=== PATIENT | male | born 1950 | race Caucasian/White ===

== ENCOUNTER → 2018-01-29 14:30 | Outpatient (CLI) | payer MEDICARE, BC, SELFPAY | PROVIDERS: PCP Nurse Practitioner Family; Visit Provider Internal Medicine Interventional Cardiology | DX: I48.91 Unspecified atrial fibrillation (principal); Z86.73 Personal history of transient ischemic attack (TIA), and cerebral infarction without residual deficits; R00.1 Bradycardia, unspecified; Z79.01 Long term (current) use of anticoagulants; I47.2 Ventricular tachycardia; R55 Syncope and collapse; I10 Essential (primary) hypertension; G47.30 Sleep apnea, unspecified; R07.9 Chest pain, unspecified | CPT/HCPCS: 99213 ==

== ENCOUNTER → 2018-02-07 14:00 | Outpatient (CLI) | payer MEDICARE, BC, SELFPAY | PROVIDERS: PCP Nurse Practitioner Family; Visit Provider Psychiatry & Neurology Neurology | DX: I69.398 Other sequelae of cerebral infarction (principal); R53.83 Other fatigue; I69.311 Memory deficit following cerebral infarction; I48.0 Paroxysmal atrial fibrillation | CPT/HCPCS: 99214 ==

== ENCOUNTER → 2018-03-19 12:17 | Outpatient (BNVA) | payer MEDICARE, BC, SELFPAY | PROVIDERS: Visit Provider Internal Medicine Interventional Cardiology | DX: I48.91 Unspecified atrial fibrillation (principal); R00.1 Bradycardia, unspecified; R55 Syncope and collapse; I63.9 Cerebral infarction, unspecified; I47.2 Ventricular tachycardia; R07.89 Other chest pain; R53.83 Other fatigue; Z79.01 Long term (current) use of anticoagulants; I10 Essential (primary) hypertension | CPT/HCPCS: 99213 ==

== ENCOUNTER → 2018-03-19 14:28 | Outpatient (BNVA) | payer MEDICARE, BC, SELFPAY | PROVIDERS: Visit Provider Surgery | DX: Z12.11 Encounter for screening for malignant neoplasm of colon (principal); I10 Essential (primary) hypertension ==

== ENCOUNTER 2018-04-17 08:00 | Day surgery (SDC) | payer MEDICARE, BC, SELFPAY ==
[2018-04-17 08:10] VITALS: BP 121/70; PULSE 63; RESP 16; TEMP 35.5; O2SAT 97
[2018-04-17] MEDS: Lactated Ringers 1,000 ML 30 ML IV (08:51)
[2018-04-17 12:00] VITALS: BP 116/70; PULSE 63; RESP 18; TEMP 35.9; O2SAT 98
--- NOTE | 2018-04-17 14:38 | W.COLOREPORT ---
Date of service: 04/17/18 Time of Service: 11:00 Colonoscopy Report Date of procedure: 04/17/18 Pre-op diagnosis general: Colorectal cancer risk Post-op diagnosis procedure note: other (Mild sigmoid diverticulosis) Procedure: Colonoscopy to the cecum Anesthesia proc note operative: MAC (Trey Greer CRNA; ASA 2, Mallampati class II) Estimated blood loss (mL): 0 Pathology: none sent Complications: None Disposition: same day Indications: 67-year-old gentleman presenting for colorectal cancer screening by colonoscopy. His last colonoscopy was over 10 years ago, but was unremarkable at that time. He has been asymptomatic since his last colonoscopy. He has no known family history of colorectal cancer. The colonoscopy procedure was reviewed with him and the risks of the procedure were discussed with Mr. Ye. All his questions were answered to his satisfaction. Prep: Miralax/Dulcolax Procedure Start Time: 11:04 Procedure End Time: 11:20 Retraction Time: 9 minutes Findings: In examining the colon from cecum to anus, the patient was noted to have some mild sigmoid diverticulosis but no other abnormalities of the colon, rectum, and anorectal junction, were noted. Procedure Description: The patient was seen in the day surgery waiting area. His identification was confirmed, and procedure check. He was then brought to the procedure room. Monitoring for telemetry, blood pressure, oxygen saturation, and end tidal CO2 monitoring were applied. An appropriate time out was performed to confirm, identification, allergies, medication, procedure, was performed. Sedation was titrated for affect by the ADMISSIONS ASSISTANT; Once adequate sedation was achieved, I performed a inspection of the external perineum, and a digitial rectal examination. No significant external abnormalities were noted. On digital rectal examination, there was no blood, no masses, good rectal tone, and a normal prostate. I advanced the colonoscope from the anus to the cecum under direct visualization. The cecum was identified by the ileal-cecal valve, and the appendiceal orifice. The scope was then withdrawn in circumferential manner from the cecum to the rectum. The patient was noted to have some mild sigmoid diverticulosis but no other abnormalities were noted of the colon. The scope was then withdrawn into the rectum, and retroflexed. No abnormalities were noted of the rectum or anorectal junction. The scope was then withdrawn, terminating the procedure. There were no complications during the procedure, and the patient tolerated the procedure well. He was returned to the day surgery recovery area in good condition. Plan: Will continue with routine screening for colorectal cancer according to current consensus guidelines, which is currently 10 years.
--- NOTE | 2018-04-17 14:47 | COLE_ITS ---
Date of service: 04/17/18 Time of Service: 11:00 Colonoscopy Report Date of procedure: 04/17/18 Pre-op diagnosis general: Colorectal cancer risk Post-op diagnosis procedure note: other (Mild sigmoid diverticulosis) Procedure: Colonoscopy to the cecum Anesthesia proc note operative: MAC (Trey Greer CRNA; ASA 2, Mallampati class II) Estimated blood loss (mL): 0 Pathology: none sent Complications: None Disposition: same day Indications: 67-year-old gentleman presenting for colorectal cancer screening by colonoscopy. His last colonoscopy was over 10 years ago, but was unremarkable at that time. He has been asymptomatic since his last colonoscopy. He has no known family history of colorectal cancer. The colonoscopy procedure was reviewed with him and the risks of the procedure were discussed with Mr. Ye. All his questions were answered to his satisfaction. Prep: Miralax/Dulcolax Procedure Start Time: 11:04 Procedure End Time: 11:20 Retraction Time: 9 minutes Findings: In examining the colon from cecum to anus, the patient was noted to have some mild sigmoid diverticulosis but no other abnormalities of the colon, rectum, and anorectal junction, were noted. Procedure Description: The patient was seen in the day surgery waiting area. His identification was confirmed, and procedure check. He was then brought to the procedure room. Monitoring for telemetry, blood pressure, oxygen saturation , and end tidal CO2 monitoring were applied. An appropriate time out was performed to confirm, identification, allergies, medication, procedure, was performed. Sedation was titrated for affect by the AUTO CUSTOMIZE PAINTER; Once adequate sedation was achieved, I performed a inspection of the external perineum, and a digitial rectal examination. No significant external abnormalities were noted. On digital rectal examination, there was no blood, no masses, good rectal tone, and a normal prostate. I advanced the colonoscope from the anus to the cecum under direct visualization. The cecum was identified by the ileal-cecal valve, and the appendiceal orifice. The scope was then withdrawn in circumferential manner from the cecum to the rectum. The patient was noted to have some mild sigmoid diverticulosis but no other abnormalities were noted of the colon. The scope was then withdrawn into the rectum, and retroflexed. No abnormalities were noted of the rectum or anorectal junction. The scope was then withdrawn, terminating the procedure. There were no complications during the procedure, and the patient tolerated the procedure well. He was returned to the day surgery recovery area in good condition. Plan: Will continue with routine screening for colorectal cancer according to current consensus guidelines, which is currently 10 years.
--- NOTE | 2018-04-17 14:51 | PDOC.DSDIS_ITS ---
Discharge Plan Disposition Patient Disposition: HOME Condition: Good Discharge Details Reason For Visit: colorectal cancer screen Attending Provider: Nico Montiel Primary Care Provider: Elisa Garner Home Meds and New Rx's Prescriptions: Continue aspirin 81 MG tablet,chewable 81 mg PO DAILY RF: 0 lisinopril 30 MG tablet 30 mg PO DAILY Qty: 90 RF: 4 atorvastatin 40 MG tablet 40 mg PO DAILY RF: 0 apixaban [Eliquis] 5 MG tablet 5 mg PO BID 90 Days Qty: 90 RF: 3 carvedilol 6.25 mg tablet 12.5 mg PO BID Qty: 120 RF: 11 Discharge Instructions Instructions: Colonoscopy (DC) Stand Alone Forms: Colonoscopy Post Instructions, Valeriano Rosenthal (DSU) Activity:: Activity as Tolerated Diet:: As Tolerated Discharge Orders Discharge Orders: Discharge Order (Routine); Ordered 04/17/18 Ordered By: Nico Montiel Discharge Data Discharge Date/Time-TO BE ENTERED AT DEPARTURE: 04/17/18 12:15 Discharge Comment: Start Luna gurrola DS: Diagnosis Discharge Diagnosis (1) Encounter for colorectal cancer screening: Start date: 04/17/18 Start time: 11:00 Status: Acute Asessment and Plan: Colonoscopy performed: Colonoscopy Report Date of procedure: 04/17/18 Pre-op diagnosis general: Colorectal cancer risk Post-op diagnosis procedure note: other (Mild sigmoid diverticulosis) Procedure: Colonoscopy to the cecum Anesthesia proc note operative: MAC (Trey Greer CRNA; ASA 2, Mallampati class II) Estimated blood loss (mL): 0 Pathology: none sent Complications: None Disposition: same day Indications: 67-year-old gentleman presenting for colorectal cancer screening by colonoscopy. His last colonoscopy was over 10 years ago, but was unremarkable at that time. He has been asymptomatic since his last colonoscopy. He has no known family history of colorectal cancer. The colonoscopy procedure was reviewed with him and the risks of the procedure were discussed with Mr. Ye. All his questions were answered to his satisfaction. Prep: Miralax/Dulcolax Procedure Start Time: 11:04 Procedure End Time: 11:20 Retraction Time: 9 minutes Findings: In examining the colon from cecum to anus, the patient was noted to have some mild sigmoid diverticulosis but no other abnormalities of the colon, rectum, and anorectal junction, were noted. Procedure Description: The patient was seen in the day surgery waiting area. His identification was confirmed, and procedure check. He was then brought to the procedure room. Monitoring for telemetry, blood pressure, oxygen saturation , and end tidal CO2 monitoring were applied. An appropriate time out was performed to confirm, identification, allergies, medication, procedure, was performed. Sedation was titrated for affect by the COSMETOLOGY PROFESSOR; Once adequate sedation was achieved, I performed a inspection of the external perineum, and a digitial rectal examination. No significant external abnormalities were noted. On digital rectal examination, there was no blood, no masses, good rectal tone, and a normal prostate. I advanced the colonoscope from the anus to the cecum under direct visualization. The cecum was identified by the ileal-cecal valve, and the appendiceal orifice. The scope was then withdrawn in circumferential manner from the cecum to the rectum. The patient was noted to have some mild sigmoid diverticulosis but no other abnormalities were noted of the colon. The scope was then withdrawn into the rectum, and retroflexed. No abnormalities were noted of the rectum or anorectal junction. The scope was then withdrawn, terminating the procedure. There were no complications during the procedure, and the patient tolerated the procedure well. He was returned to the day surgery recovery area in good condition. Plan: Will continue with routine screening for colorectal cancer according to current consensus guidelines, which is currently 10 years.
== END 2018-04-17 12:15 | disposition home or self-care (01) ==
PROVIDERS: PCP Nurse Practitioner Family; Visit Provider Surgery
PROC: 0DJD8ZZ Inspection of Lower Intestinal Tract, Via Natural or Artificial Opening Endoscopic (ICD-10-PCS; CPT 45378; principal; 2018-04-17 10:30)
DX: Z12.11 Encounter for screening for malignant neoplasm of colon (principal); K57.30 Diverticulosis of large intestine without perforation or abscess without bleeding; G47.33 Obstructive sleep apnea (adult) (pediatric); I10 Essential (primary) hypertension; F17.210 Nicotine dependence, cigarettes, uncomplicated
CPT/HCPCS: G0121

== ENCOUNTER 2018-04-19 07:55 | Emergency (ER) | payer MEDICARE, BC, SELFPAY ==
[2018-04-19 08:35] VITALS: BP 134/62; PULSE 58; RESP 12; TEMP 36.4; O2SAT 98
--- NOTE | 2018-04-19 09:24 | ED.GENADUL_ITS ---
Discharge Plan Disposition Patient Disposition: HOME Discharge Details Chief Complaint: Laceration Clinical Impression: Facial laceration Primary Care Provider: Elisa Garner ED Provider: Kelvin Bowman Home Meds and New Rx's Prescriptions: Continue aspirin 81 MG tablet,chewable 81 mg PO DAILY RF: 0 lisinopril 30 MG tablet 30 mg PO DAILY Qty: 90 RF: 4 atorvastatin 40 MG tablet 40 mg PO DAILY RF: 0 apixaban [Eliquis] 5 MG tablet 5 mg PO BID 90 Days Qty: 90 RF: 3 carvedilol 6.25 mg tablet 12.5 mg PO BID Qty: 120 RF: 11 Discharge Instructions Instructions: Skin Adhesive Care (ED), Facial Laceration (ED) Referrals: Elisa Garner [Primary Care Provider] - Discharge Data Discharge Date/Time-TO BE ENTERED AT DEPARTURE: 04/19/18 09:44 Medical Decision Making 67-year-old male on Eliquis for A. fib here with laceration to his left face while shaving, persistent bleeding for the past few hours despite intermittent pressure. Bleeding is now stopped here in the emergency department. Skin adhesive applied to maintain hemostasis. Patient advised to keep area protected. Follow-up with PCP. Return for any worsening or new concerning symptom. HPI General Mode of arrival: ambulatory . Date/Time Provider Initiated Documentation: 04/19/18 09:22 . Limitations to Documentation: no limitations . Information obtained by: patient . HPI Narrative: 67-year-old male on Eliquis for A. fib here with laceration to his left face while shaving, persistent bleeding for the past few hours despite intermittent pressure. Bleeding was light but persistent over the past few hours. Bleeding is now stopped here in the emergency department. Related Data Home Medications Medication Instructions Recorded Confirmed aspirin 81 mg PO DAILY tab-cap 09/11/17 04/19/18 lisinopril 30 mg PO DAILY #90 tab-cap 01/16/18 04/19/18 atorvastatin 40 mg PO DAILY tab-cap 01/29/18 04/19/18 apixaban [Eliquis] 5 mg PO BID 90 Days #90 tab 02/09/18 04/19/18 carvedilol 6.25 mg tablet 12.5 mg PO BID #120 tab-cap 04/13/18 04/19/18 Previous Rx's Medication Instructions Recorded lisinopril 30 mg PO DAILY #90 tab-cap 01/16/18 apixaban [Eliquis] 5 mg PO BID 90 Days #90 tab 02/09/18 carvedilol 6.25 mg tablet 12.5 mg PO BID #120 tab-cap 04/13/18 Allergies Allergy/AdvReac Type Severity Reaction Status Date / Time chlorthalidone Allergy Intermediate HOT SKIN Verified 04/19/18 08:54 RASH,ITCHY General Stated Complaint: Laceration CLAU: 3 Review of Systems Constitutional Denies fatigue Integumentary/Breasts Reports as per HPI Endocrine Denies fatigue Exam Const General: cooperative and no acute distress Skin Trauma: laceration (small left lower face, 1mm with no active bleeding) Neuro General: alert and awake Course Vital Signs Temperature 36.4 C L 04/19/18 08:35 Pulse 58 L 04/19/18 08:35 Respiratory Rate 12 04/19/18 08:35 Blood Pressure 134/62 04/19/18 08:35 Pulse Oximetry 98 04/19/18 08:35 Temperature 36.4 C L 04/19/18 08:35 Temperature Source Temporal Artery Scan 04/19/18 08:35 Pulse 58 L 04/19/18 08:35 Respiratory Rate 12 04/19/18 08:35 Respiratory Effort Non-Labored 04/19/18 08:51 Blood Pressure 134/62 04/19/18 08:35 Blood Pressure Position Supine 04/19/18 08:35 Pulse Oximetry 98 04/19/18 08:35 Pain Level 0 04/19/18 08:35
== END 2018-04-19 09:44 | disposition home or self-care (01) ==
LOC: ER 09:56
PROVIDERS: Emergency Provider Student in an Organized Health Care Education/Training Program; PCP Nurse Practitioner Family
DX: S01.81XA Laceration without foreign body of other part of head, initial encounter (principal); W26.8XXA Contact with other sharp object(s), not elsewhere classified, initial encounter; I48.91 Unspecified atrial fibrillation; Z79.01 Long term (current) use of anticoagulants
CPT/HCPCS: 12011; 90471

== ENCOUNTER → 2018-05-21 10:45 | Outpatient (BNVA) | payer MEDICARE, BC, SELFPAY | PROVIDERS: PCP Nurse Practitioner Family; Referring Provider Nurse Practitioner Family; Visit Provider Surgery | DX: R69 Illness, unspecified (principal) ==

== ENCOUNTER 2018-06-13 06:06 | Day surgery (SDC) | payer OTHER, MEDICARE, BC, SELFPAY ==
[2018-06-13 06:15] VITALS: BP 115/70; PULSE 65; RESP 17; TEMP 36.5; O2SAT 97
[2018-06-13] MEDS: Lactated Ringers 1,000 ML 30 ML IV ×2 (07:14→09:33)
[2018-06-13] MEDS: Bupivacaine 0.5% Pres-Free 30 ML VIAL ×2 (07:25→08:50)
[2018-06-13 09:09] VITALS: BP 133/67; PULSE 61; RESP 16; TEMP 36.4; O2SAT 98
[2018-06-13 09:14] VITALS: BP 148/63; PULSE 61; RESP 17; TEMP 36.4; O2SAT 97
[2018-06-13 09:19] VITALS: BP 137/71; PULSE 59; RESP 15; TEMP 36.4; O2SAT 97
[2018-06-13 09:34] VITALS: BP 157/67; PULSE 60; RESP 16; TEMP 36.5; O2SAT 97
[2018-06-13 10:16] VITALS: BP 134/65; PULSE 60; RESP 16; TEMP 35.9; O2SAT 98
--- NOTE | 2018-06-13 15:43 | W.PM.OP ---
Date of service: 06/13/18 Time of Service: 08:00 Operative Note DATE OF PROCEDURE: 06/13/18 PRE-OP DIAGNOSIS: Umbilical Hernia POST-OP DIAGNOSIS: same PROCEDURE: Open umbilical Herniorhaphy with mesh SURGEON: Nico Montiel SPINNING AND WINDING SUPERVISOR: Elvira Rothman ANESTHESIA: GETA (General Anesthesia via LMA, by Rowan Mauro CRNA, ASA 3, Mallampati class II), regional (Bilateral TAP via u/s with 1.3% exparel, and 0.5% marcaine) and local (0.5% marciane plain) ESTIMATED BLOOD LOSS: 1 PATHOLOGY: none sent COMPLICATIONS: None Patient was transported to: PACU Patient's condition: stable Implants: Ventralex ST Hernia patch 6 cm round Lot #: [id number] Indications: 67-year-old male referred for umbilical hernia that occurred while at work. He reports noticing a sharp pain after lifting several heavy objects at work. He also noticed a bulge of the umbilicus that started after having this pain. He continues to have discomfort with lifting heavy objects, pulling, or pushing heavy objects. Discomfort does improve if he lies flat, and the lump disappears also. It was recommended that he undergo open repair of the umbilical hernia. The procedure was reviewed with him, and the risks of the procedure discussed. All his questions were answered to his satisfaction. He gave consent for open umbilical hernia. Findings: In exploring the abdominal wall around the umbilicus, a small umbilical hernia was identified from the umbilicus and excised at the level of the abdominal wall. It was subsequently repaired with mesh. Procedure Description: The patient was brought to the operating room, and positioned supine. The patient's identification, allergies, medications, procedure, and site were confirmed. An LMA was placed and sedation was titrated for effect by the SOCK MENDER. Once at adequate sedation was obtained, the SOCK MENDER placed bilateral tap blocks under ultrasound guidance (please see separate procedure note for full details). Once the tap block placed, the abdomen was prepped with ChloraPrep block draped in standard sterile fashion. A semi-curvilinear incision was made on the inferior edge of the umbilicus, after local been infiltrated to create a field block. The incision was carried down to the umbilicus using cautery to divide the tissues and obtain hemostasis. Once linea alba was identified at the base of the umbilicus. The abdominal wall was cleaned off for approximately centimeter bilaterally to linea alba. A Metzenbaum scissors was then used to the bluntly dissected circumferentially around the umbilicus, until the tips could be seen on the opposite side. A Christine clamp was then passed posterior to the umbilicus which exposed the posterior surface of the umbilicus and its attachment to the hernia sac. Cautery was then used to separate the posterior umbilicus from the hernia sac. Once the hernia sac was from the overlying umbilicus, the hernia sac contents were reduced into the abdomen the sac was excised at the level of the abdominal wall. A small defect was left in the abdominal wall after removing the hernia sac. This measured about 2 cm in greatest diameter. I selected a ventralex ST hernia patch 6 cm in greatest diameter. Using blunt dissection with my finger, posterior abdominal wall was cleaned cleaned off to allow apposition of the mesh against the abdominal wall. The hernia patch was then passed into the abdomen and pulled up against the posterior abdominal wall using the attached straps. The mesh was adjusted so that circumferentially it was flat against the posterior abdominal wall. The mesh was then sewn in place using 0 Vicryl suture to close the fascial defect and anchored the mesh in place in the midline. The posterior umbilicus was then tacked down to the abdominal wall using 3-0 Vicryl suture. The skin was then closed in layers. The subcutaneous was approximated using 3-0 Vicryl sutures of inverted interrupted stitches. The skin was closed using 4-0 Vicryl suture in a running subcuticular fashion. Benzoin, Steri-Strips, and a dry sterile dressing were then applied. The patient was awakened in the operating room, and brought to postanesthesia care unit in good condition. All counts were reported as correct x2
--- NOTE | 2018-06-13 15:48 | ROE_ITS ---
Date of service: 06/13/18 Time of Service: 08:00 Operative Note DATE OF PROCEDURE: 06/13/18 PRE-OP DIAGNOSIS: Umbilical Hernia POST-OP DIAGNOSIS: same PROCEDURE: Open umbilical Herniorhaphy with mesh SURGEON: Nico Montiel ANCHORER: Elvira Rothman ANESTHESIA: GETA (General Anesthesia via LMA, by Rowan Mauro, DELFINO, ASA 3, Mallam elena class II), regional (Bilateral TAP via u/s with 1.3% exparel, and 0.5% marcaine) and local (0.5% marciane plain) ESTIMATED BLOOD LOSS: 1 PATHOLOGY: none sent COMPLICATIONS: None Patient was transported to: PACU Patient's condition: stable Implants: Ventralex ST Hernia patch 6 cm round Lot #: [id number] Indications: 67-year-old male referred for umbilical hernia that occurred while at work. He reports noticing a sharp pain after lifting several heavy objects at work. He also noticed a bulge of the umbilicus that started after having this pain. He continues to have discomfort with lifting heavy objects, pulling, or pushing heavy objects. Discomfort does improve if he lies flat, and the lump disappears also. It was recommended that he undergo open repair of the umbilical hernia. The procedure was reviewed with him, and the risks of the procedure discussed. All his questions were answered to his satisfaction. He gave consent for open umbilical hernia. Findings: In exploring the abdominal wall around the umbilicus, a small umbilical hernia was identified from the umbilicus and excised at the level of the abdo junior wall. It was subsequently repaired with mesh. Procedure Description: The patient was brought to the operating room, and positioned supine. The patient's identification, allergies, medications, procedure, and site were confirmed. An LMA was placed and sedation was titrated for effect by the CREDIT ADMINISTRATOR. Once at adequate sedation was obtained, the CREDIT ADMINISTRATOR placed bilateral tap blocks under ultrasound guidance (please see separate procedure note for full details). Once the tap block placed, the abdomen was prepped with ChloraPrep block draped in standard sterile fashion. A semi-curvilinear incision was made on the inferior edge of the umbilicus, after local been infiltrated to create a field block. The incision was carried down to the umbilicus using cautery to divide the tissues and obtain hemostasis. Once linea alba was identified at the base of the umbilicus. The abdominal wall was cleaned off for approximately centimeter bilaterally to linea alba. A Metzenbaum scissors was then used to the bluntly dissected circumferentially around the umbilicus, until the tips could be seen on the opposite side. A Christine clamp was then passed posterior to the umbilicus which exposed the posterior surface of the umbilicus and its attachment to the hernia sac. Cautery was then used to separate the posterior umbilicus from the hernia sac. Once the hernia sac was from the overlying umbilicus, the hernia sac contents were reduced into the abdomen the sac was excised at the level of the abdominal wall. A small defect was left in the abdominal wall after removing the hernia sac. This measured about 2 cm in greatest diameter. I selected a ventralex ST hernia patch 6 cm in greatest diameter. Using blunt dissection with my finger, posterior abdominal wall was cleaned cleaned off to allow apposition of the mesh against the abdominal wall. The hernia patch was then passed into the abdomen and pulled up against the posterio r abdominal wall using the attached straps. The mesh was adjusted so that circumferentially it was flat against the posterior abdominal wall. The mesh was then sewn in place using 0 Vicryl suture to close the fascial defect and anchored the mesh in place in the midline. The posterior umbilicus was then tacked down to the abdominal wall using 3-0 Vicryl suture. The skin was then closed in layers. The subcutaneous was approximated using 3-0 Vicryl sutures of inverted interrupted stitches. The skin was closed using 4-0 Vicryl suture in a running subcuticular fashion. Benzoin, Steri-Strips, and a dry sterile dressing were then applied. The patient was awakened in the operating room, and brought to postanesthesia care unit in good condition. All counts were reported as correct x2
--- NOTE | 2018-06-13 16:21 | PDOC.DSDIS_ITS ---
Discharge Plan Disposition Patient Disposition: HOME Condition: Good Discharge Details Reason For Visit: Umbilical Hernia Attending Provider: Nico Montiel Primary Care Provider: Elisa Garner Home Meds and New Rx's Prescriptions: New acetaminophen [Tylenol] 325 mg Tablet 650 mg PO Q4H PRN PRNQty: 30 RF: 0 tramadol 50 mg Tablet 50 mg PO Q6H PRN PRNQty: 7 RF: 0 Continued aspirin 81 MG tablet,chewable 81 mg PO DAILY RF: 0 lisinopril 30 MG tablet 30 mg PO DAILY Qty: 90 RF: 4 atorvastatin 40 MG tablet 40 mg PO DAILY RF: 0 Eliquis 5 MG tablet 5 mg PO BID 90 Days Qty: 90 RF: 3 carvedilol 6.25 mg tablet 12.5 mg PO BID Qty: 120 RF: 11 Discharge Instructions Instructions: Ventral Hernia Repair (DC) Additional Instructions: Dr. Nico Montiel Post-Operative Discharge Instructions 1. Because there will be medication in your system for the next 24 hours, you may feel a little sleepy. Your coordination will be affected. Therefore: * Do not drive or operate dangerous equipment for 24 hours. * Do not drink alcohol beverages for 24 hours (not even beer). * Plan to go home and rest for the day. Restrictions: * Do not lifting, pulling, or pushing over 20lbs for 6 weeks. * No strenuous bending or twisting for 6weeks, if it hurts stop. * No baths, you can shower. Let warm soapy water run over wound, then pat wound dry. Activity: * The day of surgery spend most of the day resting in a comfortable bed or recliner. 2-3 times during the day get up and walk around the house. * The day after surgery, or after your discharge, walk at least 3 times a day and spend increasing amounts of time walking and sitting up. If you are tired rest, but keep moving as able. * Continue Incentive Spirometry at home if you were performing this therapy in the hospital. Diet: * Resume home diet as tolerated. * Start with a light diet, your appetite will improve with time. * Drink at least 4-6 glasses of water per day to keep hydrated. Wound Care: * Removed dressing in 48 hrs, leave steri-strips to fall off. * You may cover the wound with a dry sterile dressing to keep clothing from rubbing against the wound. Continue all your regular medications unless directed otherwise. Call the office or the Hospital Sleep Technician , If you have: * Pain not controlled with pain medication. * Nausea and vomiting. * Temperature greater than 101 degrees Fahrenheit. * Drainage from your wound that soaks through your dressing. *No more than 4000 milligrams of Tylenol in 24 hours. Narcotic pain medication can be constipating, if you have not had a bowel movement within 3 days use a laxative, I recommend Milk of Magnesia (MOM) 1oz. every 6 hrs until you have a bowel movement. I understand the above instructions and have no questions. Signature of Patient or Responsible Adult Escort Date/Time Name of Responsible Adult Escort Signature of Nurse Date/Time Revised 10/11/10 Stand Alone Forms: Anes.Nerve Block Instructions, DSU Post op Instructions, Valeriano Rosenthal (DSU) Referrals: Nico Montiel DO [ [facility] STAFF PHYSICIAN] - 06/27/18 9:30 am (Follow up after open umbilical hernia repair) Activity:: see instruction Remove Dressings/Wound Care:: 48 hours Shower/Bathe:: 48 hours Diet:: As Tolerated Discharge Orders Discharge Orders: Discharge Order (Routine); Ordered 06/13/18 Ordered By: Nico Montiel Discharge Data Discharge Date/Time-TO BE ENTERED AT DEPARTURE: 06/13/18 10:41 DS: Diagnosis Discharge Diagnosis (1) Umbilical hernia: Status: Acute Asessment and Plan: Open umbilical hernia repair with mesh
== END 2018-06-13 10:41 | disposition home or self-care (01) ==
PROVIDERS: PCP Nurse Practitioner Family; Visit Provider Surgery
PROC: (CPT 49585; principal; 2018-06-13 07:30)
DX: K42.9 Umbilical hernia without obstruction or gangrene (principal); I10 Essential (primary) hypertension; G47.33 Obstructive sleep apnea (adult) (pediatric); F17.210 Nicotine dependence, cigarettes, uncomplicated
CPT/HCPCS: 49585; C1781; J0131; J0690; J1100; J2405; J3010

== ENCOUNTER → 2018-06-27 09:31 | Outpatient (BNVA) | payer MEDICARE, BC, SELFPAY | PROVIDERS: PCP Nurse Practitioner Family; Referring Provider Nurse Practitioner Family; Visit Provider Surgery | DX: Z48.89 Encounter for other specified surgical aftercare (principal); K42.9 Umbilical hernia without obstruction or gangrene; I10 Essential (primary) hypertension ==

== ENCOUNTER → 2018-08-27 13:55 | Outpatient (BNVA) | payer MEDICARE, BC, SELFPAY | PROVIDERS: PCP Nurse Practitioner Family; Referring Provider Nurse Practitioner Family; Visit Provider Surgery | DX: R69 Illness, unspecified (principal) ==

== ENCOUNTER → 2018-09-24 10:40 | Outpatient (BNVA) | payer MEDICARE, BC, SELFPAY | PROVIDERS: PCP Nurse Practitioner Family; Visit Provider Internal Medicine Interventional Cardiology | DX: R69 Illness, unspecified (principal) ==

== ENCOUNTER 2018-09-24 10:53 | Outpatient (CLI) | payer MEDICARE, BC, SELFPAY | END 2018-09-24 11:13 | PROVIDERS: PCP Nurse Practitioner Family; Visit Provider Internal Medicine Interventional Cardiology | DX: I48.91 Unspecified atrial fibrillation (principal); Z86.73 Personal history of transient ischemic attack (TIA), and cerebral infarction without residual deficits; R00.1 Bradycardia, unspecified; Z79.01 Long term (current) use of anticoagulants; I47.2 Ventricular tachycardia; I10 Essential (primary) hypertension | CPT/HCPCS: 99214; 93005; 93010 ==

== ENCOUNTER 2018-12-03 15:12 | Outpatient (REF) | payer MEDICARE, BC, SELFPAY ==
[2018-12-03 21:43] LABS: ALT 48 U/L (12-78); AST 28 U/L (15-37); Alkaline Phosphatase 74 U/L (46-116); Anion Gap 13.3 mmol/L (3-11); BUN 28 mg/dL (7-18); Bilirubin, Total 0.6 mg/dL (0.2-1.0); CO2 22.7 mmol/L (21.0-32.0); CREATININE 0.99 mg/dL (0.70-1.30); Calcium 9.6 mg/dL (8.5-10.1); Chloride 104 mmol/L (98-107); Glucose 96 mg/dL (70-100); Potassium 4.6 mmol/L (3.5-5.1); Sodium 140 mmol/L (136-145); Total Protein 7.1 g/dL (6.4-8.2)
[2018-12-05 10:21] LABS: Hepatitis C Ab w Rflx HCV PCR Negative (NEGAT)
== END 2018-12-03 15:32 ==
LOC: NCHCN 15:12
PROVIDERS: PCP Nurse Practitioner Family; Visit Provider Nurse Practitioner Family
DX: I10 Essential (primary) hypertension (principal); E78.5 Hyperlipidemia, unspecified; I48.91 Unspecified atrial fibrillation; L80 Vitiligo; Z11.59 Encounter for screening for other viral diseases
CPT/HCPCS: 80053; 86803

== ENCOUNTER 2018-12-06 00:24 | Outpatient (CLI) | payer MEDICARE, BC, SELFPAY ==
--- NOTE | 2018-12-06 12:59 | DI.CTLCSR_ITS ---
SYMPTOM/DIAGNOSIS: FORMER SMOKER, Z87.891, CARDIOVASCULAR SCREENING, Z13.6 LOW DOSE LUNG SCREENING CHEST CT: The study was carried according to the usual protocol. No pulmonary nodules are identified. Small regions of dependent atelectasis are evident. There is no pleural effusion. The heart is not enlarged. There is no pericardial effusion. Coronary artery calcification is demonstrated. There is no evidence of an aortic aneurysm. SUMMARY: No lung nodules are demonstrated. Category 1. Follow up surveillance with a repeat study in 12 months is recommended. Lung-RAD Category: Lung RADS Category 1- Negative
== END 2018-12-06 00:44 ==
PROVIDERS: PCP Nurse Practitioner Family; Visit Provider Nurse Practitioner Family
DX: Z12.2 Encounter for screening for malignant neoplasm of respiratory organs (principal); Z87.891 Personal history of nicotine dependence; J98.11 Atelectasis; Z13.6 Encounter for screening for cardiovascular disorders
CPT/HCPCS: G0297

== ENCOUNTER 2018-12-13 01:05 | Outpatient (CLI) | payer MEDICARE, BC, SELFPAY ==
--- NOTE | 2018-12-13 07:08 | DI.US_ITS ---
SYMPTOM/DIAGNOSIS; CARDIOVASCULAR SCREENING Z13.6 ABDOMINAL ULTRASOUND, LIMITED: 12/13/18 Ultrasound was performed to evaluate the possibility of abdominal aortic aneurysm. Abdominal aorta is of normal diameter throughout. Common iliac arteries are of normal diameter. CONCLUSION: No abdominal aortic aneurysm.
== END 2018-12-13 01:25 ==
PROVIDERS: PCP Nurse Practitioner Family; Visit Provider Nurse Practitioner Family
DX: Z13.6 Encounter for screening for cardiovascular disorders (principal); I10 Essential (primary) hypertension
CPT/HCPCS: 76706

== ENCOUNTER 2018-12-24 09:17 | Outpatient (CLI) | payer MEDICARE, BC, SELFPAY | END 2018-12-24 09:37 | PROVIDERS: PCP Nurse Practitioner Family; Visit Provider Internal Medicine Interventional Cardiology | DX: Z79.01 Long term (current) use of anticoagulants (principal); I48.91 Unspecified atrial fibrillation; I10 Essential (primary) hypertension; Z86.73 Personal history of transient ischemic attack (TIA), and cerebral infarction without residual deficits; I47.2 Ventricular tachycardia; G47.30 Sleep apnea, unspecified; R00.1 Bradycardia, unspecified | CPT/HCPCS: 99214; 93005; 93010 ==

== ENCOUNTER 2019-04-01 16:20 | Emergency (ER) | payer MEDICARE, BC, SELFPAY ==
[2019-04-01 16:30] VITALS: BP 153/76; PULSE 70; RESP 16; TEMP 36.8; O2SAT 97
--- NOTE | 2019-04-01 17:13 | ED.GENADUL_ITS ---
Discharge Plan Disposition Patient Disposition: HOME Condition: Stable Discharge Details Chief Complaint: EyeProblem Clinical Impression: Subconjunctival hemorrhage Primary Care Provider: Elisa Garner ED Provider: Char Toro Home Meds and New Rx's Prescriptions: Continued lisinopril 30 mg tablet 20 mg PO BID RF: 0 aspirin 81 MG tablet,chewable 81 mg PO DAILY RF: 0 atorvastatin 40 MG tablet 40 mg PO DAILY RF: 0 Eliquis 5 MG tablet 5 mg PO BID 90 Days Qty: 90 RF: 3 carvedilol 6.25 mg tablet 12.5 mg PO BID Qty: 120 RF: 11 acetaminophen [Tylenol] 325 mg Tablet 650 mg PO Q4H PRN PRNQty: 30 RF: 0 Discharge Instructions Instructions: Subconjunctival Hemorrhage (ED) Additional Instructions: Hold your Eliquis dose tonight and tomorrow morning and then resume your regular dosing tomorrow evening. Follow-up with your primary care doctor this week for reevaluation. You could also follow-up with [facility] in [place] for reevaluation. Return to the emergency department if you develop any worsening or new concerning symptoms such as headaches, blurry vision, dizziness or worsening bleeding. Discharge Data Discharge Physician: Char Toro Medical Decision Making 68-year-old male with a history of atrial fibrillation and CVA on Eliquis who presents with blood in left eye since yesterday after a sneezing spell. Denies fever, headache, neck pain, blurry vision, vomiting, chest pain or shortness of breath. Left eye exam reveals a left lateral subconjunctival hemorrhage. PERRLA, EOMI, no obvious focal deficits. Patient stated that his cardiology office Dr. Blanco recommended he stop his Eliquis. Case discussed with Dr. Reid who discussed further with Dr. Blanco who recommended that he hold the Eliquis for 1 day. Patient Vlad took his dose this morning, he is advised to hold tonight and tomorrow morning's dose and resume regular dosing tomorrow night. He is advised to follow-up with his primary care doctor and to return here if worse. Medical Records Medical records reviewed: Yes I reviewed the patient's medical records. HPI General Mode of arrival: ambulatory . Date/Time Provider Initiated Documentation: 04/01/19 16:34 . Limitations to Documentation: no limitations . Information obtained by: patient . HPI Narrative: Patient is a 68-year-old male with a history of atrial fibrillation and CVA with thrombosis on Eliquis who presents with blood in left eye since yesterday morning. Patient states he had a sneezing spell yesterday multiple times. He called his inner tube cutter office today and they advised that he stop his Eliquis. He states he is here for further evaluation. He denies any blurry vision, dizziness or neck pain. He denies any significant headache. Related Data Home Medications Medication Instructions Recorded Confirmed aspirin 81 mg PO DAILY tab-cap 09/11/17 04/01/19 atorvastatin 40 mg PO DAILY tab-cap 01/29/18 04/01/19 Eliquis 5 mg PO BID 90 Days #90 tab 02/09/18 04/01/19 carvedilol 6.25 mg tablet 12.5 mg PO BID #120 tab-cap 04/13/18 04/01/19 acetaminophen [Tylenol] 650 mg PO Q4H PRN PRN #30 tab 06/13/18 04/01/19 lisinopril 30 mg tablet 20 mg PO BID tab-cap 09/25/18 04/01/19 Previous Rx's Medication Instructions Recorded Eliquis 5 mg PO BID 90 Days #90 tab 02/09/18 carvedilol 6.25 mg tablet 12.5 mg PO BID #120 tab-cap 04/13/18 acetaminophen [Tylenol] 650 mg PO Q4H PRN PRN #30 tab 06/13/18 Allergies Allergy/AdvReac Type Severity Reaction Status Date / Time chlorthalidone Allergy Intermediate HOT SKIN Verified 04/01/19 16:33 RASH,ITCHY General Stated Complaint: EyeProblem CLAU: 3 Review of Systems Review of Systems ROS Unobtainable: All systems reviewed & are unremarkable except as noted in HPI and below Constitutional Constitutional: Reports as per HPI, Denies chills and Denies fever(s) Eyes Eyes: Denies blurry vision and Reports other (L eye subconjunctival hemorrhage) ENT Ears, Nose, Mouth, and Throat: Denies dizziness, Denies sore throat and Denies throat swelling Cardiovascular Cardiovascular: Denies chest pain and Denies dyspnea Respiratory Respiratory: Denies cough and Denies dyspnea Gastrointestinal Gastrointestinal: Denies abdominal pain, Denies diarrhea and Denies vomiting Genitourinary Genitourinary: Denies hematuria and Denies dysuria Musculoskeletal Musculoskeletal: Denies back pain and Denies numbness Integumentary/Breasts Skin/Breast: Denies lesions and Denies rash Neurologic Neurologic: Denies dizziness, Denies focal weakness and Denies numbness Allergic/Immunologic Allergic/Immunologic: Denies throat swelling [facility] Medical History Aphasia Arthritis Fatigue Hyperlipidemia Hypertension Ileus Intermittent chest pain Osteoarthritis Paresthesia Stroke 09/14/17 Tobacco abuse Vitiligo Weakness Surgical History H/O bilateral inguinal hernia repair (Resolved) H/O colonoscopy (Resolved 04/17/18) Dr Montiel, negative, repeat in 10 years H/O umbilical hernia repair (Acute 06/13/18) Dr Montiel History of total bilateral knee replacement (Resolved) Social History Smoking/Tobacco Use Status: Current-Occasional Alcohol Intake: current Alcohol Intake frequency: a few times a month Alcohol type: beer Drug use: Never Substance use type: does not use Do you feel safe in your relationship?: Yes Exam Const General: cooperative, healthy appearing and no acute distress [facility] Head: normal to inspection Mouth: oral mucosae normal Eyes General: appearance normal, both eyes and all related structures Periorbital: periorbital findings normal Eyelids: eyelids normal Conjunctivae: conjunctival abnormality left subconjunctival hemorrhage (L lateral eye) Pupils: PERRL EOM: EOM intact bilaterally Neck Neck: normal visual inspection Resp Effort & Inspection: normal respiratory effort and able to speak in complete sentences Cardio Rate: regular rate Skin General skin exam: no rashes or lesions noted Neuro General: alert, awake and oriented x3 Motor: muscle tone normal throughout Extrem General: normal to inspection and full ROM Psych Appearance: grossly normal Affect: normal affect Course Vital Signs Vital signs: Vital Signs Temperature 98.2 F 04/01/19 16:30 Pulse 70 04/01/19 16:30 Respiratory Rate 16 04/01/19 16:30 Blood Pressure 153/76 H 04/01/19 16:30 Pulse Oximetry 97 04/01/19 16:30 Temperature 98.2 F 04/01/19 16:30 Temperature Source Skin 04/01/19 16:30 Pulse 70 04/01/19 16:30 Respiratory Rate 16 04/01/19 16:30 Respiratory Effort Non-Labored 04/01/19 16:30 Blood Pressure 153/76 H 04/01/19 16:30 Blood Pressure Position Sitting 04/01/19 16:30 Pulse Oximetry 97 04/01/19 16:30 Oxygen Delivery Method Room Air 04/01/19 16:30 Oxygen Flow Rate 0 04/01/19 16:30 Pain Level 1 04/01/19 16:30
== END 2019-04-01 17:40 | disposition home or self-care (01) ==
PROVIDERS: Emergency Provider Physician Assistant; PCP Nurse Practitioner Family
DX: H11.32 Conjunctival hemorrhage, left eye (principal); I48.91 Unspecified atrial fibrillation; I10 Essential (primary) hypertension; Z79.01 Long term (current) use of anticoagulants
CPT/HCPCS: 99282

== ENCOUNTER 2019-07-05 10:07 | Outpatient (CLI) | payer BC, MEDICARE, SELFPAY ==
--- NOTE | 2019-07-25 09:00 | W.ZIOMONITOR ---
Date of service: 07/25/19 Time of Service: 09:00 ZIO Patch Chest Pain Coordinator Note: This is a 2-week ZIO patch ordered for indication of paroxysmal atrial fibrillation. ?The patient was in normal sinus rhythm for the majority of the recording. ?There was one episode of ventricular tachycardia which lasted 6 beats. There were rare (less than 1%) isolated ventricular ectopic beats. ?There were 13 episodes of supraventricular tachycardia with the longest lasting 16 seconds. ?There was a 2% burden of atrial fibrillation with heart rates ranging from 80 to 171 bpm. The longest episode lasted 4 hours. ?There were no pauses greater than 3 seconds and no evidence of high degree heart block. ?There were no patient triggered events.
== END 2019-07-05 10:27 ==
PROVIDERS: PCP Nurse Practitioner Family; Visit Provider Internal Medicine Cardiovascular Disease
DX: I48.0 Paroxysmal atrial fibrillation (principal); I47.2 Ventricular tachycardia; I47.1 Supraventricular tachycardia; I49.3 Ventricular premature depolarization
CPT/HCPCS: 0296T

== ENCOUNTER 2019-07-11 22:04 | Outpatient (REF) | payer BC, MEDICARE, SELFPAY ==
[2019-07-11 21:10] LABS: Abs Immature Grans 0.01 k/cumm (0.0-0.09); Absolute Basophil Count 0.03 k/cumm (0.0-0.2); Absolute Eosinophil Count 0.16 k/cumm (0.0-0.7); Absolute Monocyte Count 0.37 k/cumm (0.11-0.7); Absolute Neutrophil Count 3.14 k/cumm (1.2-6.7); Basophils % 0.7; Eosinophils % 3.5; HCT 36.1 % (40.0-50.0); HGB 12.6 g/dL (13.5-17.5); Immature Grans % 0.2 %; Lymphocytes % 17.7; Mean Corp. HGB Concentration 34.9 g/dL (32.0-36.0); Mean Corpuscular Hemoglobin 33.2 pg (27.0-33.0); Mean Platelet Volume 10.8 fL (8.0-11.0); Monocytes % 8.2; Neutrophils % 69.7; Platelet Count 232 x1000/uL (130-400); RBC Distribution Width 12.4 % (11.8-14.1); White Blood Cell Count 4.51 k/cumm (4.4-10.8)
[2019-07-11 21:31] LABS: ALT 24 U/L (16-63); AST 21 U/L (15-37); Albumin 3.8 g/dL (3.4-5.0); Alkaline Phosphatase 60 U/L (46-116); BUN 35 mg/dL (7-18); Bilirubin, Total 0.6 mg/dL (0.2-1.0); CREATININE 1.23 mg/dL (0.70-1.30); Chloride 105 mmol/L (98-107); Estimated GFR 58.87 (mL/min/1.73m2); Glucose 116 mg/dL (74-106); Potassium 4.5 mmol/L (3.5-5.1); Sodium 138 mmol/L (136-145)
== END 2019-07-11 22:24 ==
LOC: NCHCN 22:04
PROVIDERS: PCP Nurse Practitioner Family; Visit Provider Nurse Practitioner Family
DX: L29.9 Pruritus, unspecified (principal)
CPT/HCPCS: 80053; 85025

== ENCOUNTER 2019-07-16 11:45 | Outpatient (REF) | payer BC, MEDICARE, SELFPAY ==
[2019-07-16 16:14] LABS: Iron 62 ug/dL (65-175); Total Iron Binding Capacity 335 ug/dL (250-450); Transferrin Sat 19 % (20-55)
== END 2019-07-16 12:05 ==
LOC: NCHCN 11:45
PROVIDERS: PCP Nurse Practitioner Family; Visit Provider Nurse Practitioner Family
DX: D64.9 Anemia, unspecified (principal); R53.83 Other fatigue
CPT/HCPCS: 82728; 83540; 83550

== ENCOUNTER 2019-07-25 09:00 | Outpatient (CLI) | payer BC, MEDICARE, SELFPAY | END 2019-07-25 09:20 | PROVIDERS: PCP Nurse Practitioner Family; Referring Provider Nurse Practitioner Family; Visit Provider Internal Medicine Cardiovascular Disease | DX: I48.0 Paroxysmal atrial fibrillation (principal); I47.2 Ventricular tachycardia; I49.3 Ventricular premature depolarization; I47.1 Supraventricular tachycardia | CPT/HCPCS: 0298T ==

== ENCOUNTER 2019-08-06 08:27 | Outpatient (CLI) | payer BC, MEDICARE, SELFPAY | END 2019-08-06 08:47 | PROVIDERS: PCP Nurse Practitioner Family; Visit Provider Internal Medicine Cardiovascular Disease | DX: I48.0 Paroxysmal atrial fibrillation (principal); I10 Essential (primary) hypertension | CPT/HCPCS: 93005; 93010 ==

== ENCOUNTER 2019-10-07 08:53 | Outpatient (REF) | payer BC, MEDICARE, SELFPAY ==
[2019-10-07 20:35] LABS: Abs Immature Grans 0.02 k/cumm (0.0-0.09); Absolute Basophil Count 0.02 k/cumm (0.0-0.2); Absolute Monocyte Count 0.44 k/cumm (0.11-0.7); Absolute Neutrophil Count 3.93 k/cumm (1.2-6.7); Basophils % 0.4; Eosinophils % 3.6; HCT 37.6 % (40.0-50.0); HGB 13.3 g/dL (13.5-17.5); Immature Grans % 0.4 %; Lymphocytes % 17.8; Mean Corp. HGB Concentration 35.4 g/dL (32.0-36.0); Mean Corpuscular Hemoglobin 33.3 pg (27.0-33.0); Mean Corpuscular Volume 94.2 fL (80-95); Mean Platelet Volume 10.8 fL (8.0-11.0); Monocytes % 7.8; Platelet Count 219 x1000/uL (130-400); RBC 3.99 m/cumm (4.50-6.00); White Blood Cell Count 5.61 k/cumm (4.4-10.8)
[2019-10-07 20:53] LABS: Iron 106 ug/dL (65-175); Total Iron Binding Capacity 348 ug/dL (250-450); Transferrin Sat 30 % (20-55)
== END 2019-10-07 09:13 ==
LOC: NCHCN 08:53
PROVIDERS: PCP Nurse Practitioner Family; Visit Provider Nurse Practitioner Family
DX: D64.9 Anemia, unspecified (principal); R53.83 Other fatigue; R53.1 Weakness
CPT/HCPCS: 83540; 83550; 85025

== ENCOUNTER 2019-12-17 13:17 | Outpatient (CLI) | payer BC, MEDICARE, SELFPAY ==
[2019-12-20 17:46] LABS: SARS-CoV-2 RNA Undetected (Undetected); SARS-CoV-2 Specimen Source Nasopharynx
== END 2019-12-17 13:37 ==
PROVIDERS: PCP Nurse Practitioner Family; Visit Provider Nurse Practitioner Family
DX: Z11.59 Encounter for screening for other viral diseases (principal)
CPT/HCPCS: U0003

== ENCOUNTER 2020-01-06 09:23 | Outpatient (REF) | payer BC, MEDICARE, SELFPAY ==
[2020-01-06 20:46] LABS: Abs Immature Grans 0.01 k/cumm (0.0-0.09); Absolute Basophil Count 0.02 k/cumm (0.0-0.2); Absolute Eosinophil Count 0.14 k/cumm (0.0-0.7); Absolute Lymphocyte Count 0.85 k/cumm (1.2-3.4); Absolute Monocyte Count 0.47 k/cumm (0.11-0.7); Absolute Neutrophil Count 3.64 k/cumm (1.2-6.7); Basophils % 0.4; Eosinophils % 2.7; HCT 35.4 % (40.0-50.0); HGB 12.1 g/dL (13.5-17.5); Immature Grans % 0.2 %; Lymphocytes % 16.6; Mean Corp. HGB Concentration 34.2 g/dL (32.0-36.0); Mean Corpuscular Hemoglobin 32.9 pg (27.0-33.0); Mean Corpuscular Volume 96.2 fL (80-95); Monocytes % 9.2; Neutrophils % 70.9; Platelet Count 217 x1000/uL (130-400); RBC 3.68 m/cumm (4.50-6.00); RBC Distribution Width 12.7 % (11.8-14.1); White Blood Cell Count 5.13 k/cumm (4.4-10.8)
[2020-01-06 20:58] LABS: Iron 84 ug/dL (65-175)
== END 2020-01-06 09:43 ==
LOC: NCHCN 09:23
PROVIDERS: PCP Nurse Practitioner Family; Visit Provider Nurse Practitioner Family
DX: Z00.00 Encounter for general adult medical examination without abnormal findings (principal); D64.9 Anemia, unspecified; R53.83 Other fatigue
CPT/HCPCS: 83540; 85025

== ENCOUNTER 2020-03-19 18:35 | Emergency (ER) | payer OTHER, SELFPAY ==
[2020-03-19 18:41] VITALS: BP 162/86; PULSE 67; RESP 20; TEMP 36.4; O2SAT 98
--- NOTE | 2020-03-19 18:45 | DI.RAD_ITS ---
EXAM: XR FOOT LT COMPLETE CLINICAL HISTORY: crush injury. TECHNIQUE: 2D digital imaging was performed. COMPARISON: No exams were available for comparison FINDINGS: BONES: No acute fracture is present. No bony destructive lesion is seen. There is an old 5th metatars al fracture. A tiny heel spur is seen. JOINTS: No dislocation present. SOFT TISSUE: Normal. IMPRESSION: No acute abnormality. DATA REPOSITORY: RADIATION DOSE DELIVERED:
--- NOTE | 2020-03-19 19:11 | ED.GENADUL_ITS ---
Discharge Plan Disposition Patient Disposition: HOME Condition: Stable Discharge Details Clinical Impression: Contusion of foot Primary Care Provider: Elisa Garner ED Provider: Jacob Salgado Home Meds and New Rx's Prescriptions: Continued lisinopril 20 mg tablet 20 mg PO BID RF: 0 BiPAP miscellaneous RF: 0 carvedilol 6.25 mg tablet 12.5 mg PO BID Qty: 120 RF: 11 atorvastatin 40 mg tablet 40 mg PO DAILY RF: 0 Xarelto 20 mg tablet 20 mg PO DAILY RF: 0 acetaminophen [Tylenol] 325 mg Tablet 650 mg PO Q4H PRN PRNQty: 30 RF: 0 Discharge Instructions Instructions: Foot Contusion (ED) Additional Instructions: X-ray does not reveal any obvious fracture. You have declined splinting or crutches. Rest, elevate, cool compresses every 2 hours for 20 minutes. Advance activity as tolerated. [id number] Tylenol as directed for discomfort. Please watch for new or worsening symptoms and return to the ER for any concerns Medical Decision Making 69-year-old gentleman presents after dropping a bucket on his left foot. Neuro, vascular, tendon intact. Will obtain x-ray and reassess. X-ray read by radiology as no acute bony pathology. Discussed x-ray findings with patient. Patient is relieved and has no additional questions or concerns. He does not want a splint or crutches. Medical Records Medical records reviewed: Yes I reviewed the patient's medical records. HPI General Mode of arrival: ambulatory . Date/Time Provider Initiated Documentation: 03/19/20 18:53 . Limitations to Documentation: no limitations . Information obtained by: patient . HPI Narrative: This is a 69-year-old male with history of hyperlipidemia, hypertension, proximal A. fib, CVA, on Xarelto, presenting for a left great toe injury that occurred today around noon time. He reports that while at work he dropped a bucket that was full of debris on his left foot. He was wearing shoes. Reports that the pain got worse throughout the day. Denies any other injury. Denies numbness, tingling, weakness. His primary concern is that of a broken bone. Pain is mild at rest, worse with movement or weightbearing Related Data Home Medications Medication Instructions Recorded Confirmed carvedilol 6.25 mg tablet 12.5 mg PO BID #120 tab-cap 04/13/18 03/19/20 acetaminophen [Tylenol] 650 mg PO Q4H PRN PRN #30 tab 06/13/18 03/19/20 BiPAP MISCELLANEOUS 08/06/19 02/03/20 atorvastatin 40 mg tablet 40 mg PO DAILY tab-cap 08/06/19 03/19/20 lisinopril 20 mg tablet 20 mg PO BID 08/06/19 03/19/20 rivaroxaban 20 mg tablet 20 mg PO DAILY 10/29/19 03/19/20 Previous Rx's Medication Instructions Recorded carvedilol 6.25 mg tablet 12.5 mg PO BID #120 tab-cap 04/13/18 acetaminophen [Tylenol] 650 mg PO Q4H PRN PRN #30 tab 06/13/18 Allergies Allergy/AdvReac Type Severity Reaction Status Date / Time chlorthalidone Allergy Intermediate HOT SKIN Verified 03/19/20 18:46 RASH,ITCHY General Stated Complaint: Orthopedic CLAU: 4 Review of Systems Constitutional Constitutional: Denies weakness Musculoskeletal Musculoskeletal: Reports arthralgias, Denies numbness and Denies tingling Integumentary/Breasts Skin/Breast: Denies rash Neurologic Neurologic: Denies numbness, Denies tingling and Denies weakness [facility] Medical History (Updated 03/19/20 @ 19:56 by PETEY Graves) Aphasia Arthritis Fatigue Hyperlipidemia Hypertension Ileus Intermittent chest pain Osteoarthritis Paresthesia Stroke 09/14/17 Tobacco abuse Vitiligo Weakness Surgical History H/O bilateral inguinal hernia repair H/O colonoscopy (04/17/18) Dr Montiel, negative, repeat in 10 years H/O umbilical hernia repair (06/13/18) Dr Montiel History of total bilateral knee replacement Social History Smoking/Tobacco Use Status: Current-Occasional Tobacco: How many years used: 30 Alcohol Intake: current Alcohol Intake frequency: a few times a week Alcohol type: beer Drug use: Never Substance use type: does not use What type of physical activity do you participate in: none Do you feel safe at home: Yes Do you feel safe in your relationship?: Yes Exam Const General: cooperative, healthy appearing, comfortable and no acute distress Orientation: alert and awake [facility] Head: normal to inspection, normocephalic and atraumatic Mouth: moist mucous membranes Eyes Conjunctivae: conjunctivae normal Neck Neck: normal visual inspection, trachea midline and supple Resp Effort & Inspection: normal respiratory effort and able to speak in complete sentences Cardio Rate: regular rate Rhythm: regular rhythm Skin General skin exam: no rashes or lesions noted Neuro General: patient alert, patient awake, moves all extremities and no focal motor deficits Sensory Exam: no sensory deficits noted Extrem Ankle/foot/toe images: 1. Ecchymosis over the first metatarsal phalangeal joint. Skin is intact. There is diffuse mild tenderness without swelling. Full range of motion. Neuro, vascular, tendon intact. Psych Appearance: grossly normal Mental Status: mental status grossly normal Course Vital Signs Vital signs: Vital Signs Temperature 36.4 C L 03/19/20 18:41 Pulse 67 03/19/20 18:41 Respiratory Rate 20 03/19/20 18:41 Blood Pressure 162/86 H 03/19/20 18:41 Pulse Oximetry 98 03/19/20 18:41 Temperature 36.4 C L 03/19/20 18:41 Temperature Source Skin 03/19/20 18:41 Pulse 67 03/19/20 18:41 Respiratory Rate 20 03/19/20 18:41 Respiratory Effort Non-Labored 03/19/20 18:45 Blood Pressure 162/86 H 03/19/20 18:41 Blood Pressure Position Sitting 03/19/20 18:41 Pulse Oximetry 98 03/19/20 18:41 Oxygen Delivery Method Room Air 03/19/20 18:41 Oxygen Flow Rate 0 03/19/20 18:41 Pain Level 8 03/19/20 18:41
--- NOTE | 2020-03-19 19:39 | DI.VRAD_ITS ---
PROCEDURE INFORMATION: Exam: XR Left Foot Complete Exam date and time: 03/19/2020 18:54 Age: 69 years old Clinical indication: Injury or trauma; Other: Blunt force; Blunt trauma; Left; Injury date: 03/19/20; Injury details: Bucket of food fell onto top of foot TECHNIQUE: Imaging protocol: XR Left foot. Views: 3 or more views. COMPARISON: No relevant prior studies available. FINDINGS: Bones/joints: Healed fracture of the 5th metatarsal neck in anatomic alignment. Plantar calcaneal spur. Mild hallux valgus. No acute fracture or subluxation. Soft tissues: Normal. IMPRESSION: 1. No acute bony pathology. 2. Healed fracture of the 5th metatarsal neck in anatomic alignment. 3. Mild hallux valgus. Dictated and Authenticated by: Melvi Hooper MD. Ordering:BETSY James MD
== END 2020-03-19 20:02 | disposition home or self-care (01) ==
PROVIDERS: Emergency Provider Physician Assistant; PCP Nurse Practitioner Family
DX: S90.32XA Contusion of left foot, initial encounter (principal); W20.8XXA Other cause of strike by thrown, projected or falling object, initial encounter
CPT/HCPCS: 99283; 73630

== ENCOUNTER 2020-07-09 14:10 | Outpatient (REF) | payer BC, MEDICARE, SELFPAY ==
[2020-07-09 14:01] LABS: Abs Immature Grans 0.01 10^3/uL (0.0-0.06); Absolute Basophil Count 0.04 10^3/uL (0.0-0.2); Absolute Eosinophil Count 0.12 10^3/uL (0.0-0.7); Absolute Lymphocyte Count 0.94 10^3/uL (1.2-3.4); Absolute Monocyte Count 0.37 10^3/uL (0.1-0.8); Absolute Neutrophil Count 3.49 10^3/uL (1.2-6.7); Basophils % 0.8; Eosinophils % 2.4; HCT 37.9 % (40.0-50.0); HGB 13.4 g/dL (13.5-17.5); Immature Grans % 0.2; Lymphocytes % 18.9; MCH 33.2 pg (27.0-33.0); MCHC 35.4 % (32.0-36.0); MCV 93.8 fL (80-95); MPV 10.5 fL (8.0-11.0); Monocytes % 7.4; Neutrophils % 70.3; Nucleated RBC 0 %; Platelet Count 217 10^3/uL (130-400); RBC 4.04 10^6/uL (4.36-5.78); RDW 12.2 % (11.8-14.1); RDW-SD 42.3 fL; WBC 4.97 10^3/uL (4.4-10.8)
--- OUTSIDE RECORDS SUMMARY | 2020-07-09 14:21 | XMS_ITS ---
:1950 Author Care Team Providers Name Role Phone ERIC LULY Primary Care Provider [phone] ERIC MAURICIO Referring Provider [phone] [facility] MEDICAL RECORDS OTHER [phone] ABBY LASSITER MD Television Receiver Analyzer [phone] [facility] OTHER [phone] Allergies Code Code System Name Reaction Severity Status Onset NKDA ? Medications Name Status Start Date Stop Date ? ? aspirin Active ? Not available 81mg daily carvedilol Active ? Not available 2 tabs BID doxepin 10 mg capsule Completed ? 12/31/2018 Take 1 capsule every day by oral route at bedtime for 30 days. Eliquis Active ? Not available BID lisinopril Active ? Not available 40mg daily metoprolol succinate Completed ? 07/24/2018 30mg daily metoprolol tartrate Completed ? 07/24/2018 25mg BID ropinirole 0.25 mg tablet Completed ? 2018 Take PO 2-3 hours before bed for one w [place] then increase to 2 tablets for one week ropinirole 1 mg tablet Completed ? 9 Take 1 PO 2-3 hours before bed Silenor 6 mg tablet Completed ? 11/14/2018 Take 1 tablet every day by oral route at bedtime for 30 days. simvastatin Active ? Not available at bedtime zolpidem 5 mg tablet Completed ? 07/24/2018 take 1-2 PO Problems Name Status Onset Date Source ? Hyperlipidemia Active 02/14/2018 ? Hypertensive Disorder Active 02/14/2018 ? Heart Block Active 02/14/2018 ? Paroxysmal Atrial Fibrillation Active 02/14/2018 ? Ischemic Stroke Active 02/14/2018 ? Osteoarthritis Active 02/14/2018 ? Arthritis Active 02/14/2018 ? Fatigue Active 02/14/2018 ? Aphasia Active 02/14/2018 ? History of Alcoholism Active 02/14/2018 ? Ex-smoker Active 02/14/2018 ? Family History of Parkinson's Disease Active 02/14/2018 ? Insomnia Active 02/15/2018 ? Snoring Active 02/15/2018 ? 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 Obstructive Sleep Apnea Syndrome Active ? ? Procedures Date Name Performed by ? 02/15/2018 Polysomnogram Information not avai lable Results Lab Results None recorded. Past Encounters None recorded. Social History Tobacco Smoking Status Former Smoker Notes: quit 20 + years ago Vaccine List None recorded. Plan of Care Reminders Provider Appointments None ? ? recorded. Lab None ? ? recorded. Referral None ? ? recorded. Procedures None ? ? recorded. Surgeries None ? ? recorded. Imaging None ? ? recorded. Vitals 12/31/2018 09:30AM Office 30 Height Weight BMI Blood Pressure 165.1 cm 78.02 kg 28.6 kg/m2 118/68 mm[Hg] 11/06/2018 08:30AM Office 30 Height Weight BMI Blood Pressure 165.1 cm 80.1 kg 29.4 kg/m2 140/78 mm[Hg] 09/06/2018 11:15AM Procedure 60 Height Weight BMI Blood Pressure 165.1 cm 80.69 kg 29.6 kg/m2 110/68 mm[Hg] 07/24/2018 01:45PM Office 30 Height Weight BMI Blood Pressure 165.1 cm 81.37 kg 29.9 kg/m2 130/78 mm[Hg] 07/09/2018 01:15PM Office 30 Height Weight BMI Blood Pressure 165.1 cm 82.24 kg 30.2 kg/m2 148/90 mm[Hg] 04/10/2018 10:30AM Office 30 Height Blood Pressure 165.1 cm 132/82 mm[Hg] 02/15/2018 02:45PM New Patient 45 Height Weight BMI Blood Pressure 165.1 cm 79.42 kg 29.1 kg/m2 130/68 mm[Hg]
[2020-07-09 14:27] LABS: Iron 60 ug/dL (65-175); Total Iron Binding Capacity 293 ug/dL (250-450); Transferrin Sat 20 % (20-55)
[2020-07-09 14:36] LABS: ALT 46 U/L (16-63); AST 32 U/L (15-37); Albumin 3.8 g/dL (3.4-5.0); Alkaline Phosphatase 81 U/L (46-116); Anion Gap 10.8 mmol/L (3-11); BUN 24 mg/dL (7-18); Bilirubin, Total 0.7 mg/dL (0.2-1.0); CO2 22.2 mmol/L (21.0-32.0); Calcium 9.1 mg/dL (8.5-10.1); Chloride 102 mmol/L (98-107); Ferritin 154 ng/mL (26-388); Glucose 123 mg/dL (74-106); Potassium 4.9 mmol/L (3.5-5.1); Sodium 135 mmol/L (136-145); Total Protein 7.2 g/dL (6.4-8.2)
== END 2020-07-09 14:30 ==
LOC: NCHCN 14:10
PROVIDERS: PCP Nurse Practitioner Family; Visit Provider Nurse Practitioner Family
DX: R29.898 Other symptoms and signs involving the musculoskeletal system (principal); L29.9 Pruritus, unspecified; G47.33 Obstructive sleep apnea (adult) (pediatric); I44.2 Atrioventricular block, complete; I63.9 Cerebral infarction, unspecified; I65.23 Occlusion and stenosis of bilateral carotid arteries; R53.83 Other fatigue; Z87.891 Personal history of nicotine dependence
CPT/HCPCS: 80053; 82728; 83540; 83550; 85025

== ENCOUNTER 2020-07-16 01:47 | Outpatient (CLI) | payer BC, MEDICARE, SELFPAY ==
--- NOTE | 2020-07-16 | DI.CTLCSR_ITS ---
EXAM: CT CHEST LUNG CANCER SCREEN CLINICAL HISTORY: SCREENING FOR LUNG CA, FORMER SMOKER, Z87.891. TECHNIQUE: Imaging Protocol: Low Dose Technique CONTRAST MATERIAL: None COMPARISON: CT CT CHEST LUNG CANCER SCREEN from 12/06/2018 FINDINGS: CHEST: LUNGS: There are no new ominous pulmonary nodules. No pleural effusions. MEDIASTINUM: There is no obvious hilar nor mediastinal adenopathy. Visualized thyroid unremarkable. CARDIAC: Heart size is normal. There is no pericardial effusion.Caliber of the thoracic aorta is wit hin normal limits. 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 This finding is unchanged from 2019 study. IMPRESSION: 1. No new significant pulmonary findings. No new nodules, infiltrates, or pleural effusions. 2. No new intrathoracic adenopathy. 3. Lung RADS Cat 1 - Negative: No nodules and definitely benign nodules RADIATION DOSE DELIVERED: 75.5mGy.cm Total DLP DATA REPOSITORY: All CT scans at this facility are submitted to the National Radiology Data Registry (NRDR) Dose Index Registry (DIR) with the [employer] (ACR). RADIATION OPTIMIZATION: All CT scans at this facility use at least one of these dose optimization te chniques: automated exposure control; mA and/or kV adjustment per patient size (includes targeted exa ms where dose is matched to clinical indication); or iterative reconstruction.
--- NOTE | 2020-07-16 | DI.US_ITS ---
EXAM: US CAROTID CLINICAL HISTORY: CAROTID ARTERY STENOSIS, I65.23. TECHNIQUE: Ultrasound carotids performed using grayscale, color-flow, and spectral Doppler imaging. COMPARISON: US US AAA screening from 12/13/2018 FINDINGS: RIGHT CAROTID ARTERY: There is mild-moderate plaque in the right common carotid artery. Distally in this vessel there is c alcified plaque but not associated with elevated velocities. There is also some heavily calcified mu ral plaque in the bulb and at the origin of the right internal carotid artery. This makes Doppler ev aluation somewhat difficult. Maximum systolic velocity in the proximal right ICA is recorded at 106 cm/sec. Therefore less than 50 percent stenosis. LEFT CAROTID ARTERY: There is multilevel mild plaque in the left common carotid artery, not associated with elevated veloc ities. At the level of the left carotid bulb there is calcified plaque maximum systolic velocity 127 cm/sec. Both noncalcified and calcified plaque is seen extending into the proximal left ICA velocit ies 132/43 cm/sec. Consistent with 50-69 percent stenosis. VERTEBRAL ARTERIES: Antegrade flow bilaterally.. Measurements: R Bulb: 70cm/s PS / 9.3cm/s ED R CCA: 58.4cm/s PS / 17.4cm/s ED R ECA: 90cm/s PS / 28.3cm/s ED R ICA Prox: 103.05cm/s PS /27.85cm/s ED R ICA Mid: 82.4cm/s PS / 26.8cm/s ED R ICA Distal: 80.2cm/s PS /31.4cm/s ED R Vert: 39.8cm/s PS / 12.9cm/s ED R SVR: 1.82 R DVR: 1.63 extending into the bulb L Bulb: 127.3cm/s PS /43.7cm/s ED L CCA: 95.3cm/s PS / 24.1cm/s ED L ECA: 167.1cm/s PS /24.4cm/s ED L ICA Prox:122.28cm/s PS / 38.6cm/s ED L ICA Mid: 86.8cm/sPS / 30.4cm/s ED L ICA Distal: 60.4cm/s PS / 29.6cm/s ED L Vert: 70.1cm/s PS / 21.9cm/s ED L SVR: 1.39 L DVR: 1.71 IMPRESSION: Both noncalcified and calcified plaque are seen in the carotid bulbs and proximal internal carotid ar teries bilaterally. Velocities on the left side indicate moderate stenosis 50-69 percent in the prox imal left ICA. Velocities on the right side indicate stenosis less than 50 percent at the same level . Flow is demonstrated to be antegrade both vertebral arteries. Criteria for Carotid Stenosis: Normal: ICA PSV <125 cm/s no plaque or intimal thickening is visible. <50% stenosis: ICA PSV <125 cm/s and plaque or intimal thickening is visible. 50-69% stenosis: ICA PSV is 125-250 cm/s and plaque is visible. >70% stenosis to near occlusion: ICA PSV >250 cm/s with visible plaque and luminal narrowing.
== END 2020-07-16 02:07 ==
PROVIDERS: PCP Nurse Practitioner Family; Visit Provider Nurse Practitioner Family
DX: Z87.891 Personal history of nicotine dependence (principal); I65.23 Occlusion and stenosis of bilateral carotid arteries
CPT/HCPCS: 71271; 93880

== ENCOUNTER 2020-08-18 17:45 | Outpatient (REF) | payer BC, MEDICARE, SELFPAY ==
[2020-08-18 14:05] LABS: Hemoglobin A1C 5.3 % (<5.7)
[2020-08-18 14:27] LABS: Calculated LDL 101 mg/dL (<100); Cholesterol 189 mg/dL (<200); HDL Cholesterol 55 mg/dL (40-60); Triglyceride 166 mg/dL (<150)
== END 2020-08-18 17:46 | disposition home or self-care (01) ==
LOC: NCHCN 17:45
PROVIDERS: PCP Nurse Practitioner Family; Visit Provider Nurse Practitioner Family
DX: E78.5 Hyperlipidemia, unspecified (principal); R73.9 Hyperglycemia, unspecified
CPT/HCPCS: 80061; 83036

== ENCOUNTER 2020-09-24 08:50 | Outpatient (REF) | payer BC, MEDICARE, SELFPAY ==
[2020-09-24 15:06] LABS: ALT 43 U/L (16-63); AST 32 U/L (15-37); Albumin 3.7 g/dL (3.4-5.0); Alkaline Phosphatase 89 U/L (46-116); Anion Gap 11.6 mmol/L (3-11); BUN 23 mg/dL (7-18); Bilirubin, Total 0.4 mg/dL (0.2-1.0); CO2 22.4 mmol/L (21.0-32.0); Calcium 8.6 mg/dL (8.5-10.1); Chloride 104 mmol/L (98-107); Cholesterol 162 mg/dL (<200); Glucose 118 mg/dL (74-106); HDL Cholesterol 34 mg/dL (40-60); Potassium 4.5 mmol/L (3.5-5.1); Sodium 138 mmol/L (136-145); Total Protein 6.8 g/dL (6.4-8.2); Triglyceride 651 mg/dL (<150)
[2020-09-24 15:25] LABS: LDL CHOLESTEROL 59 mg/dL (<100)
== END 2020-09-24 08:51 | disposition home or self-care (01) ==
LOC: NCHCN 08:50
PROVIDERS: PCP Nurse Practitioner Family; Visit Provider Nurse Practitioner Family
DX: R73.9 Hyperglycemia, unspecified (principal); E78.5 Hyperlipidemia, unspecified; I10 Essential (primary) hypertension
CPT/HCPCS: 80053; 80061; 83721

== ENCOUNTER 2020-10-19 08:43 | Outpatient (REF) | payer BC, MEDICARE, SELFPAY ==
[2020-10-19 14:25] LABS: Calculated LDL 55 mg/dL (<100); Cholesterol 154 mg/dL (<200); HDL Cholesterol 37 mg/dL (40-60); Triglyceride 313 mg/dL (<150)
== END 2020-10-19 08:44 | disposition home or self-care (01) ==
LOC: NCHCN 08:43
PROVIDERS: PCP Nurse Practitioner Family; Visit Provider Nurse Practitioner Family
DX: E78.5 Hyperlipidemia, unspecified (principal)
CPT/HCPCS: 80061

== ENCOUNTER 2021-03-03 12:12 | Outpatient (REF) | payer BC, MEDICARE, SELFPAY ==
[2021-03-03 13:38] LABS: Abs Immature Grans 0.01 10^3/uL (0.0-0.06); Absolute Basophil Count 0.05 10^3/uL (0.0-0.2); Absolute Eosinophil Count 0.25 10^3/uL (0.0-0.7); Absolute Lymphocyte Count 0.67 10^3/uL (1.2-3.4); Absolute Monocyte Count 0.31 10^3/uL (0.1-0.8); Absolute Neutrophil Count 3.21 10^3/uL (1.2-6.7); Basophils % 1.1; Eosinophils % 5.6; HCT 26.2 % (40.0-50.0); Immature Grans % 0.2; Lymphocytes % 14.9; MCH 34.2 pg (27.0-33.0); MCHC 34.4 % (32.0-36.0); MCV 99.6 fL (80-95); MPV 11.5 fL (8.0-11.0); Monocytes % 6.9; Neutrophils % 71.3; Nucleated RBC 0 %; Platelet Count 213 10^3/uL (130-400); RBC 2.63 10^6/uL (4.36-5.78); RDW 13.2 % (11.8-14.1); RDW-SD 47.3 fL
[2021-03-03 14:01] LABS: Hemoglobin A1C 5.1 % (<5.7)
[2021-03-03 14:08] LABS: Iron 46 ug/dL (65-175); Total Iron Binding Capacity 352 ug/dL (250-450); Transferrin Sat 13 % (20-55)
[2021-03-03 14:20] LABS: Calculated LDL 62 mg/dL (<100); Cholesterol 129 mg/dL (<200); Ferritin 40 ng/mL (26-388); HDL Cholesterol 46 mg/dL (40-60); Triglyceride 106 mg/dL (<150)
== END 2021-03-03 12:13 | disposition home or self-care (01) ==
LOC: NCHCN 12:12
PROVIDERS: PCP Nurse Practitioner Family; Visit Provider Nurse Practitioner Family
DX: E78.5 Hyperlipidemia, unspecified (principal); I10 Essential (primary) hypertension; R73.9 Hyperglycemia, unspecified; D64.9 Anemia, unspecified; R53.83 Other fatigue
CPT/HCPCS: 80061; 82728; 83036; 83540; 83550; 85025

== ENCOUNTER 2021-04-01 15:43 | Emergency (ER) | payer BC, MEDICARE, SELFPAY ==
[2021-04-01] VITALS (66 sets, daily range): BP systolic 119–155; BP diastolic 33–76; PULSE 63–84; RESP 11–30; TEMP 36.7–37.1; O2SAT 93–100
[2021-04-01] MEDS: Normal Saline 1,000 ML 1000 ML IV (16:11)
[2021-04-01] MEDS: Normal Saline Flush 10 ML SYR IVP (16:11)
--- NOTE | 2021-04-01 16:12 | ED.GENADUL_ITS ---
Discharge Plan Disposition Patient Disposition: HOME Condition: Stable Discharge Details Clinical Impression: Anemia, GI (gastrointestinal bleed) Primary Care Provider: Elisa Garner ED Provider: Clara Joseph Home Meds and New Rx's Prescriptions: New pantoprazole [Protonix] 40 mg tablet,delayed release (DR/EC) 40 mg PO DAILY 30 Days Qty: 30 RF: 0 No Action lisinopril 20 mg tablet 20 mg PO BID RF: 0 BiPAP miscellaneous RF: 0 carvedilol 6.25 mg tablet 12.5 mg PO BID Qty: 120 RF: 11 atorvastatin 40 mg tablet 40 mg PO DAILY RF: 0 Xarelto 20 mg tablet 20 mg PO DAILY RF: 0 acetaminophen [Tylenol] 325 mg Tablet 650 mg PO Q4H PRN PRNQty: 30 RF: 0 Discharge Instructions Instructions: Rectal Bleeding (ED), Anemia (ED) Additional Instructions: PRESENT TO SAME DAY SURGERY TOMORROW MORNING AT 0800 AM. DO NOT Take Xeralto or any medications (NO ASPIRIN, IBUPROFEN, TYLENOL) until cleared by Dr. Horne. DO NOT EAT OR DRINK ANYTHING AFTER MIDNIGHT. You were given 2 units of packed red blood cells while in the ER tonight. Please return in the morning with a ride as instructed. Follow up with primary care provider in 3-5 days. Return to ED sooner if any worsening BRIGHT RED RECTAL BLEEDING,DIZZINESS, ANDOMINAL PAIN, VOMITING BLOOD or concerns. YOU HAVE AN APPOINTMENT WITH HEMATOLOGY AT [facility] [place] ON 04-21-21 PLEASE KEEP THIS appt. Referrals: Elisa Garner [Primary Care Provider] - Jessica Horne DO [OSTEOPATHIC DOCTOR] - 1 day (0800 am Here tomorrow) Medical Decision Making 70-year-old male presents to the ER chief complaint of dark stools, dizziness near syncope and fatigue. Patient reports he is been taking iron for the last 1 to 2 weeks. Noticed a dark stools over the last few days and increase dizziness lightheadedness. He reports today he thought that he was in a pass out while at work. He was seen at [facility] today by his PCP was found to have guaiac positive stools and was referred here to the ER for further evaluation. He denies any abdominal pain, cramping, vomiting. He denies any pain with bowel movement. He is status post percutaneous iliac artery with stent placement on the right vascular surgery at [facility]. He does appear pale and anemic on initial exam, he is alert and oriented x4 vital signs are stable. He is taking Xarelto 20 mg daily. Has a history of hypertension hyperlipidemia, atrial fibrillation, CVA. He has seen hematology at [facility] in the past and was referred again today by PCP. Denies any chest pain shortness of breath or any other associated symptoms. 1619: Critical value received from laboratory of hemoglobin 6.0 hematocrit 18.3 platelets are 206, PRBCs 2 units ordered at this time. Discussed plan for blood transfusion with patient who verbalizes understanding and is in agreement with plan. I also discussed my recommendation for admission he is in agreement. Rectal exam performed positive guaiac stool. Stool is black. 165: Spoke with Dr. Jessica Horne who is on for general surgery call regarding patient case and details, she recommends consultation with hospitalist. CXR and CT Abd pelvis ordered. 174: Spoke with Dr. Carter who is on for hospitalist regarding patient case and details, he agrees to accept patient for admission. 175: Spoke with Dr. Horne with Surgery who recommends the 2 units of PRBCs, Protonix IV now, Stop Xeralto, NPO after Midnight, she will schedule him for day surgery at 0800am tomorrow. 1815: Spoke with patient regarding plan of care, he verbalizes understanding and is in agreement with plan. Blood is infusing without difficulty. 2052: Patient discharged in hemodynamically stable condition. Alert and oriented ambulatory from department. Given written instructions on plan of care. Protonix p.o. 40 mg daily sent to the pharmacy on file. I did reiterate n.p.o. after midnight and to present to day surgery tomorrow at 8 AM patient verbalized understanding. HPI General Mode of arrival: ambulatory . Date/Time Provider Initiated Documentation: 04/01/21 15:45 . Limitations to Documentation: no limitations . Information obtained by: patient, RN notes reviewed and old records reviewed . HPI Narrative: 70-year-old male presents to the ER chief complaint of dark stools, dizziness near syncope and fatigue. Patient reports he is been taking iron for the last 1 to 2 weeks. Noticed a dark stools over the last few days and increase dizziness lightheadedness. He reports today he thought that he was in a pass out while at work. He was seen at [facility] today by his PCP was found to have guaiac positive stools and was referred here to the ER for further evaluation. He denies any abdominal pain, cramping, vomiting. He denies any pain with bowel movement. He is status post percutaneous iliac artery with stent placement on the right vascular surgery at [facility]. He does appear pale and anemic on initial exam, he is alert and oriented x4 vital signs are stable. He is taking Xarelto 20 mg daily. Has a history of hypertension hyperlipidemia, atrial fibrillation, CVA. He has seen hematology at [facility] in the past and was referred again today by PCP. Denies any chest pain shortness of breath or any other associated symptoms. Related Data Home Medications Medication Instructions Recorded Confirmed carvedilol 6.25 mg tablet 12.5 mg PO BID #120 tab-cap 04/13/18 04/01/21 acetaminophen [Tylenol] 650 mg PO Q4H PRN PRN #30 tab 06/13/18 04/01/21 BiPAP MISCELLANEOUS 08/06/19 01/25/21 atorvastatin 40 mg tablet 40 mg PO DAILY tab-cap 08/06/19 04/01/21 lisinopril 20 mg tablet 20 mg PO BID 08/06/19 04/01/21 rivaroxaban 20 mg tablet 20 mg PO DAILY 10/29/19 04/01/21 pantoprazole [Protonix] 40 mg PO DAILY 30 Days #30 tab 04/01/21 Previous Rx's Medication Instructions Recorded carvedilol 6.25 mg tablet 12.5 mg PO BID #120 tab-cap 04/13/18 acetaminophen [Tylenol] 650 mg PO Q4H PRN PRN #30 tab 06/13/18 pantoprazole [Protonix] 40 mg PO DAILY 30 Days #30 tab 04/01/21 Allergies Allergy/AdvReac Type Severity Reaction Status Date / Time chlorthalidone Allergy Intermediate HOT SKIN Verified 04/01/21 15:54 RASH,ITCHY General Stated Complaint: Abd Prob CLAU: 3 Review of Systems All systems reviewed & are unremarkable except as noted in HPI and below Constitutional Constitutional: Reports fatigue and Reports lethargy Cardiovascular Cardiovascular: Reports system reviewed and no additional complaints, except as documented Gastrointestinal Gastrointestinal: Denies abdominal pain, Reports melena, Denies cramping, Denies vomiting and Denies hematemesis Endocrine Endocrine: Reports fatigue [facility] Medical History (Updated 04/01/21 @ 18:35 by Clara Joseph) Aphasia Arthritis Fatigue Hyperlipidemia Hypertension Ileus Intermittent chest pain Osteoarthritis Paresthesia Stroke 09/14/17 Tobacco abuse Vitiligo Weakness Surgical History H/O bilateral inguinal hernia repair H/O colonoscopy (04/17/18) Dr Montiel, negative, repeat in 10 years H/O umbilical hernia repair (06/13/18) Dr Montiel History of total bilateral knee replacement Social History Smoking/Tobacco Use Status: Former Tobacco Use Quit Date: 09/17/18 Tobacco: How many years used: 30 Smoking risk assessment performed?: Yes Alcohol Intake: current Alcohol Intake frequency: a few times a week Alcohol type: beer Drug use: Never Substance use type: does not use What type of physical activity do you participate in: none Do you feel safe at home: Yes Do you feel safe in your relationship?: Yes Exam Narrative Exam Narrative: Constitutional: Alert and oriented x3. Appears stated age. Normal body habitus. Head: Normocephalic, no trauma. Eyes: Pupils PERRLA, Red reflex noted, EOM's intact. Eyelids symmetrical without lesions, discharge, or swelling. ENT: Bilateral TM's WNL, External ear normal to inspection, no mastoid TTP, swelling, or erythema, Nasal turbinates WNL, no nasal discharge. Normal dentition, Posterior pharynx WNL, no exudate. Chest: RRR, Normal S1, S2, distal pulses intact. Resp: Lungs clear to auscultation bilaterally, no wheezes, rales, or rhonchi. Abdomen: Soft, nondistended nontender to palpation all 4 quadrants. Rectal: Small internal hemorrhoid palpated mildly tender with palpation, dark/black stools noted. Guaiac positive. Musculoskeletal: Normal gait, 5/5 strength to all four extremities. Skin: Pale. capillary refill less than 2 sec. Neurologic: Cranial nerves II-XII intact. Alert and oriented x 3. Hematologic/Lymphatic: No ecchymosis, no lymphadenopathy. Course Vital Signs Vital signs: Vital Signs Temperature 36.8 C 04/01/21 15:49 Pulse 84 04/01/21 15:49 Respiratory Rate 14 04/01/21 15:49 Blood Pressure 137/33 L 04/01/21 15:49 Pulse Oximetry 99 04/01/21 15:49 Temperature 36.8 C 04/01/21 15:49 Temperature Source Skin 04/01/21 15:49 Pulse 84 04/01/21 15:49 Respiratory Rate 14 04/01/21 15:49 Respiratory Effort Non-Labored 04/01/21 15:56 Blood Pressure 137/33 L 04/01/21 15:49 Blood Pressure Position Supine 04/01/21 15:49 Pulse Oximetry 99 04/01/21 15:49 Oxygen Delivery Method Room Air 04/01/21 15:49 Oxygen Flow Rate 0 04/01/21 15:49 Pain Level 0 04/01/21 15:49 Procedures Stool Hemoccult Procedural Steps Taken: stool placed in appropriate test area, developer placed on stool and control areas and controls appropriately positive and negative Hemoccult result: positive
[2021-04-01 16:15] LABS: Abs Immature Grans 0.02 10^3/uL (0.0-0.06); Absolute Basophil Count 0.03 10^3/uL (0.0-0.2); Absolute Eosinophil Count 0.31 10^3/uL (0.0-0.7); Absolute Lymphocyte Count 1.21 10^3/uL (1.2-3.4); Absolute Monocyte Count 0.43 10^3/uL (0.1-0.8); Basophils % 0.5; Eosinophils % 4.8; Immature Grans % 0.3; Lymphocytes % 18.9; MCH 32.6 pg (27.0-33.0); MCHC 32.8 % (32.0-36.0); MCV 99.5 fL (80-95); Monocytes % 6.7; Neutrophils % 68.8; Nucleated RBC 0 %; Platelet Count 206 10^3/uL (130-400); RBC 1.84 10^6/uL (4.36-5.78); RDW 13.3 % (11.8-14.1); RDW-SD 46.6 fL
[2021-04-01 16:19] LABS: HCT 18.3 % (40.0-50.0)
[2021-04-01 16:32] LABS: ALT 22 U/L (16-63); AST 14 U/L (15-37); Albumin 3.2 g/dL (3.4-5.0); Alkaline Phosphatase 67 U/L (46-116); Anion Gap 8.3 mmol/L (3-11); BUN 40 mg/dL (7-18); Bilirubin, Total 0.2 mg/dL (0.2-1.0); CO2 22.7 mmol/L (21.0-32.0); CREATININE 1.1 mg/dL (0.70-1.30); Calcium 8.4 mg/dL (8.5-10.1); Chloride 108 mmol/L (98-107); Glucose 109 mg/dL (74-106); Potassium 4.3 mmol/L (3.5-5.1); Sodium 139 mmol/L (136-145); Total Protein 6.1 g/dL (6.4-8.2)
[2021-04-01 16:47] LABS: INR 1.2 (0.9-1.1); PTT Activated 25.2 sec (21.0-27.5); Prothrombin Time 11.8 sec (9.3-11.0)
[2021-04-01] MEDS: Pantoprazole 40 MG VIAL IVP (19:17)
== END 2021-04-01 20:48 | disposition home or self-care (01) ==
PROVIDERS: Nurse Practitioner Acute Care; Emergency Provider Registered Nurse Emergency; PCP Nurse Practitioner Family
DX: K92.2 Gastrointestinal hemorrhage, unspecified (principal); D62 Acute posthemorrhagic anemia
CPT/HCPCS: 36415; 36430; 80053; 86850; 86900; 86901; 86920; 96361; 96374; 99285; 83735; 85025; 85610; 85730; P9016

== ENCOUNTER 2021-04-02 08:01 | Day surgery (SDC) | payer BC, MEDICARE, SELFPAY ==
[2021-04-02] MEDS: Lactated Ringers 1,000 ML 100 ML IV (08:00)
[2021-04-02 08:14] LABS: Source Nasal/Nares
[2021-04-02 08:18] VITALS: BP 143/80; PULSE 69; RESP 16; TEMP 36; O2SAT 98
[2021-04-02] MEDS: IRON SUCROSE COMPLEX 200 MG in Normal Saline 100 ML 400 MG IVPB (08:22)
[2021-04-02 08:33] LABS: Abs Immature Grans 0.03 10^3/uL (0.0-0.06); Absolute Basophil Count 0.03 10^3/uL (0.0-0.2); Absolute Eosinophil Count 0.24 10^3/uL (0.0-0.7); Absolute Lymphocyte Count 0.72 10^3/uL (1.2-3.4); Absolute Monocyte Count 0.43 10^3/uL (0.1-0.8); Absolute Neutrophil Count 4.55 10^3/uL (1.2-6.7); Basophils % 0.5; HCT 23.7 % (40.0-50.0); HGB 7.6 g/dL (13.5-17.5); Immature Grans % 0.5; MCH 31.4 pg (27.0-33.0); MCHC 32.1 % (32.0-36.0); MCV 97.9 fL (80-95); MPV 11.1 fL (8.0-11.0); Monocytes % 7.2; Neutrophils % 75.8; Nucleated RBC 0 %; Platelet Count 175 10^3/uL (130-400); RBC 2.42 10^6/uL (4.36-5.78); RDW 14.4 % (11.8-14.1); Reticulocyte 5.1 % (0.5-2.4)
[2021-04-02] MEDS: Normal Saline Flush 10 ML SYR IV (08:49)
[2021-04-02] MEDS: Pantoprazole 40 MG VIAL IVP (08:49)
[2021-04-02 08:55] LABS: Iron 49 ug/dL (65-175); Total Iron Binding Capacity 294 ug/dL (250-450); Transferrin Sat 17 % (20-55)
[2021-04-02 09:08] LABS: Ferritin 23 ng/mL (26-388)
[2021-04-02 09:09] LABS: COVID-19 PCR Negative (Negative)
--- NOTE | 2021-04-02 09:29 | W.ANESPRE ---
General Info Date of Service Date Performed: 04/02/21 Height: 5 ft 6 in Weight: 75 kg Body Mass Index (BMI): 26.6 Surgical Procedure: Operation Date: 04/02/21 09:05 Proposed Procedures Side Surgeon p Gastroscopy Jessica Horne, Meds Allergies and Home Medications Allergies Allergy/AdvReac Type Severity Reaction Status Date / Time chlorthalidone Allergy Intermediate HOT SKIN Verified 04/02/21 08:03 RASH,ITCHY Home Medication Medication Instructions Recorded carvedilol 6.25 mg tablet 12.5 mg PO BID #120 tab-cap 04/13/18 acetaminophen [Tylenol] 650 mg PO Q4H PRN PRN #30 tab 06/13/18 BiPAP MISCELLANEOUS 08/06/19 atorvastatin 40 mg tablet 80 mg PO DAILY tab-cap 08/06/19 lisinopril 20 mg tablet 20 mg PO BID 08/06/19 rivaroxaban 20 mg tablet 20 mg PO DAILY 10/29/19 pantoprazole [Protonix] 40 mg PO DAILY 30 Days #30 tab 04/01/21 ferrous sulfate 325 mg PO Q OTHER DAY 04/02/21 fexofenadine [Yazmin] 180 mg PO BID 04/02/21 Current Visit Medications: Current Medications Generic Name Dose Route Start Last Admin Trade Name Freq PRN Reason Stop Dose Admin Ringer's Solution 1,000 mls @ 100 mls/hr 04/02/21 08:00 04/02/21 08:00 IV 100 mls/hr INFUSION JUVE Administration Ringer's Solution 1,000 mls @ 80 mls/hr 04/02/21 06:00 IV 05/02/21 23:59 INFUSION JUVE IV Miscellaneous Supplies 1 each 04/02/21 06:00 Iv Access IV 05/02/21 23:59 DIRECTED JUVE Sodium Chloride 0 ml 04/02/21 06:00 04/02/21 08:49 Normal Saline Flush 10 Ml Syr IV 05/02/21 23:59 30 ml PRN PRN Administration Sodium Chloride 0 ml 04/02/21 06:00 Normal Saline 10 Ml Vial IJ 05/02/21 23:59 DIRECTED PRN Sterile Water 0 ml 04/02/21 06:00 Water,Injection,Sterile 10 Ml Vial IJ 05/02/21 23:59 DIRECTED PRN PFSH Active Problems Active Problems: Problem Status Onset Code Encounter for colorectal cancer screening Z12.11, Z12.12 Cerebrovascular accident (CVA) due to thrombosis of right middle cerebral artery 10/11/17 I63.311 Paroxysmal atrial fibrillation 01/02/18 I48.0 Umbilical hernia K42.9 Anemia D64.9 GI (gastrointestinal bleed) K92.2 Medical History Medical History Aphasia Arthritis Fatigue Hyperlipidemia Hypertension Ileus Intermittent chest pain Osteoarthritis Paresthesia Stroke 09/14/17 Tobacco abuse Vitiligo Weakness Surgical History Surgical History (Updated 04/02/21 @ 08:17 by Rosalia Franks RN) H/O bilateral inguinal hernia repair H/O colonoscopy (04/17/18) Dr Montiel, negative, repeat in 10 years H/O umbilical hernia repair (06/13/18) Dr Montiel History of total bilateral knee replacement S/P arterial stent Tobacco Smoking/Tobacco Use Status: Former Tobacco Use Tobacco: How many years used: 30 Alcohol Alcohol Intake: former Substance Use Substance use: Never Substance use type: does not use Vital Signs and Lab Results Vital Signs Most Recent Vital Signs in EMR: Most Recent Vital Signs Temp Pulse Resp BP Pulse Ox 36.0 C L 69 16 143/80 H 98 04/02/21 08:18 04/02/21 08:18 04/02/21 08:18 04/02/21 08:18 04/02/21 08:18 Lab Results Result Diagrams: 04/02/21 08:17 Blood Type / Crossmatch: Patient ABO/Rh B Negative 04/01/21 16:02 04/01/21 Antibody Screen NEGATIVE 04/01/21 16:02 04/01/21 Crossmatch See Detail 04/01/21 16:02 04/01/21 Complete Blood Count: White Blood Count 6.00 10^3/uL (4.4-10.8) 04/02/21 08:17 04/02/21 Red Blood Count 2.42 10^6/uL (4.36-5.78) L 04/02/21 08:17 04/02/21 Hemoglobin 7.6 g/dL (13.5-17.5) L 04/02/21 08:17 04/02/21 Hematocrit 23.7 % (40.0-50.0) L 04/02/21 08:17 04/02/21 Platelet Count 175 10^3/uL (130-400) 04/02/21 08:17 04/02/21 Complete Metabolic Panel: Sodium Level 139 mmol/L (136-145) 04/01/21 16:02 04/01/21 Potassium Level 4.3 mmol/L (3.5-5.1) 04/01/21 16:02 04/01/21 Chloride Level 108 mmol/L (98-107) H 04/01/21 16:02 04/01/21 Carbon Dioxide Level 22.7 mmol/L (21.0-32.0) 04/01/21 16:02 04/01/21 Blood Urea Nitrogen 40 mg/dL (7-18) H 04/01/21 16:02 04/01/21 Creatinine 1.1 mg/dL (0.70-1.30) 04/01/21 16:02 04/01/21 Estimated GFR/1.73 m2 >= 60.00 (mL/min/1.73m2) 04/01/21 16:02 04/01/21 Magnesium Level 2.0 mg/dL (1.8-2.4) 04/01/21 16:02 04/01/21 Calcium Level 8.4 mg/dL (8.5-10.1) L 04/01/21 16:02 04/01/21 Albumin 3.2 g/dL (3.4-5.0) L 04/01/21 16:02 04/01/21 Glucose Level 109 mg/dL (74-106) H 04/01/21 16:02 04/01/21 Liver Function Panel: Alanine Aminotransferase (ALT/SGPT) 22 U/L (16-63) 04/01/21 16:02 04/01/21 Aspartate Amino Transf (AST/SGOT) 14 U/L (15-37) L 04/01/21 16:02 04/01/21 Coagulation Panel: INR International Normalized Ratio 1.2 (0.9-1.1) H 04/01/21 16:02 04/01/21 Prothrombin Time 11.8 sec (9.3-11.0) H 04/01/21 16:02 04/01/21 Activated Partial Thromboplast Time 25.2 sec (21.0-27.5) 04/01/21 16:02 04/01/21 Cardiac Panel: No Data to Display Arterial Blood Gas: No Data to Display Venous Blood Gas: No Data to Display Pancreas Panel: No Data to Display Thyroid Panel: No Data to Display Infectious Disease: Coronavirus (COVID-19)(PCR) Negative (Negative) 04/02/21 08:10 04/02/21 Coronavirus 2019 Source Nasal/Nares 04/02/21 08:10 04/02/21 Blood Cultures: No Data to Display Toxicology Panel: No Data to Display Imaging and Studies Imaging and Studies Stress Test Summary: Impressions: Normal study after pharmacologic stress. Summary: 1. Myocardial perfusion imaging: No myocardial perfusion defects noted. 2. The calculated left ventricular ejection fraction after stress: 50%. LV global systolic function is normal. No left ventricular regional motion abnormality. 10/20/17 Echocardiogram Summary: 01/27/21 EF 59% No hemodynamically significant valve disease Mild dilation of aortic root 4.0cm Ascending aorta normal in size Carotid Artery Summary:: FINDINGS: RIGHT CAROTID ARTERY: There is mild-moderate plaque in the right common carotid artery. Distally in this vessel there is calcified plaque but not associated with elevated velocities. There is also some heavily calcified mural plaque in the bulb and at the origin of the right internal carotid artery. This makes Doppler evaluation somewhat difficult. Maximum systolic velocity in the proximal right ICA is recorded at 106 cm/sec. Therefore less than 50 percent stenosis. LEFT CAROTID ARTERY: There is multilevel mild plaque in the left common carotid artery, not associated with elevated velocities. At the level of the left carotid bulb there is calcified plaque maximum systolic velocity 127 cm/sec. Both noncalcified and calcified plaque is seen extending into the proximal left ICA velocities 132/43 cm/sec. Consistent with 50-69 percent stenosis. 07/16/20 Anesthesia Assessment and Plan Anesthesia History Personal History: No History of Anesthesia Complications Family History: No Family History of Anesthesia Complications Exercise Tolerance Exercise Tolerance: Metabolic Equivalents>4 (Walks 5-6 miles per day. ) Pertinent Negatives Pertinent Negatives: No Symptoms of GERD, No Major Cardiovascular Symptoms or Complaints, No Major Pulmonary Symptoms or Complaints and Other (CVA diagnosed in [address], never had symptoms. ) Cardiac & Pulmonary Exam Cardiac Exam: Normal S1/S2 Heart Sounds Pulmonary Exam: Clear Bilateral Breath Sounds and No cough or Cold Airway Exam Known Difficult Airway: No Mallampati Class: 2 Mouth Opening: Normal (> 3cm) Thyromental Distance: Greater than 3 cm Neck Range of Motion: Full ROM Neck Circumference: Normal Teeth Condition: Normal Dentition ASA Classification ASA Score: ASA 3 Emergency Case?: No NPO Status NPO Status: NPO Clears >2 hours, Solids >8 hours Anesthesia Plan Resuscitation Status: Full Code Anesthesia Technique: General Anesthesia Airway Planned: Natural Airway Monitors Used: Standard Monitors
--- NOTE | 2021-04-02 10:07 | HPE_ITS ---
Date of service: 04/02/21 Time of Service: 10:07 Assessment and Plan Assessment and plan (1) Encounter for colorectal cancer screening: Status: Acute (2) Cerebrovascular accident (CVA) due to thrombosis of right middle cerebral artery: Status: Acute (3) Paroxysmal atrial fibrillation: Status: Acute (4) Anemia: Status: Chronic Assessment and plan: Informed consent is obtained for the procedural (explained in simple layman's terms that the pt and/or family could understand) explaining risks vs benefits and alternatives to the procedure and consequences if we do not do the procedure and need/rational for the procedure. Risks include but are not limited to: bleeding, infection, perforation of esophagus, stomach, colon, small intestines, bronchus or trachea, or PTX. This would necessitate emergency surgery to repair the damage w/ possible ostomy; and other associated complications w/ the required surgery. Also complications of anesthesia including aspiration, NM/CVA/. Patient is still fully anticoagulated on Xarelto -His anemia is multifactorial and not new. He had vascular surgery and [facility] January 29. His hemoglobin at that time was 9.4. He is seeing hematology and being worked up for a production problem. He has never had ulcer disease or problems with the stomach in the past. He is currently on p.o. iron, aspirin and Xarelto. He received proton her today. He is going to having a today. We will transfuse another 1 units of blood. Further recommendations to follow pending results of EGD. (5) GI (gastrointestinal bleed): Status: Chronic (6) Hyperlipidemia: Status: None (7) Hypertension: Status: None History of Present Illness Narrative: from ed: ear-old male presents to the ER chief complaint of dark stools, dizziness near syncope and fatigue. Patient reports he is been taking iron for the last 1 to 2 weeks. Noticed a dark stools over the last few days and increase dizziness lightheadedness. He reports today he thought that he was in a pass out while at work. He was seen at [facility] today by his PCP was found to have guaiac positive stools and was referred here to the ER for further evaluation. He denies any abdominal pain, cramping, vomiting. He denies any pain with bowel movement. He i s status post percutaneous iliac artery with stent placement on the right vascular surgery at [facility]. He does appear pale and anemic on initial exam, he is alert and oriented x4 vital signs are stable. He is taking Xarelto 20 mg daily. Has a history of hypertension hyperlipidemia, atrial fibrillation, CVA. He has seen hematology at [facility] in the past and was referred again today by PCP. Denies any chest pain shortness of breath or any other associated symptoms. Patient does have a longstanding history of chronic anemia. He is seen by [facility] hematology. At this point they think he might have a production problem. The he has had multiple tests done on his bone marrow, and he is waiting for these results to be returned. He is on iron. He notes his stools have been dark and tarry. But he is on iron therapy. He has not noticed any bright red blood. Is not had any abdominal or epigastric pain. He has not had any heartburn or indigestion. He is also a vasculopath. He had a extensive surgery in March 01 with iliac artery stents and bilateral femoral artery endarterectomies. He no longer smokes. He does not take NSAIDs. He is on aspirin daily. He does not drink alcohol. He is not on any stomach medication. He walks 6 miles a day without chest pain or shortness of breath. He was having a lot of pain in his legs prior to the surgery but the surgery has remedied the claudication and he no longer has the pain. He can walk extensively without any pain. His extremities are both warm and pink. He is on a beta-honey. He has a good dorsalis pedis and posterior tibial pulses on the right. I do not feel any dorsalis pedis pulse on the left. There is no signs of ischemia in the extremity however. He does not have any open sores. He had a colonoscopy in 2018 that was significant for mild diverticula. He has not had a recent EGD. He is here today for EGD. He was on Xarelto for A. fib. He has had a stroke in the past. He did have a Zio patch in January 2021 which only showed 2% PAF. He is in sinus rhythm today. He is only stopping Xarelto for 12 hours. He received 2 units of blood yesterday and his hemoglobin is 7.8 today. He has not had a bowel movement yet today. He did receive Protonix yesterday and Protonix today. He was sent home from the ED last night because he had no beds. Today he is not having any chest pain or shortness of breath. He did not notice significant improvement in his weakness and dizziness. He is having no leg pain. He has no abdominal pain/heartburn or indigestion. He does not have palpable left sided dorsalis pedis or posterior pulses. They are present by Doppler. They are staccato. Review of Systems All systems reviewed & are unremarkable except as noted in HPI and below PFSH Medical History Aphasia Arthritis Fatigue Hyperlipidemia Hypertension Ileus Intermittent chest pain Osteoarthritis Paresthesia Stroke 09/14/17 Tobacco abuse Vitiligo Weakness Surgical History H/O bilateral inguinal hernia repair H/O colonoscopy (04/17/18) Dr Montiel, negative, repeat in 10 years H/O umbilical hernia repair (06/13/18) Dr Montiel History of total bilateral knee replacement S/P arterial stent Social History Smoking/Tobacco Use Status: Former Tobacco Use Quit Date: 09/17/18 Tobacco: How many years used: 30 Smoking risk assessment performed?: Yes Alcohol Intake: former Drug use: Never Substance use type: does not use What type of physical activity do you participate in: none Do you feel safe at home: Yes Do you feel safe in your relationship?: Yes Meds Allergies and Home Medications Allergies Allergy/AdvReac Type Severity Reaction Status Date / Time chlorthalidone Allergy Intermediate HOT SKIN Verified 04/02/21 08:03 RASH,ITCHY Home Medications Medication Instructions Recorded Confirmed Type carvedilol 6.25 mg tablet 12.5 mg PO BID #120 tab-cap 04/13/18 04/02/21 Rx acetaminophen [Tylenol] 650 mg PO Q4H PRN PRN #30 tab 06/13/18 04/02/21 Rx BiPAP MISCELLANEOUS 08/06/19 01/25/21 History atorvastatin 40 mg tablet 80 mg PO DAILY tab-cap 08/06/19 04/02/21 History lisinopril 20 mg tablet 20 mg PO BID 08/06/19 04/02/21 History pantoprazole [Protonix] 40 mg PO DAILY 30 Days #30 tab 04/01/21 Rx ferrous sulfate 325 mg PO Q OTHER DAY 04/02/21 04/02/21 History fexofenadine [Yazmin] 180 mg PO BID 04/02/21 04/02/21 History Exam Const General: cooperative, healthy appearing, comfortable, no acute distress, well developed and well groomed Nutritional Appearance: average body habitus and well nourished Orientation: alert, awake and oriented x3 [facility] Head: normal to inspection, normocephalic and atraumatic Ears: hearing grossly normal bilaterally and external ears normal General nose exam: external nose normal Face and sinus: normal facial exam and sinuses nontender Mouth: oral mucosae normal, lip normal, tongue normal and moist mucous membranes Teeth and gingiva: dentition normal Eyes General: appearance normal, both eyes and all related structures Conjunctivae: conjunctivae normal Sclera: sclerae normal Pupils: PERRL Neck Neck: normal visual inspection and full ROM Chest Chest: normal inspection of the chest Resp Effort & Inspection: normal respiratory effort, able to speak in complete sentences, no cough, no nasal flaring, not tachypneic and no use of accessory muscles Auscultation: clear to auscultation bilaterally, no rales, no rhonchi and no wheezes Cardio Jugular venous pressure: no JVD Rate: regular rate Rhythm: regular rhythm GI Inspection: normal to inspection, no edema and non-distended Palpation: soft, no masses, nontender and No ascites Auscultation: normal bowel sounds Skin General skin exam: no rashes or lesions noted Trauma: no lacerations or abrasions Neuro General: patient alert, patient oriented x3, oriented, gait normal, moves all extremities, no focal motor deficits and CN's II-XI intact bilaterally Cognition: normal cognition Speech: speech normal Gait: normal gait Motor: muscle tone normal throughout Extrem General: normal to inspection, full ROM, no clubbing, cyanosis or edema, no pedal edema and no calf tenderness bilaterally Psych Appearance: grossly normal and well kempt Mental Status: mental status grossly normal Speech and Movement: speech and movement normal Affect: normal affect Results Labs Result diagrams: 04/02/21 08:17 Labs: Laboratory Results - last 24 hr 04/02/21 04/02/21 04/02/21 08:10 08:17 08:17 WBC 6.00 RBC 2.42 L Hgb 7.6 L Hct 23.7 L D MCV 97.9 H MCH 31.4 MCHC 32.1 RDW 14.4 H Plt Count 175 MPV 11.1 H Reticulocyte % (Auto) 5.1 H Immature Gran % 0.5 Neutrophils % 75.8 Lymphocytes % 12.0 Monocytes % 7.2 Eosinophils % 4.0 Basophils % 0.5 Nucleated RBC % 0 Absolute Neutrophils 4.55 Absolute Lymphocytes 0.72 L Absolute Monocytes 0.43 Absolute Eosinophils 0.24 Absolute Basophils 0.03 Iron TIBC Transferrin % Sat Ferritin 23 L COVID-19 Source Nasal/Nares SARS-CoV-2 (PCR) Negative 04/02/21 04/02/21 08:17 08:17 WBC RBC Hgb Hct MCV MCH MCHC RDW Plt Count MPV Reticulocyte % (Auto) Cancelled Immature Gran % Neutrophils % Lymphocytes % Monocytes % Eosinophils % Basophils % Nucleated RBC % Absolute Neutrophils Absolute Lymphocytes Absolute Monocytes Absolute Eosinophils Absolute Basophils Iron 49 L TIBC 294 Transferrin % Sat 17 L Ferritin COVID-19 Source SARS-CoV-2 (PCR) Last Vital Signs Temp 36.0 C L 04/02/21 08:18 Pulse 69 04/02/21 08:18 Resp 16 04/02/21 08:18 BP 143/80 H 04/02/21 08:18 Pulse Ox 98 04/02/21 08:18
[2021-04-02 10:09] VITALS: BMI 26.6
--- NOTE | 2021-04-02 10:27 | W.PM.ENDDOP ---
Date of service: 04/02/21 Time of Service: : Endoscopy Report DATE OF PROCEDURE: 04/02/21 PRE-OP DIAGNOSIS: anemia POST-OP DIAGNOSIS: other SURGEON: Jessica Horne ANESTHESIA TYPE: General LMA/ETT ESTIMATED BLOOD LOSS: 0 PATHOLOGY: none sent COMPLICATIONS: None DISPOSITION: same day PROCEDURE DESCRIPTION: After informed consent was obtained the patient was take to the procedure room and placed in a supine position. Monitors were applied and a time out was done. The patients name, date of , procedure type, allergies to medications and metal in their body was reviewed. A bite block was placed and the patient was sedated. Once sedated and comfortable the gastroscope was advanced through the oropharynx which was grossly normal into the esophagus. The proximal and mid-esophagus were normal. In the distal esophagus there was no esophageal erosions, varices, diverticula, or restriction apparent today. The scope was advanced into the stomach and through the pylorus into the 3rd portion of the duodenum. The duodenum was noted to be normal. biopsies were not done because he is still fully anticoagulated.. The scope was retracted back into the stomach. Pylorus extremely patent. There is no gastritis or duodenitis apparent. There are no ulcers.. The scope was retroflexed. The cardia and fundus were noted to be normal. There is no hiatal hernia noted. Biopsies were not taken because he is still fully anticoagulated. The Z line was regular. The scope was removed and the patient was woken up and taken back to [facility] in stable condition. Follow up: clinic on monday Hold anticoagulation at this time Baby aspirin daily He does not need to be on a PPI.
--- NOTE | 2021-04-02 10:29 | W.PM.DSUDISC ---
Discharge Plan Disposition Patient Disposition: HOME Condition: Stable Discharge Details Reason For Visit: stomach scope Attending Provider: Jessica oHrne Primary Care Provider: Elisa Garner Home Meds and New Rx's Prescriptions: Discontinued Xarelto 20 mg tablet 20 mg PO DAILY RF: 0 No Action lisinopril 20 mg tablet 20 mg PO BID RF: 0 BiPAP miscellaneous RF: 0 carvedilol 6.25 mg tablet 12.5 mg PO BID Qty: 120 RF: 11 atorvastatin 40 mg tablet 80 mg PO DAILY RF: 0 acetaminophen [Tylenol] 325 mg Tablet 650 mg PO Q4H PRN PRNQty: 30 RF: 0 pantoprazole [Protonix] 40 mg tablet,delayed release (DR/EC) 40 mg PO DAILY 30 Days Qty: 30 RF: 0 fexofenadine [Yazmin] 180 mg Tablet 180 mg PO BID RF: 0 ferrous sulfate 325 mg (65 mg iron) Tablet 325 mg PO Q OTHER DAY RF: 0 Discharge Instructions Additional Instructions: DSU Colonoscopy Post-Op Instructions Instructions for Everyone who is given Anesthesia: For your safety, please do the following for the next twenty-four (24) hours: *Do Not operate a motor vehicle (car, truck, motorcycle, etc.) *Do Not drink alcoholic beverages or use any recreational drugs for the first 24 hours or while taking pain medications. The medications in your body may have a reaction that can be dangerous. *Do Not make any important decisions or sign any important papers. Findings: normal stomach Follow up: 04/05 @ 10:30am w/ Dr. Horne continue taking ASA 81mg po daily stop Xaralto continue talking iron will schedule colonoscopy for 04/09 at this time continue walking f/u w/ [facility] as scheduled 1. No lifting over 20 pounds or strenuous activity for the first 24 hours after your procedure. After 24 hours there are no restrictions on your activity but you may feel fatigued for a few days. 2. After you arrive home you may have a light meal and return to your normal diet as you can tolerate it without feeling sick to your stomach. 3. You may have a bloated, gaseous feeling in your belly (abdomen) after a colonoscopy. Passing gas and belching will help. Walking or lying down on your left side with your knees flexed may relieve the discomfort. Call the office at [phone] (Office) or [phone] (Hospital) right away if you notice any of the following: a.Vomiting of blood or ?coffee ground stools?. b.Rectal bleeding 1Tbsp, blood clots or continuous bleeding. c.Severe belly (abdominal) pain. d.A hard distended belly (abdomen) and an inability to pass gas. 4. Please don?t expect to have a normal BM (bowel movement) for 2-3 days after your procedure. 5. If there are questions regarding the findings of your procedure, please contact your doctor 6. If you are unable to contact your doctor with a problem, contact the hospital at [phone]. 7. Continue all your regular medications unless directed otherwise. I understand the above instructions and have no questions. Signature of Patient or Adult Escort Name of Responsible Adult Escort Signature of Nurse Date/Time Activity:: see above Diet:: see above DS: Diagnosis Discharge Diagnosis (1) Encounter for colorectal cancer screening: Status: Acute (2) Cerebrovascular accident (CVA) due to thrombosis of right middle cerebral artery: Status: Acute (3) Paroxysmal atrial fibrillation: Status: Acute (4) Anemia: Status: Chronic (5) GI (gastrointestinal bleed): Status: Chronic (6) Hyperlipidemia: Status: None (7) Hypertension: Status: None
[2021-04-02 10:31] VITALS: BP 103/71; PULSE 66; RESP 24; TEMP 36.5; O2SAT 99
--- NOTE | 2021-04-02 10:32 | W.ANESPOSTOP ---
Postoperative Evaluation Date, Time and Location Date Performed: 04/02/21 Time Performed: 10:33 Patient Location: Day Surgery Unit Vital Signs Most Recent Imported Vital Signs: Most Recent Vital Signs Temp Pulse Resp BP Pulse Ox 36.5 C 66 24 103/71 99 04/02/21 10:31 04/02/21 10:31 04/02/21 10:31 04/02/21 10:31 04/02/21 10:31 Pain Score Most Recent Pain Score: Most Recent Pain Score Pain Level 0 04/02/21 10:31 Assessment Mental Status: Awake (Alert & Oriented to Patient Baseline) Airway and Respiratory Function: Patent airway with normal (patient baseline) respiratory exam Cardiovascular Function: Hemodynamically Stable Hydration Status: Adequately Hydrated Nausea & Vomiting: No Nausea or Vomiting Pain: Pt. Denies Any Pain Peripheral Nerve Block: Patient did not receive a nerve block
[2021-04-02 11:00] VITALS: BP 131/99; PULSE 61; RESP 20; TEMP 36.5; O2SAT 98
== END 2021-04-02 14:33 | disposition home or self-care (01) ==
PROVIDERS: PCP Nurse Practitioner Family; Visit Provider Surgery
PROC: 0DJ68ZZ Inspection of Stomach, Via Natural or Artificial Opening Endoscopic (ICD-10-PCS; CPT 43235; principal; 2021-04-02 09:00)
DX: I48.0 Paroxysmal atrial fibrillation; Z86.73 Personal history of transient ischemic attack (TIA), and cerebral infarction without residual deficits; D64.9 Anemia, unspecified; Z79.01 Long term (current) use of anticoagulants
CPT/HCPCS: 43235; 86850; 86900; 86901; 86920; 87635; 96365; 96366; 82728; 83540; 83550; 85025; 85045; J1756; P9016

== ENCOUNTER 2021-04-05 02:59 | Outpatient (CLI) | payer BC, MEDICARE, SELFPAY ==
[2021-04-05 10:44] LABS: Abs Immature Grans 0.02 10^3/uL (0.0-0.06); Absolute Basophil Count 0.03 10^3/uL (0.0-0.2); Absolute Eosinophil Count 0.23 10^3/uL (0.0-0.7); Absolute Lymphocyte Count 0.66 10^3/uL (1.2-3.4); Absolute Monocyte Count 0.28 10^3/uL (0.1-0.8); Absolute Neutrophil Count 3.22 10^3/uL (1.2-6.7); Basophils % 0.7; Eosinophils % 5.2; HCT 28.8 % (40.0-50.0); HGB 9.2 g/dL (13.5-17.5); Immature Grans % 0.5; Lymphocytes % 14.9; MCH 31.1 pg (27.0-33.0); MCHC 31.9 % (32.0-36.0); MCV 97.3 fL (80-95); Monocytes % 6.3; Neutrophils % 72.4; Nucleated RBC 0 %; Platelet Count 190 10^3/uL (130-400); RBC 2.96 10^6/uL (4.36-5.78); RDW 14.7 % (11.8-14.1); WBC 4.44 10^3/uL (4.4-10.8)
[2021-04-05 11:23] LABS: Vitamin B12 523 pg/mL (193-986)
== END 2021-04-05 03:00 | disposition home or self-care (01) ==
LOC: LBO 02:59
PROVIDERS: PCP Nurse Practitioner Family; Visit Provider Surgery
DX: D50.8 Other iron deficiency anemias (principal); K92.2 Gastrointestinal hemorrhage, unspecified; I48.0 Paroxysmal atrial fibrillation
CPT/HCPCS: 36415; 82607; 85025

== ENCOUNTER 2021-04-07 02:10 | Outpatient (CLI) | payer BC, MEDICARE, SELFPAY ==
[2021-04-07 10:12] LABS: Source Nasal/Nares
[2021-04-07 13:54] LABS: COVID-19 PCR Negative (Negative)
== END 2021-04-07 02:11 | disposition home or self-care (01) ==
LOC: LBO 02:10
PROVIDERS: PCP Nurse Practitioner Family; Visit Provider Surgery
DX: Z20.822 Contact with and (suspected) exposure to COVID-19 (principal); Z01.818 Encounter for other preprocedural examination
CPT/HCPCS: 87635

== ENCOUNTER 2021-04-09 06:52 | Day surgery (SDC) | payer BC, MEDICARE, SELFPAY ==
--- NOTE | 2021-04-08 12:48 | W.COLOREPORT ---
Colonoscopy Report Date of procedure: 04/09/21 Pre-op diagnosis general: rectal bleeding/anemia Post-op diagnosis procedure note: other (ssevere gale diverticula ) Surgeon: Jessica Horne Anesthesia Type: General:No Airway Estimated blood loss (mL): 0 Pathology: none sent Complications: None Disposition: same day Prep: Miralax/Dulcolax Retraction Time: 8mins Procedure Description: After informed consent was obtained the patient was taken to the procedure room and placed in a left decubitous position. Monitors were applied and a time out was done. The patients name, date of , procedure, allergies to medications and metal in their body was reviewed. The patient was then sedated. Once sedated and comfortable a rectal exam was done. External exam was normal. Internal exam revealed a normal sphincter tone and no palpable masses. The prostate mildly enlarged but homogeneous in texture The scope was then introduced and retrofelexed. Grade 1 internal hemorrhoids were identified. The scope was then advanced to the cecum without difficulty. The TI and appendiceal orifice were identified. The prep was patient had a liquid stool that coated the vila of the colon. This was lavaged. He also had inspissated stool in the diverticula. He does have severe diverticula in the sigmoid colon. The diverticula do carry all the way over to the cecum. There is no signs of bleeding or infection. However lesions less than 5 mm may have been missed.. The scope was then slowly retracted over 8 minutes back into the rectum. There are no polyps or AVMs noted today. There is no signs of active or old bleeding. The scope was removed and the patient was woken up and taken back to Same day surgery in stable condition. The patient tolerated the procedure well and there were no immediate complications. Follow up: The patient should follow up in 10 years unless they develop changes in bowel habits or other new gastrointestinal complaints.
--- NOTE | 2021-04-08 12:59 | PDOC.DSDIS_ITS ---
Discharge Plan Disposition Patient Disposition: HOME Condition: Good Discharge Details Reason For Visit: scope of colon Attending Provider: Jessica Horne Primary Care Provider: Elisa Garner Home Meds and New Rx's Prescriptions: Continued lisinopril 20 mg tablet 20 mg PO BID RF: 0 BiPAP miscellaneous RF: 0 aspirin 81 mg tablet,delayed release (DR/EC) 81 mg PO DAILY RF: 0 Xarelto 20 mg tablet 20 mg PO DAILY RF: 0 carvedilol 6.25 mg tablet 12.5 mg PO BID Qty: 120 RF: 11 atorvastatin 40 mg tablet 80 mg PO DAILY RF: 0 acetaminophen [Tylenol] 325 mg Tablet 650 mg PO Q4H PRN PRNQty: 30 RF: 0 ferrous sulfate 325 mg (65 mg iron) Tablet 325 mg PO Q OTHER DAY RF: 0 Discontinued bisacodyl [Dulcolax (bisacodyl)] 5 mg tablet,delayed release (DR/EC) 5 mg PO ONCE Qty: 4 RF: 0 polyethylene glycol 3350 17 gram/dose powder 238 g PO ONCE Qty: 238 RF: 0 Discharge Instructions Additional Instructions: DSU Colonoscopy Post- Op Instructions Instructions for Everyone who is given Anesthesia: For your safety, please do the following for the next twenty-four (24) hours: *Do Not operate a motor vehicle (car, truck, motorcycle, etc.) *Do Not drink alcoholic beverages or use any recreational drugs for the first 24 hours or while taking pain medications. The medications in your body may have a reaction that can be dangerous. *Do Not make any important decisions or sign any important papers. Findings: severe gale diverticula. no infections or polyps Follow up: resume xaralto on Monday lab work next f/u hematology. Pill camm appt continue oral iron 1. No lifting over 20 pounds or strenuous activity for the first 24 hours after your procedure. After 24 hours there are no restrictions on your activity but you may feel fatigued for a few days. 2. After you arrive home you may have a light meal and return to your normal diet as you can tolerate it without feeling sick to your stomach. 3. You may have a bloated, gaseous feeling in your belly (abdomen) after a colonoscopy. Passing gas and belching will help. Walking or lying down on your left side with your knees flexed may relieve the discomfort. Call the office at [phone] (Office) or [phone] (Hospital) right away if you notice any of the following: a.Vomiting of blood or ?coffee ground stools?. b.Rectal bleeding 1Tbsp, blood clots or continuous bleeding. c.Severe belly (abdominal) pain. d.A hard distended belly (abdomen) and an inability to pass gas. 4. Please don?t expect to have a normal BM (bowel movement) for 2-3 days after your procedure. 5. If there are questions regarding the findings of your procedure, please contact your doctor 6. If you are unable to contact your doctor with a problem, contact the hospital at [phone]. 7. Continue all your regular medications unless directed otherwise. I understand the above instructions and have no questions. Signature of Patient or Adult Escort Name of Responsible Adult Escort Signature of Nurse Date/Time Activity:: see above Diet:: see above Discharge Orders Discharge Orders: Discharge Order (Routine); Ordered 04/08/21 Ordered By: Jessica Horne DS: Diagnosis Discharge Diagnosis (1) Cerebrovascular accident (CVA) due to thrombosis of right middle cerebral artery: Status: Acute (2) Paroxysmal atrial fibrillation: Status: Acute (3) Iron refractory iron deficiency anemia: Status: Acute (4) Diverticula of colon: Status: Acute
[2021-04-09 07:21] VITALS: BP 106/65; PULSE 67; RESP 16; TEMP 36.6; O2SAT 98
[2021-04-09] MEDS: Lactated Ringers 1,000 ML 80 ML IV (07:50)
--- NOTE | 2021-04-09 07:59 | W.ANESPRE ---
General Info Date of Service Date Performed: 04/09/21 Height: 5 ft 6 in Weight: 74.1 kg Body Mass Index (BMI): 26.4 Surgical Procedure: Operation Date: 04/09/21 08:35 Proposed Procedures Side Surgeon ginger Horne, DO Meds Allergies and Home Medications Home Medication Medication Instructions Recorded carvedilol 6.25 mg tablet 12.5 mg PO BID #120 tab-cap 04/13/18 acetaminophen [Tylenol] 650 mg PO Q4H PRN PRN #30 tab 06/13/18 BiPAP MISCELLANEOUS 08/06/19 atorvastatin 40 mg tablet 80 mg PO DAILY tab-cap 08/06/19 lisinopril 20 mg tablet 20 mg PO BID 08/06/19 ferrous sulfate 325 mg PO Q OTHER DAY 04/02/21 aspirin 81 mg tablet,delayed 81 mg PO DAILY 04/05/21 release bisacodyl 5 mg tablet,delayed 5 mg PO ONCE #4 tab 04/05/21 release polyethylene glycol 3350 17 238 g PO ONCE #238 g 04/05/21 gram/dose oral powder rivaroxaban 20 mg tablet 20 mg PO DAILY 04/05/21 Current Visit Medications: Current Medications Generic Name Dose Route Start Last Admin Trade Name Freq PRN Reason Stop Dose Admin Hyoscyamine Sulfate 0.125 mg 04/08/21 12:48 Hyoscyamine 0.125 Mg Sl/Oral/Chew SL DIRECTED PRN Iron Sucrose 200 mg/ Sodium 110 mls @ 400 mls/hr 04/09/21 08:30 Chloride IVPB 04/09/21 16:00 TODAY@0830 JUVE Ringer's Solution 1,000 mls @ 80 mls/hr 04/09/21 06:00 04/09/21 07:50 IV 05/08/21 23:59 80 mls/hr INFUSION JUVE Administration IV Miscellaneous Supplies 1 each 04/09/21 06:00 Iv Access IV 05/08/21 23:59 DIRECTED JUVE Ondansetron HCl 4 mg 04/08/21 12:48 Ondansetron 4 Mg/2 Ml Vial IVP Q4H PRN PRN Nausea / Vomiting Sodium Chloride 0 ml 04/09/21 06:00 Normal Saline Flush 10 Ml Syr IV 05/08/21 23:59 PRN PRN Sodium Chloride 0 ml 04/09/21 06:00 Normal Saline 10 Ml Vial IJ 05/08/21 23:59 DIRECTED PRN Sterile Water 0 ml 04/09/21 06:00 Water,Injection,Sterile 10 Ml Vial IJ 05/08/21 23:59 DIRECTED PRN PFSH Active Problems Active Problems: Problem Status Onset Code Encounter for colorectal cancer screening Z12.11, Z12.12 Cerebrovascular accident (CVA) due to thrombosis of right middle cerebral artery 10/11/17 I63.311 Paroxysmal atrial fibrillation 01/02/18 I48.0 Umbilical hernia K42.9 Anemia D64.9 GI (gastrointestinal bleed) K92.2 Iron refractory iron deficiency anemia D50.8 Medical History Medical History (Updated 04/09/21 @ 07:55 by Kayleigh Coronel) Aphasia Arthritis Fatigue History of ileus Hyperlipidemia Hypertension Intermittent chest pain Osteoarthritis Paresthesia Sleep apnea Stroke 09/14/17 Tobacco abuse Vitiligo Weakness Surgical History Surgical History H/O bilateral inguinal hernia repair H/O colonoscopy (04/17/18) Dr Montiel, negative, repeat in 10 years H/O umbilical hernia repair (06/13/18) Dr Montiel History of total bilateral knee replacement S/P arterial stent Tobacco Smoking/Tobacco Use Status: Former Tobacco Use Tobacco: How many years used: 30 Alcohol Alcohol Intake: former Substance Use Substance use: Never Substance use type: does not use Vital Signs and Lab Results Vital Signs Most Recent Vital Signs in EMR: Most Recent Vital Signs Temp Pulse Resp BP Pulse Ox 36.6 C 67 16 106/65 98 04/09/21 07:21 04/09/21 07:21 04/09/21 07:21 04/09/21 07:21 04/09/21 07:21 Lab Results Blood Type / Crossmatch: Patient ABO/Rh B Negative 04/02/21 08:17 04/02/21 Antibody Screen NEGATIVE 04/02/21 08:17 04/02/21 Crossmatch See Detail 04/02/21 08:17 04/02/21 Complete Blood Count: White Blood Count 4.44 10^3/uL (4.4-10.8) 04/05/21 10:30 04/05/21 Red Blood Count 2.96 10^6/uL (4.36-5.78) L 04/05/21 10:30 04/05/21 Hemoglobin 9.2 g/dL (13.5-17.5) L 04/05/21 10:30 04/05/21 Hematocrit 28.8 % (40.0-50.0) L 04/05/21 10:30 04/05/21 Platelet Count 190 10^3/uL (130-400) 04/05/21 10:30 04/05/21 Complete Metabolic Panel: Sodium Level 139 mmol/L (136-145) 04/01/21 16:02 04/01/21 Potassium Level 4.3 mmol/L (3.5-5.1) 04/01/21 16:02 04/01/21 Chloride Level 108 mmol/L (98-107) H 04/01/21 16:02 04/01/21 Carbon Dioxide Level 22.7 mmol/L (21.0-32.0) 04/01/21 16:02 04/01/21 Blood Urea Nitrogen 40 mg/dL (7-18) H 04/01/21 16:02 04/01/21 Creatinine 1.1 mg/dL (0.70-1.30) 04/01/21 16:02 04/01/21 Estimated GFR/1.73 m2 >= 60.00 (mL/min/1.73m2) 04/01/21 16:02 04/01/21 Magnesium Level 2.0 mg/dL (1.8-2.4) 04/01/21 16:02 04/01/21 Calcium Level 8.4 mg/dL (8.5-10.1) L 04/01/21 16:02 04/01/21 Albumin 3.2 g/dL (3.4-5.0) L 04/01/21 16:02 04/01/21 Glucose Level 109 mg/dL (74-106) H 04/01/21 16:02 04/01/21 Liver Function Panel: Alanine Aminotransferase (ALT/SGPT) 22 U/L (16-63) 04/01/21 16:02 04/01/21 Aspartate Amino Transf (AST/SGOT) 14 U/L (15-37) L 04/01/21 16:02 04/01/21 Coagulation Panel: INR International Normalized Ratio 1.2 (0.9-1.1) H 04/01/21 16:02 04/01/21 Prothrombin Time 11.8 sec (9.3-11.0) H 04/01/21 16:02 04/01/21 Activated Partial Thromboplast Time 25.2 sec (21.0-27.5) 04/01/21 16:02 04/01/21 Cardiac Panel: No Data to Display Arterial Blood Gas: No Data to Display Venous Blood Gas: No Data to Display Pancreas Panel: No Data to Display Thyroid Panel: No Data to Display Infectious Disease: Coronavirus (COVID-19)(PCR) Negative (Negative) 04/07/21 09:49 04/07/21 Coronavirus 2019 Source Nasal/Nares 04/07/21 09:49 04/07/21 Blood Cultures: No Data to Display Toxicology Panel: No Data to Display Imaging and Studies Imaging and Studies Stress Test Summary: Impressions: Normal study after pharmacologic stress. Summary: 1. Myocardial perfusion imaging: No myocardial perfusion defects noted. 2. The calculated left ventricular ejection fraction after stress: 50%. LV global systolic function is normal. No left ventricular regional motion abnormality. 10/20/17 Echocardiogram Summary: 01/27/21 EF 59% No hemodynamically significant valve disease Mild dilation of aortic root 4.0cm Ascending aorta normal in size Carotid Artery Summary:: FINDINGS: RIGHT CAROTID ARTERY: There is mild-moderate plaque in the right common carotid artery. Distally in this vessel there is calcified plaque but not associated with elevated velocities. There is also some heavily calcified mural plaque in the bulb and at the origin of the right internal carotid artery. This makes Doppler evaluation somewhat difficult. Maximum systolic velocity in the proximal right ICA is recorded at 106 cm/sec. Therefore less than 50 percent stenosis. LEFT CAROTID ARTERY: There is multilevel mild plaque in the left common carotid artery, not associated with elevated velocities. At the level of the left carotid bulb there is calcified plaque maximum systolic velocity 127 cm/sec. Both noncalcified and calcified plaque is seen extending into the proximal left ICA velocities 132/43 cm/sec. Consistent with 50-69 percent stenosis. 07/16/20 Anesthesia Assessment and Plan Anesthesia History Personal History: No History of Anesthesia Complications Family History: No Family History of Anesthesia Complications Exercise Tolerance Exercise Tolerance: Metabolic Equivalents>4 (Walks 5-6 miles per day. ) Pertinent Negatives Pertinent Negatives: No Symptoms of GERD, No Major Cardiovascular Symptoms or Complaints and No Major Pulmonary Symptoms or Complaints Cardiac & Pulmonary Exam Cardiac Exam: Normal S1/S2 Heart Sounds Pulmonary Exam: Clear Bilateral Breath Sounds Airway Exam Known Difficult Airway: No Mallampati Class: 2 Mouth Opening: Normal (> 3cm) Thyromental Distance: Greater than 3 cm Neck Range of Motion: Full ROM Neck Circumference: Normal Teeth Condition: Normal Dentition ASA Classification ASA Score: ASA 3 Emergency Case?: No NPO Status NPO Status: NPO Clears >2 hours, Solids >8 hours Anesthesia Plan Resuscitation Status: Full Code Anesthesia Technique: General Anesthesia Airway Planned: Natural Airway Monitors Used: Standard Monitors
[2021-04-09 08:17] VITALS: BMI 26.4
[2021-04-09 08:48] VITALS: BP 97/61; PULSE 61; RESP 18; TEMP 36.4; O2SAT 96
--- NOTE | 2021-04-09 09:15 | W.ANESPOSTOP ---
Postoperative Evaluation Date, Time and Location Date Performed: 04/09/21 Time Performed: 08:49 Patient Location: Day Surgery Unit Vital Signs Most Recent Imported Vital Signs: Most Recent Vital Signs Temp Pulse Resp BP Pulse Ox 36.4 C L 61 18 97/61 L 96 04/09/21 08:48 04/09/21 08:48 04/09/21 08:48 04/09/21 08:48 04/09/21 08:48 Pain Score Most Recent Pain Score: Most Recent Pain Score Pain Level 0 04/09/21 08:48 Assessment Mental Status: Awake (Alert & Oriented to Patient Baseline) Airway and Respiratory Function: Patent airway with normal (patient baseline) respiratory exam Cardiovascular Function: Hemodynamically Stable Hydration Status: Adequately Hydrated Nausea & Vomiting: No Nausea or Vomiting Pain: Pt. Denies Any Pain Peripheral Nerve Block: Patient did not receive a nerve block
[2021-04-09 09:20] VITALS: PULSE 55; RESP 16; TEMP 36.3; O2SAT 98
[2021-04-09] MEDS: IRON SUCROSE COMPLEX 200 MG in Normal Saline 100 ML 400 MG IVPB (09:24)
== END 2021-04-09 10:12 | disposition home or self-care (01) ==
PROVIDERS: PCP Nurse Practitioner Family; Visit Provider Surgery
PROC: 0DJD8ZZ Inspection of Lower Intestinal Tract, Via Natural or Artificial Opening Endoscopic (ICD-10-PCS; CPT 45378; principal; 2021-04-09 08:30)
DX: K62.5 Hemorrhage of anus and rectum (principal); D64.9 Anemia, unspecified; K57.30 Diverticulosis of large intestine without perforation or abscess without bleeding; K64.0 First degree hemorrhoids
CPT/HCPCS: 45378; J1756; J2001

== ENCOUNTER 2021-04-15 02:02 | Outpatient (CLI) | payer BC, MEDICARE, SELFPAY ==
[2021-04-15 09:38] LABS: Abs Immature Grans 0.01 10^3/uL (0.0-0.06); Absolute Basophil Count 0.06 10^3/uL (0.0-0.2); Absolute Eosinophil Count 0.31 10^3/uL (0.0-0.7); Absolute Lymphocyte Count 0.83 10^3/uL (1.2-3.4); Absolute Monocyte Count 0.46 10^3/uL (0.1-0.8); Absolute Neutrophil Count 4.25 10^3/uL (1.2-6.7); Eosinophils % 5.2; HCT 31.2 % (40.0-50.0); HGB 9.9 g/dL (13.5-17.5); Immature Grans % 0.2; MCH 31.1 pg (27.0-33.0); MCHC 31.7 % (32.0-36.0); MCV 98.1 fL (80-95); MPV 10.6 fL (8.0-11.0); Monocytes % 7.8; Neutrophils % 71.8; Nucleated RBC 0 %; Platelet Count 240 10^3/uL (130-400); RBC 3.18 10^6/uL (4.36-5.78); RDW-SD 49.6 fL; WBC 5.92 10^3/uL (4.4-10.8)
[2021-04-15 10:52] LABS: Ferritin 96 ng/mL (26-388)
[2021-04-15 11:04] LABS: Iron 200 ug/dL (65-175); Total Iron Binding Capacity 338 ug/dL (250-450); Transferrin Sat 59 % (20-55)
== END 2021-04-15 02:03 | disposition home or self-care (01) ==
LOC: LBO 02:02
PROVIDERS: PCP Nurse Practitioner Family; Visit Provider Surgery
DX: D50.8 Other iron deficiency anemias (principal); D64.9 Anemia, unspecified; K92.2 Gastrointestinal hemorrhage, unspecified; K57.30 Diverticulosis of large intestine without perforation or abscess without bleeding
CPT/HCPCS: 36415; 82728; 83540; 83550; 85025

== ENCOUNTER 2021-04-26 09:57 | Outpatient (REF) | payer BC, MEDICARE, SELFPAY ==
[2021-04-26 16:08] LABS: HCT 30.7 % (40.0-50.0); HGB 9.7 g/dL (13.5-17.5)
== END 2021-04-26 09:58 | disposition home or self-care (01) ==
LOC: NCHCN 09:57
PROVIDERS: PCP Nurse Practitioner Family; Visit Provider Nurse Practitioner Family
DX: K92.2 Gastrointestinal hemorrhage, unspecified (principal)
CPT/HCPCS: 85014; 85018

== ENCOUNTER 2021-06-02 15:10 | Outpatient (REF) | payer BC, MEDICARE, SELFPAY ==
[2021-06-02 14:12] LABS: HCT 33.5 % (40.0-50.0); HGB 11.2 g/dL (13.5-17.5)
== END 2021-06-02 15:11 | disposition home or self-care (01) ==
LOC: NCHCN 15:10
PROVIDERS: PCP Nurse Practitioner Family; Visit Provider Nurse Practitioner Family
DX: K92.2 Gastrointestinal hemorrhage, unspecified (principal)
CPT/HCPCS: 85014; 85018

== ENCOUNTER 2021-06-10 09:09 | Outpatient (REF) | payer BC, MEDICARE, SELFPAY ==
[2021-06-10 14:41] LABS: HCT 33.8 % (40.0-50.0); HGB 11.2 g/dL (13.5-17.5)
== END 2021-06-10 09:10 | disposition home or self-care (01) ==
LOC: NCHCN 09:09
PROVIDERS: PCP Nurse Practitioner Family; Visit Provider Nurse Practitioner Family
DX: K92.2 Gastrointestinal hemorrhage, unspecified (principal)
CPT/HCPCS: 85014; 85018

== ENCOUNTER 2021-11-26 19:24 | Outpatient (REF) | payer MEDICARE, SELFPAY ==
[2021-11-26 14:26] LABS: Abs Immature Grans 0.01 10^3/uL (0.0-0.06); Absolute Basophil Count 0.04 10^3/uL (0.0-0.2); Absolute Eosinophil Count 0.13 10^3/uL (0.0-0.7); Absolute Lymphocyte Count 0.77 10^3/uL (1.2-3.4); Absolute Monocyte Count 0.45 10^3/uL (0.1-0.8); Absolute Neutrophil Count 3.79 10^3/uL (1.2-6.7); Basophils % 0.8; Eosinophils % 2.5; HCT 35.8 % (40.0-50.0); HGB 12.4 g/dL (13.5-17.5); Immature Grans % 0.2; Lymphocytes % 14.8; MCH 33.1 pg (27.0-33.0); MCHC 34.6 % (32.0-36.0); MCV 96 fL (80-95); MPV 10.6 fL (8.0-11.0); Monocytes % 8.7; Platelet Count 230 10^3/uL (130-400); RBC 3.75 10^6/uL (4.36-5.78); RDW 12.5 % (11.8-14.1); RDW-SD 43.2 fL; WBC 5.19 10^3/uL (4.4-10.8)
[2021-11-26 15:07] LABS: Iron 105 ug/dL (65-175); Total Iron Binding Capacity 362 ug/dL (250-450); Transferrin Sat 29 % (20-55)
[2021-11-26 15:44] LABS: ALT 26 U/L (16-63); AST 9 U/L (15-37); Albumin 3.7 g/dL (3.4-5.0); Alkaline Phosphatase 65 U/L (46-116); Anion Gap 13.7 mmol/L (3-11); BUN 41 mg/dL (7-18); Bilirubin, Total 0.5 mg/dL (0.2-1.0); CO2 18.3 mmol/L (21.0-32.0); CREATININE 1.2 mg/dL (0.70-1.30); Calcium 8.9 mg/dL (8.5-10.1); Chloride 103 mmol/L (98-107); Ferritin 53 ng/mL (26-388); Glucose 115 mg/dL (74-106); Potassium 4.7 mmol/L (3.5-5.1); Sodium 135 mmol/L (136-145); TSH (W/Ref FT4) 1.64 uIU/mL (0.36-3.74); Total Protein 7.4 g/dL (6.4-8.2)
== END 2021-11-26 19:25 | disposition home or self-care (01) ==
LOC: NCHCN 19:24
PROVIDERS: PCP Nurse Practitioner Family; Visit Provider Nurse Practitioner Family
DX: D64.9 Anemia, unspecified (principal); I10 Essential (primary) hypertension; I48.91 Unspecified atrial fibrillation; I65.23 Occlusion and stenosis of bilateral carotid arteries
CPT/HCPCS: 80053; 82728; 83540; 83550; 84443; 85025

== ENCOUNTER → 2022-01-17 01:31 | Outpatient (CLI) | payer MEDICARE, OTHER, SELFPAY ==
--- NOTE | 2022-01-17 | DI.US_ITS ---
Exam(s) US CAROTID EXAM: US CAROTID CLINICAL HISTORY: CAROTID ARTERY STENOSIS, I65.23 TECHNIQUE: Ultrasound performed using standard protocol. COMPARISON: US US CAROTID from 07/16/2020 FINDINGS: Duplex evaluation of the carotid circulation was performed according to the usual protocol. 2D and D oppler evaluation was utilized. Flow velocities in the common, internal, and external carotid arteries are within normal limits bilat erally. There is bilateral antegrade vertebral flow. IMPRESSION: No evidence of a hemodynamically significant carotid stenosis. DATA REPOSITORY:
--- NOTE | 2022-01-17 08:14 | DI.CTLCSR_ITS ---
Exam(s) CT CHEST LUNG CANCER SCREEN EXAM: CT CHEST LUNG CANCER SCREEN CLINICAL HISTORY: FORMER SMOKER, Z87.891; CAROTID ARTERY STENOSIS, BILATERAL, I65.23 TECHNIQUE: CT examination of the chest was performed utilizing low-dose lung cancer screening protoc . COMPARISON: CT CT CHEST LUNG CANCER SCREEN from 07/16/2020 FINDINGS: Images obtained through the upper abdomen show unremarkable appearance of visualized portions of the liver and spleen. Visualized portions of the pancreas, adrenals, and kidneys appear intact as well. Note is made of coronary artery calcification. There is no mediastinal or hilar adenopathy. Mediastinal vascular structures appear intact by noncon trast criteria. Tracheobronchial tree appears intact. No pleural effusion or pleural-based mass. The lungs are clear with no significant intrapulmonary nodule identified. IMPRESSION: Lung RADS Cat 1 - Negative: No nodules and definitely benign nodules Continue annual screening with LDCT in 12 months. Lung-RADS 1.0 CATEGORIES: Category 0 - Prior chest CT exam(s) being located for comparison. Category 1 - Annual screening in 12 months. No nodules or definitely benign nodules. Category 2 - Annual screening in 12 months. Benign appearance. Nodules with low likelihood of becomin g active cancer. Category 3 - 6-month follow-up. Probably benign. Short-term follow-up suggested. Nodules with low lik elihood of becoming active cancer. Category 4A - 3-month follow-up and CT/PET if >8 mm in size. Suspicious finding. Findings which requi re additional testing. Category 4B - Findings which require additional testing and tissue sampling. Suspicious finding. Category 4X - Category 3 or 4 nodules with additional features or imaging findings that increases the suspicion of malignancy. Modifier S- Potentially clinically significant finding. (Non lung cancer) RADIATION DOSE DELIVERED: 76.16mGy.cm Total DLP 1.84mGy CTDIvol 76.16mGy.cm Total DLP !Error CTDIvol RADIATION OPTIMIZATION: All CT scans at this facility use at least one of these dose optimization te chniques: automated exposure control; mA and/or kV adjustment per patient size (includes targeted exa ms where dose is matched to clinical indication); or iterative reconstruction.
== END ==
PROVIDERS: PCP Nurse Practitioner Family; Visit Provider Nurse Practitioner Family
DX: Z87.891 Personal history of nicotine dependence (principal); I65.23 Occlusion and stenosis of bilateral carotid arteries; Z12.2 Encounter for screening for malignant neoplasm of respiratory organs
CPT/HCPCS: 71271; 93880

== ENCOUNTER → 2022-01-24 09:47 | Outpatient (BNVA) | payer MEDICARE, OTHER, SELFPAY | PROVIDERS: PCP Nurse Practitioner Family; Referring Provider Nurse Practitioner Family; Visit Provider Internal Medicine Cardiovascular Disease | DX: Z79.01 Long term (current) use of anticoagulants (principal); I48.0 Paroxysmal atrial fibrillation; I10 Essential (primary) hypertension; G47.30 Sleep apnea, unspecified | CPT/HCPCS: 93005; 99213 ==

== ENCOUNTER 2022-01-24 09:57 | Outpatient (CLI) | payer MEDICARE, OTHER, SELFPAY ==
--- NOTE | 2022-01-24 09:45 | RT.EKG_ITS ---
APPROVED REPORT Exam: Resting ECG Reason for Exam: PAF Patient Location: O HR:92 bpm ECG Measurements Heart Rate 92 AXIS ND 180 P 19 QRSd 107 QRS -13 QT 355 T 22 QTc 440 Conclusion Sinus rhythm...normal P axis, V-rate 50- 99 RSR' in V1 or V2, probably normal variant...small R' only
== END 2022-01-24 09:58 | disposition home or self-care (01) ==
LOC: DI.CARD 09:57
PROVIDERS: PCP Nurse Practitioner Family; Visit Provider Internal Medicine Cardiovascular Disease
DX: I48.0 Paroxysmal atrial fibrillation (principal)
CPT/HCPCS: 93010

== ENCOUNTER 2022-07-05 12:07 | Emergency (ER) | payer BC, MEDICARE, OTHER, SELFPAY ==
[2022-07-05] VITALS (54 sets, daily range): BP systolic 123–171; BP diastolic 60–115; PULSE 52–84; RESP 9–23; TEMP 36.6–37.1; O2SAT 92–100
--- NOTE | 2022-07-05 12:15 | RT.EKG_ITS ---
APPROVED REPORT Exam: Resting ECG Reason for Exam: shoulder pain Patient Location: E HR:59 bpm ECG Measurements Heart Rate 59 AXIS WY 174 P 6 QRSd 115 QRS 1 QT 431 T 20 QTc 426 Conclusion Sinus bradycardia...rate< 60 Incomplete right bundle branch block...QRSd >112, terminal axis(90,270) Physician: no stemi, inverted t wave in III, unchanged and stable
--- NOTE | 2022-07-05 13:16 | ED.GENADUL_ITS ---
Discharge Plan Discharge Details Chief Complaint: GenMedical Clinical Impression: GI (gastrointestinal bleed), Anemia, COVID Primary Care Provider: Elisa Garner ED Provider: Donaldo Garcia Home Meds and New Rx's Prescriptions: No Action lisinopril 20 mg tablet 20 mg PO BID BiPAP miscellaneous aspirin 81 mg tablet,delayed release (DR/EC) 81 mg PO DAILY Xarelto 20 mg tablet 20 mg PO DAILY Rx Instructions: must administer with evening meal chlorthalidone 25 mg tablet 25 mg PO DAILY carvedilol 6.25 mg tablet 12.5 mg PO BID Qty: 120 11RF atorvastatin 40 mg tablet 80 mg PO DAILY acetaminophen [Tylenol] 325 mg Tablet 650 mg PO Q4H PRN PRNQty: 30 0RF Medical Decision Making Patient presenting to the emergency department for chief complaint of syncope and lightheadedness. Patient states for approximately 1 week she has had cold- like symptoms and initially tested negative at urgent care a week ago. Since then he has been taking brbf-hot-poaxjfy medications. 2 days ago he had gotten up and gotten ready for the day but had not take his morning medicine and all of a sudden had a syncopal episode. He stated that he slowly fell to the ground and got himself back up then sitting on a chair he had another episode. He did take his blood pressure after these events and noticed a low blood pressure. Since then he has had intermittent episode lightheadedness but no more syncope, states some right shoulder joint pain but denies chest pain, denies cough but does state shortness of breath. Otherwise only other complaint is some significant nasal congestion fatigue and malaise. Physical exam shows normal cranial nerve exam, normal neuro exam, mild cerumen impaction on the right ear otherwise unremarkable HEENT cardiac and respiratory exam. Vital signs are all stable with no tachycardia or hypotension noted. Of notation no patient is on beta-honey which could blunt tachycardic response. Patient stated that just prior to arrival he did test positive for COVID. We will plan on checking labs, EKG, will include a D-dimer and given patient's history of CVA we will plan on doing CT head but patient is outside the window for any current treatment and shows no obvious physical exam findings. Will give small fluid bolus pending results. Please see physician interpretation for full interpretation of EKG but upon my review patient has a rate of 59, sinus rhythm, machine read of incomplete right bundle branch block otherwise no findings to suggest acute STEMI. Received lab results that show significant anemia with hemoglobin of 6.8 and hematocrit 21.8. Discussed these findings with patient given that he is on a blood thinner. He states normal bowel movement today but states history of intermittent dark bowel movements which he has had over the past week. Patient states today's bowel movement was completely normal and denies any abdominal pain or other bleeding. The significant anemia I do feel is more than likely the cause of patient's syncope. Discussed with patient risk versus benefit of blood transfusion which she has had before and he is agreeable to receiving this. Will order 2 units of blood. Given syncope will still continue with head CT imaging given potential fall and trauma and we will still continue with chest CTA if patient does have an elevated D-dimer. Reviewed additional labs and patient did have elevated D-dimer at 1134 so we will continue with CTA chest, CMP is overall unremarkable nondiagnostic, troponin was nondetectable, and COVID PCR was resulted confirming positive test. We will continue with head CT and chest CTA along with transfusion of blood products. Medical Records Medical records reviewed: Yes I reviewed the patient's medical records. Medical records narrative: Reviewed previous admission records for anemia and GI bleeding HPI General Mode of arrival: ambulatory . Date/Time Provider Initiated Documentation: 07/05/22 12:09 . Limitations to Documentation: no limitations . Information obtained by: patient and RN notes reviewed . History of Present Illness 71 year old M presents to the emergency department with the chief complaint of Syncope, COVID-positive, with intensity rated at 2. Quality is described as aching, and is localized to the head. Patient started experiencing this week(s) (1) and it has been constant. No relieving factors improve symptom(s), No exacerbating factors reported . Patient did receive the following treatments prior to arrival, other (Imkp-ouo-ohryylq cough and cold meds) Related Data Home Medications Medication Instructions Recorded Confirmed carvedilol 6.25 mg tablet 12.5 mg PO BID #120 tab-caps 04/13/18 07/05/22 acetaminophen 325 mg tablet 650 mg PO Q4H PRN PRN #30 tabs 06/13/18 07/05/22 (Tylenol) BiPAP miscellaneous 08/06/19 06/22/22 atorvastatin 40 mg tablet 80 mg PO DAILY 08/06/19 07/05/22 lisinopril 20 mg tablet 20 mg PO BID 08/06/19 07/05/22 aspirin 81 mg tablet,delayed 81 mg PO DAILY 04/05/21 07/05/22 release rivaroxaban 20 mg tablet (Xarelto) 20 mg PO DAILY 04/05/21 07/05/22 chlorthalidone 25 mg tablet 25 mg PO DAILY 01/24/22 07/05/22 Previous Rx's Medication Instructions Recorded carvedilol 6.25 mg tablet 12.5 mg PO BID #120 tab-caps 04/13/18 acetaminophen 325 mg tablet 650 mg PO Q4H PRN PRN #30 tabs 06/13/18 (Tylenol) Allergies Allergy/AdvReac Type Severity Reaction Status Date / Time No Known Allergies Allergy Verified 07/05/22 12:16 General Stated Complaint: GenMedical CLAU: 3 Review of Systems Constitutional Constitutional: Denies chills, Denies fever(s), Reports headache(s), Reports lethargy and Reports malaise Eyes Eyes: Denies change in vision and Denies loss of vision ENT Ears, Nose, Mouth, and Throat: Denies vertigo, Denies dizziness, Denies otalgia, Reports headache(s), Reports nasal congestion, Reports nasal discharge, Denies nasal trauma, Denies neck pain and Denies sore throat Cardiovascular Cardiovascular: Denies chest pain, Reports syncope, Reports lightheadedness and Reports dyspnea Respiratory Respiratory: Denies cough and Reports dyspnea Gastrointestinal Gastrointestinal: Denies abdominal pain, Denies diarrhea, Denies nausea and Denies vomiting Musculoskeletal Musculoskeletal: Denies abnormal gait, Denies back pain and Denies neck pain Integumentary/Breasts Skin/Breast: Denies wounds Neurologic Neurologic: Reports as per HPI, Denies abnormal movements, Denies abnormal gait, Denies confusion, Denies vertigo, Denies dizziness, Reports syncope, Reports headache(s), Denies lack of coordination, Denies localized weakness, Denies loss of vision, Denies memory loss and Denies paresthesias Psychiatric Psychiatric: Denies confusion and Denies memory loss PFSH All Active Problems (Updated 07/05/22 @ 15:40 by Donaldo Garcia NP) COVID (Acute) Diverticula of colon (Acute) pandivericulitis- severe Encounter for colorectal cancer screening (Acute) Cerebrovascular accident (CVA) due to thrombosis of right middle cerebral artery (Acute 10/11/17) Paroxysmal atrial fibrillation (Acute 01/02/18) Umbilical hernia (Acute) Anemia (Chronic) GI (gastrointestinal bleed) (Chronic) Iron refractory iron deficiency anemia (Acute) Medical History Aphasia Arthritis Fatigue History of ileus Intermittent chest pain Osteoarthritis Paresthesia Sleep apnea Stroke 09/14/17 Tobacco abuse Vitiligo Weakness Surgical History H/O bilateral inguinal hernia repair H/O colonoscopy (03/2021) 2020: Dr. Honre, diverticula, no polyps repeat 10 years 2018:Dr Montiel, negative, repeat in 10 years H/O umbilical hernia repair (06/13/18) Dr Montiel History of total bilateral knee replacement S/P arterial stent Social History Smoking/Tobacco Use Status: Former Tobacco Use Quit Date: 09/17/18 Tobacco: How many years used: 30 Smoking risk assessment performed?: Yes Alcohol Intake: former Drug use: Never Substance use type: does not use What type of physical activity do you participate in: none Do you feel safe at home: Yes Do you feel safe in your relationship?: Yes Exam Const General: cooperative, no acute distress and well groomed Orientation: alert, awake and oriented x3 HENMT Head: normal to inspection, normocephalic and atraumatic Ears: hearing grossly normal bilaterally, TM normal on the left and EAC abnormal cerumen impaction General nose exam: external nose normal Face and sinus: normal facial exam Mouth: oral mucosae normal, lip normal, tongue normal and moist mucous membranes Throat: posterior oropharynx normal Eyes Visual Faustin: normal visual faustin by confrontation Alignment and Position: alignment normal Periorbital: periorbital findings normal Eyelids: eyelids normal Sclera: sclerae normal Pupils: PERRL EOM: EOM intact bilaterally Neck Neck: normal visual inspection, full ROM and no meningeal signs Resp Effort & Inspection: normal respiratory effort and able to speak in complete sentences Auscultation: clear to auscultation bilaterally Cardio Rate: regular rate Rhythm: regular rhythm Heart Sounds: S1 normal and S2 normal Neuro General: patient alert, patient awake, patient oriented x3, gait normal, tone normal, moves all extremities, CN's II-XI intact bilaterally and not confused Cognition: normal cognition Speech: speech normal Motor: muscle tone normal throughout, strength 5/5 throughout, no pronator drift, no movement abnormalities noted and no fasciculations Sensory Exam: no sensory deficits noted Coordination: Does not sway with eyes open, rapid alternating movement UE normal and rapid alternating movement LE normal Course Vital Signs Vital signs: Vital Signs Temperature 36.6 C 07/05/22 12:11 Pulse 60 07/05/22 12:11 Respiratory Rate 20 07/05/22 12:11 Blood Pressure 124/67 07/05/22 12:11 Pulse Oximetry 100 07/05/22 12:11 Temperature 36.6 C 07/05/22 12:11 Temperature Source Skin 07/05/22 12:11 Pulse 60 07/05/22 12:11 Respiratory Rate 18 07/05/22 12:45 Respiratory Effort Non-Labored 07/05/22 12:45 Blood Pressure 124/67 07/05/22 12:11 Blood Pressure Position Supine 07/05/22 12:11 Pulse Oximetry 100 07/05/22 12:11 Oxygen Delivery Method Room Air 07/05/22 12:11 Oxygen Flow Rate 0 07/05/22 12:11 Pain Level 6 07/05/22 12:11
[2022-07-05] MEDS: Normal Saline 500 ML IV (13:18)
[2022-07-05 13:41] LABS: Abs Immature Grans 0.03 10^3/uL (0.0-0.06); Absolute Basophil Count 0.01 10^3/uL (0.0-0.2); Absolute Eosinophil Count 0.03 10^3/uL (0.0-0.7); Absolute Lymphocyte Count 0.55 10^3/uL (1.2-3.4); Absolute Monocyte Count 0.57 10^3/uL (0.1-0.8); Absolute Neutrophil Count 2.86 10^3/uL (1.2-6.7); Basophils % 0.2; Eosinophils % 0.7; HCT 21.8 % (40.0-50.0); Immature Grans % 0.7; Lymphocytes % 13.6; MCH 28.3 pg (27.0-33.0); MCHC 31.2 % (32.0-36.0); MCV 91 fL (80-95); MPV 10.4 fL (8.0-11.0); Monocytes % 14.1; Neutrophils % 70.7; Platelet Count 261 10^3/uL (130-400); RDW 13.2 % (11.8-14.1); RDW-SD 43.9 fL; WBC 4.04 10^3/uL (4.4-10.8)
[2022-07-05 13:45] LABS: INR 1.1 (0.9-1.1); PTT Activated 26.4 sec (21.0-27.5); Prothrombin Time 10.7 sec (9.3-11.0)
[2022-07-05 13:46] LABS: HGB 6.8 g/dL (13.5-17.5)
[2022-07-05 13:57] LABS: ALT 30 U/L (16-63); AST 35 U/L (15-37); Albumin 3.5 g/dL (3.4-5.0); Alkaline Phosphatase 85 U/L (46-116); Anion Gap 9.4 mmol/L (3-11); BUN 22 mg/dL (7-18); Bilirubin, Total 0.4 mg/dL (0.2-1.0); CO2 22.6 mmol/L (21.0-32.0); CREATININE 1.3 mg/dL (0.70-1.30); Calcium 9.1 mg/dL (8.5-10.1); Chloride 100 mmol/L (98-107); Estimated GFR 59.47 (mL/min/1.73m2); Glucose 98 mg/dL (74-106); Magnesium 1.8 mg/dL (1.8-2.4); Potassium 4.5 mmol/L (3.5-5.1); Sodium 132 mmol/L (136-145); Total Protein 7.5 g/dL (6.4-8.2); Troponin I < 50 ng/L (<or=60)
[2022-07-05 14:00] LABS: Source Nasal/Nares
[2022-07-05 14:07] LABS: D-Dimer 1134 ng/mlFEU (<500)
--- NOTE | 2022-07-05 14:15 | DI.CT_ITS ---
Exam(s) CT HEAD WO EXAM: CT HEAD WO CLINICAL HISTORY: Syncope. TECHNIQUE: Imaging Protocol: Axial computed tomography images with coronal and sagittal reformatted images were created and reviewed COMPARISON: CT CTA BRAIN AND NECK from 10/16/2017 FINDINGS: There are no skull fractures. There is fluid in both maxillary sinuses consistent with acute sinusiti s. Sphenoid sinuses and frontal sinuses are clear. Some fluid is seen in ethmoidal air cells bilate rally. There is a larger of abnormal hypodensity in the posterior aspect of the territory of the right middl e cerebral artery consistent with infarct, probably nonacute. This appears to have occurred in September 2017. No other areas of infarct evident. No hemorrhage, intra or extra-axial. Ventricle size is n ormal. No shift. 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 No evidence of intracranial hemorrhage. If clinically indicated follow-up MRI with diffusion imagi ng can be performed. Acute bilateral maxillary sinusitis. Called by myself to ER provider RADIATION DOSE DELIVERED: 763.99mGy.cm Total DLP DATA REPOSITORY: All CT scans at this facility are submitted to the National Radiology Data Registry (NRDR) Dose Index Registry (DIR) with the [employer] ([employer]). RADIATION OPTIMIZATION: All CT scans at this facility use at least one of these dose optimization te chniques: automated exposure control; mA and/or kV adjustment per patient size (includes targeted exa ms where dose is matched to clinical indication); or iterative reconstruction.
--- NOTE | 2022-07-05 14:15 | DI.CT_ITS ---
Exam(s) CT CHEST PE CTA EXAM: CT CHEST PE CTA CLINICAL HISTORY: Shortness of breath, syncope. TECHNIQUE: Imaging Protocol: CT angiography of the chest was performed using pulmonary embolus nicole col. Multi planar reconstructions were performed. CONTRAST MATERIAL: Intravenous: Omnipaque 350 Contrast volume: 100 cc COMPARISON: CT CT CHEST LUNG CANCER SCREEN from 01/17/2022 FINDINGS: CHEST: PULMONARY ARTERIES: There are no intraluminal filling defects to suggest acute pulmonary emboli. LUNGS: There are no infiltrates nor evidence of pulmonary infarction.. There are no pleural effusions . MEDIASTINUM: There is no hilar nor mediastinal adenopathy. CARDIAC: Heart size is upper normal. There is no pericardial effusion.Caliber of the thoracic aorta is within normal limits. No evidence of aortic dissection. There is no significant shift of the inte rventricular septum. PARTIALLY VISUALIZED UPPERMOST ABDOMEN: No obvious findings OSSEOUS: No significant osseous lesions.. IMPRESSION: 1. No evidence of acute pulmonary emboli. No evidence of pulmonary infarction.No pleural effusions. 2. No acute pulmonary findings. No intrathoracic adenopathy. 3. No evidence of aortic dissection. No pericardial effusion. Called by myself to ER provider. RADIATION DOSE DELIVERED: 398.09mGy.cm Total DLP DATA REPOSITORY: All CT scans at this facility are submitted to the National Radiology Data Registry (NRDR) Dose Index Registry (DIR) with the [employer] (ACR). RADIATION OPTIMIZATION: All CT scans at this facility use at least one of these dose optimization te chniques: automated exposure control; mA and/or kV adjustment per patient size (includes targeted exa ms where dose is matched to clinical indication); or iterative reconstruction.
[2022-07-05 14:40] LABS: COVID-19 PCR POSITIVE (Negative)
--- NOTE | 2022-07-05 16:32 | ED.PROG_ITS ---
Date of service: 07/05/22 Time of Service: 15:30 Medical Decision Making I assumed care of this 71-year-old gentleman from my colleague DOLLY Garcia. Please see his initial HPI and examination. At time of signout pending 2 unit packed red blood cell transfusion, CT imaging of brain, CTA of chest, delta troponin. Patient initially deferred rectal examination but denies any active black tarry stools or bright red blood in his stools. Does admit to intermittent dark stools but none recently. Also reports that he has stopped taking his iron supplementation. Clinically patient would appear to have had COVID for approximately 7 days, afebrile, O2 sat 100% on room air, acute treatment for COVID was not initiated. I personally evaluated the patient who reports overall feeling well. I obtained verbal consent for the blood products. Patient appears well, nontoxic, hemodynamically stable. Speaking in full sentences. CT imaging of brain reveals evidence of prior right middle artery territory infarct. No evidence of acute intracranial hemorrhage. If clinically indicated follow-up MRI with diffusion imaging can be performed. Patient is not here for any focal weakness, no strokelike symptoms, likely not clinically indicated. Incidentally acute bilateral maxillary sinusitis. Chest CT unremarkable. Delta troponin remains less than 50. Patient is receiving his 2 units of blood products. I was able to speak with the patient's daughter, Betsy, at 1734 to make her aware of the updated status. I then spoke with the patient regarding admission for the remainder of his transfusion, recheck of his H&H, and likely surgical consultation for potential endoscopy and/or colonoscopy for further evaluation of anemia. I discussed the situation with our nursing supervisor drawing who made me aware that we did not have capacity to admit to our hospital this evening although the situation may change tomorrow morning. I discussed this with the patient. He is not interested in boarding in the ER overnight or potential transfer. Patient is of sound mind, hemodynamically stable, and can make this decision. He is agreeable to awaiting his 2 units of blood products. At the end of his transfusion he would like to be discharged home. In the meantime patient was visualized ambulating steadily. He reports improvement of his symptoms with the blood products. I was able to speak with the physician on-call for his primary care office at 1850, Dr. Lyn. I made him aware of the patient's overall presentation, anemia, COVID-positive status, blood products, and his declining an admission with boarding in the ER overnight or transfer to another facility. He will relay the message to the PCP tomorrow and be sure the patient receives prompt outpatient follow-up. Patient reports that he is already scheduled to be seen this PCP on . Patient denies any obvious source of bleeding. He appears to be compensating very well as he is hemodynamically stable. Unclear how acute this H&H is as his most recent H&H is at least 6 months ago. I once again discussed the overall work-up and now disposition with his daughter Betsy at 1857. She understands that it was recommended that the patient be admitted but he declines requesting discharge home. She is comfortable bringing him home in his current condition. She also understands that I spoke with the physician on-call and they will be receiving prompt outpatient follow-up. Patient reports improvement in symptoms. He has continued a few generally weak but does remain hemodynamically stable. He reports that he does not have any additional iron supplementation at home. I will give a single dose of iron now and he can speak with his PCP or at his appointment on regarding prescription. Patient reports that when he was taking iron, he was only taking it once every other day. Strict discharge and return precautions were provided. Patient understands, is agreeable to this plan, and has no additional questions or concerns upon discharge. This documentation was generated using [employer] dictation system, please disregard any oddities of phrase or misspellings. Medical Records Medical records reviewed: Yes I reviewed the patient's medical records. Imaging Data Radiologic Study: Attestation: I personally reviewed and interpreted this imaging study as follows: Imaging: CT Scan Radiologist's impression: Exam(s) CT HEAD WO EXAM: CT HEAD WO CLINICAL HISTORY: Syncope. TECHNIQUE: Imaging Protocol: Axial computed tomography images with coronal and sagittal reformatted images were created and reviewed COMPARISON: CT CTA BRAIN AND NECK from 10/16/2017 FINDINGS: There are no skull fractures. There is fluid in both maxillary sinuses consistent with acute sinusitis. Sphenoid sinuses and frontal sinuses are clear. Some fluid is seen in ethmoidal air cells bilaterally. There is a larger of abnormal hypodensity in the posterior aspect of the territory of the right middle cerebral artery consistent with infarct, probably nonacute. This appears to have occurred in September 2017. No other areas of infarct evident. No hemorrhage, intra or extra-axial. Ventricle size is normal. No shift. 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 No evidence of intracranial hemorrhage. If clinically indicated follow-up MRI with diffusion imaging can be performed. Acute bilateral maxillary sinusitis. Radiologic Study #2: Attestation: I personally reviewed and interpreted this imaging study as follows: Imaging: CT Scan Radiologist's impression: Exam(s) CT CHEST PE CTA EXAM: CT CHEST PE CTA CLINICAL HISTORY: Shortness of breath, syncope. TECHNIQUE: Imaging Protocol: CT angiography of the chest was performed using pulmonary embolus protocol. Multi planar reconstructions were performed. CONTRAST MATERIAL: Intravenous: Omnipaque 350 Contrast volume: 100 cc COMPARISON: CT CT CHEST LUNG CANCER SCREEN from 01/17/2022 FINDINGS: CHEST: PULMONARY ARTERIES: There are no intraluminal filling defects to suggest acute pulmonary emboli. LUNGS: There are no infiltrates nor evidence of pulmonary infarction.. There are no pleural effusions. MEDIASTINUM: There is no hilar nor mediastinal adenopathy. CARDIAC: Heart size is upper normal. There is no pericardial effusion.Caliber of the thoracic aorta is within normal limits. No evidence of aortic dissection. There is no significant shift of the interventricular septum. PARTIALLY VISUALIZED UPPERMOST ABDOMEN: No obvious findings OSSEOUS: No significant osseous lesions.. IMPRESSION: 1. No evidence of acute pulmonary emboli. No evidence of pulmonary infarction.No pleural effusions. 2. No acute pulmonary findings. No intrathoracic adenopathy. 3. No evidence of aortic dissection. No pericardial effusion. Lab Data Lab results reviewed: Yes I reviewed the patient's lab results. Labs: Laboratory Tests Range/Units 07/05/22 07/05/22 07/05/22 13:20 13:20 13:20 WBC (4.4-10.8) 10^3/uL 4.04 L RBC (4.36-5.78) 10^6/uL 2.40 L Hgb (13.5-17.5) g/dL 6.8 L* Hct (40.0-50.0) % 21.8 L MCV (80-95) fL 91 MCH (27.0-33.0) pg 28.3 MCHC (32.0-36.0) % 31.2 L RDW (11.8-14.1) % 13.2 Plt Count (130-400) 10^3/uL 261 MPV (8.0-11.0) fL 10.4 Immature Gran % 0.7 Neutrophils % 70.7 Lymphocytes % 13.6 Monocytes % 14.1 Eosinophils % 0.7 Basophils % 0.2 Nucleated RBC % (0.0-0.3) % 0.0 Absolute Neutrophils (1.2-6.7) 10^3/uL 2.86 Absolute Lymphocytes (1.2-3.4) 10^3/uL 0.55 L Absolute Monocytes (0.1-0.8) 10^3/uL 0.57 Absolute Eosinophils (0.0-0.7) 10^3/uL 0.03 Absolute Basophils (0.0-0.2) 10^3/uL 0.01 PT (9.3-11.0) sec 10.7 INR (0.9-1.1) 1.1 APTT (21.0-27.5) sec 26.4 D-Dimer (<500) ng/mlFEU 1134 H Sodium (136-145) mmol/L 132 L Potassium (3.5-5.1) mmol/L 4.5 Chloride (98-107) mmol/L 100 Carbon Dioxide (21.0-32.0) mmol/L 22.6 Anion Gap (3-11) mmol/L 9.4 BUN (7-18) mg/dL 22 H Creatinine (0.70-1.30) mg/dL 1.3 Est GFR (CKD-EPI 2020) (mL/min/1.73m2) 59.47 Glucose (74-106) mg/dL 98 Calcium (8.5-10.1) mg/dL 9.1 Magnesium (1.8-2.4) mg/dL 1.8 Total Bilirubin (0.2-1.0) mg/dL 0.4 AST (15-37) U/L 35 ALT (16-63) U/L 30 Alkaline Phosphatase (46-116) U/L 85 Troponin I (<or=60) ng/L < 50 Total Protein (6.4-8.2) g/dL 7.5 Albumin (3.4-5.0) g/dL 3.5 COVID-19 Source SARS-CoV-2 (PCR) (Negative) Patient ABO/Rh Antibody Screen Crossmatch Range/Units 07/05/22 07/05/22 07/05/22 13:52 14:00 17:30 WBC (4.4-10.8) 10^3/uL RBC (4.36-5.78) 10^6/uL Hgb (13.5-17.5) g/dL Hct (40.0-50.0) % MCV (80-95) fL MCH (27.0-33.0) pg MCHC (32.0-36.0) % RDW (11.8-14.1) % Plt Count (130-400) 10^3/uL MPV (8.0-11.0) fL Immature Gran % Neutrophils % Lymphocytes % Monocytes % Eosinophils % Basophils % Nucleated RBC % (0.0-0.3) % Absolute Neutrophils (1.2-6.7) 10^3/uL Absolute Lymphocytes (1.2-3.4) 10^3/uL Absolute Monocytes (0.1-0.8) 10^3/uL Absolute Eosinophils (0.0-0.7) 10^3/uL Absolute Basophils (0.0-0.2) 10^3/uL PT (9.3-11.0) sec INR (0.9-1.1) APTT (21.0-27.5) sec D-Dimer (<500) ng/mlFEU Sodium (136-145) mmol/L Potassium (3.5-5.1) mmol/L Chloride (98-107) mmol/L Carbon Dioxide (21.0-32.0) mmol/L Anion Gap (3-11) mmol/L BUN (7-18) mg/dL Creatinine (0.70-1.30) mg/dL Est GFR (CKD-EPI 2020) (mL/min/1.73m2) Glucose (74-106) mg/dL Calcium (8.5-10.1) mg/dL Magnesium (1.8-2.4) mg/dL Total Bilirubin (0.2-1.0) mg/dL AST (15-37) U/L ALT (16-63) U/L Alkaline Phosphatase (46-116) U/L Troponin I (<or=60) ng/L < 50 Total Protein (6.4-8.2) g/dL Albumin (3.4-5.0) g/dL COVID-19 Source Nasal/Nares SARS-CoV-2 (PCR) (Negative) POSITIVE A* Patient ABO/Rh B Negative Antibody Screen NEGATIVE Crossmatch See Detail Exam Const General: cooperative, healthy appearing, comfortable and no acute distress Orientation: alert, awake and oriented x3 [facility] Head: normal to inspection, normocephalic and atraumatic Face and sinus: normal facial exam Mouth: moist mucous membranes Eyes General: appearance normal, both eyes and all related structures Conjunctivae: conjunctivae normal Neck Neck: normal visual inspection, full ROM, no meningeal signs, trachea midline and supple Resp Effort & Inspection: normal respiratory effort and able to speak in complete sentences Auscultation: clear to auscultation bilaterally Cardio Rate: regular rate (64) Rhythm: regular rhythm GI Palpation: soft and nontender Skin General skin exam: no rashes or lesions noted Neuro General: patient alert, patient awake, patient oriented x3, moves all extremities and no focal motor deficits Cognition: normal cognition Speech: speech normal Gait: normal gait Motor: muscle tone normal throughout Sensory Exam: no sensory deficits noted Extrem General: normal to inspection, full ROM, capillary refill normal, no pedal edema and no calf tenderness Psych Appearance: grossly normal Mental Status: mental status grossly normal Sign Out Sign Out Data: Sign Out Comment: Patient pending head CT for syncope on blood thinner, pending CTA for shortness of breath and syncope and elevated D-dimer, and transfusion of 2 units with consideration of surgery consultation for suspicion of GI bleed. Patient is also COVID-positive. Last updated by Donaldo Garcia NP at 07/05/22 15:41 Discharge Plan Disposition Patient Disposition: Home Condition: Improving Discharge Details Clinical Impression: Anemia, COVID, Generalized weakness Primary Care Provider: Elisa Garner ED Provider: Jacob Salgado Home Meds and New Rx's Prescriptions: Continued lisinopril 20 mg tablet 20 mg PO BID BiPAP miscellaneous aspirin 81 mg tablet,delayed release (DR/EC) 81 mg PO DAILY Xarelto 20 mg tablet 20 mg PO DAILY Rx Instructions: must administer with evening meal chlorthalidone 25 mg tablet 25 mg PO DAILY carvedilol 6.25 mg tablet 12.5 mg PO BID Qty: 120 11RF atorvastatin 40 mg tablet 80 mg PO DAILY acetaminophen [Tylenol] 325 mg Tablet 650 mg PO Q4H PRN PRNQty: 30 0RF Discharge Instructions Additional Instructions: At this time given your generalized weakness and anemia I have recommended admission; however, we do not have capacity to admit you to our facility and you have declined admission to our facility with boarding in the ER overnight or transfer to another facility. A single dose of iron has been provided now. I personally spoke with the on-call physician for your primary care office and they are aware of your ER visit and need for outpatient reevaluation. I understand that you are scheduled to see your primary care provider on but I would like you to contact their office tomorrow to discuss your ongoing symptoms and need for outpatient reevaluation. As we discussed further evaluation of your anemia is going to be required, potential surgical referral for endoscopy and/or colonoscopy, etc. Please watch for new or worsening symptoms and return to the ER immediately. A single dose of iron was given here in the ER, please discuss a prescription with your PCP.
[2022-07-05] MEDS: Omnipaque 350 MG/ML 100 ML BTL IV (16:51)
[2022-07-05] MEDS: Normal Saline Flush 10 ML SYR IVP (16:52)
[2022-07-05] MEDS: Normal Saline - Diluent 50 ML VIAL IV (16:52)
[2022-07-05 18:08] LABS: Troponin I < 50 ng/L (<or=60)
--- NOTE | 2022-07-05 21:03 | NUR.NOTE ---
Clarified with primary Per MD prior to pt discharge. Per MD pt should take his regular prescribed medications including his blood thinner at home tonight.
== END 2022-07-05 21:21 | disposition home or self-care (01) ==
PROVIDERS: Nurse Practitioner Family; Emergency Provider Physician Assistant; PCP Nurse Practitioner Family
DX: K92.2 Gastrointestinal hemorrhage, unspecified (principal); U07.1 COVID-19; D64.9 Anemia, unspecified; M25.511 Pain in right shoulder; H61.21 Impacted cerumen, right ear; I45.10 Unspecified right bundle-branch block; R79.1 Abnormal coagulation profile; Z79.82 Long term (current) use of aspirin; Z86.73 Personal history of transient ischemic attack (TIA), and cerebral infarction without residual deficits
CPT/HCPCS: 36415; 71275; 80053; 86850; 86900; 86901; 86920; 87635; 93005; 96360; 99285; 70450; 83735; 84484; 85025; 85379; 85610; 85730; 86644; 93010; J3490; P9016

== ENCOUNTER 2022-07-07 09:01 | Outpatient (REF) | payer BC, MEDICARE, OTHER, SELFPAY ==
[2022-07-07 14:52] LABS: Abs Immature Grans 0.02 10^3/uL (0.0-0.06); Absolute Basophil Count 0.01 10^3/uL (0.0-0.2); Absolute Eosinophil Count 0.09 10^3/uL (0.0-0.7); Absolute Lymphocyte Count 0.59 10^3/uL (1.2-3.4); Absolute Monocyte Count 0.31 10^3/uL (0.1-0.8); Absolute Neutrophil Count 2.38 10^3/uL (1.2-6.7); Basophils % 0.3; Eosinophils % 2.6; HCT 27.3 % (40.0-50.0); HGB 9.2 g/dL (13.5-17.5); Immature Grans % 0.6; Lymphocytes % 17.4; MCH 31.2 pg (27.0-33.0); MCHC 33.7 % (32.0-36.0); MCV 93 fL (80-95); MPV 10.7 fL (8.0-11.0); Monocytes % 9.1; Platelet Count 258 10^3/uL (130-400); RBC 2.95 10^6/uL (4.36-5.78); RDW 13.5 % (11.8-14.1); RDW-SD 44.5 fL
[2022-07-07 15:11] LABS: Ferritin 38 ng/mL (26-388)
[2022-07-07 15:25] LABS: Iron 30 ug/dL (65-175); Total Iron Binding Capacity 402 ug/dL (250-450); Transferrin Sat 7 % (20-55)
[2022-07-08 08:59] LABS: PSA, Diagnostic 2.5 ng/mL (<=4.5)
== END 2022-07-07 09:02 | disposition home or self-care (01) ==
LOC: NCHCN 09:01
PROVIDERS: PCP Nurse Practitioner Family; Visit Provider Nurse Practitioner Family
DX: I10 Essential (primary) hypertension (principal); R53.83 Other fatigue; I48.91 Unspecified atrial fibrillation; I73.9 Peripheral vascular disease, unspecified; K92.1 Melena; Z87.19 Personal history of other diseases of the digestive system; R39.89 Other symptoms and signs involving the genitourinary system; D50.8 Other iron deficiency anemias; N42.9 Disorder of prostate, unspecified
CPT/HCPCS: 82728; 83540; 83550; 84153; 85025

== ENCOUNTER 2022-07-14 09:43 | Outpatient (REF) | payer BC, MEDICARE, OTHER, SELFPAY ==
[2022-07-14 14:35] LABS: HCT 22.8 % (40.0-50.0); HGB 7.4 g/dL (13.5-17.5); MCH 28.7 pg (27.0-33.0); MCHC 32.5 % (32.0-36.0); MCV 88 fL (80-95); MPV 11.2 fL (8.0-11.0); Platelet Count 233 10^3/uL (130-400); RBC 2.58 10^6/uL (4.36-5.78); RDW 13.2 % (11.8-14.1); WBC 4.32 10^3/uL (4.4-10.8)
== END 2022-07-14 09:44 | disposition home or self-care (01) ==
LOC: NCHCN 09:43
PROVIDERS: PCP Nurse Practitioner Family; Visit Provider Nurse Practitioner Family
DX: D64.9 Anemia, unspecified (principal); Z87.19 Personal history of other diseases of the digestive system
CPT/HCPCS: 85027

== ENCOUNTER 2022-07-15 10:02 | Outpatient (CLI) | payer BC, MEDICARE, OTHER, SELFPAY | END 2022-07-15 10:03 | disposition home or self-care (01) | LOC: LBO 10:03 | PROVIDERS: PCP Nurse Practitioner Family; Visit Provider Surgery | DX: D50.8 Other iron deficiency anemias (principal); R76.8 Other specified abnormal immunological findings in serum; R63.4 Abnormal weight loss; K57.31 Diverticulosis of large intestine without perforation or abscess with bleeding; R19.7 Diarrhea, unspecified; R53.1 Weakness | CPT/HCPCS: 36415; 86850; 86900; 86901; 85025 ==

== ENCOUNTER 2022-07-15 11:01 | Inpatient (IN) | payer BC, MEDICARE, OTHER, SELFPAY ==
[2022-07-15] VITALS (21 sets, daily range): BP systolic 130–178; BP diastolic 59–89; PULSE 54–71; RESP 14–20; TEMP 36–37; O2SAT 97–100
--- NOTE | 2022-07-15 | DI.RAD_ITS ---
Exam(s) XR PORTABLE CHEST AP EXAM: XR PORTABLE CHEST AP CLINICAL HISTORY: cough, COVID-19 TECHNIQUE: 2D digital imaging was performed of the chest. One image was obtained. An AP view was ob tained. COMPARISON: CR CHEST 2 VIEWS PA,LAT from 09/26/2017 FINDINGS: MEDIASTINUM: Normal. HEART: Normal. PULMONARY VASCULATURE: Normal. LUNGS: Clear. PLEURAL SPACE: No pleural effusion or pneumothorax. BONE:Within normal limits for the patient's age. OTHER FINDINGS:Normal. IMPRESSION: No acute pulmonary findings. DATA REPOSITORY: RADIATION DOSE DELIVERED:
[2022-07-15 10:17] LABS: Abs Immature Grans 0.03 10^3/uL (0.0-0.06); Absolute Basophil Count 0.02 10^3/uL (0.0-0.2); Absolute Eosinophil Count 0.09 10^3/uL (0.0-0.7); Absolute Lymphocyte Count 0.65 10^3/uL (1.2-3.4); Absolute Monocyte Count 0.39 10^3/uL (0.1-0.8); Absolute Neutrophil Count 3.39 10^3/uL (1.2-6.7); Basophils % 0.4; HCT 22.5 % (40.0-50.0); HGB 7.1 g/dL (13.5-17.5); Immature Grans % 0.7; Lymphocytes % 14.2; MCH 27.8 pg (27.0-33.0); MCHC 31.6 % (32.0-36.0); MCV 88 fL (80-95); MPV 10.7 fL (8.0-11.0); Monocytes % 8.5; Neutrophils % 74.2; Platelet Count 234 10^3/uL (130-400); RBC 2.55 10^6/uL (4.36-5.78); RDW 13.2 % (11.8-14.1); RDW-SD 41.8 fL; WBC 4.57 10^3/uL (4.4-10.8)
--- NOTE | 2022-07-15 11:29 | ED.GENADUL_ITS ---
Discharge Plan Disposition Patient Disposition: Admit to [facility] Condition: Serious Discharge Details Clinical Impression: Acute GI bleeding, COVID Admit Date/Time: 07/15/22 11:45 Admit Provider: Virginie Yancey Attending Provider: Virginie Yancey Primary Care Provider: Elisa Garner ED Provider: Kelvin Bowman Discharge Data Discharge Date/Time-TO BE ENTERED AT DEPARTURE: 07/15/22 12:52 Medical Decision Making 1135 -- 71-year-old male with history of diverticulosis and diverticular bleeding, here with fatigue and generalized weakness over the past week and a half. Patient received transfusion of 2 units on 117 for GI bleed. He was seen by general surgery today with plan to hospitalize for blood transfusion. Patient sent to the emergency department as he is COVID-positive. Patient is saturating well and in no respiratory distress. COVID was positive about a week ago and symptoms have improved. I will send stat COVID test at this time. Regarding fatigue and generalized weakness over the past week and a half. I share Dr. Horne's concern for symptomatic anemia secondary to GI bleed. I will give 2 units. Patient was typed and screened earlier today. COVID illness certainly could be contributing to fatigue. Again from a respiratory standpoint he appears quite well and respiratory symptoms have dramatically improved over the past week. Plan to hospitalize for further monitoring. 1145 --I spoke with Dr. Yancey, on-call hospitalist, discussed ED presentation and course, she requests additional diagnostic labs including ferritin, procalcitonin and chemistry be sent for COVID illness. These orders have been added on and are currently pending. -- EKG was reviewed and interpreted by me: Please report, sinus bradycardia 59 bpm, normal axis, no arrhythmia. Lab Data Lab results reviewed: Yes I reviewed the patient's lab results. Lab results narrative: Outpatient labs from earlier today were reviewed HPI General Mode of arrival: ambulatory . Date/Time Provider Initiated Documentation: 07/15/22 11:17 . Limitations to Documentation: no limitations . Information obtained by: patient and RN/MD . HPI Narrative: 71-year-old male with history of diverticulosis, GI bleeding in the past, diagnosed with COVID 1 week ago, here with chief complaint of fatigue. Patient was seen by general surgery today in clinic and had CBC which demonstrates persistent anemia. There is concern for slow diverticular bleed. Patient is on Xarelto and last took a dose 36 hours ago. Related Data Home Medications Medication Instructions Recorded Confirmed carvedilol 6.25 mg tablet 12.5 mg PO BID #120 tab-caps 04/13/18 07/26/22 acetaminophen 325 mg tablet 650 mg PO Q4H PRN PRN #30 tabs 06/13/18 07/26/22 (Tylenol) atorvastatin 40 mg tablet 80 mg PO DAILY 08/06/19 07/26/22 ferrous sulfate 325 mg (65 mg 325 mg PO DAILY 07/12/22 07/26/22 iron) tablet,delayed release tamsulosin 0.4 mg capsule (Flomax) 0.4 mg PO DAILY 07/12/22 07/26/22 lisinopril 20 mg tablet 20 mg PO DAILY 07/15/22 07/26/22 omeprazole 20 mg capsule,delayed 20 mg PO BID #0 caps 07/16/22 07/26/22 release Previous Rx's Medication Instructions Recorded carvedilol 6.25 mg tablet 12.5 mg PO BID #120 tab-caps 04/13/18 acetaminophen 325 mg tablet 650 mg PO Q4H PRN PRN #30 tabs 06/13/18 (Tylenol) omeprazole 20 mg capsule,delayed 20 mg PO BID #0 caps 07/16/22 release Allergies Allergy/AdvReac Type Severity Reaction Status Date / Time No Known Allergies Allergy Verified 07/26/22 10:53 General Stated Complaint: GI Bleed CLAU: 3 Review of Systems All systems reviewed & are unremarkable except as noted in HPI and below Constitutional Constitutional: Denies fever(s) ENT Ears, Nose, Mouth, and Throat: Reports nasal congestion Gastrointestinal Gastrointestinal: Denies abdominal pain, Denies hematemesis and Reports other (dark stool) PFSH All Active Problems (Updated 08/06/22 @ 14:58 by Kelvin Bowman MD) Acute GI bleeding (Acute) Enlarged prostate (Acute) BPH (benign prostatic hyperplasia) (Chronic) Hypertension (Chronic) Hemorrhage of large intestine due to diverticular disease (Acute) COVID (Acute) Encounter for colorectal cancer screening (Acute) Paroxysmal atrial fibrillation (Acute 01/02/18) Umbilical hernia (Acute) Anemia (Chronic) Iron refractory iron deficiency anemia (Acute) Medical History (Updated 08/06/22 @ 14:58 by Kelvin Bowman MD) Adequate anticoagulation on anticoagulant therapy Aphasia Arthritis Carotid artery stenosis Cerebrovascular accident (CVA) due to thrombosis of right middle cerebral artery (10/11/17) Diverticula of colon pandivericulitis- severe Fatigue History of ileus Intermittent chest pain Mild atherosclerosis of both carotid arteries Osteoarthritis Paresthesia PVD (peripheral vascular disease) SARS-CoV-2 antibody positive Sleep apnea Stroke 09/14/17 SVT (supraventricular tachycardia) Symptomatic anemia Tobacco abuse Vitiligo Weakness Surgical History H/O bilateral inguinal hernia repair H/O colonoscopy (03/2021) 2020: Dr. Horne, diverticula, no polyps repeat 10 years 2018:Dr Montiel, negative, repeat in 10 years H/O umbilical hernia repair (06/13/18) Dr Montiel History of total bilateral knee replacement S/P arterial stent Family History (Updated 07/15/22 @ 20:02 by Spring Freeman) Father Alcohol use disorder Heart disease Mother Breast cancer Sister Breast cancer Social History Smoking/Tobacco Use Status: Former Tobacco Use Quit Date: 09/17/18 Tobacco: How many years used: 30 Smoking risk assessment performed?: Yes Alcohol Intake: former Drug use: Never Substance use type: does not use What type of physical activity do you participate in: none Do you feel safe at home: Yes Do you feel safe in your relationship?: Yes Exam Const General: cooperative and no acute distress HENMT Mouth: moist mucous membranes Eyes Conjunctivae: normal conjunctivae Sclera: normal sclerae Neck Neck: trachea midline Resp Auscultation: clear to auscultation bilaterally, no rales, no rhonchi and no wheezes Cardio Rate: regular rate and not tachycardic Rhythm: regular rhythm GI Palpation: soft, not firm, no guarding, no masses, not rigid and nontender Auscultation: normal bowel sounds Skin General skin exam: no rashes or lesions noted Neuro General: patient alert, patient awake, patient oriented x3 and tone normal Extrem General: no edema Psych Appearance: grossly normal Speech and Movement: speech and movement normal Course Vital Signs Vital signs: Vital Signs Temperature 36.7 C 07/15/22 11:05 Pulse 60 07/15/22 11:05 Respiratory Rate 20 07/15/22 11:05 Blood Pressure 162/69 H 07/15/22 11:05 Pulse Oximetry 100 07/15/22 11:05 Temperature 36.7 C 07/15/22 11:05 Temperature Source Tympanic 07/15/22 11:05 Pulse 60 07/15/22 11:05 Respiratory Rate 20 07/15/22 11:05 Respiratory Effort 07/15/22 11:14 Blood Pressure 162/69 H 07/15/22 11:05 Blood Pressure Position Sitting 07/15/22 11:05 Pulse Oximetry 100 07/15/22 11:05 Oxygen Delivery Method Room Air 07/15/22 11:05 Oxygen Flow Rate 0 07/15/22 11:05 Pain Level 0 07/15/22 11:05 Lab/Test Results Lab/Test Results: Laboratory Tests Range/Units 07/15/22 11:18 Crossmatch See Detail Critical Care Time Critical Care Time Critical Care Time: Yes Total Critical Care Time: 40 Attestation: I spent greater than 40 minutes addressing this patient's immediate life threats. Please see MDM section of note. This time was spent engaged in work directly related to the patient's care, exclusive of separate procedures, and failure to initiate these interventions would have likely resulted in clinically significant or life threatening deterioration in the patient's condition.
--- NOTE | 2022-07-15 11:30 | RT.EKG_ITS ---
APPROVED REPORT Exam: Resting ECG Reason for Exam: dizzy Patient Location: E HR:57 bpm ECG Measurements Heart Rate 57 AXIS MS 198 P 37 QRSd 110 QRS -4 QT 408 T 25 QTc 397 Conclusion Sinus bradycardia...rate< 60
--- NOTE | 2022-07-15 11:45 | RT.EKG_ITS ---
APPROVED REPORT Exam: Resting ECG Reason for Exam: EKG Patient Location: E HR:63 bpm ECG Measurements Heart Rate 63 AXIS VT 202 P 34 QRSd 109 QRS -4 QT 404 T 29 QTc 414 Conclusion Sinus rhythm...normal P axis, V-rate 60- 99
[2022-07-15 12:23] LABS: C-Reactive Protein < 0.05 mg/dL (0.0-0.3)
[2022-07-15 12:28] LABS: Source Nasal/Nares
[2022-07-15 12:31] LABS: ALT 20 U/L (16-63); AST 20 U/L (15-37); Albumin 3.3 g/dL (3.4-5.0); Alkaline Phosphatase 74 U/L (46-116); Anion Gap 7.1 mmol/L (3-11); BUN 35 mg/dL (7-18); Bilirubin, Total 0.4 mg/dL (0.2-1.0); CO2 23.9 mmol/L (21.0-32.0); CREATININE 1.2 mg/dL (0.70-1.30); Calcium 8.9 mg/dL (8.5-10.1); Chloride 104 mmol/L (98-107); Estimated GFR 65.46 (mL/min/1.73m2); Ferritin 37 ng/mL (26-388); Glucose 114 mg/dL (74-106); Potassium 4.5 mmol/L (3.5-5.1); Sodium 135 mmol/L (136-145); Total Protein 6.9 g/dL (6.4-8.2)
[2022-07-15 12:50] LABS: Procalcitonin < 0.1 ng/mL
[2022-07-15 13:04] LABS: COVID-19 PCR POSITIVE (Negative)
--- NOTE | 2022-07-15 13:09 | W.SURGCON ---
Date of service: 07/15/22 Time of Service: 13:09 Assessment and Plan Assessment and plan (1) Hemorrhage of large intestine due to diverticular disease: Status: Acute Assessment and plan: - He has had x2 episodes of severe anemia. He had a normal EGD in 04/08. He had a colonoscopy in 04/08 that shows severe diverticular disease throughout the entirety of the colon. But no signs of any active bleeding. He is on both a DOAC and any aspirin. He had paroxysmal A. fib and a stroke in the past. He does have carotid artery disease- mild/minimal on US. -If he continues to have anemia or signs for lower GI bleed consider tagged RBC scan. If he develops acute sign of bleeding then consideration for transfer to [facility] for embolization. -Because the diverticular disease not confined to the sigmoid colon, he would need to have a total colectomy. This would leave him with fecal urgency and frequency and around 8-12 bowel movements a day. -transfusion 2 units PRBC today - consideration to eval of small bowel w/ capsular endoscopy -consideration of stopping asa as a secondary adjuvant anti-coagulant. -He has no signs of an upper GI bleed no abdominal pain, no heartburn indigestion. He is eating well and the weight loss. He is on chronic PPI therapy so I would continue this. -After reviewing his chart he has never had a CT scan of the abdomen or pelvis. For completeness we should probably do this, however I would not do this at this time. It needs to be done with contrast. Oral contrast would only exacerbate the diarrhea and increased bleeding. This is something we can do as an outpatient and once this acute episode have stopped. -I did discuss today most likely this is a diverticular bleed due to his anticoagulation. He does have very significant diverticula throughout the entirety of the colon. I do not think colectomy is in his best interest. Generally the bleeding will stop on his own. However with his A. fib and history of stroke and need for anticoagulation this does make this a little more complicated. He has called the Xarelto for 36 hours and we will continue to hold this. We can do subcutaneous heparin. (2) SARS-CoV-2 antibody positive: Status: Acute Assessment and plan: -general causes hypercoag. -Hosp to manage (3) Symptomatic anemia: Status: Acute (4) Syncopal episodes: Status: Chronic (5) Adequate anticoagulation on anticoagulant therapy: Status: Acute (6) Diverticula of colon: Status: Acute (7) Cerebrovascular accident (CVA) due to thrombosis of right middle cerebral artery: Status: Acute (8) Paroxysmal atrial fibrillation: Status: Acute (9) Iron refractory iron deficiency anemia: Status: Acute (10) Hyperlipidemia: Status: None (11) Hypertension: Status: None (12) Vitiligo: (13) Tobacco abuse: (14) PVD (peripheral vascular disease): (15) Stroke: (16) Arthritis: (17) Mild atherosclerosis of both carotid arteries: Status: Acute Assessment and plan: US 02/07 Duplex evaluation of the carotid circulation was performed according to the usual protocol.? 2D and Doppler evaluation was utilized. Flow velocities in the common, internal, and external carotid arteries are within normal limits bilaterally.? There is bilateral antegrade vertebral flow. IMPRESSION: No evidence of a hemodynamically significant carotid stenosis History of Present Illness Narrative: Patient was seen by myself today in surgical clinic at the request of his PCP regarding symptomatic anemia. He is on chronic Xarelto and aspirin therapy. He has a history of paroxysmal A. fib (he had a Zio patch in 2020 which did show only 2% of the time he was in A. fib). He has a history of a stroke in 2018 as well. He did have a colonoscopy by myself in in 2020 which did show severe gale diverticulosis throughout the entirety of colon. It was also a poor prep. Patient was seen in the ER on 07/05 feeling poorly. He did pass out at home. He was having some shortness of breath. They did a CTA which was negative. They did a CT of the brain which showed no acute processes. His hemoglobin was 6.8. He received 2 units of blood. He did not want to stay in the hospital and was discharged home And he saw his [employer] on 07/14 and his repeat hemoglobin was 7.4. We did repeat his hemoglobin today and it was 7.1. Today he is feeling weak, dizzy, shaky. He denies any chest pain or shortness of breath. He has a cough (nonproductive) and nasal congestion. He is not coughing anything up. He did test positive for COVID 10 days ago. He still pretty much feels the same as when he was in the ER. his pulse is definitely fast today, but I cannot tell by palpation if this is A. fib or just tachycardia. He has no nausea or vomiting. He has had no heartburn or indigestion. He is having no abdominal pain whatsoever. He is started on iron therapy 2 days ago. I discussed with him about having black tarry stools. He states he has been having diarrhea that is foul-smelling. He cannot say if it is black or not. He has been having multiple bowel movements a day. But no abdominal pain. He has not noticed any BRBPR. -Patient was also hospitalized back on 04/08/2021 with significant symptomatic anemia and hemoglobin of 6. He was transfused at that time as well. He underwent EGD and colonoscopy. No other source could be found other than the diverticula. He has been anticoagulated since he had a stroke in 2018. Colonoscopy Report Date of procedure: 04/09/21 Pre-op diagnosis general: rectal bleeding/anemia Post-op diagnosis procedure note: other (ssevere gale diverticula ) Surgeon: Jessica Horne Anesthesia Type: General:No Airway Estimated blood loss (mL): 0 Pathology: none sent Complications: None Disposition: same day Prep: Miralax/Dulcolax Retraction Time: 8mins Procedure Description: After informed consent was obtained the patient was taken to the procedure room and placed in a left decubitous position.? Monitors were applied and a time out was done. The patients name, date of , procedure, allergies to medications and metal in their body was reviewed.? The patient was then sedated. Once sedated and comfortable a rectal exam was done. External exam was normal.? Internal exam revealed a normal sphincter tone and no palpable masses. The prostate mildly enlarged but homogeneous in texture The scope was then introduced and retrofelexed.? Grade 1 internal hemorrhoids were identified. The scope was then? advanced to the cecum without difficulty.? The TI and appendiceal orifice were identified.? The prep was patient had a liquid stool that coated the vila of the colon.? This was lavaged.? He also had inspissated stool in the diverticula.? He does have severe diverticula in the sigmoid colon.? The diverticula do carry all the way over to the cecum.? There is no signs of bleeding or infection.? However lesions less than 5 mm may have been missed..? The scope was then slowly retracted over 8 minutes back into the rectum.? There are no polyps or AVMs noted today.? There is no signs of active or old bleeding.? The scope was removed and the patient was woken up and taken back to Same day surgery in stable condition. Endoscopy Report DATE OF PROCEDURE: 04/02/21 PRE-OP DIAGNOSIS: anemia POST-OP DIAGNOSIS: other SURGEON: Jessica Horne ANESTHESIA TYPE: General LMA/ETT ESTIMATED BLOOD LOSS: 0 PATHOLOGY: none sent COMPLICATIONS: None DISPOSITION: same day PROCEDURE DESCRIPTION: After informed consent was obtained the patient was take to the procedure room and placed in a supine position. Monitors were applied and a time out was done.? The patients name, date of , procedure type, allergies to medications and metal in their body was reviewed.? A bite block was placed and the patient was sedated.? Once sedated and comfortable the gastroscope was advanced through the oropharynx which was grossly normal into the esophagus.? The proximal and mid-esophagus were normal.? In the distal esophagus there was no esophageal erosions, varices, diverticula, or restriction apparent today.? ? The scope was advanced into the stomach and through the pylorus into the 3rd portion of the duodenum.? The duodenum was noted to be normal. ? biopsies were not done because he is still fully anticoagulated..? The scope was retracted back into the stomach.? Pylorus extremely patent.? There is no gastritis or duodenitis apparent.? There are no ulcers..? The scope was retroflexed.? The cardia and fundus were noted to be normal.? There is no hiatal hernia noted.? Biopsies were not taken because he is still fully anticoagulated.? The Z line was regular.? ? The scope was removed and the patient was woken up and taken back to [facility] in stable condition.? Review of Systems All systems reviewed & are unremarkable except as noted in HPI and below PFSH All Active Problems (Updated 07/15/22 @ 15:38 by Jessica Horne, DO) SARS-CoV-2 antibody positive (Acute) Mild atherosclerosis of both carotid arteries (Acute) Adequate anticoagulation on anticoagulant therapy (Acute) Hemorrhage of large intestine due to diverticular disease (Acute) Symptomatic anemia (Acute) Syncopal episodes (Chronic) Heart block AV third degree (Acute) Carotid artery stenosis (Acute) COVID (Acute) Generalized weakness (Acute) Diverticula of colon (Acute) pandivericulitis- severe Encounter for colorectal cancer screening (Acute) Cerebrovascular accident (CVA) due to thrombosis of right middle cerebral artery (Acute 10/11/17) Paroxysmal atrial fibrillation (Acute 01/02/18) Umbilical hernia (Acute) Anemia (Chronic) GI (gastrointestinal bleed) (Chronic) Iron refractory iron deficiency anemia (Acute) Medical History Aphasia Arthritis Fatigue History of ileus Intermittent chest pain Osteoarthritis Paresthesia PVD (peripheral vascular disease) Sleep apnea Stroke 09/14/17 SVT (supraventricular tachycardia) Tobacco abuse Vitiligo Weakness Surgical History H/O bilateral inguinal hernia repair H/O colonoscopy (03/2021) 2020: Dr. Horne, diverticula, no polyps repeat 10 years 2018:Dr Montiel, negative, repeat in 10 years H/O umbilical hernia repair (06/13/18) Dr Montiel History of total bilateral knee replacement S/P arterial stent Social History Smoking/Tobacco Use Status: Former Tobacco Use Quit Date: 09/17/18 Tobacco: How many years used: 30 Smoking risk assessment performed?: Yes Alcohol Intake: former Drug use: Never Substance use type: does not use What type of physical activity do you participate in: none Do you feel safe at home: Yes Do you feel safe in your relationship?: Yes Results Last Vital Signs Temp 36.7 C 07/15/22 11:05 Pulse 66 07/15/22 12:15 Resp 20 07/15/22 11:05 BP 155/59 H 07/15/22 12:15 Pulse Ox 100 07/15/22 11:05 Labs Result diagrams: 07/15/22 09:54 07/15/22 11:30 Labs: Laboratory Results - last 24 hr 07/15/22 07/15/22 07/15/22 09:54 09:54 11:30 WBC 4.57 RBC 2.55 L Hgb 7.1 L Hct 22.5 L MCV 88 MCH 27.8 MCHC 31.6 L RDW 13.2 Plt Count 234 MPV 10.7 Immature Gran % 0.7 Neutrophils % 74.2 Lymphocytes % 14.2 Monocytes % 8.5 Eosinophils % 2.0 Basophils % 0.4 Nucleated RBC % 0.0 Absolute Neutrophils 3.39 Absolute Lymphocytes 0.65 L Absolute Monocytes 0.39 Absolute Eosinophils 0.09 Absolute Basophils 0.02 Sodium 135 L Potassium 4.5 Chloride 104 Carbon Dioxide 23.9 Anion Gap 7.1 BUN 35 H Creatinine 1.2 Est GFR (CKD-EPI 2020) 65.46 Glucose 114 H Calcium 8.9 Ferritin 37 Total Bilirubin 0.4 AST 20 ALT 20 Alkaline Phosphatase 74 C-Reactive Protein Total Protein 6.9 Albumin 3.3 L Procalcitonin COVID-19 Source SARS-CoV-2 (PCR) Patient ABO/Rh B Negative Antibody Screen NEGATIVE Crossmatch See Detail 07/15/22 07/15/22 07/15/22 11:30 11:30 11:42 WBC RBC Hgb Hct MCV MCH MCHC RDW Plt Count MPV Immature Gran % Neutrophils % Lymphocytes % Monocytes % Eosinophils % Basophils % Nucleated RBC % Absolute Neutrophils Absolute Lymphocytes Absolute Monocytes Absolute Eosinophils Absolute Basophils Sodium Potassium Chloride Carbon Dioxide Anion Gap BUN Creatinine Est GFR (CKD-EPI 2020) Glucose Calcium Ferritin Total Bilirubin AST ALT Alkaline Phosphatase C-Reactive Protein < 0.05 Total Protein Albumin Procalcitonin < 0.1 COVID-19 Source SARS-CoV-2 (PCR) Patient ABO/Rh Cancelled Antibody Screen Crossmatch See Detail 07/15/22 12:22 WBC RBC Hgb Hct MCV MCH MCHC RDW Plt Count MPV Immature Gran % Neutrophils % Lymphocytes % Monocytes % Eosinophils % Basophils % Nucleated RBC % Absolute Neutrophils Absolute Lymphocytes Absolute Monocytes Absolute Eosinophils Absolute Basophils Sodium Potassium Chloride Carbon Dioxide Anion Gap BUN Creatinine Est GFR (CKD-EPI 2020) Glucose Calcium Ferritin Total Bilirubin AST ALT Alkaline Phosphatase C-Reactive Protein Total Protein Albumin Procalcitonin COVID-19 Source Nasal/Nares SARS-CoV-2 (PCR) POSITIVE A* Patient ABO/Rh Antibody Screen Crossmatch
[2022-07-15] MEDS: Pantoprazole 40 MG VIAL IVP (17:00)
--- NOTE | 2022-07-15 17:03 | NUR.NOTE ---
end transfusion BP recheck manual by RN Nursing Note:
--- NOTE | 2022-07-15 18:04 | HPE_ITS ---
Date of service: 07/15/22 Time of Service: 18:04 Assessment and Plan Assessment and plan (1) GI (gastrointestinal bleed): Status: Deleted Assessment and plan: Patient has a history of a recent episode of GIB, he had black tarry stools and is symptomatic with fatigue SOB on exertion, lightheadedness. Moreover his H& H was 7.1 & 22.5. Most likely the patient is having another episode of lower GIB, such as diverticular, per general surgery. Surgery consult Clear liquids PRBC transfusion X2 Repeat H&H at 11:55 Hold xarelto and aspirin Continue home omeprazole CBC in AM BMP in AM monitor bleeding (2) Anemia: Status: Chronic Assessment and plan: Patient is on iron at home for refractory anemia As above Resume home dose of iron supplement (3) Paroxysmal atrial fibrillation: Status: Acute Assessment and plan: Patient is rate controlled with home regimen of beta honey Continue home Coreg Will start telemetry (4) Hypertension: Status: Chronic Assessment and plan: Hypertension has been controlled by home regimen As above Continue home Lisinopril, monitor renal function and potassium (5) Enlarged prostate: Status: Acute Assessment and plan: Patient stated that he had an enlarged prostate but was unable to relay other diagnostic test done, however he is on Flomax. We will continue his home dose of flomax (6) SARS-CoV-2 antibody positive: Assessment and plan: Patient has had this infection for over 2 weeks, he is asymptomatic. After 5 days we will not initiate Remdesevir Continue to monitor Oxygenation supplement as needed to maintain sat >92% (7) Discharge planning issues: Status: Deleted Assessment and plan: Patient does not foresee needing help at home Will be discharge home when back to baseline Care management to follow up on home needs Discussed with Dr. Yancey (8) On deep vein thrombosis (DVT) prophylaxis: Status: Deleted Assessment and plan: Patient was on xeralto and it is on hold due to GIB, therefore he is not a candidate for pharmacological DVT prophylaxis. We will order SCD's History of Present Illness History of Present Illness Chief Complaint: I was sent here from Dr. Horne because I am loosing blood Narrative: This 71 years old male with a history of diverticular disease, atrial fibrillat ion on Xarelto, ischemic stroke on aspirin, syncopal episode, anemia and previous GI bleed was? directed to the [facility] ED after seeing Dr. Horne today for symptomatic anemia. The patient?s H&H was 7.1 & 22.5 and he remained symptomatic and the ED provider, Dr. Bowman ordered 2 PRBCs to be transfused. The ED provider requested admission to the floor. Dr. Yancey accepted the patient. ?The patient denied nausea, hematemesis, hematochezia but reported melena. He denies chest pain, abdominal pain but report fatigue, dizziness, previous fainting episodes as well as shortness of breath on exertion. Review of Systems Narrative: Constitutional: Reports lightheadedness, dizziness, near fainting episodes, fatigue Denies , chills, fever, HEENT: Reports congestion, Denies blurred vision, sore throat Neuro: Denies: paresthesia, falls Cardiac: Reportshest pain, palpitation Resp: Reports shortness of breath on exertion Denies productive cough GI: Reports black tarry stool Denies abdominal pain, nausea, hematochezia Musk:? Reports steady gait Denies joint pain Skin: Denies skin lesion, bruising : ?Denies difficulty voiding Psych: Denies mood swings. PFSH All Active Problems (Updated 07/26/22 @ 11:28 by Jessica Horne DO) Enlarged prostate (Acute) BPH (benign prostatic hyperplasia) (Chronic) Hypertension (Chronic) Hemorrhage of large intestine due to diverticular disease (Acute) COVID (Acute) Generalized weakness (Acute) Encounter for colorectal cancer screening (Acute) Paroxysmal atrial fibrillation (Acute 01/02/18) Umbilical hernia (Acute) Anemia (Chronic) Iron refractory iron deficiency anemia (Acute) Medical History (Updated 07/26/22 @ 11:28 by Jessica Horne DO) Adequate anticoagulation on anticoagulant therapy Aphasia Arthritis Carotid artery stenosis Cerebrovascular accident (CVA) due to thrombosis of right middle cerebral artery (10/11/17) Diverticula of colon pandivericulitis- severe Fatigue History of ileus Intermittent chest pain Mild atherosclerosis of both carotid arteries Osteoarthritis Paresthesia PVD (peripheral vascular disease) SARS-CoV-2 antibody positive Sleep apnea Stroke 09/14/17 SVT (supraventricular tachycardia) Symptomatic anemia Tobacco abuse Vitiligo Weakness Surgical History H/O bilateral inguinal hernia repair H/O colonoscopy (03/2021) 2020: Dr. Horne, diverticula, no polyps repeat 10 years 2018:Dr Montiel, negative, repeat in 10 years H/O umbilical hernia repair (06/13/18) Dr Montiel History of total bilateral knee replacement S/P arterial stent Family History (Updated 07/15/22 @ 20:02 by Spring Freeman) Father Alcohol use disorder Heart disease Mother Breast cancer Sister Breast cancer Social History Smoking/Tobacco Use Status: Former Tobacco Use Quit Date: 09/17/18 Tobacco: How many years used: 30 Smoking risk assessment performed?: Yes Alcohol Intake: former Drug use: Never Substance use type: does not use What type of physical activity do you participate in: none Do you feel safe at home: Yes Do you feel safe in your relationship?: Yes Meds Allergies and Home Medications Allergies Allergy/AdvReac Type Severity Reaction Status Date / Time No Known Allergies Allergy Verified 07/26/22 10:53 Home Medications Medication Instructions Recorded Confirmed Type carvedilol 6.25 mg tablet 12.5 mg PO BID #120 tab-caps 04/13/18 07/26/22 Rx acetaminophen 325 mg tablet 650 mg PO Q4H PRN PRN #30 tabs 06/13/18 07/26/22 Rx (Tylenol) atorvastatin 40 mg tablet 80 mg PO DAILY 08/06/19 07/26/22 History ferrous sulfate 325 mg (65 mg 325 mg PO DAILY 07/12/22 07/26/22 History iron) tablet,delayed release tamsulosin 0.4 mg capsule (Flomax) 0.4 mg PO DAILY 07/12/22 07/26/22 History lisinopril 20 mg tablet 20 mg PO DAILY 07/15/22 07/26/22 History omeprazole 20 mg capsule,delayed 20 mg PO BID #0 caps 07/16/22 07/26/22 Rx release Exam Narrative Exam Narrative: Constitutional:Patient is in bed, supine during the interview, he speaks in full sentences, no obvious distress HEENT: Head is normacephalic, atraumatic, normal facial feature alignment Neuro: Alert and oriented X3, no focal deficit, but exhibit memory deficit Cardiac:S1, S2 distant, no murmur, pulse are present to extremities Resp: Clear upper lobes, ronchi bilat lower lobes GI: Soft, non-tender, nondistended, passing flatus :no CVA Musk:? push/ pull 5/5 to upper and lower extremities Skin: Warm, dry, intact Psych: anxiuos Results Labs Result diagrams: 07/16/22 13:50 07/16/22 06:05 Labs: Laboratory Results - last 24 hr 07/15/22 07/15/22 07/15/22 09:54 09:54 11:30 WBC 4.57 RBC 2.55 L Hgb 7.1 L Hct 22.5 L MCV 88 MCH 27.8 MCHC 31.6 L RDW 13.2 Plt Count 234 MPV 10.7 Immature Gran % 0.7 Neutrophils % 74.2 Lymphocytes % 14.2 Monocytes % 8.5 Eosinophils % 2.0 Basophils % 0.4 Nucleated RBC % 0.0 Absolute Neutrophils 3.39 Absolute Lymphocytes 0.65 L Absolute Monocytes 0.39 Absolute Eosinophils 0.09 Absolute Basophils 0.02 Sodium 135 L Potassium 4.5 Chloride 104 Carbon Dioxide 23.9 Anion Gap 7.1 BUN 35 H Creatinine 1.2 Est GFR (CKD-EPI 2020) 65.46 Glucose 114 H Calcium 8.9 Ferritin 37 Total Bilirubin 0.4 AST 20 ALT 20 Alkaline Phosphatase 74 C-Reactive Protein Total Protein 6.9 Albumin 3.3 L Procalcitonin COVID-19 Source SARS-CoV-2 (PCR) Patient ABO/Rh B Negative Antibody Screen NEGATIVE Crossmatch See Detail 07/15/22 07/15/22 07/15/22 11:30 11:30 11:42 WBC RBC Hgb Hct MCV MCH MCHC RDW Plt Count MPV Immature Gran % Neutrophils % Lymphocytes % Monocytes % Eosinophils % Basophils % Nucleated RBC % Absolute Neutrophils Absolute Lymphocytes Absolute Monocytes Absolute Eosinophils Absolute Basophils Sodium Potassium Chloride Carbon Dioxide Anion Gap BUN Creatinine Est GFR (CKD-EPI 2020) Glucose Calcium Ferritin Total Bilirubin AST ALT Alkaline Phosphatase C-Reactive Protein < 0.05 Total Protein Albumin Procalcitonin < 0.1 COVID-19 Source SARS-CoV-2 (PCR) Patient ABO/Rh Cancelled Antibody Screen Crossmatch See Detail 07/15/22 12:22 WBC RBC Hgb Hct MCV MCH MCHC RDW Plt Count MPV Immature Gran % Neutrophils % Lymphocytes % Monocytes % Eosinophils % Basophils % Nucleated RBC % Absolute Neutrophils Absolute Lymphocytes Absolute Monocytes Absolute Eosinophils Absolute Basophils Sodium Potassium Chloride Carbon Dioxide Anion Gap BUN Creatinine Est GFR (CKD-EPI 2020) Glucose Calcium Ferritin Total Bilirubin AST ALT Alkaline Phosphatase C-Reactive Protein Total Protein Albumin Procalcitonin COVID-19 Source Nasal/Nares SARS-CoV-2 (PCR) POSITIVE A* Patient ABO/Rh Antibody Screen Crossmatch Last Vital Signs Temp 97.3 F L 07/15/22 17:50 Pulse 60 07/15/22 17:50 Resp 15 07/15/22 17:50 BP 158/78 H 07/15/22 17:50 Pulse Ox 100 07/15/22 17:50 Time Spent Time spent with Patient: 55-74 minutes Time was spent: preparing to see the patient(eg.review tests) and obtaining and/or reviewing separately otained hiistory
[2022-07-15] MEDS: Lisinopril 20 MG TAB PO (19:48)
[2022-07-15] MEDS: Normal Saline Flush 10 ML SYR IVP (19:48)
[2022-07-15] MEDS: Carvedilol 12.5 MG TAB PO (19:48)
[2022-07-15] MEDS: Acetaminophen 325 MG TAB 650 MG PO (20:45)
[2022-07-16] VITALS: PULSE 51
[2022-07-16 00:29] VITALS: BP 140/70; PULSE 63; RESP 15; TEMP 36; O2SAT 97
[2022-07-16 00:45] LABS: Abs Immature Grans 0.01 10^3/uL (0.0-0.06); Absolute Basophil Count 0.03 10^3/uL (0.0-0.2); Absolute Eosinophil Count 0.18 10^3/uL (0.0-0.7); Absolute Lymphocyte Count 0.97 10^3/uL (1.2-3.4); Absolute Monocyte Count 0.56 10^3/uL (0.1-0.8); Absolute Neutrophil Count 3.92 10^3/uL (1.2-6.7); Basophils % 0.5; Eosinophils % 3.2; HCT 26.6 % (40.0-50.0); HGB 8.8 g/dL (13.5-17.5); Immature Grans % 0.2; Lymphocytes % 17.1; MCH 28.3 pg (27.0-33.0); MCHC 33.1 % (32.0-36.0); MCV 86 fL (80-95); MPV 10.3 fL (8.0-11.0); Monocytes % 9.9; Neutrophils % 69.1; Platelet Count 197 10^3/uL (130-400); RBC 3.11 10^6/uL (4.36-5.78); RDW-SD 43.8 fL; WBC 5.67 10^3/uL (4.4-10.8)
[2022-07-16 04:15] VITALS: BP 120/80; PULSE 65; RESP 16; TEMP 36.4; O2SAT 97
[2022-07-16 06:15] LABS: Abs Immature Grans 0.02 10^3/uL (0.0-0.06); Absolute Basophil Count 0.03 10^3/uL (0.0-0.2); Absolute Eosinophil Count 0.13 10^3/uL (0.0-0.7); Absolute Lymphocyte Count 0.65 10^3/uL (1.2-3.4); Absolute Monocyte Count 0.45 10^3/uL (0.1-0.8); Absolute Neutrophil Count 3.01 10^3/uL (1.2-6.7); Basophils % 0.7; HCT 26.9 % (40.0-50.0); HGB 8.7 g/dL (13.5-17.5); Immature Grans % 0.5; Lymphocytes % 15.2; MCH 27.6 pg (27.0-33.0); MCHC 32.3 % (32.0-36.0); MCV 85 fL (80-95); MPV 10.5 fL (8.0-11.0); Monocytes % 10.5; Neutrophils % 70.1; Platelet Count 184 10^3/uL (130-400); RBC 3.15 10^6/uL (4.36-5.78); RDW 14.3 % (11.8-14.1); RDW-SD 44.6 fL; WBC 4.29 10^3/uL (4.4-10.8)
[2022-07-16 06:25] LABS: INR 1.1 (0.9-1.1); Prothrombin Time 11.2 sec (9.3-11.0)
[2022-07-16 06:31] LABS: Anion Gap 10.7 mmol/L (3-11); BUN 19 mg/dL (7-18); CO2 21.3 mmol/L (21.0-32.0); CREATININE 1.1 mg/dL (0.70-1.30); Calcium 8.8 mg/dL (8.5-10.1); Chloride 106 mmol/L (98-107); Estimated GFR 72.67 (mL/min/1.73m2); Glucose 147 mg/dL (74-106); Magnesium 1.9 mg/dL (1.8-2.4); Sodium 138 mmol/L (136-145)
[2022-07-16 06:39] LABS: C-Reactive Protein < 0.05 mg/dL (0.0-0.3)
[2022-07-16 07:22] LABS: Vitamin D 25 Total 11.2 ng/mL (30-100)
[2022-07-16 07:39] VITALS: BP 150/72; PULSE 64; RESP 18; TEMP 36.9; O2SAT 99
[2022-07-16] MEDS: Atorvastatin 40 MG TAB 80 MG PO (07:41)
[2022-07-16] MEDS: Pantoprazole 40 MG TABCR PO (07:41)
[2022-07-16] MEDS: Tamsulosin 0.4 MG CAPCR PO (07:41)
[2022-07-16] MEDS: Carvedilol 12.5 MG TAB PO (07:41)
[2022-07-16] MEDS: Normal Saline Flush 10 ML SYR IVP (07:41)
[2022-07-16] MEDS: Ferrous Sulfate 325 MG TAB PO (07:41)
[2022-07-16 08:00] VITALS: PULSE 46
--- NOTE | 2022-07-16 09:06 | PDOC.CMIN ---
- If Service Date Differs Date of service: 07/16/22 Time of Service: 09:06 Care Management Initial Assess REASON FOR HOSPITALIZATION:: GI bleed, Anemia, covid PAST MEDICAL HISTORY/PAST SURGICAL HISTORY:: All Active Problems (Updated 07/15/22 @ 19:13 by Spring Freeman). Enlarged prostate (Acute). BPH (benign prostatic hyperplasia) (Chronic). Hypertension (Chronic). On deep vein thrombosis (DVT) prophylaxis (Acute). Discharge planning issues (Acute). SARS-CoV-2 antibody positive (Acute). Mild atherosclerosis of both carotid arteries (Acute). Adequate anticoagulation on anticoagulant therapy (Acute). Hemorrhage of large intestine due to diverticular disease (Acute). Symptomatic anemia (Acute). Syncopal episodes (Chronic). Heart block AV third degree (Acute). Carotid artery stenosis (Acute). COVID (Acute). Generalized weakness (Acute). Diverticula of colon (Acute). pandivericulitis- severe. Encounter for colorectal cancer screening (Acute). Cerebrovascular accident (CVA) due to thrombosis of right middle cerebral artery (Acute 10/11/17). Paroxysmal atrial fibrillation (Acute 01/02/18). Umbilical hernia (Acute). Anemia (Chronic). GI (gastrointestinal bleed) (Chronic). Iron refractory iron deficiency anemia (Acute). Medical History . Aphasia. Arthritis. Fatigue. History of ileus. Intermittent chest pain. Osteoarthritis. Paresthesia. PVD (peripheral vascular disease). Sleep apnea. Stroke. 09/14/17. SVT (supraventricular tachycardia). Tobacco abuse. Vitiligo. Weakness. Surgical History . H/O bilateral inguinal hernia repair. H/O colonoscopy (03/2021). 2020: Dr. Horne, diverticula, no polyps repeat 10 years. 2018:Dr Montiel, negative, repeat in 10 years. H/O umbilical hernia repair (06/13/18). Dr Montiel. History of total bilateral knee replacement. S/P arterial stent PREVIOUS FUNCTIONAL STATUS/SOCIAL/FAMILY SUPPORTS:: Rick lives alone in [place]. He identifies his daughter Betsy and his neighbor as being very supportive. 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 He drives and is independent with his ADL's at baseline. CURRENT FUNCTIONAL STATUS:: CM spoke with Rick via phone, due to covid precations. Per pt, he is feeling a lot better today. He just had labs drawn and is waiting for the results. He has no questions at this time. ADVANCE DIRECTIVES:: None on file. Has patient been provided with info about the portal/API?: Yes Did the patient sign up for the portal?: No CODE STATUS:: Full Code INSURANCE COVERAGE / FINANCIAL ISSUES:: BC/BS of [employer]. Medicare. [facility]-[employer] CURRENT HOME/COMMUNITY SERVICES/EQUIPMENT:: None PRIMARY CARE PHYSICIAN:: Elisa Garner PATIENT/FAMILY EDUCATION NEEDS:: Review discharge instructions, limitations, medications and plan to follow up with community providers. Discuss ask me three and goals of self care. TRANSPORTATION:: Via private vehicle with family PLAN:: Anticipate, Rick will discharge home with no [facility] services via private vehicle when medically cleared per provider. Rick will follow up with community providers and discharge plan of care as prescribed.
--- NOTE | 2022-07-16 10:28 | PGE_ITS ---
Date of Service Date of service: 07/16/22 Time of Service: 10:28 Assessment and Plan Assessment and plan (1) GI (gastrointestinal bleed): Status: Chronic Assessment and plan: Patient has a history diverticular disease of had a recent episode of lower GIB, he had black tarry stools and is symptomatic with fatigue SOB on exertion, lightheadedness. Moreover his H& H was 7.1 & 22.5. Most likely the patient is having another episode of lower GIB, as we have no nausea and no hematemesis. His H&H went up to 8.8 & 26.6 after PRBC transfusion X2 last night. H&H this morning is 8.7 & 26.9 and this afternoon H&H remains stable at 8.8 & 27.4. Surgery consult completed by Dr. Kasper: With stable H&H, discharge home; hold Xarelto and aspirin and follow up with PCP Clear liquids was well tolerated Repeat H&H at noon today, if the H&H remains stable, the patient will be discharged home and follow-up with PCP. Hold xarelto and aspirin Continue home omeprazole; we will recheck B12 and folate levels BUN/Creatinine 07/07.1 this AM from 35/1.2 Monitor bleeding (2) Anemia: Status: Chronic Assessment and plan: Patient is on iron at home for refractory anemia As above Resume home dose of iron supplement Iron level was 19 but as patient was getting 2 untis of PRBC, we elected not to replace iron with iron sucrose as each unit of RBCs approximately has about 250 mg of iron We will recheck a B12 (3) Paroxysmal atrial fibrillation: Status: Acute Assessment and plan: Patient is rate controlled with home regimen of beta honey Continue home Coreg Will start telemetry: SR HR 49 to 87 (4) Hypertension: Status: Chronic Assessment and plan: Hypertension has been controlled by home regimen As above Continue home Lisinopril, monitor renal function and potassium (5) Enlarged prostate: Status: Acute Assessment and plan: Patient stated that he had an enlarged prostate but was unable to relay other diagnostic test done, however he is on Flomax. We will continue his home dose of flomax (6) SARS-CoV-2 antibody positive: Status: Acute Assessment and plan: Patient has had this infection for over 2 weeks, he is asymptomatic. After 5 days we will not initiate Remdesevir Continue to monitor Oxygenation supplement as needed to maintain sat >92% (7) Discharge planning issues: Status: Acute Assessment and plan: Patient does not foresee needing help at home Will be discharge home when back to baseline Care management to follow up on home needs Discussed with Dr. Yancey (8) On deep vein thrombosis (DVT) prophylaxis: Status: Acute Assessment and plan: Patient was on xeralta and it is on hold due to GIB, therefore he is not a candidate for pharmacological DVT prophylaxis. We will order SCD's Subjective Subjective Interval history since last seen: Patient slept well, reports feeling less fatigue and increased energy levels. He denies shortness of breath, chest pain, palpitations, nausea, hematemesis, hematochezia or dysuria. He reports black stools. He reports tolerating his diet, felt less fatigued ambulating to the bathroom today. Exam Narrative Exam Narrative: Constitutional:Patient is in bed during this interview, looking comfortable HEENT: normal facial feature alignment, conjugated gaze Neuro: Alert and oriented X3, no focal neurological deficits Cardiac:S1, S2 distant, no murmur, pulse are present to extremities, telemetry SR HR 49 to 87 Resp: Clear upper lobes, fine crackles (velcro-like) to right and left lower lobes GI: Soft, non-tender, non-distended, passing flatus, hyperactive bowel sounds :no CVA Musk:? push/ pull 5/5 to upper and lower extremities Skin: [place], warm, dry, intact Psych: cooperative Objective Last Vital Signs Temp 98.4 F 07/16/22 07:39 Pulse 64 07/16/22 07:39 Resp 18 07/16/22 07:39 BP 150/72 H 07/16/22 07:39 Pulse Ox 99 07/16/22 07:39 Laboratory Results - last 24 hr 07/15/22 07/15/22 07/15/22 09:54 09:54 11:30 WBC 4.57 RBC 2.55 L Hgb 7.1 L Hct 22.5 L MCV 88 MCH 27.8 MCHC 31.6 L RDW 13.2 Plt Count 234 MPV 10.7 Immature Gran % 0.7 Neutrophils % 74.2 Lymphocytes % 14.2 Monocytes % 8.5 Eosinophils % 2.0 Basophils % 0.4 Nucleated RBC % 0.0 Absolute Neutrophils 3.39 Absolute Lymphocytes 0.65 L Absolute Monocytes 0.39 Absolute Eosinophils 0.09 Absolute Basophils 0.02 PT INR Sodium 135 L Potassium 4.5 Chloride 104 Carbon Dioxide 23.9 Anion Gap 7.1 BUN 35 H Creatinine 1.2 Est GFR (CKD-EPI 2020) 65.46 Glucose 114 H Calcium 8.9 Magnesium Ferritin 37 Total Bilirubin 0.4 AST 20 ALT 20 Alkaline Phosphatase 74 C-Reactive Protein Total Protein 6.9 Albumin 3.3 L 25-OH Vitamin D Total Procalcitonin COVID-19 Source SARS-CoV-2 (PCR) Patient ABO/Rh B Negative Antibody Screen NEGATIVE Crossmatch See Detail 07/15/22 07/15/22 07/15/22 11:30 11:30 11:42 WBC RBC Hgb Hct MCV MCH MCHC RDW Plt Count MPV Immature Gran % Neutrophils % Lymphocytes % Monocytes % Eosinophils % Basophils % Nucleated RBC % Absolute Neutrophils Absolute Lymphocytes Absolute Monocytes Absolute Eosinophils Absolute Basophils PT INR Sodium Potassium Chloride Carbon Dioxide Anion Gap BUN Creatinine Est GFR (CKD-EPI 2020) Glucose Calcium Magnesium Ferritin Total Bilirubin AST ALT Alkaline Phosphatase C-Reactive Protein < 0.05 Total Protein Albumin 25-OH Vitamin D Total Procalcitonin < 0.1 COVID-19 Source SARS-CoV-2 (PCR) Patient ABO/Rh Cancelled Antibody Screen Crossmatch See Detail 07/15/22 07/15/22 07/16/22 12:22 23:59 06:05 WBC 5.67 RBC 3.11 L Hgb 8.8 L Hct 26.6 L MCV 86 MCH 28.3 MCHC 33.1 RDW 14.0 Plt Count 197 MPV 10.3 Immature Gran % 0.2 Neutrophils % 69.1 Lymphocytes % 17.1 Monocytes % 9.9 Eosinophils % 3.2 Basophils % 0.5 Nucleated RBC % 0.0 Absolute Neutrophils 3.92 Absolute Lymphocytes 0.97 L Absolute Monocytes 0.56 Absolute Eosinophils 0.18 Absolute Basophils 0.03 PT 11.2 H INR 1.1 Sodium Potassium Chloride Carbon Dioxide Anion Gap BUN Creatinine Est GFR (CKD-EPI 2020) Glucose Calcium Magnesium Ferritin Total Bilirubin AST ALT Alkaline Phosphatase C-Reactive Protein Total Protein Albumin 25-OH Vitamin D Total Procalcitonin COVID-19 Source Nasal/Nares SARS-CoV-2 (PCR) POSITIVE A* Patient ABO/Rh Antibody Screen Crossmatch 01/07/16/22 07/16/22 06:05 06:05 06:05 WBC 4.29 L RBC 3.15 L Hgb 8.7 L Hct 26.9 L MCV 85 MCH 27.6 MCHC 32.3 RDW 14.3 H Plt Count 184 MPV 10.5 Immature Gran % 0.5 Neutrophils % 70.1 Lymphocytes % 15.2 Monocytes % 10.5 Eosinophils % 3.0 Basophils % 0.7 Nucleated RBC % 0.0 Absolute Neutrophils 3.01 Absolute Lymphocytes 0.65 L Absolute Monocytes 0.45 Absolute Eosinophils 0.13 Absolute Basophils 0.03 PT INR Sodium 138 Potassium 4.0 Chloride 106 Carbon Dioxide 21.3 Anion Gap 10.7 BUN 19 H Creatinine 1.1 Est GFR (CKD-EPI 2020) 72.67 Glucose 147 H Calcium 8.8 Magnesium 1.9 Ferritin Total Bilirubin AST ALT Alkaline Phosphatase C-Reactive Protein < 0.05 Total Protein Albumin 25-OH Vitamin D Total 11.2 L Procalcitonin COVID-19 Source SARS-CoV-2 (PCR) Patient ABO/Rh Antibody Screen Crossmatch
[2022-07-16 12:03] VITALS: BP 149/76; PULSE 61; RESP 19; TEMP 36.2; O2SAT 97
[2022-07-16 14:01] LABS: HCT 27.4 % (40.0-50.0); HGB 8.8 g/dL (13.5-17.5)
--- NOTE | 2022-07-16 14:32 | W.PM.DS.N ---
Date of service: 07/16/22 Time of Service: 14:32 DS: Diagnosis Discharge Diagnosis (1) GI (gastrointestinal bleed): Status: Deleted Asessment and Plan: Patient has a history diverticular disease of?had a recent episode of lower GIB and was referred to surgery, he had?black tarry stools and is symptomatic with fatigue, SOB on exertion, lightheadedness. Moreover his H& H?was 7.1 & 22.5. no nausea and no?hematemesis. His H&H went up to 8.8 & 26.6 after PRBC transfusion X2 last night.? H&H this morning is 8.7 & 26.9 and this afternoon H&H remains stable at 8.8 & 27.4. Surgery consult completed by Dr. Kasper: With stable H&H, discharge home; hold Xarelto and aspirin and follow up with PCP Clear liquids was well tolerated Repeat H&H at noon today, if the H&H remains stable, the patient will be discharged home and follow-up with PCP. Hold Xarelto and aspirin Continue home omeprazole; we will recheck B12 and folate?levels BUN/Creatinine 19/1.1?this AM from 35/1.2 Monitor bleeding. and repeat CBC in 3 days as an outpatient. (2) Anemia: Status: Chronic Asessment and Plan: As above.Patient is on iron at home for refractory anemia. Resume home dose of iron supplement. Iron level was 19 but as patient was getting 2 units of PRBC, we elected not to replace iron with iron sucrose as?each unit of RBCs approximately has about 250 mg of iron. We will recheck a B12 and folate levels. (3) Paroxysmal atrial fibrillation: Status: Acute Asessment and Plan: Patient is rate controlled with? home regimen of beta honey. Continue home Coreg. Will start telemetry: SR HR 49 to 87. (4) Hypertension: Status: Chronic Asessment and Plan: Hypertension has been controlled by home regimen As above Continue home Lisinopril, monitor renal function and potassium (5) Enlarged prostate: Status: Acute Asessment and Plan: Patient stated that he had an enlarged prostate but was unable to relay other diagnostic test done, however he is on Flomax. We will continue his home dose of Tamsulosin (6) SARS-CoV-2 antibody positive: Asessment and Plan: Patient has had this infection for over 2 weeks, he is asymptomatic. After 5 days we will not initiate Remdesevir. Continue to monitor Oxygenation supplement as needed to maintain sat >92%. Discharge Plan Disposition Patient Disposition: Home Condition: Improving Discharge Details Reason For Visit: Anemia of Acute on Chronic Blood Loss, GI Bleeding Admit Date/Time: 07/15/22 11:45 Admit Provider: Virginie Yancey Attending Provider: Virginie Yancey [facility] Course: This 71 years old male with a history of diverticular disease, atrial fibrillation on Xarelto, ischemic stroke on aspirin, syncopal episode, anemia and previous GI bleed in January, was referred to the ED by general surgery. ?He most recently received blood for persistent anemia on 07/05/2022. The patient was seen by Dr. Horne on 07/15/2022 for persistent anemia, with lightheadedness and she directed the patient to go to the [facility] ED. The patient also tested positive for Covid-19. He was on his 10th day of Covid on admission and did not qualify for treatment, his only complaint related to Covid was fatigue and nasal congestion. In the ED the patient?s H&H was 7.1 & 22.5, he complained of feeling fatigued and generalized weakness over the past week and a half, denied nausea, hematemesis, hematochezia but reported melena. He denied chest pain, abdominal pain but reported fatigue, dizziness, previous fainting episodes as well as shortness of breath on exertion.. The patient was put on the medical floor on observation status with telemetry. Labs 24h post transfusion of 2 units of PRBCs H&H went up to 8.8 & 26.6. H&H 07/16/22 in the morning was 8.7 & 26.9 and this afternoon H&H remained stable at 8.8 & 27.4. He no longer has symptoms. He denies nausea, vomiting, dizziness, lightheadedness and reports having increased energy. ?Surgery was consulted. Dr Kasper's recommendations: Once H&H is stable, discharge home; hold Xarelto and aspirin and follow up with PCP He had no oxygen requirement and at the time of discharge he denies any symptoms. Vital signs are stable. He is discharged to home with outpatient labs to be drawn on Monday07/19/2022 for H&H and to follow up with PCP and surgery. He was told to hold Xarelto and Aspirin until he is seen by his PCP for further recommendations. ? Discussed with Dr Yancey Home Meds and New Rx's Prescriptions: Continued lisinopril 20 mg tablet 20 mg PO DAILY carvedilol 6.25 mg tablet 12.5 mg PO BID Qty: 120 11RF atorvastatin 40 mg tablet 80 mg PO DAILY tamsulosin [Flomax] 0.4 mg capsule 0.4 mg PO DAILY ferrous sulfate 325 mg (65 mg iron) tablet,delayed release (DR/EC) 325 mg PO DAILY acetaminophen [Tylenol] 325 mg Tablet 650 mg PO Q4H PRN PRNQty: 30 0RF Changed omeprazole 20 mg capsule,delayed release(DR/EC) 20 mg PO BID Qty: 0 0RF Discontinued aspirin 81 mg tablet,delayed release (DR/EC) 81 mg PO DAILY Xarelto 20 mg tablet 20 mg PO DAILY Rx Instructions: must administer with evening meal Discharge Instructions Instructions: Omeprazole (By mouth), Gastrointestinal Bleeding (DC), COVID-19 (Coronavirus Disease 2019) (DC) Additional Instructions: Take Omeprazole 20 mg twice a day. Do not take Xarelto or Aspirin until follow up with PCP or Surgery. Stand Alone Forms: Nursing Discharge Form Referrals: Elisa Garner [Primary Care Provider] - (Call Monday for a follow up in 1-2 weeks ) Jessica Horne DO [OSTEOPATHIC DOCTOR] - (call Monday for a follow up in 1-2 weeks) Activity:: Activity as Tolerated Equipment/Supplies:: No Equipment Needed Diet:: As Tolerated Discharge Orders Discharge Orders: Discharge Order (Routine); Ordered 07/16/22 Ordered By: Cary Diaz Discharge Data Discharge Date/Time-TO BE ENTERED AT DEPARTURE: 07/16/22 16:36 DS: Summary Time Spent with Patient providing and/or coordinating discharge services: Greater than 30 minutes Status at Discharge Functional status at discharge: independent ambulation Overall status at discharge: patient is progressing back to baseline Mental Status: mental status grossly normal Speech and Movement: speech and movement normal Mood: congruent mood Affect: normal affect Exam Narrative Exam Narrative: Constitutional: Patient is in bed during this interview, looking comfortable. HEENT: normal facial feature alignment, conjugated gaze. Neuro: Alert and oriented X3, no focal neurological deficits. Cardiac:S1, S2 distant, no murmur, pulse are present to extremities, telemetry SR HR 49 to 87. Resp: Clear upper lobes, fine crackles (velcro-like) to right and left lower lobes. GI: Soft, non-tender, non-distended, passing flatus, hyperactive bowel sounds. : no CVA. Musk:? push/ pull 5/5 to upper and lower extremities. Skin: [place], warm, dry, intact. Psych: cooperative. Psych Mental Status: mental status grossly normal Speech and Movement: speech and movement normal Mood: congruent mood Affect: normal affect DS: Data Vitals/I&O Vitals and I&O: Vital Signs Temperature 97.2 F L 07/16/22 12:03 Temperature Source Tympanic 07/16/22 12:03 Pulse 61 07/16/22 12:03 Pulse Rhythm Regular 07/16/22 07:45 Respiratory Rate 19 07/16/22 12:03 Respiratory Effort Non-Labored 07/16/22 07:45 Respiratory Depth Normal 07/16/22 07:45 Respiratory Pattern Normal 07/16/22 07:45 Blood Pressure 149/76 H 07/16/22 12:03 Blood Pressure Mean 79 07/15/22 12:15 Blood Pressure Position Sitting 07/15/22 11:05 Pulse Oximetry 97 07/16/22 12:03 Oxygen Delivery Method Room Air 07/16/22 12:03 Oxygen Flow Rate 0 07/16/22 12:03 Pain Level 0 07/16/22 12:03 Intake & Output 07/15/22 07/16/22 07/16/22 23:59 11:59 23:59 Intake Total 1050 / 1050 450 / 900 450 / 900 Output Total 400 / 400 Balance 650 / 650 450 / 900 450 / 900 Weight 167 lb 8.821 oz Intake: Oral 450 / 900 450 / 900 Blood Product 1050 / 1050 Rbc Leuko Reduced Unit 700 / 700 [id number] Rbc Leuko Reduced Unit 350 / 350 [id number] Output: Urine 400 / 400 Other: Urine Color Yellow Urine Appearance Clear Clear Urine Odor None Comment unmeasure urine amount. Stool Occult Blood Positive Stool Size Small Stool Characteristics Formed Voiding Methods Urinal Urinal Data Completed and Pending Labs on day of discharge: Labs from last 24 hours 07/16/22 07/16/22 07/16/22 13:50 06:05 06:05 WBC 4.29 L RBC 3.15 L Hgb 8.8 L 8.7 L Hct 27.4 L 26.9 L MCV 85 MCH 27.6 MCHC 32.3 RDW 14.3 H Plt Count 184 MPV 10.5 Immature Gran % 0.5 Neutrophils % 70.1 Lymphocytes % 15.2 Monocytes % 10.5 Eosinophils % 3.0 Basophils % 0.7 Nucleated RBC % 0.0 Absolute Neutrophils 3.01 Absolute Lymphocytes 0.65 L Absolute Monocytes 0.45 Absolute Eosinophils 0.13 Absolute Basophils 0.03 PT INR Sodium Potassium Chloride Carbon Dioxide Anion Gap BUN Creatinine Est GFR (CKD-EPI 2020) Glucose Calcium Magnesium C-Reactive Protein 25-OH Vitamin D Total 11.2 L Patient ABO/Rh Antibody Screen Crossmatch 07/16/22 07/16/22 07/15/22 06:05 06:05 23:59 WBC 5.67 RBC 3.11 L Hgb 8.8 L Hct 26.6 L MCV 86 MCH 28.3 MCHC 33.1 RDW 14.0 Plt Count 197 MPV 10.3 Immature Gran % 0.2 Neutrophils % 69.1 Lymphocytes % 17.1 Monocytes % 9.9 Eosinophils % 3.2 Basophils % 0.5 Nucleated RBC % 0.0 Absolute Neutrophils 3.92 Absolute Lymphocytes 0.97 L Absolute Monocytes 0.56 Absolute Eosinophils 0.18 Absolute Basophils 0.03 PT 11.2 H INR 1.1 Sodium 138 Potassium 4.0 Chloride 106 Carbon Dioxide 21.3 Anion Gap 10.7 BUN 19 H Creatinine 1.1 Est GFR (CKD-EPI 2020) 72.67 Glucose 147 H Calcium 8.8 Magnesium 1.9 C-Reactive Protein < 0.05 25-OH Vitamin D Total Patient ABO/Rh Antibody Screen Crossmatch 07/15/22 07/15/22 09:54 09:54 WBC 4.57 RBC 2.55 L Hgb 7.1 L Hct 22.5 L MCV 88 MCH 27.8 MCHC 31.6 L RDW 13.2 Plt Count 234 MPV 10.7 Immature Gran % 0.7 Neutrophils % 74.2 Lymphocytes % 14.2 Monocytes % 8.5 Eosinophils % 2.0 Basophils % 0.4 Nucleated RBC % 0.0 Absolute Neutrophils 3.39 Absolute Lymphocytes 0.65 L Absolute Monocytes 0.39 Absolute Eosinophils 0.09 Absolute Basophils 0.02 PT INR Sodium Potassium Chloride Carbon Dioxide Anion Gap BUN Creatinine Est GFR (CKD-EPI 2020) Glucose Calcium Magnesium C-Reactive Protein 25-OH Vitamin D Total Patient ABO/Rh B Negative Antibody Screen NEGATIVE Crossmatch See Detail PFSH All Active Problems (Updated 07/26/22 @ 11:28 by Jessica Horne DO) Enlarged prostate (Acute) BPH (benign prostatic hyperplasia) (Chronic) Hypertension (Chronic) Hemorrhage of large intestine due to diverticular disease (Acute) COVID (Acute) Generalized weakness (Acute) Encounter for colorectal cancer screening (Acute) Paroxysmal atrial fibrillation (Acute 01/02/18) Umbilical hernia (Acute) Anemia (Chronic) Iron refractory iron deficiency anemia (Acute) Medical History (Updated 07/26/22 @ 11:28 by Jessica Horne DO) Adequate anticoagulation on anticoagulant therapy Aphasia Arthritis Carotid artery stenosis Cerebrovascular accident (CVA) due to thrombosis of right middle cerebral artery (10/11/17) Diverticula of colon pandivericulitis- severe Fatigue History of ileus Intermittent chest pain Mild atherosclerosis of both carotid arteries Osteoarthritis Paresthesia PVD (peripheral vascular disease) SARS-CoV-2 antibody positive Sleep apnea Stroke 09/14/17 SVT (supraventricular tachycardia) Symptomatic anemia Tobacco abuse Vitiligo Weakness Surgical History H/O bilateral inguinal hernia repair H/O colonoscopy (03/2021) 2020: Dr. Horne, diverticula, no polyps repeat 10 years 2018:Dr Montiel, negative, repeat in 10 years H/O umbilical hernia repair (06/13/18) Dr Montiel History of total bilateral knee replacement S/P arterial stent Family History (Updated 07/15/22 @ 20:02 by Spring Freeman) Father Alcohol use disorder Heart disease Mother Breast cancer Sister Breast cancer Social History Smoking/Tobacco Use Status: Former Tobacco Use Quit Date: 09/17/18 Tobacco: How many years used: 30 Smoking risk assessment performed?: Yes Alcohol Intake: former Drug use: Never Substance use type: does not use What type of physical activity do you participate in: none Do you feel safe at home: Yes Do you feel safe in your relationship?: Yes Time Spent with Patient Time Spent with Patient: 45-69 minutes Time was spent: preparing to see the patient(eg.review tests), obtaining and/or reviewing separately otained hiistory, ordering medications,tests, procedures, referring, communicating with other health weekend caregiver, indepentently interpreting results, counseling the patient and care coordination
--- NOTE | 2022-07-16 15:34 | PDOC.CMDIS ---
- If Service Date Differs Date of service: 07/16/22 Time of Service: 15:34 LACE Index Scoring Tool - Questions: Length of Stay (in days): 1 Acuity (Admit via E.D.?): Yes Comorbidities: Cerebrovascular Disease (Stroke 2018), PVD E.D. Visits: 2 - Answers: Total Score: 8 Risk of Readmission: Low Risk Care Management Discharge Reason for Hospitalization: GI bleed, Anemia, covid Discharge Plan: Rick is discharged home via private vehicle. No new services are ordered. Rick will follow up with his community providers and discharge plan of care as prescribed. Rick is asked to call his PCP and Dr. Horne on Monday to make follow up appointments in 1-2 weeks. Patient/Family Education Needs: Review discharge instructions, limitations, medications and plan to follow up with community providers. Discuss ask me three and goals of self care.
--- NOTE | 2022-07-16 15:47 | W.PM.DS.N ---
Date of service: 07/16/22 Time of Service: 15:48 DS: Diagnosis Discharge Diagnosis (1) GI (gastrointestinal bleed): Status: Chronic (2) Anemia: Status: Chronic (3) Paroxysmal atrial fibrillation: Status: Acute (4) Hypertension: Status: Chronic (5) Enlarged prostate: Status: Acute (6) SARS-CoV-2 antibody positive: Status: Acute Discharge Plan Disposition Patient Disposition: Home Condition: Improving Discharge Details Reason For Visit: Anemia of Acute on Chronic Blood Loss, GI Bleeding Admit Date/Time: 07/15/22 11:45 Admit Provider: Virginie Yancey Attending Provider: Virginie Yancey Primary Care Provider: [facility] Course Hospital Course: This 71 years old male with a history of diverticular disease, atrial fibrillation on Xarelto, ischemic stroke on aspirin, syncopal episode, anemia and previous GI bleed in January, was referred tp surgery by his PCP. ?He most recently received blood for persistant anemia on 07/05/2022. The patient was seen by Dr. Horne on 07/15/2022 for persistant anemia, with lightheadness and she directed the patient to go to the [facility] ED. The patient also has Covid. He was on his 10th day of Covid on admission and did not qualify for treatment, his only complaint related to Covid was fatigue and nasal congestion. In the ED the patient?s H&H was 7.1 & 22.5, he complained of feeling fatigued and generalized weakness over the past week and a half, denied nausea, hematemesis, hematochezia but reported melena. He denied chest pain, abdominal pain but reported fatigue, dizziness, previous fainting episodes as well as shortness of breath on exertion.. The patient was put on the medical floor on observation status with telemetry. Labs 24h post transfusion of 2 units of PRBCs H&H went up to 8.8 & 26.6. H&H 07/16/22 in the morning was 8.7 & 26.9 and this afternoon H&H remained stable at 8.8 & 27.4. He no longer has symptoms. He denies nausea, vomiting, dizziness, lightheadedness and reports having increased energy. ?Surgery was consulted. Dr Kasper's recommendations: Once H&H is stable, discharge home; hold Xarelto and aspirin and follow up with PCP He had no oxygen requirement and at the time of discharge he denies any symptoms. Vital signs are stable. He is discharged to home with out patiient labs to be drawn on Monday07/19/2022 for H&H and to follow up with PCP and surgery. He was told to hold Xarelto and Aspirin until he is seen by his PCP for further recommendations. ? Discussed with Dr Yancey Home Meds and New Rx's Prescriptions: Continued lisinopril 20 mg tablet 20 mg PO DAILY carvedilol 6.25 mg tablet 12.5 mg PO BID Qty: 120 11RF atorvastatin 40 mg tablet 80 mg PO DAILY tamsulosin [Flomax] 0.4 mg capsule 0.4 mg PO DAILY ferrous sulfate 325 mg (65 mg iron) tablet,delayed release (DR/EC) 325 mg PO DAILY acetaminophen [Tylenol] 325 mg Tablet 650 mg PO Q4H PRN PRNQty: 30 0RF Changed omeprazole 20 mg capsule,delayed release(DR/EC) 20 mg PO BID Qty: 0 0RF Discontinued aspirin 81 mg tablet,delayed release (DR/EC) 81 mg PO DAILY Xarelto 20 mg tablet 20 mg PO DAILY Rx Instructions: must administer with evening meal Discharge Instructions Instructions: Omeprazole (By mouth), Gastrointestinal Bleeding (DC), COVID-19 (Coronavirus Disease 2019) (DC) Additional Instructions: Take Omeprazole 20 mg twice a day. Do not take Xarelto or Aspirin until follow up with PCP or Surgery. Referrals: Elisa Garner [Primary Care Provider] - (follow up in 1-2 weeks) Jessica Horne DO [OSTEOPATHIC DOCTOR] - (follow up in 1-2 weeks) Activity:: Activity as Tolerated Equipment/Supplies:: No Equipment Needed Diet:: As Tolerated Discharge Orders Other Ambulatory Orders: Complete Blood Count w/Diff (Routine) Location: None Selected Ordered By: Cary Diaz DS: Data Vitals/I&O Vitals and I&O: Vital Signs Temperature 36.2 C L 07/16/22 12:03 Temperature Source Tympanic 07/16/22 12:03 Pulse 61 07/16/22 12:03 Pulse Rhythm Regular 07/16/22 07:45 Respiratory Rate 19 07/16/22 12:03 Respiratory Effort Non-Labored 07/16/22 07:45 Respiratory Depth Normal 07/16/22 07:45 Respiratory Pattern Normal 07/16/22 07:45 Blood Pressure 149/76 H 07/16/22 12:03 Blood Pressure Mean 79 07/15/22 12:15 Blood Pressure Position Sitting 07/15/22 11:05 Pulse Oximetry 97 07/16/22 12:03 Oxygen Delivery Method Room Air 07/16/22 12:03 Oxygen Flow Rate 0 07/16/22 12:03 Pain Level 0 07/16/22 12:03 Intake & Output 07/15/22 07/16/22 07/16/22 23:59 11:59 23:59 Intake Total 1050 / 1050 450 / 900 450 / 900 Output Total 400 / 400 Balance 650 / 650 450 / 900 450 / 900 Weight 76 kg Intake: Oral 450 / 900 450 / 900 Blood Product 1050 / 1050 Rbc Leuko Reduced Unit 700 / 700 [id number] Rbc Leuko Reduced Unit 350 / 350 [id number] Output: Urine 400 / 400 Other: Urine Color Yellow Urine Appearance Clear Clear Urine Odor None Comment unmeasure urine amount. Stool Occult Blood Positive Stool Size Small Stool Characteristics Formed Voiding Methods Urinal Urinal Data Completed and Pending Labs on day of discharge: Labs from last 24 hours 07/16/22 07/16/22 07/16/22 Unknown 13:50 06:05 WBC 4.29 L RBC 3.15 L Hgb 8.8 L 8.7 L Hct 27.4 L 26.9 L MCV 85 MCH 27.6 MCHC 32.3 RDW 14.3 H Plt Count 184 MPV 10.5 Immature Gran % 0.5 Neutrophils % 70.1 Lymphocytes % 15.2 Monocytes % 10.5 Eosinophils % 3.0 Basophils % 0.7 Nucleated RBC % 0.0 Absolute Neutrophils 3.01 Absolute Lymphocytes 0.65 L Absolute Monocytes 0.45 Absolute Eosinophils 0.13 Absolute Basophils 0.03 PT INR Sodium Potassium Chloride Carbon Dioxide Anion Gap BUN Creatinine Est GFR (CKD-EPI 2020) Glucose Calcium Magnesium C-Reactive Protein 25-OH Vitamin D Total Add-On Test Request Pending Patient ABO/Rh Antibody Screen Crossmatch 07/16/22 07/16/22 07/16/22 06:05 06:05 06:05 WBC RBC Hgb Hct MCV MCH MCHC RDW Plt Count MPV Immature Gran % Neutrophils % Lymphocytes % Monocytes % Eosinophils % Basophils % Nucleated RBC % Absolute Neutrophils Absolute Lymphocytes Absolute Monocytes Absolute Eosinophils Absolute Basophils PT 11.2 H INR 1.1 Sodium 138 Potassium 4.0 Chloride 106 Carbon Dioxide 21.3 Anion Gap 10.7 BUN 19 H Creatinine 1.1 Est GFR (CKD-EPI 2020) 72.67 Glucose 147 H Calcium 8.8 Magnesium 1.9 C-Reactive Protein < 0.05 25-OH Vitamin D Total 11.2 L Add-On Test Request Patient ABO/Rh Antibody Screen Crossmatch 07/15/22 07/15/22 07/15/22 23:59 09:54 09:54 WBC 5.67 4.57 RBC 3.11 L 2.55 L Hgb 8.8 L 7.1 L Hct 26.6 L 22.5 L MCV 86 88 MCH 28.3 27.8 MCHC 33.1 31.6 L RDW 14.0 13.2 Plt Count 197 234 MPV 10.3 10.7 Immature Gran % 0.2 0.7 Neutrophils % 69.1 74.2 Lymphocytes % 17.1 14.2 Monocytes % 9.9 8.5 Eosinophils % 3.2 2.0 Basophils % 0.5 0.4 Nucleated RBC % 0.0 0.0 Absolute Neutrophils 3.92 3.39 Absolute Lymphocytes 0.97 L 0.65 L Absolute Monocytes 0.56 0.39 Absolute Eosinophils 0.18 0.09 Absolute Basophils 0.03 0.02 PT INR Sodium Potassium Chloride Carbon Dioxide Anion Gap BUN Creatinine Est GFR (CKD-EPI 2020) Glucose Calcium Magnesium C-Reactive Protein 25-OH Vitamin D Total Add-On Test Request Patient ABO/Rh B Negative Antibody Screen NEGATIVE Crossmatch See Detail PFSH All Active Problems (Updated 07/15/22 @ 19:13 by Spring Freeman) Enlarged prostate (Acute) BPH (benign prostatic hyperplasia) (Chronic) Hypertension (Chronic) On deep vein thrombosis (DVT) prophylaxis (Acute) Discharge planning issues (Acute) SARS-CoV-2 antibody positive (Acute) Mild atherosclerosis of both carotid arteries (Acute) Adequate anticoagulation on anticoagulant therapy (Acute) Hemorrhage of large intestine due to diverticular disease (Acute) Symptomatic anemia (Acute) Syncopal episodes (Chronic) Heart block AV third degree (Acute) Carotid artery stenosis (Acute) COVID (Acute) Generalized weakness (Acute) Diverticula of colon (Acute) pandivericulitis- severe Encounter for colorectal cancer screening (Acute) Cerebrovascular accident (CVA) due to thrombosis of right middle cerebral artery (Acute 10/11/17) Paroxysmal atrial fibrillation (Acute 01/02/18) Umbilical hernia (Acute) Anemia (Chronic) GI (gastrointestinal bleed) (Chronic) Iron refractory iron deficiency anemia (Acute) Medical History Aphasia Arthritis Fatigue History of ileus Intermittent chest pain Osteoarthritis Paresthesia PVD (peripheral vascular disease) Sleep apnea Stroke 09/14/17 SVT (supraventricular tachycardia) Tobacco abuse Vitiligo Weakness Surgical History H/O bilateral inguinal hernia repair H/O colonoscopy (03/2021) 2020: Dr. Horne, diverticula, no polyps repeat 10 years 2018:Dr Montiel, negative, repeat in 10 years H/O umbilical hernia repair (06/13/18) Dr Montiel History of total bilateral knee replacement S/P arterial stent Family History (Updated 07/15/22 @ 20:02 by Spring Freeman) Father Alcohol use disorder Heart disease Mother Breast cancer Sister Breast cancer Social History Smoking/Tobacco Use Status: Former Tobacco Use Quit Date: 09/17/18 Tobacco: How many years used: 30 Smoking risk assessment performed?: Yes Alcohol Intake: former Drug use: Never Substance use type: does not use What type of physical activity do you participate in: none Do you feel safe at home: Yes Do you feel safe in your relationship?: Yes
[2022-07-16 16:00] LABS: Lab Add On Test DONE
[2022-07-16 16:37] LABS: Folate 9.9 ng/mL (8.6-20.0); Vitamin B12 526 pg/mL (193-986)
== END 2022-07-16 16:36 | disposition home or self-care (01) | DRG 377 ==
LOC: ER 11:13 → MS 12:42
PROVIDERS: Nurse Practitioner Family; Surgery; Admitting Provider Internal Medicine; Emergency Provider Student in an Organized Health Care Education/Training Program; PCP Nurse Practitioner Family; Visit Provider Internal Medicine
DX: K57.31 Diverticulosis of large intestine without perforation or abscess with bleeding (principal); U07.1 COVID-19; I44.2 Atrioventricular block, complete; I47.1 Supraventricular tachycardia; R53.1 Weakness; D50.9 Iron deficiency anemia, unspecified; R53.83 Other fatigue; R00.1 Bradycardia, unspecified; R55 Syncope and collapse; Z96.653 Presence of artificial knee joint, bilateral; I73.9 Peripheral vascular disease, unspecified; Z87.891 Personal history of nicotine dependence; Z86.73 Personal history of transient ischemic attack (TIA), and cerebral infarction without residual deficits; I48.0 Paroxysmal atrial fibrillation; Z79.01 Long term (current) use of anticoagulants; E78.5 Hyperlipidemia, unspecified; I10 Essential (primary) hypertension; L80 Vitiligo; I65.23 Occlusion and stenosis of bilateral carotid arteries; N40.0 Benign prostatic hyperplasia without lower urinary tract symptoms; Z79.82 Long term (current) use of aspirin
CPT/HCPCS: 36415; 36430; 80048; 80053; 82306; 84145; 86850; 86900; 86901; 86920; 87635; 93005; 99222; 99291; 71045; 82607; 82728; 82746; 83735; 85014; 85018; 85025; 85610; 86140; 93010; 99223; 99239; P9016

== ENCOUNTER 2022-07-19 03:39 | Outpatient (CLI) | payer BC, MEDICARE, OTHER, SELFPAY ==
[2022-07-19 10:15] LABS: Abs Immature Grans 0.02 10^3/uL (0.0-0.06); Absolute Basophil Count 0.05 10^3/uL (0.0-0.2); Absolute Eosinophil Count 0.13 10^3/uL (0.0-0.7); Absolute Lymphocyte Count 0.63 10^3/uL (1.2-3.4); Absolute Monocyte Count 0.56 10^3/uL (0.1-0.8); Absolute Neutrophil Count 5.05 10^3/uL (1.2-6.7); Basophils % 0.8; HCT 29.7 % (40.0-50.0); HGB 9.6 g/dL (13.5-17.5); Immature Grans % 0.3; Lymphocytes % 9.8; MCH 28.4 pg (27.0-33.0); MCHC 32.3 % (32.0-36.0); MCV 88 fL (80-95); MPV 10.3 fL (8.0-11.0); Monocytes % 8.7; Neutrophils % 78.4; Platelet Count 229 10^3/uL (130-400); RBC 3.38 10^6/uL (4.36-5.78); RDW 14.4 % (11.8-14.1); RDW-SD 45.7 fL; WBC 6.44 10^3/uL (4.4-10.8)
[2022-07-19 13:40] LABS: Iron 42 ug/dL (65-175); Total Iron Binding Capacity 331 ug/dL (250-450); Transferrin Sat 13 % (20-55)
[2022-07-19 14:05] LABS: Ferritin 42 ng/mL (26-388); Folate 15.3 ng/mL (8.6-20.0); Vitamin B12 594 pg/mL (193-986)
== END 2022-07-19 03:40 | disposition home or self-care (01) ==
LOC: LBO 03:40
PROVIDERS: Surgery; PCP Nurse Practitioner Family; Visit Provider Nurse Practitioner Family
DX: D50.8 Other iron deficiency anemias (principal); D64.9 Anemia, unspecified; R20.2 Paresthesia of skin; G47.30 Sleep apnea, unspecified; I10 Essential (primary) hypertension; K57.50 Diverticulosis of both small and large intestine without perforation or abscess without bleeding; I48.0 Paroxysmal atrial fibrillation; Z79.01 Long term (current) use of anticoagulants
CPT/HCPCS: 36415; 82607; 82728; 82746; 83540; 83550; 85025

== ENCOUNTER 2022-07-20 04:44 | Outpatient (CLI) | payer BC, MEDICARE, OTHER, SELFPAY ==
[2022-07-20 10:00] LABS: Abs Immature Grans 0.01 10^3/uL (0.0-0.06); Absolute Basophil Count 0.03 10^3/uL (0.0-0.2); Absolute Eosinophil Count 0.14 10^3/uL (0.0-0.7); Absolute Lymphocyte Count 0.75 10^3/uL (1.2-3.4); Absolute Monocyte Count 0.48 10^3/uL (0.1-0.8); Absolute Neutrophil Count 4.12 10^3/uL (1.2-6.7); Basophils % 0.5; Eosinophils % 2.5; HCT 28.8 % (40.0-50.0); HGB 9.2 g/dL (13.5-17.5); Immature Grans % 0.2; Lymphocytes % 13.6; MCH 28.1 pg (27.0-33.0); MCHC 31.9 % (32.0-36.0); MCV 88 fL (80-95); MPV 10.5 fL (8.0-11.0); Monocytes % 8.7; Neutrophils % 74.5; Platelet Count 210 10^3/uL (130-400); RBC 3.27 10^6/uL (4.36-5.78); RDW 14.4 % (11.8-14.1); WBC 5.53 10^3/uL (4.4-10.8)
== END 2022-07-20 04:45 | disposition home or self-care (01) ==
LOC: LBO 04:44
PROVIDERS: PCP Nurse Practitioner Family; Visit Provider Nurse Practitioner Family
DX: D64.9 Anemia, unspecified (principal)
CPT/HCPCS: 36415; 85025

== ENCOUNTER 2022-07-25 03:29 | Outpatient (CLI) | payer BC, MEDICARE, OTHER, SELFPAY ==
[2022-07-25 10:12] LABS: HCT 30.7 % (40.0-50.0); HGB 9.7 g/dL (13.5-17.5); MCH 27.5 pg (27.0-33.0); MCHC 31.6 % (32.0-36.0); MCV 87 fL (80-95); MPV 11.1 fL (8.0-11.0); Platelet Count 223 10^3/uL (130-400); RBC 3.53 10^6/uL (4.36-5.78); RDW 14.9 % (11.8-14.1); RDW-SD 46.5 fL; WBC 4.78 10^3/uL (4.4-10.8)
== END 2022-07-25 03:30 | disposition home or self-care (01) ==
LOC: LBO 03:30
PROVIDERS: PCP Nurse Practitioner Family; Visit Provider Nurse Practitioner Family
DX: D64.9 Anemia, unspecified (principal); Z87.19 Personal history of other diseases of the digestive system
CPT/HCPCS: 36415; 85027

== ENCOUNTER 2022-08-04 01:15 | Outpatient (RCR) | payer BC, MEDICARE, OTHER, SELFPAY ==
[2022-07-28] MEDS: Normal Saline Flush 10 ML SYR IVP (13:59)
[2022-07-28] MEDS: IRON SUCROSE COMPLEX 200 MG in Normal Saline 100 ML 440 MG IVPB (13:59)
[2022-08-04] MEDS: Normal Saline Flush 10 ML SYR IVP (09:08)
[2022-08-04] MEDS: IRON SUCROSE COMPLEX 200 MG in Normal Saline 100 ML 440 MG IVPB (09:08)
== END 2022-08-16 23:59 | disposition home or self-care (01) ==
LOC: INF 01:15
PROVIDERS: PCP Nurse Practitioner Family; Visit Provider Surgery
DX: D50.9 Iron deficiency anemia, unspecified (principal)
CPT/HCPCS: 96365; J1756

== ENCOUNTER 2022-08-08 10:17 | Outpatient (REF) | payer BC, MEDICARE, SELFPAY ==
[2022-08-08 15:16] LABS: Abs Immature Grans 0.02 10^3/uL (0.0-0.06); Absolute Basophil Count 0.06 10^3/uL (0.0-0.2); Absolute Eosinophil Count 0.14 10^3/uL (0.0-0.7); Absolute Lymphocyte Count 0.63 10^3/uL (1.2-3.4); Absolute Monocyte Count 0.36 10^3/uL (0.1-0.8); Absolute Neutrophil Count 3.48 10^3/uL (1.2-6.7); Basophils % 1.3; HCT 34.6 % (40.0-50.0); HGB 11.3 g/dL (13.5-17.5); Immature Grans % 0.4; Lymphocytes % 13.4; MCH 29.7 pg (27.0-33.0); MCHC 32.7 % (32.0-36.0); MCV 91 fL (80-95); MPV 10.8 fL (8.0-11.0); Monocytes % 7.7; Neutrophils % 74.2; Platelet Count 242 10^3/uL (130-400); RDW 16.3 % (11.8-14.1); RDW-SD 53.1 fL; WBC 4.69 10^3/uL (4.4-10.8)
[2022-08-08 16:00] LABS: Ferritin 179 ng/mL (26-388); Iron 65 ug/dL (65-175); Total Iron Binding Capacity 329 ug/dL (250-450); Transferrin Sat 20 % (20-55)
== END 2022-08-08 10:18 | disposition home or self-care (01) ==
LOC: NCHCN 10:17
PROVIDERS: PCP Nurse Practitioner Family; Visit Provider Nurse Practitioner Family
DX: E55.9 Vitamin D deficiency, unspecified (principal); I10 Essential (primary) hypertension; R53.83 Other fatigue; D64.9 Anemia, unspecified; I48.91 Unspecified atrial fibrillation; Z87.19 Personal history of other diseases of the digestive system
CPT/HCPCS: 82728; 83540; 83550; 85025

== ENCOUNTER → 2022-08-11 08:45 | Outpatient (BNVA) | payer MEDICARE, SELFPAY | PROVIDERS: PCP Nurse Practitioner Family; Referring Provider Nurse Practitioner Family; Visit Provider Surgery | CPT/HCPCS: 99212 ==

== ENCOUNTER 2022-09-06 09:19 | Outpatient (REF) | payer BC, MEDICARE, SELFPAY ==
[2022-09-06 14:52] LABS: Abs Immature Grans 0.01 10^3/uL (0.0-0.06); Absolute Basophil Count 0.06 10^3/uL (0.0-0.2); Absolute Eosinophil Count 0.37 10^3/uL (0.0-0.7); Absolute Lymphocyte Count 0.65 10^3/uL (1.2-3.4); Absolute Monocyte Count 0.36 10^3/uL (0.1-0.8); Absolute Neutrophil Count 2.94 10^3/uL (1.2-6.7); Basophils % 1.4; Eosinophils % 8.4; HCT 35.5 % (40.0-50.0); HGB 12.2 g/dL (13.5-17.5); Immature Grans % 0.2; Lymphocytes % 14.8; MCH 30.7 pg (27.0-33.0); MCHC 34.4 % (32.0-36.0); MCV 89 fL (80-95); MPV 10.5 fL (8.0-11.0); Monocytes % 8.2; Platelet Count 228 10^3/uL (130-400); RBC 3.97 10^6/uL (4.36-5.78); RDW 15.1 % (11.8-14.1); RDW-SD 48.8 fL; WBC 4.39 10^3/uL (4.4-10.8)
[2022-09-06 15:03] LABS: Iron 44 ug/dL (65-175); Total Iron Binding Capacity 346 ug/dL (250-450); Transferrin Sat 13 % (20-55)
[2022-09-06 15:13] LABS: Ferritin 48 ng/mL (26-388)
== END 2022-09-06 09:20 | disposition home or self-care (01) ==
LOC: NCHCN 09:19
PROVIDERS: PCP Nurse Practitioner Family; Visit Provider Nurse Practitioner Family
DX: E55.9 Vitamin D deficiency, unspecified (principal); D64.9 Anemia, unspecified; I10 Essential (primary) hypertension; I48.91 Unspecified atrial fibrillation
CPT/HCPCS: 82728; 83540; 83550; 85025

== ENCOUNTER 2022-09-29 01:03 | Outpatient (CLI) | payer BC, MEDICARE, SELFPAY ==
--- NOTE | 2022-09-29 14:00 | DI.RAD_ITS ---
Exam(s) XR FOOT RT COMPLETE EXAM: XR FOOT RT COMPLETE CLINICAL HISTORY: foot pain, M79.673. TECHNIQUE: 2D digital imaging was performed. Three views. COMPARISON: CR,XR XR FOOT LT COMPLETE from 03/19/2020 FINDINGS: BONES: Old 5th metatarsal fracture. No acute fracture is present. No bony destructive lesion is seen . Tiny heel spur. JOINTS: No dislocation present. Minimal degenerative changes. Plantar arch is maintained. SOFT TISSUE: Normal. IMPRESSION: No acute abnormality. DATA REPOSITORY: RADIATION DOSE DELIVERED:
== END 2022-09-29 01:23 ==
PROVIDERS: PCP Nurse Practitioner Family; Visit Provider Podiatrist Foot & Ankle Surgery
DX: M79.671 Pain in right foot (principal); M77.31 Calcaneal spur, right foot
CPT/HCPCS: 73630

== ENCOUNTER 2022-10-19 01:55 | Outpatient (CLI) | payer BC, MEDICARE, SELFPAY ==
--- NOTE | 2022-10-19 09:11 | DI.RAD_ITS ---
Exam(s) XR ELBOW RT COMPLETE EXAM: XR ELBOW RT COMPLETE CLINICAL HISTORY: RT ELBOW PAIN, M25.521. TECHNIQUE: 2D digital imaging was performed of the left elbow. Three images were obtained. AP, lat eral and oblique views were obtained. COMPARISON: No exams were available for comparison FINDINGS: BONES: No acute fracture is present. No bony destructive lesion is seen. JOINTS: The elbow is normally aligned. No joint effusion is seen. SOFT TISSUE: Tiny well corticated osseous densities are seen adjacent to the olecranon and the medial epicondyle which appear old. IMPRESSION: Unremarkable radiographs of the right elbow. DATA REPOSITORY: RADIATION DOSE DELIVERED:
== END 2022-10-19 02:15 ==
LOC: DI 01:55
PROVIDERS: PCP Nurse Practitioner Family; Visit Provider Nurse Practitioner Family
DX: M25.521 Pain in right elbow (principal)
CPT/HCPCS: 73080

== ENCOUNTER 2022-12-16 12:32 | Outpatient (CLI) | payer BC, MEDICARE, SELFPAY ==
[2022-12-16 08:46] LABS: Abs Immature Grans 0.01 10^3/uL (0.0-0.06); Absolute Basophil Count 0.05 10^3/uL (0.0-0.2); Absolute Eosinophil Count 0.26 10^3/uL (0.0-0.7); Absolute Lymphocyte Count 0.75 10^3/uL (1.2-3.4); Absolute Neutrophil Count 3.42 10^3/uL (1.2-6.7); Eosinophils % 5.3; HGB 11.4 g/dL (13.5-17.5); Immature Grans % 0.2; Lymphocytes % 15.3; MCH 32.1 pg (27.0-33.0); MCHC 34.5 % (32.0-36.0); MCV 93 fL (80-95); MPV 10.3 fL (8.0-11.0); Monocytes % 8.2; Platelet Count 212 10^3/uL (130-400); RBC 3.55 10^6/uL (4.36-5.78); RDW 12.2 % (11.8-14.1); RDW-SD 41.8 fL; WBC 4.89 10^3/uL (4.4-10.8)
[2022-12-16 09:17] LABS: Ferritin 41 ng/mL (26-388)
[2022-12-16 09:42] LABS: Iron 161 ug/dL (65-175); Total Iron Binding Capacity 415 ug/dL (250-450); Transferrin Sat 39 % (20-55)
[2022-12-16 11:13] LABS: Vitamin D 25 Total 44.6 ng/mL (30-100)
[2022-12-19 13:09] LABS: Albumin 60.5 % (55.8-66.1); Albumin g/dL 4.7 g/dL (3.6-5.2); Comment (See Note); Monoclonal Spike 2.8 % (None Seen); Monoclonal Spike g/dL 0.2 g/dL (None Seen); Total Protein 7.7 g/dL (6.3-8.2)
[2022-12-19 15:33] LABS: Immunotyping, Serum (See Note)
== END 2022-12-16 12:33 | disposition home or self-care (01) ==
LOC: LBO 12:32
PROVIDERS: PCP Nurse Practitioner Family; Visit Provider Nurse Practitioner Family
DX: E55.9 Vitamin D deficiency, unspecified (principal); R39.9 Unspecified symptoms and signs involving the genitourinary system; G47.33 Obstructive sleep apnea (adult) (pediatric); I48.91 Unspecified atrial fibrillation; D64.9 Anemia, unspecified; I10 Essential (primary) hypertension; Z87.891 Personal history of nicotine dependence
CPT/HCPCS: 36415; 82306; 82728; 83540; 83550; 84165; 85025; 86320

== ENCOUNTER 2022-12-22 09:36 | Outpatient (REF) | payer BC, MEDICARE, SELFPAY ==
[2022-12-22 15:16] LABS: HCT 31.2 % (40.0-50.0); HGB 10.7 g/dL (13.5-17.5); MCHC 34.3 % (32.0-36.0); MCV 93 fL (80-95); MPV 11.2 fL (8.0-11.0); Platelet Count 222 10^3/uL (130-400); RBC 3.34 10^6/uL (4.36-5.78); RDW 12.2 % (11.8-14.1); RDW-SD 41.3 fL; WBC 4.63 10^3/uL (4.4-10.8)
== END 2022-12-22 09:37 | disposition home or self-care (01) ==
LOC: NCHCN 09:36
PROVIDERS: PCP Nurse Practitioner Family; Visit Provider Nurse Practitioner Family
DX: D64.9 Anemia, unspecified (principal)
CPT/HCPCS: 85027

== ENCOUNTER 2023-02-06 04:33 | Outpatient (CLI) | payer BC, MEDICARE, SELFPAY ==
[2023-02-06 16:54] LABS: Abs Immature Grans 0.01 10^3/uL (0.0-0.06); Absolute Basophil Count 0.05 10^3/uL (0.0-0.2); Absolute Eosinophil Count 0.09 10^3/uL (0.0-0.7); Absolute Monocyte Count 0.47 10^3/uL (0.1-0.8); Absolute Neutrophil Count 3.52 10^3/uL (1.2-6.7); Eosinophils % 1.9; HCT 27.2 % (40.0-50.0); HGB 9.3 g/dL (13.5-17.5); Immature Grans % 0.2; Lymphocytes % 14.5; MCH 31.3 pg (27.0-33.0); MCHC 34.2 % (32.0-36.0); MCV 92 fL (80-95); MPV 10.4 fL (8.0-11.0); Monocytes % 9.7; Neutrophils % 72.7; Platelet Count 203 10^3/uL (130-400); RBC 2.97 10^6/uL (4.36-5.78); RDW-SD 42.9 fL; WBC 4.84 10^3/uL (4.4-10.8)
[2023-02-06 17:49] LABS: Iron 44 ug/dL (65-175); Total Iron Binding Capacity 311 ug/dL (250-450); Transferrin Sat 14 % (20-55)
[2023-02-06 18:06] LABS: Ferritin 59 ng/mL (26-388)
== END 2023-02-06 04:34 | disposition home or self-care (01) ==
PROVIDERS: PCP Nurse Practitioner Family; Visit Provider Nurse Practitioner
DX: D50.8 Other iron deficiency anemias (principal)
CPT/HCPCS: 36415; 82728; 83540; 83550; 85025

== ENCOUNTER 2023-02-16 09:53 | Outpatient (REF) | payer BC, MEDICARE, SELFPAY ==
[2023-02-16 16:12] LABS: Abs Immature Grans 0.01 10^3/uL (0.0-0.06); Absolute Basophil Count 0.05 10^3/uL (0.0-0.2); Absolute Eosinophil Count 0.16 10^3/uL (0.0-0.7); Absolute Lymphocyte Count 0.61 10^3/uL (1.2-3.4); Absolute Monocyte Count 0.39 10^3/uL (0.1-0.8); Absolute Neutrophil Count 3.07 10^3/uL (1.2-6.7); Basophils % 1.2; Eosinophils % 3.7; HCT 30.6 % (40.0-50.0); HGB 10.4 g/dL (13.5-17.5); Immature Grans % 0.2; Lymphocytes % 14.2; MCH 31.5 pg (27.0-33.0); MCV 93 fL (80-95); Monocytes % 9.1; Neutrophils % 71.6; Platelet Count 249 10^3/uL (130-400); RDW 12.6 % (11.8-14.1); RDW-SD 42.3 fL; WBC 4.29 10^3/uL (4.4-10.8)
[2023-02-17 08:44] LABS: PSA, Screening 3.1 ng/mL (<=6.5)
== END 2023-02-16 09:54 | disposition home or self-care (01) ==
LOC: NCHCN 09:53
PROVIDERS: PCP Nurse Practitioner Family; Visit Provider Nurse Practitioner Family
DX: D64.9 Anemia, unspecified (principal); R39.89 Other symptoms and signs involving the genitourinary system; Z12.5 Encounter for screening for malignant neoplasm of prostate; E55.9 Vitamin D deficiency, unspecified; I48.91 Unspecified atrial fibrillation; I65.23 Occlusion and stenosis of bilateral carotid arteries
CPT/HCPCS: 84153; 85025

== ENCOUNTER 2023-05-15 22:27 | Outpatient (REF) | payer BC, MEDICARE, SELFPAY ==
[2023-05-15 21:15] LABS: Abs Immature Grans 0.02 10^3/uL (0.0-0.06); Absolute Basophil Count 0.03 10^3/uL (0.0-0.2); Absolute Lymphocyte Count 0.66 10^3/uL (1.2-3.4); Absolute Monocyte Count 0.45 10^3/uL (0.1-0.8); Absolute Neutrophil Count 4.27 10^3/uL (1.2-6.7); Basophils % 0.5; Eosinophils % 1.8; HCT 30.3 % (40.0-50.0); HGB 10.3 g/dL (13.5-17.5); Immature Grans % 0.4; Lymphocytes % 11.9; MCH 30.4 pg (27.0-33.0); MCV 89 fL (80-95); MPV 10.8 fL (8.0-11.0); Monocytes % 8.1; Neutrophils % 77.3; Platelet Count 255 10^3/uL (130-400); RBC 3.39 10^6/uL (4.36-5.78); RDW 13.7 % (11.8-14.1); RDW-SD 43.4 fL; WBC 5.53 10^3/uL (4.4-10.8)
[2023-05-15 21:52] LABS: ALT 30 U/L (16-63); AST 27 U/L (15-37); Albumin 3.9 g/dL (3.4-5.0); Alkaline Phosphatase 76 U/L (46-116); Anion Gap 11.9 mmol/L (3-11); BUN 26 mg/dL (7-18); Bilirubin, Total 0.3 mg/dL (0.2-1.0); CO2 25.1 mmol/L (21.0-32.0); CREATININE 1.3 mg/dL (0.70-1.30); Calcium 9.2 mg/dL (8.5-10.1); Chloride 105 mmol/L (98-107); Ferritin 27 ng/mL (26-388); Glucose 105 mg/dL (74-106); Potassium 3.8 mmol/L (3.5-5.1); Sodium 142 mmol/L (136-145); TSH (W/Ref FT4) 1.65 uIU/mL (0.36-3.74); Total Protein 7.3 g/dL (6.4-8.2); Vitamin B12 488 pg/mL (193-986)
[2023-05-15 22:32] LABS: Iron 133 ug/dL (65-175); Total Iron Binding Capacity 390 ug/dL (250-450); Transferrin Sat 34 % (20-55)
== END 2023-05-15 22:28 | disposition home or self-care (01) ==
LOC: NCHCN 22:27
PROVIDERS: PCP Nurse Practitioner Family; Visit Provider Nurse Practitioner Family
DX: R53.83 Other fatigue (principal)
CPT/HCPCS: 80053; 82607; 82728; 83540; 83550; 84443; 85025

== ENCOUNTER 2023-05-28 08:48 | Inpatient (IN) | payer BC, MEDICARE, SELFPAY ==
[2023-05-28] VITALS (65 sets, daily range): BP systolic 136–231; BP diastolic 57–97; PULSE 47–81; RESP 12–25; TEMP 36.1–36.7; O2SAT 92–100
--- NOTE | 2023-05-28 | DI.CT_ITS ---
Exam(s) CT THORAX ABD/PEL CTA EXAM: CT THORAX ABD/PEL CTA CLINICAL HISTORY: hypertensive urgency, chest pain/abdominal pain. TECHNIQUE: Imaging Protocol: Axial CT angiography was performed with multi-slice acquisition and mu lti-planar and/or 3D reconstructions. CONTRAST MATERIAL: Intravenous: Omnipaque 350 Contrast volume:100 ml COMPARISON: CT CT CHEST PE CTA from 07/05/2022 FINDINGS: CHEST: Pulmonary Arteries: No evidence of filling defects to suggest pulmonary emboli. Tracheobronchial tree: No bronchiectasis or mucus plugging. Mediastinum and Evelyn: No dominant adenopathy or fluid collection. Pulmonary parenchyma: No consolidation or dominant measurable mass. Pleura: No effusion. No pneumothorax. Heart: The heart is mildlydilated. Mild coronary artery calcifications are seen. Aorta: Thoracic aorta non-dilated. Mild atherosclerotic changes. Bones: Unremarkable for age. Tubes, Catheters, and Lines: None. ABDOMEN and PELVIS: Liver: Normal size. Normal density. No suspicious measurable mass. Portal, Superior Mesenteric, and Splenic Veins: Unremarkable. Gallbladder and Biliary Tract: No radiodense calculus. No biliary dilatation. Pancreas: Normal density, no abnormal calcifications or inflammatory process. Spleen: Normal. Adrenals: No masses seen. Kidneys: Normal size, contour and axis. No radiodense stones. No obstructive uropathy. No masses seen . Vasculature: Abdominal aorta non-dilated. Atherosclerotic changes of aorta and iliac arteries. Sten ts in both proximal common iliac arteries. No significant stenosis. Bowel: Extensive diverticulosis. No obstruction or bowel wall thickening. Appendix is unremarkable. Peritoneal Cavity: No ascites, collection or mesenteric inflammatory response. Lymph Nodes: Within normal limits. Soft Tissues: Unremarkable. Bladder: Symmetric distention, no gross wall thickening. Reproductive Organs: Prostate mildly enlarged. Lymph Nodes: Within normal limits. Bones: Unremarkable bilateral L5 some spondylolysis of sclerotic S1 mild spondylo listhesis. IMPRESSION: 1. No evidence of pulmonary embolism. No acute pulmonary abnormality. 2. No acute abdominal or pelvic process. No evidence of aortic dissection or significant branch ve ssel stenosis. RADIATION DOSE DELIVERED: Total DLP Total DLP DATA REPOSITORY: All CT scans at this facility are submitted to the National Radiology Data Registry (NRDR) Dose Index Registry (DIR) with the [employer] (ACR). RADIATION OPTIMIZATION: All CT scans at this facility use at least one of these dose optimization te chniques: automated exposure control; mA and/or kV adjustment per patient size (includes targeted exa ms where dose is matched to clinical indication); or iterative reconstruction.
--- NOTE | 2023-05-28 08:45 | RT.EKG_ITS ---
APPROVED REPORT Exam: Resting ECG Reason for Exam: sob Patient Location: E HR:47 bpm ECG Measurements Heart Rate 47 AXIS MD 182 P 28 QRSd 115 QRS -3 QT 462 T 10 QTc 409 Conclusion Sinus bradycardia...rate< 60 Nonspecific intraventricular conduction delay...QRSd >115mS, not LBBB/RBBB
--- NOTE | 2023-05-28 09:15 | DI.RAD_ITS ---
Exam(s) XR CHEST 2V PA LATERAL EXAM: XR CHEST 2V PA LATERAL CLINICAL HISTORY: sob, orthopnea, elevated BP TECHNIQUE: 2D digital imaging was performed. COMPARISON: CT CT CHEST LUNG CANCER SCREEN from 03/15/2023 FINDINGS: HEART: Normal size. Aorta: Not dilated. PULMONARY VASCULATURE: Normal. LUNGS: Clear. PLEURAL SPACE: No pleural effusion or pneumothorax. BONE:Unremarkable for age. Soft tissues: Unremarkable. IMPRESSION: No acute abnormality. DATA REPOSITORY: RADIATION DOSE DELIVERED:
--- NOTE | 2023-05-28 09:18 | ED.GENADUL_ITS ---
Discharge Plan Disposition Patient Disposition: Admit to [facility] Condition: Critical Discharge Details Clinical Impression: Hypertensive emergency, Acute CHF (congestive heart failure), Hypomagnesemia Admit Date/Time: 05/28/23 12:46 Admit Provider: Jacob Coelho Attending Provider: Jacob Coelho Primary Care Provider: Elisa Garner ED Provider: Kelvin Bowman Discharge Data Discharge Date/Time-TO BE ENTERED AT DEPARTURE: 05/28/23 14:08 Discharge Physician: Jacob Coelho Medical Decision Making 920 --72-year-old male with multimedical problems including history of hypertension, A-fib, here with shortness of breath and orthopnea over the past couple days, significantly elevated blood pressure over the past week, this despite compliance with antihypertensive regimen. Patient is significantly hypertensive on arrival, bradycardic in the 50s, saturating well in no respiratory distress. Patient has clear lung findings bilaterally. He has no swelling of his lower extremities. 1 concern about hypertensive emergency versus acute CHF exacerbation. Will check diagnostic labs and chest x-ray and plan to reassess. 1145 --significant delay in care waiting for labs. Labs reviewed and BNP is elevated. Hypomagnesemia noted. I will give magnesium 1 g IV. Patient is anemic with hemoglobin 8.6. Patient does have history of GI bleed. On further review of systems he does note he had a maroon-colored stool a couple weeks ago. Concern for hypertensive emergency. Patient reassessed remains hypertensive - systolic now up to 230. He continues to be bradycardic in the 50s. Plan to initiate treatment with nicardipine infusion. -- pLan to admit. spoke with hospitalist, discussed ED presentation and course including diagnostics, they will admit the patient. Care transitioned at time of admisssion. Lab Data Lab results reviewed: Yes I reviewed the patient's lab results. Labs: Laboratory Tests Range/Units 05/28/23 05/28/23 05/28/23 09:02 09:30 09:48 WBC (4.4-10.8) 10^3/uL 3.94 L RBC (4.36-5.78) 10^6/uL 3.05 L Hgb (13.5-17.5) g/dL 8.6 L Hct (40.0-50.0) % 26.2 L MCV (80-95) fL 86 MCH (27.0-33.0) pg 28.2 MCHC (32.0-36.0) % 32.8 RDW (11.8-14.1) % 13.7 Plt Count (130-400) 10^3/uL 172 MPV (8.0-11.0) fL 10.3 Immature Gran % 0.3 Neutrophils % 73.5 Lymphocytes % 14.7 Monocytes % 8.4 Eosinophils % 2.3 Basophils % 0.8 Nucleated RBC % (0.0-0.3) % 0.0 Absolute Neutrophils (1.2-6.7) 10^3/uL 2.90 Absolute Lymphocytes (1.2-3.4) 10^3/uL 0.58 L Absolute Monocytes (0.1-0.8) 10^3/uL 0.33 Absolute Eosinophils (0.0-0.7) 10^3/uL 0.09 Absolute Basophils (0.0-0.2) 10^3/uL 0.03 Sodium Cancelled Potassium Cancelled Chloride Cancelled Carbon Dioxide Cancelled Anion Gap Cancelled BUN Cancelled Creatinine Cancelled Est GFR (CKD-EPI 2020) Cancelled Glucose Cancelled Calcium Cancelled Magnesium Cancelled Total Bilirubin Cancelled AST Cancelled ALT Cancelled Alkaline Phosphatase Cancelled Troponin I Cancelled Cancelled NT-Pro-B Natriuret Pep Cancelled Cancelled Total Protein Cancelled Albumin Cancelled COVID-19 Source Nasal/Nares SARS-CoV-2 (PCR) (Negative) Negative Range/Units 05/28/23 10:15 WBC (4.4-10.8) 10^3/uL RBC (4.36-5.78) 10^6/uL Hgb (13.5-17.5) g/dL Hct (40.0-50.0) % MCV (80-95) fL MCH (27.0-33.0) pg MCHC (32.0-36.0) % RDW (11.8-14.1) % Plt Count (130-400) 10^3/uL MPV (8.0-11.0) fL Immature Gran % Neutrophils % Lymphocytes % Monocytes % Eosinophils % Basophils % Nucleated RBC % (0.0-0.3) % Absolute Neutrophils (1.2-6.7) 10^3/uL Absolute Lymphocytes (1.2-3.4) 10^3/uL Absolute Monocytes (0.1-0.8) 10^3/uL Absolute Eosinophils (0.0-0.7) 10^3/uL Absolute Basophils (0.0-0.2) 10^3/uL Sodium 141 Potassium 3.5 Chloride 106 Carbon Dioxide 24.6 Anion Gap 10.4 BUN 11 Creatinine 1.0 Est GFR (CKD-EPI 2020) 80.97 Glucose 105 Calcium 8.1 L Magnesium 1.2 L Total Bilirubin 0.6 AST 22 ALT 22 Alkaline Phosphatase 60 Troponin I < 50 NT-Pro-B Natriuret Pep 1452 H Total Protein 6.4 Albumin 3.0 L COVID-19 Source SARS-CoV-2 (PCR) (Negative) HPI General Mode of arrival: ambulatory . Date/Time Provider Initiated Documentation: 05/28/23 09:02 . Limitations to Documentation: no limitations . Information obtained by: patient . HPI Narrative: 72-year-old male with multiple medical problems including history of atrial fibrillation, hypertension, CVA, here with chief complaint of shortness of breath. Patient notes shortness of breath over the past couple days. Notes he intermittently feels like it is difficult to get a breath in. Symptoms worse lying flat. No associated chest pain. No associated leg swelling. No cough or fever. Patient also notes significantly elevated blood pressure. He states typically his blood pressure is fairly erratic and can be elevated at times. Over the past 1 week he has had persistently elevated blood pressure with systolic greater than 200. He has been taking his antihypertensives as prescribed. No recent medication changes. Related Data Home Medications Medication Instructions Recorded Confirmed carvedilol 6.25 mg tablet 12.5 mg (2 x 6.25 mg) PO BID #120 04/13/18 05/28/23 tab-caps atorvastatin 40 mg tablet 80 mg PO DAILY 08/06/19 05/28/23 lisinopril 20 mg tablet 20 mg PO DAILY 07/15/22 05/28/23 cholecalciferol (vitamin D3) 1,250 1,250 mcg PO QWEEK 08/11/22 05/28/23 mcg (50,000 unit) capsule omeprazole 20 mg capsule,delayed 20 mg PO DAILY 08/15/22 05/28/23 release rivaroxaban 20 mg tablet (Xarelto) 20 mg PO DAILY 08/15/22 05/28/23 chlorthalidone 25 mg tablet 25 mg PO DAILY 10/18/22 05/28/23 tamsulosin 0.4 mg capsule (Flomax) 0.8 mg PO DAILY 10/18/22 05/28/23 clopidogrel 75 mg tablet (Plavix) 75 mg PO DAILY 05/28/23 05/28/23 amlodipine 5 mg tablet 5 mg PO DAILY #30 tabs 05/29/23 ferrous gluconate 324 mg (37.5 mg 324 mg PO DAILY #0 tabs 05/29/23 05/28/23 iron) tablet magnesium oxide 400 mg (241.3 mg 400 mg PO DAILY #30 tabs 05/29/23 magnesium) tablet pantoprazole 40 mg tablet,delayed 40 mg PO BID@729,1999 #60 tabs 05/29/23 release potassium chloride 20 mEq 20 meq PO DAILY #30 tabs 05/29/23 tablet,extended release sucralfate 1 gram tablet 1 g PO AC & HS #120 tabs 05/29/23 Previous Rx's Medication Instructions Recorded carvedilol 6.25 mg tablet 12.5 mg (2 x 6.25 mg) PO BID #120 04/13/18 tab-caps amlodipine 5 mg tablet 5 mg PO DAILY #30 tabs 05/29/23 ferrous gluconate 324 mg (37.5 mg 324 mg PO DAILY #0 tabs 05/29/23 iron) tablet magnesium oxide 400 mg (241.3 mg 400 mg PO DAILY #30 tabs 05/29/23 magnesium) tablet pantoprazole 40 mg tablet,delayed 40 mg PO BID@ #60 tabs 05/29/23 release potassium chloride 20 mEq 20 meq PO DAILY #30 tabs 05/29/23 tablet,extended release sucralfate 1 gram tablet 1 g PO AC & HS #120 tabs 05/29/23 Allergies Allergy/AdvReac Type Severity Reaction Status Date / Time No Known Allergies Allergy Verified 05/28/23 08:55 General Stated Complaint: RespSymp CLAU: 3 Review of Systems All systems reviewed & are unremarkable except as noted in HPI and below Constitutional Constitutional: Denies headache(s) and Reports weakness (generalized) ENT Ears, Nose, Mouth, and Throat: Denies headache(s) Cardiovascular Cardiovascular: Denies chest pain Respiratory Respiratory: Reports as per HPI Musculoskeletal Musculoskeletal: Denies numbness Neurologic Neurologic: Denies headache(s), Denies numbness and Reports weakness (generalized) PFSH All Active Problems (Updated 05/30/23 @ 00:05 by PADMAJA FARLEY) Hypokalemia (Acute) Diverticulosis (Acute) Accelerated essential hypertension (Acute) Hypomagnesemia (Acute) Tendinopathy of right biceps tendon (Acute) distal Afib (Chronic) PVD (peripheral vascular disease) with claudication (Acute) Foot pain (Acute) Lower urinary tract symptoms (LUTS) (Acute) Third degree heart block (Acute) PVD (peripheral vascular disease) (Chronic) Obstructive sleep apnea (Chronic) Chronic fatigue (Chronic) since CVA, worsening after COVID19 Stroke (Chronic) 09/14/17 Acute GI bleeding (Acute) Enlarged prostate (Acute) BPH (benign prostatic hyperplasia) (Chronic) Hemorrhage of large intestine due to diverticular disease (Acute) COVID (Acute) Paroxysmal atrial fibrillation (Acute 01/02/18) Umbilical hernia (Acute) Iron refractory iron deficiency anemia (Acute) Medical History SARS-CoV-2 antibody positive Adequate anticoagulation on anticoagulant therapy SVT (supraventricular tachycardia) Carotid artery stenosis bilateral last us 02/07 no stenosis, check q2yrs or prn Diverticula of colon pandivericulitis- severe Sleep apnea History of ileus Anemia Cerebrovascular accident (CVA) due to thrombosis of right middle cerebral artery (10/11/17) Weakness Tobacco abuse 35 pack year, quit 2018, yearly Lung VT scan Osteoarthritis Arthritis Paresthesia Fatigue Aphasia Intermittent chest pain Vitiligo Surgical History S/P arterial stent H/O umbilical hernia repair (06/13/18) Dr Montiel H/O colonoscopy (03/2021) 2020: Dr. Horne, diverticula, no polyps repeat 10 years 2018:Dr Montiel, negative, repeat in 10 years History of total bilateral knee replacement H/O bilateral inguinal hernia repair Family History Father Alcohol use disorder Heart disease Mother Breast cancer Sister Breast cancer Other Carotid artery stenosis Social History Smoking/Tobacco Use Status: Former Tobacco Use Quit Date: 09/17/18 Tobacco: How many years used: 30 Smoking risk assessment performed?: Yes Alcohol Intake: former Drug use: Never Substance use type: does not use Housing: house Current gender identity: male What type of physical activity do you participate in: none Do you feel safe at home: Yes Do you feel safe in your relationship?: Yes Exam Const General: cooperative and no acute distress HENMT Head: normocephalic Mouth: moist mucous membranes Eyes Sclera: normal sclerae EOM: EOM intact bilaterally Neck Neck: trachea midline and supple Resp Auscultation: clear to auscultation bilaterally, no rales, no rhonchi and no wheezes Cardio Rate: bradycardic Rhythm: regular rhythm Heart Sounds: no murmurs GI Palpation: soft, not firm, no guarding, no masses, not rigid and nontender Skin General skin exam: no rashes or lesions noted Neuro General: patient alert, patient awake, patient oriented x3 and tone normal Extrem General: no calf tenderness and no edema Psych Appearance: grossly normal Mental Status: mental status grossly normal Speech and Movement: speech and movement normal Course Vital Signs Vital signs: Vital Signs Temperature 36.6 C 05/28/23 08:53 Pulse 50 L 05/28/23 08:53 Respiratory Rate 18 05/28/23 08:53 Blood Pressure 223/77 H 05/28/23 08:53 Pulse Oximetry 98 05/28/23 08:53 Temperature 36.6 C 05/28/23 08:53 Temperature Source Temporal Artery Scan 05/28/23 08:53 Pulse 50 L 05/28/23 08:53 Respiratory Rate 18 05/28/23 08:53 Respiratory Effort Short of Breath, Incrsd Work of Breathing 05/28/23 09:09 Blood Pressure 223/77 H 05/28/23 08:53 Blood Pressure Position Sitting 05/28/23 08:53 Pulse Oximetry 98 05/28/23 08:53 Oxygen Delivery Method Room Air 05/28/23 08:53 Oxygen Flow Rate 0 05/28/23 08:53 Pain Level 4 05/28/23 08:53 Comment chest is heavy 05/28/23 08:53 Critical Care Time Critical Care Time Critical Care Time: Yes Total Critical Care Time: 40 Attestation: I spent greater than 40 minutes addressing this patient's immediate life threats. Please see MDM section of note. This time was spent engaged in work directly related to the patient's care, exclusive of separate procedures, and failure to initiate these interventions would have likely resulted in clinically significant or life threatening deterioration in the patient's condition.
[2023-05-28 09:38] LABS: Abs Immature Grans 0.01 10^3/uL (0.0-0.06); Absolute Basophil Count 0.03 10^3/uL (0.0-0.2); Absolute Eosinophil Count 0.09 10^3/uL (0.0-0.7); Absolute Lymphocyte Count 0.58 10^3/uL (1.2-3.4); Absolute Monocyte Count 0.33 10^3/uL (0.1-0.8); Basophils % 0.8; Eosinophils % 2.3; HCT 26.2 % (40.0-50.0); HGB 8.6 g/dL (13.5-17.5); Immature Grans % 0.3; Lymphocytes % 14.7; MCH 28.2 pg (27.0-33.0); MCHC 32.8 % (32.0-36.0); MCV 86 fL (80-95); MPV 10.3 fL (8.0-11.0); Monocytes % 8.4; Neutrophils % 73.5; Platelet Count 172 10^3/uL (130-400); RBC 3.05 10^6/uL (4.36-5.78); RDW 13.7 % (11.8-14.1); RDW-SD 42.8 fL; WBC 3.94 10^3/uL (4.4-10.8)
[2023-05-28 09:53] LABS: Source Nasal/Nares
--- NOTE | 2023-05-28 10:13 | DI.VRAD_ITS ---
PROCEDURE INFORMATION: Exam: XR Chest Exam date and time: 05/28/2023 9:57 AM Age: 72 years old Clinical indication: Other: SOB, orthopnea, elevated BP TECHNIQUE: Imaging protocol: Radiologic exam of the chest. Views: 2 views. COMPARISON: CT CHEST LUNG CANCER SCREEN 03/15/2023 8:47 AM FINDINGS: Lungs: Unremarkable. No consolidation. Pleural spaces: Unremarkable. No pleural effusion. No pneumothorax. Heart/Mediastinum: Unremarkable. No cardiomegaly. Bones/joints: Unremarkable. IMPRESSION: No acute findings. Dictated and Authenticated by: Ria Quiles MD. Ordering:ONEL Warren MD
[2023-05-28 10:36] LABS: COVID-19 PCR Negative (Negative)
[2023-05-28 10:44] LABS: ALT 22 U/L (16-63); AST 22 U/L (15-37); Alkaline Phosphatase 60 U/L (46-116); Anion Gap 10.4 mmol/L (3-11); BUN 11 mg/dL (7-18); Bilirubin, Total 0.6 mg/dL (0.2-1.0); CO2 24.6 mmol/L (21.0-32.0); Calcium 8.1 mg/dL (8.5-10.1); Chloride 106 mmol/L (98-107); Estimated GFR 80.97 (mL/min/1.73m2); Glucose 105 mg/dL (74-106); Magnesium 1.2 mg/dL (1.8-2.4); NT-proBNP 1452 pg/mL (<300); Potassium 3.5 mmol/L (3.5-5.1); Sodium 141 mmol/L (136-145); Total Protein 6.4 g/dL (6.4-8.2); Troponin I < 50 ng/L (<or=60)
[2023-05-28] MEDS: MAGNESIUM SULFATE 1 GM/100 ML BAG IVPB (11:41)
[2023-05-28] MEDS: niCARdipine 25 MG in Normal Saline 240 ML 50 MG IV (11:58)
[2023-05-28 12:52] LABS: Troponin I < 50 ng/L (<or=60)
--- NOTE | 2023-05-28 14:02 | W.PC.ACHO ---
Registration Status: REG ER Primary Language: Preferred Language: Frisian ED Information & Data Chief Complaint RespSymp 05/28/23 09:34 Chief Complaint RespSymp 05/28/23 09:22 Triage Note Patient has noticed his BP 05/28/23 08:53 is high with his home machine with 2 days of SOB Medical / Surgical History (Updated 05/28/23 @ 11:50 by Kelvin Bowman MD) SARS-CoV-2 antibody positive Adequate anticoagulation on anticoagulant therapy SVT (supraventricular tachycardia) Carotid artery stenosis Diverticula of colon Sleep apnea History of ileus Anemia Cerebrovascular accident (CVA) due to thrombosis of right middle cerebral artery (10/11/17) Weakness Tobacco abuse Osteoarthritis Arthritis Paresthesia Fatigue Aphasia Intermittent chest pain Vitiligo (Updated 08/15/22 @ 13:21 by Keyana Lee RN) S/P arterial stent H/O umbilical hernia repair (06/13/18) H/O colonoscopy (03/2021) History of total bilateral knee replacement H/O bilateral inguinal hernia repair Most Recent Vital Signs Temperature 36.7 C 05/28/23 09:35 Temperature Source Skin 05/28/23 09:35 Pulse 65 05/28/23 13:46 Pulse 73 05/28/23 13:50 Respiratory Rate 19 05/28/23 13:50 Respiratory Effort Short of Breath, Incrsd Work of Breathing 05/28/23 09:34 Blood Pressure 169/58 H 05/28/23 13:46 Blood Pressure Mean 99 05/28/23 13:46 Blood Pressure Position Sitting 05/28/23 08:53 Pulse Oximetry 95 05/28/23 13:50 Oxygen Delivery Method Room Air 05/28/23 09:35 Oxygen Flow Rate 0 05/28/23 08:53 Pain Level 4 05/28/23 09:35 Comment chest is heavy 05/28/23 08:53 Allergies No Known Allergies Allergy (Verified 05/28/23 08:55) Active Medications Generic Name Dose Route Start Last Admin Trade Name Freq PRN Reason Stop Dose Admin Nicardipine HCl 25 mg/ Sodium 250 mls @ 50 mls/hr 05/28/23 11:30 05/28/23 12:10 Chloride IV 5 mg/hr INFUSION JUVE 50 mls/hr Titration Protocol 5 MG/HR IV IV Catheter Type [Right Saline Lock Antecubital] IV Catheter Type [Left Forearm Saline Lock ] IV Catheter Gauge [Right 20 Antecubital] IV Catheter Gauge [Left 20 Forearm] Diagnostics 05/28/23 05/28/23 05/28/23 Range/Units 12:08 10:15 09:48 WBC (4.4-10.8) 10^3/uL RBC (4.36-5.78) 10^6/uL Hgb (13.5-17.5) g/dL Hct (40.0-50.0) % MCV (80-95) fL MCH (27.0-33.0) pg MCHC (32.0-36.0) % RDW (11.8-14.1) % Plt Count (130-400) 10^3/uL MPV (8.0-11.0) fL Immature Gran % Neutrophils % Lymphocytes % Monocytes % Eosinophils % Basophils % Nucleated RBC % (0.0-0.3) % Absolute Neutrophils (1.2-6.7) 10^3/uL Absolute Lymphocytes (1.2-3.4) 10^3/uL Absolute Monocytes (0.1-0.8) 10^3/uL Absolute Eosinophils (0.0-0.7) 10^3/uL Absolute Basophils (0.0-0.2) 10^3/uL Sodium 141 Potassium 3.5 Chloride 106 Carbon Dioxide 24.6 Anion Gap 10.4 BUN 11 Creatinine 1.0 Est GFR (CKD-EPI 2020) 80.97 Glucose 105 Calcium 8.1 L Magnesium 1.2 L Total Bilirubin 0.6 AST 22 ALT 22 Alkaline Phosphatase 60 Troponin I < 50 < 50 NT-Pro-B Natriuret Pep 1452 H Total Protein 6.4 Albumin 3.0 L COVID-19 Source Nasal/Nares SARS-CoV-2 (PCR) Negative (Negative) 05/28/23 05/28/23 Range/Units 09:30 09:02 WBC 3.94 L (4.4-10.8) 10^3/uL RBC 3.05 L (4.36-5.78) 10^6/uL Hgb 8.6 L (13.5-17.5) g/dL Hct 26.2 L (40.0-50.0) % MCV 86 (80-95) fL MCH 28.2 (27.0-33.0) pg MCHC 32.8 (32.0-36.0) % RDW 13.7 (11.8-14.1) % Plt Count 172 (130-400) 10^3/uL MPV 10.3 (8.0-11.0) fL Immature Gran % 0.3 Neutrophils % 73.5 Lymphocytes % 14.7 Monocytes % 8.4 Eosinophils % 2.3 Basophils % 0.8 Nucleated RBC % 0.0 (0.0-0.3) % Absolute Neutrophils 2.90 (1.2-6.7) 10^3/uL Absolute Lymphocytes 0.58 L (1.2-3.4) 10^3/uL Absolute Monocytes 0.33 (0.1-0.8) 10^3/uL Absolute Eosinophils 0.09 (0.0-0.7) 10^3/uL Absolute Basophils 0.03 (0.0-0.2) 10^3/uL Sodium Cancelled Potassium Cancelled Chloride Cancelled Carbon Dioxide Cancelled Anion Gap Cancelled BUN Cancelled Creatinine Cancelled Est GFR (CKD-EPI 2020) Cancelled Glucose Cancelled Calcium Cancelled Magnesium Cancelled Total Bilirubin Cancelled AST Cancelled ALT Cancelled Alkaline Phosphatase Cancelled Troponin I Cancelled Cancelled NT-Pro-B Natriuret Pep Cancelled Cancelled Total Protein Cancelled Albumin Cancelled COVID-19 Source SARS-CoV-2 (PCR) (Negative) Intake and Output - 24 Hour Total 05/28/23 08:48 thru 05/28/23 12:49 Intake Total 120 Output Total 900 Balance -780 Weight 76.204 kg Intake: IV 120 Output: Urine 900 Falls Risk Assessment Contributing Factors No Factors 05/28/23 09:09 Fall Total Score 0 05/28/23 09:09 Level of Risk Standard/Low Risk 05/28/23 09:09 Problems (Updated 05/28/23 @ 11:50 by Kelvin Bowman MD) Hypomagnesemia (Acute) Acute CHF (congestive heart failure) (Acute) Hypertensive emergency (Acute) v v v v v v v v v Sending and/or Receiving Nurses: Please use comment section below to note any information pertinent to the patient hand-off not included above. Information / Comments: Report received from: Raisa Kenney RN
--- NOTE | 2023-05-28 14:45 | HPE_ITS ---
Date of service: 05/28/23 Time of Service: 14:46 Assessment and Plan Assessment and plan (1) Accelerated essential hypertension: Status: Acute Assessment and plan: Patient has had labile blood pressures lately. He showed me pictures on his phone which has had blood pressures within the same day go from 220/90 down to 75 over 40s. With the hypotension he has had a couple syncopal spells. Patient has known LVH on his echocardiogram and has had a previous stroke and states that his blood pressures on a good day are typically in the 170s to 180s. Patient states he takes his blood pressure medications faithfully which includes lisinopril 20 mg daily chlorthalidone 25 mg daily and carvedilol 12.5 mg to daily. Patient currently does not have any CP but has had some recent chest tightness, and low abdominal cramping w/ radiation into his low back. He has attributed this to his diverticulosis. He has hx of lower GI bleeding and has been worked up for diverticulosis/diverticulitis. He says that he had been referred to surgeon at [facility] for his diverticulosis and says that the surgeon told him he did not know why he was sent to him. He give hx of melena about one month ago and maroon stools about a week ago. He is chronically anticoagulated w/ rivaroxaban and aspirin for prior stroke and PAF. He reports having had upper endoscopy including EGD and capsule endoscopy. We will try to get records from [facility]. His BP has come down nicely on the nicardipine drip. I will add low dose norvasc 2.5 mg daily and monitor his response and ask nursing to wean off nicardipine. I will get CTA of chest/abdomen/pelvis to rule out AAA. Otherwise will continue his current BP meds of carvedilol, chlorthalidone and lisinopril. Critical care time spent interviewing and examining the patient, reviewing studies, discussing case with patient's nurse and consulting physicians was 60 minutes (2) Anemia: Assessment and plan: empirically started on carafate and protonix, will monitor and check stools for occult blood, get iron studies in the moring. He reports having seen hematology at [facility] and is suppose to be on iron and has been taking oral iron every other day. Dr. Benitez, surgeon, was consulted and came to see the patient in the ICU. She and I discussed his case. She will have her staff get his [facility] records regarding his last endoscopies including the pill camera study. She suggested we keep him NPO for tonight in case she or Dr. Hooker decide to proceed w/ EGD tomorrow. She did not feel that we need to hold his Rivaroxaban unless he developes acute bleeding. Qualifiers: Anemia type: unspecified type Qualified Code(s): D64.9 - Anemia, unspecified (3) Diverticulosis: Status: Acute (4) Paroxysmal atrial fibrillation: Status: Acute Assessment and plan: his rhythm is sinus to sinus bradycardia (5) Iron refractory iron deficiency anemia: Status: Acute Assessment and plan: will check his iron levels tomorrow and if low will give Venofer (6) Cerebrovascular accident (CVA) due to thrombosis of right middle cerebral artery: Assessment and plan: hx of CVA, now chronically on ASA and Rivaroxaban. will continue unless he has acute GI bleeding (7) Discharge planning issues: Status: Acute Assessment and plan: anticipate dc home once his BP is stabilized and we are certain that no acute GI bleeding has been occuring. Palliative consult requested by nursing. History of Present Illness History of Present Illness Chief Complaint: elevated blood pressures N arrative: 72-year-old male with history of longstanding hypertension and LVH, diverticulosis, recurrent iron deficiency anemia, previous CVA, paroxysmal atrial fibrillation who is chronically anticoagulated with rivaroxaban. He says he is faithful about taking his blood pressure medications but lately has had labile blood pressures varying from as low as systolic pressures in the 70s to as high as 220. He is actually had a couple syncopal spells in the last month last 1 occurring last week when his pressure dropped down to 75 over 40s. Came to the emergency department today because of increasing dyspnea. Denies any chest pain at present but has had some intermittent tightness in his lower chest and abdomen is even folic rating into his back. Upon further questioning he admitted to having some melanotic stools about a month ago and more recently had a maroon-colored stool. He has known diverticulosis and blamed it on this. He has had an extensive GI workup at [facility] which reportedly included upper and lower endoscopy and included capsule endoscopy. Patient will be admitted to the intensive care unit on nicardipine drip we will start him on some amlodipine and resume his home blood pressure medications. General surgery will review his previous GI workup at [facility] and make further recommendations regarding performing an EGD during this admission. Hemoglobin this morning was down from his baseline of 10.3 g down to 8.6 g this morning but another level was checked this afternoon and came up to 9.5 g. Patient's been empirically started on Protonix and Carafate. As he is not actively bleeding and has had a history of PAF and previous CVA we will continue his aspirin and apixaban unless he shows signs of GI bleeding. Review of Systems All systems reviewed & are unremarkable except as noted in HPI and below Cardiovascular Cardiovascular: Reports chest pain, Denies chest pain with activity, Denies irregular heart rhythm, Denies leg edema, Reports lightheadedness, Denies radiating jaw, neck or arm pain, Denies palpitations, Reports dyspnea, Reports dyspnea on exertion and Reports orthopnea Respiratory Respiratory: Denies chest congestion, Denies cough, Denies excessive phlegm production, Reports dyspnea, Reports dyspnea on exertion and Denies wheezing Gastrointestinal Gastrointestinal: Reports abdominal pain, Reports melena, Denies dyspepsia, Denies heartburn, Denies nausea and Denies vomiting Endocrine Endocrine: Denies palpitations Allergic/Immunologic Allergic/Immunologic: Denies wheezing PFSH All Active Problems Discharge planning issues (Acute) Diverticulosis (Acute) Accelerated essential hypertension (Acute) Hypomagnesemia (Acute) Acute CHF (congestive heart failure) (Acute) Hypertensive emergency (Acute) Tendinopathy of right biceps tendon (Acute) distal Afib (Chronic) PVD (peripheral vascular disease) with claudication (Acute) Foot pain (Acute) Lower urinary tract symptoms (LUTS) (Acute) Third degree heart block (Acute) PVD (peripheral vascular disease) (Chronic) Obstructive sleep apnea (Chronic) Chronic fatigue (Chronic) since CVA, worsening after COVID19 Stroke (Chronic) 09/14/17 Acute GI bleeding (Acute) Enlarged prostate (Acute) BPH (benign prostatic hyperplasia) (Chronic) Hemorrhage of large intestine due to diverticular disease (Acute) COVID (Acute) Paroxysmal atrial fibrillation (Acute 01/02/18) Umbilical hernia (Acute) Iron refractory iron deficiency anemia (Acute) Medical History SARS-CoV-2 antibody positive Adequate anticoagulation on anticoagulant therapy SVT (supraventricular tachycardia) Carotid artery stenosis bilateral last us 02/07 no stenosis, check q2yrs or prn Diverticula of colon pandivericulitis- severe Sleep apnea History of ileus Anemia Cerebrovascular accident (CVA) due to thrombosis of right middle cerebral artery (10/11/17) Weakness Tobacco abuse 35 pack year, quit Susan 2018, yearly Lung VT scan Osteoarthritis Arthritis Paresthesia Fatigue Aphasia Intermittent chest pain Vitiligo Surgical History S/P arterial stent H/O umbilical hernia repair (06/13/18) Dr Montiel H/O colonoscopy (03/2021) 2020: Dr. Horne, diverticula, no polyps repeat 10 years 2018:Dr Montiel, negative, repeat in 10 years History of total bilateral knee replacement H/O bilateral inguinal hernia repair Family History Father Alcohol use disorder Heart disease Mother Breast cancer Sister Breast cancer Other Carotid artery stenosis Social History Smoking/Tobacco Use Status: Former Tobacco Use Quit Date: 09/17/18 Tobacco: How many years used: 30 Smoking risk assessment performed?: Yes Alcohol Intake: former Drug use: Never Substance use type: does not use Housing: house Current gender identity: male What type of physical activity do you participate in: none Do you feel safe at home: Yes Do you feel safe in your relationship?: Yes Meds Allergies and Home Medications Allergies Allergy/AdvReac Type Severity Reaction Status Date / Time No Known Allergies Allergy Verified 05/28/23 08:55 Home Medications Medication Instructions Recorded Confirmed Type carvedilol 6.25 mg tablet 12.5 mg (2 x 6.25 mg) PO BID #120 04/13/18 05/28/23 Rx tab-caps atorvastatin 40 mg tablet 80 mg PO DAILY 08/06/19 05/28/23 History lisinopril 20 mg tablet 20 mg PO DAILY 07/15/22 05/28/23 History cholecalciferol (vitamin D3) 1,250 1,250 mcg PO QWEEK 08/11/22 05/28/23 History mcg (50,000 unit) capsule omeprazole 20 mg capsule,delayed 20 mg PO DAILY 08/15/22 05/28/23 History release rivaroxaban 20 mg tablet (Xarelto) 20 mg PO DAILY 08/15/22 05/28/23 History chlorthalidone 25 mg tablet 25 mg PO DAILY 10/18/22 05/28/23 History ferrous gluconate 324 mg (37.5 mg 324 mg PO .qod 10/18/22 05/28/23 History iron) tablet tamsulosin 0.4 mg capsule (Flomax) 0.8 mg PO DAILY 10/18/22 05/28/23 History clopidogrel 75 mg tablet (Plavix) 75 mg PO DAILY 05/28/23 05/28/23 History Exam Narrative Exam Narrative: Rick is sitting up in bed no acute distress alert and oriented x 3 HEENT unremarkable Neck supple nontender no JVD normal carotid pulses Lungs are clear to auscultation Heart is regular no appreciable murmur rub Abdomen soft nontender nondistended normal bowel sounds no organomegaly no bruits no palpable masses Lower extremities no peripheral cyanosis or edema normal pedal pulses Neuro exam grossly intact no focal motor or sensory deficits no focal cranial nerve deficits. Results Labs 05/28/23 15:00 05/28/23 10:15 Labs: Laboratory Results - last 24 hr 05/28/23 05/28/23 05/28/23 09:02 09:30 09:48 WBC 3.94 L RBC 3.05 L Hgb 8.6 L Hct 26.2 L MCV 86 MCH 28.2 MCHC 32.8 RDW 13.7 Plt Count 172 MPV 10.3 Immature Gran % 0.3 Neutrophils % 73.5 Lymphocytes % 14.7 Monocytes % 8.4 Eosinophils % 2.3 Basophils % 0.8 Nucleated RBC % 0.0 Absolute Neutrophils 2.90 Absolute Lymphocytes 0.58 L Absolute Monocytes 0.33 Absolute Eosinophils 0.09 Absolute Basophils 0.03 Sodium Cancelled Potassium Cancelled Chloride Cancelled Carbon Dioxide Cancelled Anion Gap Cancelled BUN Cancelled Creatinine Cancelled Est GFR (CKD-EPI 2020) Cancelled Glucose Cancelled Calcium Cancelled Magnesium Cancelled Total Bilirubin Cancelled AST Cancelled ALT Cancelled Alkaline Phosphatase Cancelled Troponin I Cancelled Cancelled NT-Pro-B Natriuret Pep Cancelled Cancelled Total Protein Cancelled Albumin Cancelled COVID-19 Source Nasal/Nares SARS-CoV-2 (PCR) Negative 05/28/23 05/28/23 10:15 12:08 WBC RBC Hgb Hct MCV MCH MCHC RDW Plt Count MPV Immature Gran % Neutrophils % Lymphocytes % Monocytes % Eosinophils % Basophils % Nucleated RBC % Absolute Neutrophils Absolute Lymphocytes Absolute Monocytes Absolute Eosinophils Absolute Basophils Sodium 141 Potassium 3.5 Chloride 106 Carbon Dioxide 24.6 Anion Gap 10.4 BUN 11 Creatinine 1.0 Est GFR (CKD-EPI 2020) 80.97 Glucose 105 Calcium 8.1 L Magnesium 1.2 L Total Bilirubin 0.6 AST 22 ALT 22 Alkaline Phosphatase 60 Troponin I < 50 < 50 NT-Pro-B Natriuret Pep 1452 H Total Protein 6.4 Albumin 3.0 L COVID-19 Source SARS-CoV-2 (PCR) Last Vital Signs Temp 36.7 C 05/28/23 09:35 Pulse 73 05/28/23 14:02 Resp 19 05/28/23 13:50 BP 173/66 H 05/28/23 14:02 Pulse Ox 97 05/28/23 14:02 Time Spent Time spent with Patient: 55-74 minutes Time was spent: preparing to see the patient(eg.review tests), obtaining and/or reviewing separately otained hiistory, ordering medications,tests, procedures, referring, communicating with other health tire care manager, indepentently interpreting results, counseling the patient and care coordination
[2023-05-28 15:07] LABS: HCT 28.6 % (40.0-50.0); HGB 9.5 g/dL (13.5-17.5)
[2023-05-28] MEDS: amLODIPine 2.5 MG TAB PO (15:12)
[2023-05-28 15:27] LABS: Troponin I < 50 ng/L (<or=60)
--- NOTE | 2023-05-28 15:41 | SCONE_ITS ---
Date of service: 05/28/23 Time of Service: 15:42 Assessment and Plan Assessment and plan (1) Iron refractory iron deficiency anemia: Status: Acute Assessment and plan: Rick is a very pleasant 72 year old male admitted for Hypertension and also noted to be anemic. In talking to the patient he has already had a pretty extensive workup with EGD, Colonoscopy, Capsule endoscopy and Hematology consult. Patient was told he may requiere monthly iron infusions. he had one maroon colored stool about 3 weeks ago. His Hgb does seem to be slowely going down. His last po iron tab was last monday. 30 minutes spend with the patient discussing his findings and going over his history. Recommend checking stool for blood. If it is positive then patient may need repeat EGD and [place]. If Hgb stays stable then this may be done as an outpatient. If stool is negative for blood then I would treat with IV iron infusion and recommend monthly infusion to PCP. Recommendations discussed with Dr. Coelho We will check in on patient tomorrow. History of Present Illness Narrative: Mr. Ye is a pleasant 72 year old male, who I was asked to see by the hospitalist for anemia. His Hgb/Hct was 8.6/26.2. In April his Hgb was 10.3. He tells me that he had one maroon colored stool about 3 weeks ago. Stools are otherwise daily, soft and brown. He has not had any abdominal pain, N/V, melena or hematochezia. He underwent an EGD in March of 2021 as well as a Colonoscopy. NO source of bleeding was found. Patient believes he has had a more recent [place]/EGD. He also has had a capsule endoscopy at [facility] and was seen by hematology for his Iron deficiency anemia after no GI source of bleeding was noted. Patient was toled he would have to be on Iron infusions monthly more then likely. Patient was also having some high BP's today. He complains of his BPs going from high to very low. He then gets dizzy. He also has been very tired. He does have sleep apnea. He is supposed to have a BiPap but his was recalled and he has no replacement at this time. His PMHx is otherwise significant for Paroxismal Afib, PVD (status post stent), hx of stroke, Hx of CHF, and hypertension. he is on Plavix. Consults Consult date: 05/28/23 Requesting physician: Jacob Coelho Review of Systems Constitutional Constitutional: Reports fatigue, Denies fever(s), Denies headache(s), Denies poor appetite and Denies weight loss Eyes Eyes: Denies change in vision ENT Ears, Nose, Mouth, and Throat: Denies dysphagia and Denies headache(s) Cardiovascular Cardiovascular: Denies chest pain, Denies chest pain at rest, Denies irregular heart rhythm, Denies palpitations, Denies dyspnea and Denies dyspnea on exertion Respiratory Respiratory: Denies cough, Denies dyspnea and Denies dyspnea on exertion Gastrointestinal Gastrointestinal: Reports system reviewed and no additional complaints, except as documented, Denies dysphagia, Denies dyspepsia and Denies heartburn Genitourinary Genitourinary: Reports system reviewed and no additional complaints, except as documented Musculoskeletal Musculoskeletal: Reports system reviewed and no additional complaints, except as documented Integumentary/Breasts Skin/Breast: Reports system reviewed and no additional complaints, except as documented Neurologic Neurologic: Reports system reviewed and no additional complaints, except as documented and Denies headache(s) Psychiatric Psychiatric: Reports system reviewed and no additional complaints, except as documented Endocrine Endocrine: Reports system reviewed and no additional complaints, except as documented, Reports fatigue and Denies palpitations Hematologic/Lymphatic Hematologic/Lymphatic: Reports system reviewed and no additional complaints, except as documented PFSH All Active Problems Diverticulosis (Acute) Accelerated essential hypertension (Acute) Hypomagnesemia (Acute) Acute CHF (congestive heart failure) (Acute) Hypertensive emergency (Acute) Tendinopathy of right biceps tendon (Acute) distal Afib (Chronic) PVD (peripheral vascular disease) with claudication (Acute) Foot pain (Acute) Lower urinary tract symptoms (LUTS) (Acute) Third degree heart block (Acute) PVD (peripheral vascular disease) (Chronic) Obstructive sleep apnea (Chronic) Chronic fatigue (Chronic) since CVA, worsening after COVID19 Stroke (Chronic) 09/14/17 Acute GI bleeding (Acute) Enlarged prostate (Acute) BPH (benign prostatic hyperplasia) (Chronic) Hemorrhage of large intestine due to diverticular disease (Acute) COVID (Acute) Paroxysmal atrial fibrillation (Acute 01/02/18) Umbilical hernia (Acute) Iron refractory iron deficiency anemia (Acute) Medical History SARS-CoV-2 antibody positive Adequate anticoagulation on anticoagulant therapy SVT (supraventricular tachycardia) Carotid artery stenosis bilateral last us 02/07 no stenosis, check q2yrs or prn Diverticula of colon pandivericulitis- severe Sleep apnea History of ileus Anemia Cerebrovascular accident (CVA) due to thrombosis of right middle cerebral artery (10/11/17) Weakness Tobacco abuse 35 pack year, quit Susan 2018, yearly Lung VT scan Osteoarthritis Arthritis Paresthesia Fatigue Aphasia Intermittent chest pain Vitiligo Surgical History S/P arterial stent H/O umbilical hernia repair (06/13/18) Dr Montiel H/O colonoscopy (03/2021) 2020: Dr. Horne, diverticula, no polyps repeat 10 years 2018:Dr Montiel, negative, repeat in 10 years History of total bilateral knee replacement H/O bilateral inguinal hernia repair Family History Father Alcohol use disorder Heart disease Mother Breast cancer Sister Breast cancer Other Carotid artery stenosis Social History Smoking/Tobacco Use Status: Former Tobacco Use Quit Date: 09/17/18 Tobacco: How many years used: 30 Smoking risk assessment performed?: Yes Alcohol Intake: former Drug use: Never Substance use type: does not use Housing: house Current gender identity: male What type of physical activity do you participate in: none Do you feel safe at home: Yes Do you feel safe in your relationship?: Yes Exam Const General: cooperative, comfortable and no acute distress Nutritional Appearance: average body habitus Orientation: alert and oriented x3 HENMT Head: normocephalic and atraumatic Resp Effort & Inspection: normal respiratory effort Auscultation: clear to auscultation bilaterally Cardio Rate: regular rate Rhythm: regular rhythm GI Inspection: normal to inspection Palpation: soft, no hepatosplenomegaly and nontender Results Last Vital Signs Temp 97.7 F 05/28/23 14:30 Pulse 78 05/28/23 14:30 Resp 19 05/28/23 13:50 BP 149/95 H 05/28/23 14:22 Pulse Ox 97 05/28/23 14:02 Labs 05/28/23 15:00 05/28/23 10:15 Labs: Laboratory Results - last 24 hr 05/28/23 05/28/23 05/28/23 09:02 09:30 09:48 WBC 3.94 L RBC 3.05 L Hgb 8.6 L Hct 26.2 L MCV 86 MCH 28.2 MCHC 32.8 RDW 13.7 Plt Count 172 MPV 10.3 Immature Gran % 0.3 Neutrophils % 73.5 Lymphocytes % 14.7 Monocytes % 8.4 Eosinophils % 2.3 Basophils % 0.8 Nucleated RBC % 0.0 Absolute Neutrophils 2.90 Absolute Lymphocytes 0.58 L Absolute Monocytes 0.33 Absolute Eosinophils 0.09 Absolute Basophils 0.03 Sodium Cancelled Potassium Cancelled Chloride Cancelled Carbon Dioxide Cancelled Anion Gap Cancelled BUN Cancelled Creatinine Cancelled Est GFR (CKD-EPI 2020) Cancelled Glucose Cancelled Calcium Cancelled Magnesium Cancelled Total Bilirubin Cancelled AST Cancelled ALT Cancelled Alkaline Phosphatase Cancelled Troponin I Cancelled Cancelled NT-Pro-B Natriuret Pep Cancelled Cancelled Total Protein Cancelled Albumin Cancelled COVID-19 Source Nasal/Nares SARS-CoV-2 (PCR) Negative 05/28/23 05/28/23 05/28/23 10:15 12:08 15:00 WBC RBC Hgb 9.5 L Hct 28.6 L MCV MCH MCHC RDW Plt Count MPV Immature Gran % Neutrophils % Lymphocytes % Monocytes % Eosinophils % Basophils % Nucleated RBC % Absolute Neutrophils Absolute Lymphocytes Absolute Monocytes Absolute Eosinophils Absolute Basophils Sodium 141 Potassium 3.5 Chloride 106 Carbon Dioxide 24.6 Anion Gap 10.4 BUN 11 Creatinine 1.0 Est GFR (CKD-EPI 2020) 80.97 Glucose 105 Calcium 8.1 L Magnesium 1.2 L Total Bilirubin 0.6 AST 22 ALT 22 Alkaline Phosphatase 60 Troponin I < 50 < 50 < 50 NT-Pro-B Natriuret Pep 1452 H Total Protein 6.4 Albumin 3.0 L COVID-19 Source SARS-CoV-2 (PCR)
[2023-05-28] MEDS: Normal Saline - Diluent 50 ML VIAL IJ (16:01)
[2023-05-28] MEDS: Normal Saline Flush 10 ML SYR IVP ×2 (16:02→20:06)
[2023-05-28] MEDS: Omnipaque 350 MG/ML 100 ML BTL IJ (16:03)
[2023-05-28] MEDS: Sucralfate 1 GM TAB PO ×2 (16:39→21:52)
[2023-05-28] MEDS: Rivaroxaban 10 MG TABLET 20 MG PO (16:40)
--- NOTE | 2023-05-28 17:15 | DI.VRAD_ITS ---
PROCEDURE INFORMATION: Exam: CTA Chest With Contrast CTA Abdomen and Pelvis With Contrast Exam date and time: 05/28/2023 4:10 PM Age: 72 years old Clinical indication: Other: Hypertensive urgency, chest pain/abdominal pain TECHNIQUE: Imaging protocol: Computed tomographic angiography of the chest with contrast. Exam focused on the arteries. Computed tomographic angiography of the abdomen and pelvis with contrast. Exam focused on the arteries. 3D rendering (Not supervised by radiologist): MIP and/or 3D reconstructed images were created by the technologist. Contrast material: OMNIPAQUE 350; Contrast volume: 100 ml; Contrast route: INTRAVENOUS (IV); COMPARISON: CT CHEST PE CTA 07/05/2022 4:35 PM FINDINGS: VASCULATURE: Pulmonary arteries: Normal. No pulmonary emboli. Aorta: The aorta is normal in course and caliber. No evidence for dissection. There is moderate atherosclerotic change present with more severe atherosclerotic change involving the iliac bifurcation. Celiac trunk and mesenteric arteries: No occlusion or significant stenosis. Renal arteries: No occlusion or significant stenosis. Right iliac arteries: No occlusion or significant stenosis. Left iliac arteries: No occlusion or significant stenosis. CHEST: Lungs: Minimal bibasilar atelectasis. Pleural spaces: Unremarkable. No pneumothorax. No pleural effusion. Heart: Unremarkable. No cardiomegaly. No pericardial effusion. Coronary arteries: Coronary artery calcifications unchanged. ABDOMEN AND PELVIS: Liver: No mass. Gallbladder and bile ducts: Unremarkable. No calcified stones. No ductal dilation. Pancreas: Unremarkable. No mass. No ductal dilation. Spleen: Unremarkable. No splenomegaly. Adrenal glands: Unremarkable. No mass. Kidneys and ureters: Unremarkable. No solid mass. No hydronephrosis. Stomach and bowel: Diverticulosis without acute diverticulitis. Appendix: The appendix is well seen, within normal limits. Intraperitoneal space: Unremarkable. No free air. No significant fluid collection. Urinary bladder: Unremarkable. No mass. Reproductive: Prostate remains slightly enlarged, 5.3 cm. Lymph nodes: Unremarkable. No enlarged lymph nodes. Bones/joints: There is bilateral spondylolysis at L5-S1 with grade 1-2 spondylosis listhesis. Soft tissues: Unremarkable. IMPRESSION: 1. No evidence for dissection. 2. No evidence for pulmonary embolus. Dictated and Authenticated by: Janel Fields MD. Ordering:[facility] Meliton James MD
[2023-05-28] MEDS: Carvedilol 12.5 MG TAB PO (20:05)
[2023-05-28] MEDS: Pantoprazole 40 MG TABCR PO (20:06)
--- NOTE | 2023-05-28 20:35 | RESPIRATORY ---
RT spoke with patient concerning the listed history of RAJIV in his chart. At one time, patient had a CPAP machine but was then switched to BIPAP. Patient stated that he does use Bipap machine but it was part of the national recall and and he sent it into [employer] to be repaired. Currently, he's been following up with the company for the last 18months and still has not received a machine back. The company has told him to follow up with his DME ([facility]) for further steps about getting a new device. Patient has also been in contact with the sleep center which has informed him he will qualify for a new device in June 2023. RT discussed with patient that due to him not currently staying compliant with use of the device, he is most likely going to have to redo everything to get a new device(new RX, chart notes, and sleep study). RT asked patient if he wanted to use a hospital device tonight, patient declined as he hasn't used one this long and feels he will be fine.
[2023-05-28] MEDS: Acetaminophen 325 MG TAB PO (21:51)
[2023-05-29] VITALS (43 sets, daily range): BP systolic 120–183; BP diastolic 49–109; PULSE 44–74; RESP 8–24; TEMP 36.3–36.7; O2SAT 90–98
[2023-05-29] MEDS: Normal Saline Flush 10 ML SYR IVP ×3 (02:00→16:21)
[2023-05-29 05:54] LABS: Abs Immature Grans 0.01 10^3/uL (0.0-0.06); Absolute Basophil Count 0.04 10^3/uL (0.0-0.2); Absolute Eosinophil Count 0.12 10^3/uL (0.0-0.7); Absolute Lymphocyte Count 0.51 10^3/uL (1.2-3.4); Absolute Monocyte Count 0.38 10^3/uL (0.1-0.8); Absolute Neutrophil Count 3.28 10^3/uL (1.2-6.7); Basophils % 0.9; Eosinophils % 2.8; HCT 28.1 % (40.0-50.0); HGB 9.4 g/dL (13.5-17.5); Immature Grans % 0.2; Lymphocytes % 11.8; MCH 28.8 pg (27.0-33.0); MCHC 33.5 % (32.0-36.0); MCV 86 fL (80-95); MPV 10.3 fL (8.0-11.0); Monocytes % 8.8; Neutrophils % 75.5; Platelet Count 196 10^3/uL (130-400); RBC 3.26 10^6/uL (4.36-5.78); RDW 13.5 % (11.8-14.1); RDW-SD 43.1 fL; WBC 4.34 10^3/uL (4.4-10.8)
[2023-05-29 06:27] LABS: ALT 22 U/L (16-63); AST 22 U/L (15-37); Albumin 3.1 g/dL (3.4-5.0); Alkaline Phosphatase 67 U/L (46-116); Anion Gap 10.3 mmol/L (3-11); BUN 7 mg/dL (7-18); Bilirubin, Total 0.6 mg/dL (0.2-1.0); CO2 26.7 mmol/L (21.0-32.0); Calcium 8.6 mg/dL (8.5-10.1); Chloride 102 mmol/L (98-107); Estimated GFR 80.97 (mL/min/1.73m2); Ferritin 30 ng/mL (26-388); Glucose 112 mg/dL (74-106); Sodium 139 mmol/L (136-145); Total Protein 6.7 g/dL (6.4-8.2)
[2023-05-29 06:31] LABS: Iron 24 ug/dL (65-175); Total Iron Binding Capacity 308 ug/dL (250-450); Transferrin Sat 8 % (20-55)
[2023-05-29 06:37] LABS: Potassium 2.9 mmol/L (3.5-5.1)
[2023-05-29 07:01] LABS: Lab Add On Test DONE
[2023-05-29 07:09] LABS: Magnesium 1.6 mg/dL (1.8-2.4)
[2023-05-29] MEDS: MAGNESIUM SULFATE 4 GM/100 ML BAG IVPB (07:26)
[2023-05-29] MEDS: POTASSIUM CHLORIDE 20 MEQ/100 ML BAG 50 MEQ IVPB ×2 (07:28→10:58)
[2023-05-29] MEDS: Pantoprazole 40 MG TABCR PO (07:28)
[2023-05-29] MEDS: Carvedilol 12.5 MG TAB PO (07:29)
[2023-05-29] MEDS: Potassium Chloride 20 MEQ TABCR 40 MEQ PO (07:29)
[2023-05-29] MEDS: Sucralfate 1 GM TAB PO ×3 (07:29→16:24)
--- NOTE | 2023-05-29 08:00 | DI.US_ITS ---
APPROVED REPORT EXAM: Comprehensive 2D, Doppler, and color-flow Echocardiogram Patient Location: In-Patient Room/Bed: TNW611 Cytogenetic Technician: Yu Emery RDCS (AE) Indications: LVH, HTN, Evaluate LV function, A Fib Other Information Study Quality: Adequate Conclusion Normal left ventricular wall thickness and chamber size. Ejection fraction is 60%. Wall motion is n ormal. There is normal diastolic function Normal right ventricular size and systolic function Both atria are normal in size There is no structural or hemodynamically significant valvular disease. Mildly dilated ascending aorta 3.62 cm Wall motion Left Ventricle The left ventricle is normal size. The left ventricular systolic function is normal. The left ventric ular ejection fraction is within the normal range. There is normal left ventricular wall thickness. T here is normal LV segmental wall motion. The left ventricular diastolic function is normal. There is no ventricular septal defect visualized. LVEF is 60%. Right Ventricle Right ventricle is grossly normal in size. Right ventricular systolic function is grossly normal. Atria The left atrium size is normal. The right atrium size is normal. The interatrial septum is intact wit h no evidence for an atrial septal defect. Aortic Valve The aortic valve is normal in structure. Aortic valve is trileaflet. There is no aortic valvular sten osis. Trace aortic regurgitation. Mitral Valve The mitral valve is normal in structure. No evidence of mitral valve stenosis. Trace mitral regurgita tion. Tricuspid Valve The tricuspid valve is normal in structure. There is no tricuspid valve stenosis. Trace tricuspid reg urgitation. Unable to assess PA pressure. Pulmonic Valve The pulmonary valve is normal in structure. There is no pulmonic valvular stenosis. Trace pulmonic re gurgitation. Great Vessels The aortic root is normal in size. The ascending aorta is mildly dilated. Aortic arch is not well vis ualized. IVC is normal in size and collapses >50% with inspiration. Pericardium There is no pericardial effusion. 2D Dimensions IVSD d PLAX 0.94 cm M: 0.6-1.2 Ao Root d 3.56 cm M: 3.1 - 3.7 LVPW d PLAX 0.95 cm M: 0.6 - 1.2 Ao Asc Diam d 3.62 cm M: 2.6 - 3.4 LVID d PLAX 5.01 cm M: 4.2 - 5.8 LVDs 3.40 cm M: 2.5 - 4.0 LV EF Teichholz 60.1 % FS 32.15 % LV EDV (Teich) 118.7 mL LV ESV (Teich) 47.4 mL M-Mode TAPSE 3.01 cm (M/F) >1.7 Auto EF LV EDV A4C 130.6 mL LV EDV A2C 121.8 mL LV EDV BP 124.9 mL LV ESV A4C 55.6 mL LV ESV A2C 56.0 mL LV ESV BP 54.5 mL LVEF(%) A4C 57.4 % LVEF(%) A2C 54.0 % LVEF(%) BP 56.4 % LV SV A4C 75.0 ml LV SV A2C 65.8 ml LV SV BP 70.4 ml LV CO A4C 4.5 L/min LV CO A2C 3.9 L/min LV CO BP 4.2 L/min HR A4C 59.58 BPM HR A2C 59.31 BPM LV EDV Index (BP) LV Strain Long Pk Overal Avg (s) 17.23 LA Volume LA Length A4C 5.5 cm LA Length A2C 6.1 cm LA Area A4C s 22.99 cm2 LA Area A2C s 22.48 cm2 LA Vol A4C A-L 81.46 mL LA Vol A2C A-L 70.63 mL LA Vol Biplane A-L 79.7 mL LA Vol A4C MOD 75.4 mL LA Vol A2C MOD 68.1 mL LA Vol BP MOD 74.4 mL RA Volume RA Area A4C 13.5 cm2 RA ESV A4C (A-L) 29.5mL RA Vol/BSA A4C A-L RA Length A4C 5.2 cm RA ESV A4C (MOD) 27.9mL LV Diastology MV E' medial 0.074 (>0.07 m/s) MV E Vmax 0.70 (0.4-1.3 m/s) MV E/E' MED 9.52 (<14) MV A Vmax 0.75 (0.4-1.3 m/s) MV E' lateral 0.092 (>0.1 m/s) E/A Ratio 0.9 MV E/E' LAT 7.60 (<14) MV E' Average 0.083 m/s MV E/E'(average) 8.45 Aortic Valve AoV Vmax 1.50 m/s LVOT Vmax 1.22 m/s AoV Peak Grad 9.0 mmHg LVOT Peak Grad 5.9 mmHg AoV Area (Vmax) 2.76 cm2 LVOT VTI 0.286 m AoV VTI 0.330 m LVOT Mean Grad 2.6 mmHg AoV Mean Mustapha. 0.87 m/s LVOT SV 97.35 mL AoV Mean Grad 3.6 mmHg LVOT Diam s 2.05 cm AoV Area (VTI) 2.95 cm2 Velocity Ratio 0.81 Mitral Valve MV DT 297 (160-240 msec) MV Vmax TIPS 0.71 m/s MV Mean Grad 0.8 (<2mmHg) MV VTI 0.275 m Pulmonary Valve PV Vmax 1.09 (0.5-1.5 m/s) RVOT Vmax 0.85 m/s PV Peak Grad 4.7 mmHg RVOT Peak Gr. 2.9 mmHg PV Mean Mustapha 0.75 m/s RVOT VTI 0.223 m PV Mean Grad 2.6 mmHg RVOT Mean Gr. 1.5 mmHg Tricuspid Valve RA Pressure 3.00 mmHg TV S' 0.17 m/s
[2023-05-29] MEDS: Chlorthalidone 25 MG TAB PO (09:14)
[2023-05-29] MEDS: Lisinopril 20 MG TAB PO (09:14)
[2023-05-29] MEDS: Tamsulosin 0.4 MG CAPCR 0.8 MG PO (09:14)
[2023-05-29] MEDS: Atorvastatin 40 MG TAB 80 MG PO (09:14)
[2023-05-29] MEDS: Ferrous Gluconate 324 MG TAB PO (09:15)
--- NOTE | 2023-05-29 09:31 | PGE_ITS ---
Date of Service Date of service: 05/29/23 Time of Service: 09:31 Assessment and Plan Assessment and plan (1) Accelerated essential hypertension: Status: Acute Assessment and plan: Markedly improved on his current regimen of carvedilol and amlodipine and lisinopril. He has remained off nicardipine drip. Will plan for discharge later today after correcting his hypomagnesemia and hypokalemia. Professional time spent interviewing and examining patient, discussion of goals of care with hospital team (care management, nursing and consulting professionals) was 35 minutes. (2) Diverticulosis: Status: Acute (3) Paroxysmal atrial fibrillation: Status: Acute Assessment and plan: No evidence of atrial fibrillation. Rate remains well-controlled on his carvedilol. Continue anticoagulation with rivaroxaban but with GI protection with Protonix and Carafate (4) Iron refractory iron deficiency anemia: Status: Acute Assessment and plan: Will give an infusion of venofer 400 mg today. 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 will continue unless he has acute GI bleeding (8) Discharge planning issues: Status: Acute Assessment and plan: Will discharge home today after correction of his hypomagnesemia and hypokalemia and after he has had his iron infusion Subjective Subjective Interval history since last seen: Patient feels good. No abdominal or chest pains or dyspnea. No BM since yesterday morning. No maroon stools since about one week ago. Patient now off the nicardipine drip. BP running 158/79. He is asking to get out of the hospital today as his power is out at home and he is eager to get home. I told him that I would like to proceed w/ feeding him, correct his low potassium and magnesium and give him an iron infusion before he is discharged but I feel he can be dc later this afternoon. Exam Narrative Exam Narrative: Rick is sitting up in bed he is alert oriented x 3 No discomfort. Lungs clear to auscultation Heart is regular rate and rhythm slightly bradycardic no murmur rub Abdomen soft nontender nondistended Extremities without peripheral edema Objective Last Vital Signs Temp 36.7 C 05/29/23 07:45 Pulse 54 L 05/29/23 08:31 Resp 17 05/29/23 08:31 BP 159/68 H 05/29/23 08:31 Pulse Ox 98 05/29/23 07:32 Laboratory Results - last 24 hr 05/28/23 05/28/23 05/28/23 09:02 09:30 09:48 WBC 3.94 L RBC 3.05 L Hgb 8.6 L Hct 26.2 L MCV 86 MCH 28.2 MCHC 32.8 RDW 13.7 Plt Count 172 MPV 10.3 Immature Gran % 0.3 Neutrophils % 73.5 Lymphocytes % 14.7 Monocytes % 8.4 Eosinophils % 2.3 Basophils % 0.8 Nucleated RBC % 0.0 Absolute Neutrophils 2.90 Absolute Lymphocytes 0.58 L Absolute Monocytes 0.33 Absolute Eosinophils 0.09 Absolute Basophils 0.03 Sodium Cancelled Potassium Cancelled Chloride Cancelled Carbon Dioxide Cancelled Anion Gap Cancelled BUN Cancelled Creatinine Cancelled Est GFR (CKD-EPI 2020) Cancelled Glucose Cancelled Calcium Cancelled Magnesium Cancelled Iron TIBC Transferrin % Sat Ferritin Total Bilirubin Cancelled AST Cancelled ALT Cancelled Alkaline Phosphatase Cancelled Troponin I Cancelled Cancelled NT-Pro-B Natriuret Pep Cancelled Cancelled Total Protein Cancelled Albumin Cancelled COVID-19 Source Nasal/Nares SARS-CoV-2 (PCR) Negative Add-On Test Request 05/28/23 05/28/23 05/28/23 10:15 12:08 15:00 WBC RBC Hgb 9.5 L Hct 28.6 L MCV MCH MCHC RDW Plt Count MPV Immature Gran % Neutrophils % Lymphocytes % Monocytes % Eosinophils % Basophils % Nucleated RBC % Absolute Neutrophils Absolute Lymphocytes Absolute Monocytes Absolute Eosinophils Absolute Basophils Sodium 141 Potassium 3.5 Chloride 106 Carbon Dioxide 24.6 Anion Gap 10.4 BUN 11 Creatinine 1.0 Est GFR (CKD-EPI 2020) 80.97 Glucose 105 Calcium 8.1 L Magnesium 1.2 L Iron TIBC Transferrin % Sat Ferritin Total Bilirubin 0.6 AST 22 ALT 22 Alkaline Phosphatase 60 Troponin I < 50 < 50 < 50 NT-Pro-B Natriuret Pep 1452 H Total Protein 6.4 Albumin 3.0 L COVID-19 Source SARS-CoV-2 (PCR) Add-On Test Request 05/29/23 05:35 WBC 4.34 L RBC 3.26 L Hgb 9.4 L Hct 28.1 L MCV 86 MCH 28.8 MCHC 33.5 RDW 13.5 Plt Count 196 MPV 10.3 Immature Gran % 0.2 Neutrophils % 75.5 Lymphocytes % 11.8 Monocytes % 8.8 Eosinophils % 2.8 Basophils % 0.9 Nucleated RBC % 0.0 Absolute Neutrophils 3.28 Absolute Lymphocytes 0.51 L Absolute Monocytes 0.38 Absolute Eosinophils 0.12 Absolute Basophils 0.04 Sodium 139 Potassium 2.9 L* Chloride 102 Carbon Dioxide 26.7 Anion Gap 10.3 BUN 7 Creatinine 1.0 Est GFR (CKD-EPI 2020) 80.97 Glucose 112 H Calcium 8.6 Magnesium 1.6 L Iron 24 L TIBC 308 Transferrin % Sat 8 L Ferritin 30 Total Bilirubin 0.6 AST 22 ALT 22 Alkaline Phosphatase 67 Troponin I NT-Pro-B Natriuret Pep Total Protein 6.7 Albumin 3.1 L COVID-19 Source SARS-CoV-2 (PCR) Add-On Test Request DONE Time Spent with Patient Time Spent with Patient: 35-49 minutes Time was spent: preparing to see the patient(eg.review tests), ordering medications,tests, procedures, referring, communicating with other health memory care program resident, indepentently interpreting results, counseling the patient and care coordination
--- NOTE | 2023-05-29 09:40 | INITIAL_ITS ---
Date of service: 05/29/23 Time of Service: 09:41 Care Management Initial Assmt Initial Assessment REASON FOR HOSPITALIZATION:: hypertension PREVIOUS FUNCTIONAL STATUS/SOCIAL/FAMILY SUPPORTS:: Rick lives alone in a single family home in in [place]. He has a son who lives in [place] and a daughter who lives in [place]. Ray also has 4 grandchildren. 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 He is independent and very active at baseline. Ray shared that he often walks over 10 miles per day. He does not receive any community services and does not use any ambulatory assistive devices. CURRENT FUNCTIONAL STATUS:: Ray was sitting up in bed in the ICU when CM met with him. He engaged easily with CM and stated that he is going to be discharged soon. CM asked if Ray had advanced directives and he indicated that he did not. CM offered to assist with their completion if he was interested and Ray accepted the offer. CM provided him with 3 blank copies. He plans to give one copy to each of his children so that they can discuss the questions before he finalizes the document. He will contact CM after discharge to schedule a time to meet. ADVANCE DIRECTIVES:: none Has patient been provided with info about the portal/API?: Yes Did the patient sign up for the portal?: No CODE STATUS:: Full Code INSURANCE COVERAGE / FINANCIAL ISSUES:: [employer]/[facility] PRIMARY CARE PHYSICIAN:: Elisa Garner POTENTIAL DISCHARGE NEEDS:: follow up with GI, surgery, PCP and plan of care PATIENT/FAMILY EDUCATION NEEDS:: Review of discharge instructions, diet, activity, limitations, follow up plan, discuss Ask Me Three TRANSPORTATION:: via private vehicle with family/friend PLAN:: Rick will be discharged home, with no new services, later today. He will follow up with his PCP and other community providers and plan of care and transport with family. PFSH All Active Problems (Updated 05/29/23 @ 09:58 by Jacob Coelho MD) Hypokalemia (Acute) Discharge planning issues (Acute) Diverticulosis (Acute) Accelerated essential hypertension (Acute) Hypomagnesemia (Acute) Acute CHF (congestive heart failure) (Acute) Hypertensive emergency (Acute) Tendinopathy of right biceps tendon (Acute) distal Afib (Chronic) PVD (peripheral vascular disease) with claudication (Acute) Foot pain (Acute) Lower urinary tract symptoms (LUTS) (Acute) Third degree heart block (Acute) PVD (peripheral vascular disease) (Chronic) Obstructive sleep apnea (Chronic) Chronic fatigue (Chronic) since CVA, worsening after COVID19 Stroke (Chronic) 09/14/17 Acute GI bleeding (Acute) Enlarged prostate (Acute) BPH (benign prostatic hyperplasia) (Chronic) Hemorrhage of large intestine due to diverticular disease (Acute) COVID (Acute) Paroxysmal atrial fibrillation (Acute 01/02/18) Umbilical hernia (Acute) Iron refractory iron deficiency anemia (Acute) Medical History SARS-CoV-2 antibody positive Adequate anticoagulation on anticoagulant therapy SVT (supraventricular tachycardia) Carotid artery stenosis bilateral last us 02/07 no stenosis, check q2yrs or prn Diverticula of colon pandivericulitis- severe Sleep apnea History of ileus Anemia Cerebrovascular accident (CVA) due to thrombosis of right middle cerebral artery (10/11/17) Weakness Tobacco abuse 35 pack year, quit 2018, yearly Lung VT scan Osteoarthritis Arthritis Paresthesia Fatigue Aphasia Intermittent chest pain Vitiligo Surgical History S/P arterial stent H/O umbilical hernia repair (06/13/18) Dr Montiel H/O colonoscopy (03/2021) 2020: Dr. Horne, diverticula, no polyps repeat 10 years 2018:Dr Montiel, negative, repeat in 10 years History of total bilateral knee replacement H/O bilateral inguinal hernia repair Family History Father Alcohol use disorder Heart disease Mother Breast cancer Sister Breast cancer Other Carotid artery stenosis Social History Smoking/Tobacco Use Status: Former Tobacco Use Quit Date: 09/17/18 Tobacco: How many years used: 30 Smoking risk assessment performed?: Yes Alcohol Intake: former Drug use: Never Substance use type: does not use Housing: house Current gender identity: male What type of physical activity do you participate in: none Do you feel safe at home: Yes Do you feel safe in your relationship?: Yes
[2023-05-29] MEDS: IRON SUCROSE COMPLEX 400 MG in Normal Saline 250 ML 100 MG IVPB (10:54)
[2023-05-29] MEDS: amLODIPine 5 MG TAB PO (10:56)
[2023-05-29] MEDS: Magnesium Oxide 400 MG TAB PO (10:57)
[2023-05-29] MEDS: Clopidogrel 75 MG TAB PO (10:57)
[2023-05-29] MEDS: Potassium Chloride 10 MEQ CAPCR 20 MEQ PO (10:58)
[2023-05-29 14:45] LABS: Magnesium 2.6 mg/dL (1.8-2.4)
[2023-05-29 14:49] LABS: Potassium 4.3 mmol/L (3.5-5.1)
[2023-05-29] MEDS: Rivaroxaban 10 MG TABLET 20 MG PO (16:24)
--- NOTE | 2023-05-29 17:18 | PDOC.CMDIS ---
Date of service: 05/29/23 Time of Service: 17:18 LACE Index Scoring Tool Questions: Length of Stay (in days): 1 Was the patient admitted via the E.D.?: Yes Comorbidities: Cerebrovascular Disease, PVD and Congestive Heart Failure E.D. Visits: 1 Answers: Total Score: 10 Risk of Readmission: High Risk Care Management Discharge Plan Reason for Hospitalization: hypertension Discharge Plan: Rick will be discharged home, with no new services, later today. He will follow up with his PCP and other community providers and plan of care and transport with family. Patient/Family Education Needs: Review of discharge instructions, diet, activity, limitations, follow up plan, discuss Ask Me Three
--- NOTE | 2023-05-29 17:59 | DSE_ITS ---
Date of service: 05/29/23 Time of Service: 17:59 DS: Diagnosis Discharge Diagnosis (1) Accelerated essential hypertension: Status: Acute Asessment and Plan: Patient required IV nicardipine to control his blood pressure initially then was started on amlodipine 5 mg daily. Blood pressure was stable after the nicardipine was discontinued. Blood pressure at the time of discharge was 158/71 with a pulse of 69 sinus rhythm. Carvedilol dose was unchanged as well as his chlorthalidone and lisinopril. (2) Iron refractory iron deficiency anemia: Status: Acute Asessment and Plan: Patient's iron level was found to be low at 24 mcg/dL (normal is 65-175), normal TIBC of 308 but a low transferrin saturation of 8%. Ferritin level was low end of normal at 30 nanograms per milliliter (normal is 26-388). Patient was given Venofer 400 mg IV piggyback on the day of discharge. It is recommended that he have a follow-up CBC within 1 week of discharge and that he be referred back to his chemical research technician for consideration of monthly IV infusions. Because of his history of melanotic stools about a month ago and recent hematochezia about a week ago it is recommended that the patient go on Carafate and Protonix until he can follow-up with Dr. Zehra Benitez to have an outpatient EGD. (3) Hypokalemia: Status: Acute Asessment and Plan: Patient presented with potassium level 3.5 which dropped down to 2.9 before being corrected to 4.3. Patient will be discharged with potassium supplementation as the patient has ongoing use of chlorthalidone. Please recheck levels within 1 week. (4) Hypomagnesemia: Status: Acute Asessment and Plan: Patient was found to be significantly hypomagnesemic with a magnesium level 1.2 which came up to 1.6 after a gram of magnesium and after additional 2 g came up to 2.6. He will be discharged on a magnesium supplement. Please recheck his ma gnesium level within 1 week of discharge. (5) Diverticulosis: Status: Acute Asessment and Plan: Patient is exhibited no abdominal pain or rectal bleeding during hospitalization. (6) Paroxysmal atrial fibrillation: Status: Acute Asessment and Plan: Patient was monitored for 24 hours had no evidence of atrial fibrillation. Rhythm remains sinus to sinus bradycardia. Heart rates would drop down into the high 40s when sleeping but otherwise was mostly high 50s to low 60s. His primary care provider may consider decreasing his carvedilol dose if he continues having bradycardia. Patient was kept on his anticoagulants even though he gave a history of maroon-colored stools about 1-1 and half weeks prior to admission. He did not exhibit any acute GI bleeding while hospitalized. He was kept on his Plavix as well as his. Rivaroxaban (7) Cerebrovascular accident (CVA) due to thrombosis of right middle cerebral artery: (8) Discharge planning issues: Status: Acute Discharge Plan Disposition Patient Disposition: Home Condition: Improving Discharge Details Reason For Visit: Uncontrolled hypertension Admit Date/Time: 05/28/23 12:46 Admit Provider: Jacob Coelho Attending Provider: Jacob Coelho Primary Care Provider: Elisa Garner Hospital Course Hospital Course: See ER note and admission H&P for presenting symptoms and physical findings as well as relevant labs. See individual diagnoses as far as treatment and follow- up plans. Home Meds and New Rx's Prescriptions: New amlodipine 5 mg Tablet 5 mg PO DAILY Qty: 30 0RF sucralfate 1 gram Tablet 1 g PO AC & HS Qty: 120 0RF magnesium oxide 400 mg (241.3 mg magnesium) Tablet 400 mg PO DAILY Qty: 30 0RF pantoprazole 40 mg Tablet,Delayed Release (Dr/Ec) 40 mg PO BID@0730,1999 Qty: 60 0RF potassium chloride 20 mEq tablet extended release 20 meq PO DAILY Qty: 30 0RF Continued lisinopril 20 mg tablet 20 mg PO DAILY cholecalciferol (vitamin D3) 1,250 mcg (50,000 unit) capsule 1,250 mcg PO QWEEK carvedilol 6.25 mg tablet 12.5 mg PO BID Qty: 120 11RF atorvastatin 40 mg tablet 80 mg PO DAILY Xarelto 20 mg tablet 20 mg PO DAILY Rx Instructions: must administer with evening meal omeprazole 20 mg capsule,delayed release(DR/EC) 20 mg PO DAILY chlorthalidone 25 mg tablet 25 mg PO DAILY tamsulosin [Flomax] 0.4 mg capsule 0.8 mg PO DAILY clopidogrel [Plavix] 75 mg tablet 75 mg PO DAILY Changed ferrous gluconate 324 mg (37.5 mg iron) tablet 324 mg PO DAILY Qty: 0 0RF Discharge Instructions Instructions: Iron Rich Diet (DC), Heart Healthy Diet (DC), Iron Deficiency Anemia (GEN), Hypertension in the Older Adult (DC) Additional Instructions: You were treated for accelerated hypertension and was placed on an intravenous infusion of a blood pressure medication called nicardipine. You have since been started on a similar oral medication called amlodipine 5 mg daily to help control your blood pressure. Please monitor blood pressure twice a day and record it. Please see your primary care provider within 1 week of discharge and bring in your blood pressure readings for him or her to review. You are also found to be anemic but did not require blood transfusion. You were given an infusion of iron while here in the hospital and you should talk with your chemical research technician about being started on monthly iron infusions to control your anemia. You should follow-up with the surgeon we consulted with Dr. Shelby Benitez to discuss any further GI follow-up studies to determine the source of your anemia. She will obtain your records from [facility] and review them. Please ask your primary care provider to order follow- up labs including a CBC, BMP, magnesium to follow-up on your electrolytes. You have been started on potassium and magnesium supplementation because one of your blood pressure medications as a diuretic also called chlorthalidone which causes wasting of potassium and magnesium through your urinary tract system. Please monitor your pulse along with your blood pressure and record your pulse rate as well. Your primary care provider may want to refer you to a enamel applier to assist with management of your blood pressure should your blood pressure remain labile. Referrals: Elisa Garner [Primary Care Provider] - (Follow-up in the office in the next week, please get repeat BMP and magnesium level to assess electrolytes. Please recheck H&H) Zehra Benitez MD [ [facility] STAFF PHYSICIAN] - (Follow-up for outpatient EGD and or colonoscopy) Activity:: Activity as Tolerated Equipment/Supplies:: No Equipment Needed Diet:: Low Sodium Discharge Orders Discharge Orders: Discharge Order (Routine); Ordered 05/29/23 Ordered By: Jacob Coelho DS: Summary Time Spent with Patient providing and/or coordinating discharge services: Greater than 30 minutes Status at Discharge Functional status at discharge: independent ambulation Overall status at discharge: patient is back to baseline Mental Status: mental status grossly normal Speech and Movement: speech and movement normal Mood: congruent mood Affect: normal affect Exam Narrative Exam Narrative: Rick is sitting up in bed he is alert oriented x 3 No discomfort. Lungs clear to auscultation Heart is regular rate and rhythm slightly bradycardic no murmur rub Abdomen soft nontender nondistended Extremities without peripheral edema Psych Mental Status: mental status grossly normal Speech and Movement: speech and movement normal Mood: congruent mood Affect: normal affect DS: Data Vitals/I&O Vitals and I&O: Vital Signs Temperature 36.6 C 05/29/23 16:05 Temperature Source Temporal Artery Scan 05/29/23 07:45 Pulse 60 05/29/23 16:05 Pulse Rhythm Regular 05/29/23 16:10 Pulse 55 L 05/29/23 16:05 Respiratory Rate 20 05/29/23 16:05 Respiratory Effort Normal, Non-Labored 05/29/23 16:10 Respiratory Depth Normal 05/29/23 16:10 Respiratory Pattern Normal 05/29/23 16:10 Blood Pressure 154/69 H 05/29/23 16:05 Blood Pressure Mean 95 05/29/23 16:05 Blood Pressure Position Supine 05/29/23 07:45 Pulse Oximetry 98 05/29/23 07:32 Oxygen Delivery Method Room Air 05/29/23 07:45 Oxygen Flow Rate 0 05/29/23 07:45 Pain Level 0 05/29/23 07:45 Comment chest is heavy 05/28/23 08:53 Intake & Output 05/28/23 05/29/23 05/29/23 23:59 11:59 23:59 Intake Total 1765.000 / 1775.000 210 / 310 100 / 310 Output Total 3600 / 4075 655 / 1005 350 / 1005 Balance -1835.000 / -2300.000 -445 / -695 -250 / -695 Weight 76.5 kg 74.3 kg Intake: IV 350.000 / 360.000 210 / 310 100 / 310 Oral 1415 / 1415 Output: Urine 3600 / 4075 655 / 1005 350 / 1005 Other: Urine Color Yellow Pale Light Diane Urine Appearance Cloudy Clear Clear Cloudy Urine Odor Normal Normal None Comment patient denies dysuria. patient is continent patient denies dysuria. patient is continent Voiding Methods Urinal Urinal Urinal Data Completed and Pending Labs on day of discharge: Labs from last 24 hours 05/29/23 05/29/23 14:00 05:35 WBC 4.34 L RBC 3.26 L Hgb 9.4 L Hct 28.1 L MCV 86 MCH 28.8 MCHC 33.5 RDW 13.5 Plt Count 196 MPV 10.3 Immature Gran % 0.2 Neutrophils % 75.5 Lymphocytes % 11.8 Monocytes % 8.8 Eosinophils % 2.8 Basophils % 0.9 Nucleated RBC % 0.0 Absolute Neutrophils 3.28 Absolute Lymphocytes 0.51 L Absolute Monocytes 0.38 Absolute Eosinophils 0.12 Absolute Basophils 0.04 Sodium 139 Potassium 4.3 D 2.9 L* Chloride 102 Carbon Dioxide 26.7 Anion Gap 10.3 BUN 7 Creatinine 1.0 Est GFR (CKD-EPI 2020) 80.97 Glucose 112 H Calcium 8.6 Magnesium 2.6 H 1.6 L Iron 24 L TIBC 308 Transferrin Pending Transferrin % Sat 8 L Ferritin 30 Total Bilirubin 0.6 AST 22 ALT 22 Alkaline Phosphatase 67 Total Protein 6.7 Albumin 3.1 L Add-On Test Request DONE PFS All Active Problems (Updated 05/29/23 @ 09:58 by Jacob Coelho MD) Hypokalemia (Acute) Discharge planning issues (Acute) Diverticulosis (Acute) Accelerated essential hypertension (Acute) Hypomagnesemia (Acute) Acute CHF (congestive heart failure) (Acute) Hypertensive emergency (Acute) Tendinopathy of right biceps tendon (Acute) distal Afib (Chronic) PVD (peripheral vascular disease) with claudication (Acute) Foot pain (Acute) Lower urinary tract symptoms (LUTS) (Acute) Third degree heart block (Acute) PVD (peripheral vascular disease) (Chronic) Obstructive sleep apnea (Chronic) Chronic fatigue (Chronic) since CVA, worsening after COVID19 Stroke (Chronic) 09/14/17 Acute GI bleeding (Acute) Enlarged prostate (Acute) BPH (benign prostatic hyperplasia) (Chronic) Hemorrhage of large intestine due to diverticular disease (Acute) COVID (Acute) Paroxysmal atrial fibrillation (Acute 01/02/18) Umbilical hernia (Acute) Iron refractory iron deficiency anemia (Acute) Medical History SARS-CoV-2 antibody positive Adequate anticoagulation on anticoagulant therapy SVT (supraventricular tachycardia) Carotid artery stenosis bilateral last us 02/07 no stenosis, check q2yrs or prn Diverticula of colon pandivericulitis- severe Sleep apnea History of ileus Anemia Cerebrovascular accident (CVA) due to thrombosis of right middle cerebral artery (10/11/17) Weakness Tobacco abuse 35 pack year, quit Susan 2018, yearly Lung VT scan Osteoarthritis Arthritis Paresthesia Fatigue Aphasia Intermittent chest pain Vitiligo Surgical History S/P arterial stent H/O umbilical hernia repair (06/13/18) Dr Montiel H/O colonoscopy (03/2021) 2020: Dr. Horne, diverticula, no polyps repeat 10 years 2018:Dr Montiel, negative, repeat in 10 years History of total bilateral knee replacement H/O bilateral inguinal hernia repair Family History Father Alcohol use disorder Heart disease Mother Breast cancer Sister Breast cancer Other Carotid artery stenosis Social History Smoking/Tobacco Use Status: Former Tobacco Use Quit Date: 09/17/18 Tobacco: How many years used: 30 Smoking risk assessment performed?: Yes Alcohol Intake: former Drug use: Never Substance use type: does not use Housing: house Current gender identity: male What type of physical activity do you participate in: none Do you feel safe at home: Yes Do you feel safe in your relationship?: Yes Time Spent with Patient Time Spent with Patient: <45 minutes Time was spent: preparing to see the patient(eg.review tests), ordering medications,tests, procedures, referring, communicating with other health anesthesiologist and critical care, indepentently interpreting results, counseling the patient and care coordination
[2023-06-01 10:22] LABS: Transferrin 261 mg/dL (201-352)
== END 2023-05-29 18:20 | disposition home or self-care (01) | DRG 305 ==
LOC: ER 11:50 → ICU 17:00
PROVIDERS: Internal Medicine; Admitting Provider Internal Medicine; Emergency Provider Student in an Organized Health Care Education/Training Program; PCP Nurse Practitioner Family; Visit Provider Internal Medicine
DX: I16.1 Hypertensive emergency (principal); I47.10 Supraventricular tachycardia, unspecified; I11.0 Hypertensive heart disease with heart failure; D50.8 Other iron deficiency anemias; I48.0 Paroxysmal atrial fibrillation; E83.42 Hypomagnesemia; E87.6 Hypokalemia; I73.9 Peripheral vascular disease, unspecified; Z95.828 Presence of other vascular implants and grafts; Z86.73 Personal history of transient ischemic attack (TIA), and cerebral infarction without residual deficits; I50.9 Heart failure, unspecified; Z79.01 Long term (current) use of anticoagulants; Z96.653 Presence of artificial knee joint, bilateral; L80 Vitiligo; Z87.891 Personal history of nicotine dependence; N40.0 Benign prostatic hyperplasia without lower urinary tract symptoms; G47.33 Obstructive sleep apnea (adult) (pediatric)
CPT/HCPCS: 00123; 36415; 71275; 80053; 87635; 93005; 96365; 96368; 99291; 71046; 74174; 82728; 83540; 83550; 83735; 83880; 84132; 84466; 84484; 85014; 85018; 85025; 93010; 93306; 99239; J1756; J3475; J3480; J3490

== ENCOUNTER 2023-06-02 08:27 | Outpatient (CLI) | payer BC, MEDICARE, SELFPAY | END 2023-06-02 08:28 | disposition home or self-care (01) | PROVIDERS: PCP Nurse Practitioner Family; Visit Provider Nurse Practitioner Family | DX: R55 Syncope and collapse (principal) | CPT/HCPCS: 93270 ==

== ENCOUNTER 2023-06-05 03:23 | Outpatient (CLI) | payer BC, MEDICARE, SELFPAY ==
[2023-06-05 08:39] LABS: Abs Immature Grans 0.01 10^3/uL (0.0-0.06); Absolute Basophil Count 0.03 10^3/uL (0.0-0.2); Absolute Eosinophil Count 0.08 10^3/uL (0.0-0.7); Absolute Lymphocyte Count 0.65 10^3/uL (1.2-3.4); Absolute Monocyte Count 0.37 10^3/uL (0.1-0.8); Absolute Neutrophil Count 3.52 10^3/uL (1.2-6.7); Basophils % 0.6; Eosinophils % 1.7; HCT 31.8 % (40.0-50.0); HGB 10.5 g/dL (13.5-17.5); Immature Grans % 0.2; Lymphocytes % 13.9; MCH 29.2 pg (27.0-33.0); MCV 89 fL (80-95); MPV 10.6 fL (8.0-11.0); Monocytes % 7.9; Neutrophils % 75.7; Platelet Count 237 10^3/uL (130-400); RBC 3.59 10^6/uL (4.36-5.78); RDW 14.2 % (11.8-14.1); RDW-SD 45.1 fL; WBC 4.66 10^3/uL (4.4-10.8)
[2023-06-05 08:51] LABS: BUN 23 mg/dL (7-18); CREATININE 1.4 mg/dL (0.70-1.30); Calcium 9.2 mg/dL (8.5-10.1); Chloride 103 mmol/L (98-107); Estimated GFR 54.07 (mL/min/1.73m2); Glucose 144 mg/dL (74-106); Magnesium 1.7 mg/dL (1.8-2.4); Potassium 4.5 mmol/L (3.5-5.1); Sodium 139 mmol/L (136-145)
== END 2023-06-05 03:24 | disposition home or self-care (01) ==
LOC: LBO 03:23
PROVIDERS: PCP Nurse Practitioner Family; Visit Provider Nurse Practitioner Family
DX: D64.9 Anemia, unspecified (principal); E87.6 Hypokalemia; E83.42 Hypomagnesemia
CPT/HCPCS: 36415; 80048; 83735; 85025

== ENCOUNTER 2023-07-07 06:18 | Outpatient (CLI) | payer BC, MEDICARE, SELFPAY ==
--- NOTE | 2023-07-07 09:49 | W.CARDEVENT ---
Date of service: 07/07/23 Time of Service: 09:49 Cardiac Event Recorder Referring Provider:: Pascual Indications:: Syncope and collapse Cardiac Event Note: This was a 30-day event monitor 1. The underlying rhythm is sinus with average heart rate of 59 bpm. 2. Paroxysms of atrial fibrillation with rapid ventricular response, fastest 140 bpm. 3. Few ventricular ectopics with one 10 beat run of ventricular tachycardia. However possibility of this being supraventricular with aberrant conduction is also entertained. 4. No pauses noted Impression: Paroxysmal atrial fibrillation with rapid ventricular response
== END 2023-07-07 06:19 | disposition home or self-care (01) ==
LOC: CARDOPNVT 06:18
PROVIDERS: PCP Nurse Practitioner Family; Visit Provider Internal Medicine Interventional Cardiology
DX: R55 Syncope and collapse (principal); I48.0 Paroxysmal atrial fibrillation

== ENCOUNTER → 2023-07-13 01:26 | Outpatient (CLI) | payer BC, MEDICARE, SELFPAY ==
--- NOTE | 2023-07-13 | DI.NM_ITS ---
APPROVED REPORT Exam: Pharmacologic Patient Location: Out-Patient Room/Bed: Stress Nurse: Hemalatha Aguillon RN Ordering Provider:ERIC MAURICIO, Contact Number: [phone] BMI: 26.30 Baseline Rhythm: Sinus Bradycardia Comment: RBBB Indications: STAT, card consult, wet reading [facility] Medical History Medical History: hypokalemia, diverticulosis, HTN, Afib, PVD w/ claudication, 3rd degree heart block, PVD, RAJIV, stroke, BPH, anemia, HLD Cardiac Medications: Amlodipine, Atorvastatin, caredilol, chlorthalidone, Vitamin D3, Clopidogrel, fe rrous gluconate, lisinopril, magnesium oxide, omeprazole, pantoprazole, potassium chloride, rivaroxab an, tamsulosin Allergies: NKA Cardiac Risk Factors: PVD, HTN, former smoker, HLD Previous Cardiac Procedures: None Pretest Chest Pain Characteristics: None Exercise History: Sedentary Physical Disabilities: Knees Lung Sounds: Clear to auscultation Heart Sounds: Regular, Bradycardia Stress Test Details Test: Pharmacologic stress was paired with low level exercise. Nuclear Acquisition: Rest Tc-99m/Stress Tc-99m 1 day Rest Isotope: Tc-99m Sestamibi. Dose: 10 Date: 07/13/2023 Injection Time: 0900 Stress Isotope: Tc-99m Sestamibi. Dose: 30 Date: 07/13/2023 Injection Time: 1015 HR Resting HR Supine: 56 bpm Max Heart Rate (APMHR): 150.176185 bpm Resting HR Standin bpm Target HR (85% APMHR): 127.720966 bpm Max HR Achieved: 96 bpm % of APMHR: 64.00 Recovery HR: 71 bpm BP Resting BP Supine: 160/82 mmHg Resting BP Standin/74 mmHg Max BP: 178/84 mmHg Recovery BP: 178/84 mmHg ECG Resting ECG: Sinus Bradycardia, RBBB Ectopy: none Stress ECG: Sinus Rhythm, SVT ST Change: No significant ST segment changes noted Arrhythmia: None Recovery ECG: Sinus Rhythm, RBBB Recovery ST Change: No significant ST segment changes noted Recovery Arrhythmia: None Clinical Rate Pressure Product: [id number] Stress ECG Conclusion 1. Normal clinical, ECG, BP responses to exercise. 2. Nuclear findings reported separately. Stress Test Summary STAGE HR BP SpO2 Symptoms NOTES Supine 56 160/82 98 Standing 63 142/74 98 1 min post Lexiscan injection 87 158/68 98 SOB 3 min post Lexiscan injection 85 164/72 98 SOB resolved 6 min post Lexiscan injection 71 178/84 98 Pharmacologic exam was paired with low level exercise performed at 1.0MPH and 0% grade, Lexiscan was administered at 2:04 of exercise. Patient experienced mild SOB that resolved around 2 minutes after l exiscan administration. MPI Conclusion 1. Normal myocardial perfusion, no ischemia or infarct 2. Normal LV function, EF 63%. Radiologist Interpretation Radiologist Interpretation by: Marcus Hooker MD Interpretation Date/Time: 07/13/2023 16:26:41
[2023-07-13] MEDS: Regadenoson 0.4 MG/5 ML SYR IVP (10:07)
== END ==
PROVIDERS: PCP Nurse Practitioner Family; Visit Provider Nurse Practitioner Family
DX: I10 Essential (primary) hypertension (principal); I48.91 Unspecified atrial fibrillation
CPT/HCPCS: 78452; 93017; J2785

== ENCOUNTER 2023-07-20 04:55 | Outpatient (CLI) | payer BC, MEDICARE, SELFPAY ==
[2023-07-20 12:20] LABS: Abs Immature Grans 0.01 10^3/uL (0.0-0.06); Absolute Basophil Count 0.02 10^3/uL (0.0-0.2); Absolute Eosinophil Count 0.09 10^3/uL (0.0-0.7); Absolute Lymphocyte Count 0.28 10^3/uL (1.2-3.4); Absolute Monocyte Count 0.43 10^3/uL (0.1-0.8); Basophils % 0.5; Eosinophils % 2.1; HGB 10.8 g/dL (13.5-17.5); Immature Grans % 0.2; Lymphocytes % 6.5; MCH 29.7 pg (27.0-33.0); MCHC 33.8 % (32.0-36.0); MCV 88 fL (80-95); Monocytes % 9.9; Neutrophils % 80.8; Platelet Count 183 10^3/uL (130-400); RBC 3.64 10^6/uL (4.36-5.78); RDW 13.6 % (11.8-14.1); WBC 4.33 10^3/uL (4.4-10.8)
[2023-07-20 12:43] LABS: Anion Gap 7.7 mmol/L (3-11); BUN 13 mg/dL (7-18); CO2 26.3 mmol/L (21.0-32.0); CREATININE 1.1 mg/dL (0.70-1.30); Calcium 8.7 mg/dL (8.5-10.1); Chloride 105 mmol/L (98-107); Estimated GFR 72.22 (mL/min/1.73m2); Ferritin 36 ng/mL (26-388); Glucose 126 mg/dL (74-106); Iron 37 ug/dL (65-175); Magnesium 1.4 mg/dL (1.8-2.4); Potassium 3.5 mmol/L (3.5-5.1); Sodium 139 mmol/L (136-145); Total Iron Binding Capacity 325 ug/dL (250-450); Transferrin Sat 11 % (20-55)
== END 2023-07-20 04:56 | disposition home or self-care (01) ==
LOC: LOS 04:55
PROVIDERS: PCP Nurse Practitioner Family; Visit Provider Nurse Practitioner Family
DX: I10 Essential (primary) hypertension (principal); D64.9 Anemia, unspecified
CPT/HCPCS: 36415; 80048; 82728; 83540; 83550; 83735; 85025

== ENCOUNTER 2023-11-21 05:04 | Outpatient (CLI) | payer BC, MEDICARE, SELFPAY ==
[2023-11-21 12:30] LABS: Abs Immature Grans 0.01 10^3/uL (0.0-0.06); Absolute Basophil Count 0.04 10^3/uL (0.0-0.2); Absolute Lymphocyte Count 0.55 10^3/uL (1.2-3.4); Absolute Monocyte Count 0.38 10^3/uL (0.1-0.8); Absolute Neutrophil Count 3.89 10^3/uL (1.2-6.7); Basophils % 0.8 %; HCT 35.2 % (40.0-50.0); Immature Grans % 0.2 %; Lymphocytes % 11.1 %; MCH 30.8 pg (27.0-33.0); MCHC 34.1 % (32.0-36.0); MCV 91 fL (80-95); MPV 10.8 fL (8.0-11.0); Monocytes % 7.6 %; Neutrophils % 78.3 %; Platelet Count 198 10^3/uL (130-400); RBC 3.89 10^6/uL (4.36-5.78); RDW-SD 50.1 fL; WBC 4.97 10^3/uL (4.4-10.8)
[2023-11-21 12:52] LABS: Iron 39 ug/dL (65-175); Total Iron Binding Capacity 326 ug/dL (250-450); Transferrin Sat 12 % (20-55)
[2023-11-21 13:08] LABS: Anion Gap 10.2 mmol/L (3-11); BUN 18 mg/dL (7-18); CO2 24.8 mmol/L (21.0-32.0); CREATININE 1.2 mg/dL (0.70-1.30); Calcium 9.2 mg/dL (8.5-10.1); Chloride 104 mmol/L (98-107); Estimated GFR 64.65 (mL/min/1.73m2); Ferritin 49 ng/mL (26-388); Glucose 116 mg/dL (74-106); Magnesium 1.8 mg/dL (1.8-2.4); Potassium 4.2 mmol/L (3.5-5.1); Sodium 139 mmol/L (136-145); Vitamin D 25 Total 40.7 ng/mL (30-100)
== END 2023-11-21 05:05 | disposition home or self-care (01) ==
LOC: LOS 05:04
PROVIDERS: PCP Nurse Practitioner Family; Visit Provider Nurse Practitioner Family
DX: D64.9 Anemia, unspecified (principal); E55.9 Vitamin D deficiency, unspecified; I10 Essential (primary) hypertension
CPT/HCPCS: 36415; 80048; 82306; 82728; 83540; 83550; 83735; 85025

== ENCOUNTER 2024-01-05 11:15 | Outpatient (REF) | payer BC, MEDICARE, SELFPAY ==
[2024-01-05 14:48] LABS: Abs Immature Grans 0.02 10^3/uL (0.0-0.06); Absolute Basophil Count 0.06 10^3/uL (0.0-0.2); Absolute Eosinophil Count 0.26 10^3/uL (0.0-0.7); Absolute Lymphocyte Count 0.76 10^3/uL (1.2-3.4); Absolute Monocyte Count 0.39 10^3/uL (0.1-0.8); Absolute Neutrophil Count 3.96 10^3/uL (1.2-6.7); Basophils % 1.1 %; Eosinophils % 4.8 %; HCT 29.3 % (40.0-50.0); Immature Grans % 0.4 %; Lymphocytes % 13.9 %; MCH 31.9 pg (27.0-33.0); MCHC 34.1 % (32.0-36.0); MCV 94 fL (80-95); MPV 10.8 fL (8.0-11.0); Monocytes % 7.2 %; Neutrophils % 72.6 %; Platelet Count 216 10^3/uL (130-400); RBC 3.13 10^6/uL (4.36-5.78); RDW 13.2 % (11.8-14.1); RDW-SD 44.6 fL; WBC 5.45 10^3/uL (4.4-10.8)
== END 2024-01-05 11:16 | disposition home or self-care (01) ==
LOC: NCHCN 11:15
PROVIDERS: PCP Nurse Practitioner Family; Visit Provider Nurse Practitioner Family
DX: I48.91 Unspecified atrial fibrillation (principal)
CPT/HCPCS: 85025

== ENCOUNTER 2024-04-01 03:10 | Outpatient (CLI) | payer BC, MEDICARE, SELFPAY ==
[2024-04-01 09:15] LABS: CREATININE 1.3 mg/dL (0.70-1.30); Estimated GFR 58.73 (mL/min/1.73m2)
== END 2024-04-01 03:11 | disposition home or self-care (01) ==
PROVIDERS: PCP Nurse Practitioner Family; Visit Provider Nurse Practitioner Family
DX: R53.83 Other fatigue (principal); I10 Essential (primary) hypertension; I63.9 Cerebral infarction, unspecified; I48.0 Paroxysmal atrial fibrillation; D50.9 Iron deficiency anemia, unspecified; G47.33 Obstructive sleep apnea (adult) (pediatric); M62.81 Muscle weakness (generalized); E87.5 Hyperkalemia
CPT/HCPCS: 36415; 82565

== ENCOUNTER 2024-04-01 13:25 | Emergency (ER) | payer BC, MEDICARE, SELFPAY ==
[2024-04-01] VITALS (19 sets, daily range): BP systolic 118–177; BP diastolic 64–117; PULSE 52–67; RESP 12–24; TEMP 36.7; O2SAT 93–100
--- NOTE | 2024-04-01 13:15 | RT.EKG_ITS ---
APPROVED REPORT Exam: Resting ECG Reason for Exam: Diff breathing. shoulder pain Patient Location: E HR:64 bpm ECG Measurements Heart Rate 64 AXIS MO 209 P 48 QRSd 110 QRS 0 QT 381 T 39 QTc 394 Conclusion Sinus rhythm, rate 64 No interval abnormalities No STEMI
--- NOTE | 2024-04-01 14:00 | DI.RAD_ITS ---
Exam(s) XR CHEST 2V PA LATERAL EXAM: XR CHEST 2V PA LATERAL CLINICAL HISTORY: CP. TECHNIQUE: 2D digital imaging was performed. COMPARISON: CR,XR XR CHEST 2V PA LATERAL from 05/28/2023 FINDINGS: 2 views: There is a cardiac loop detector in the anterior chest wall slightly left of center. Heart size is normal. The mediastinum is not widened. Lungs are clear. No infiltrates nor pleural effusions. IMPRESSION: No acute pulmonary findings. DATA REPOSITORY: RADIATION DOSE DELIVERED:
--- NOTE | 2024-04-01 14:05 | W.ED.GENAD ---
Discharge Plan Disposition Patient Disposition: Home Condition: Stable Discharge Details Clinical Impression: Fatigue, Hypertension, Stroke, Paroxysmal atrial fibrillation, Iron refractory iron deficiency anemia, Obstructive sleep apnea, Muscle weakness (generalized), Acute hyperkalemia Primary Care Provider: Elisa Garner ED Provider: Cassidy Cloud Home Meds and New Rx's Prescriptions: No Action lisinopril 20 mg tablet 20 mg PO DAILY cholecalciferol (vitamin D3) 1,250 mcg (50,000 unit) capsule 1,250 mcg PO QWEEK carvedilol 6.25 mg tablet 12.5 mg PO BID Qty: 120 11RF atorvastatin 40 mg tablet 80 mg PO DAILY Xarelto 20 mg tablet 20 mg PO DAILY Rx Instructions: must administer with evening meal omeprazole 20 mg capsule,delayed release(DR/EC) 20 mg PO DAILY chlorthalidone 25 mg tablet 25 mg PO DAILY tamsulosin [Flomax] 0.4 mg capsule 0.8 mg PO DAILY clopidogrel [Plavix] 75 mg tablet 75 mg PO DAILY amlodipine 5 mg Tablet 5 mg PO DAILY Qty: 30 0RF sucralfate 1 gram Tablet 1 g PO AC & HS Qty: 120 0RF magnesium oxide 400 mg (241.3 mg magnesium) Tablet 400 mg PO DAILY Qty: 30 0RF pantoprazole 40 mg Tablet,Delayed Release (Dr/Ec) 40 mg PO BID@07,1999 Qty: 60 0RF potassium chloride 20 mEq tablet extended release 20 meq PO DAILY Qty: 30 0RF ferrous gluconate 324 mg (37.5 mg iron) tablet 324 mg PO DAILY Qty: 0 0RF Discharge Instructions Instructions: Fatigue (DC) Additional Instructions: You were seen in the emergency department today for evaluation of fatigue and generalized weakness of your arms more than your legs, discomfort of your shoulders and chest, and worsening breathing when you exert yourself. In our department you had a full physical examination performed as well as an extensive workup. Your EKG and cardiac enzymes did not show any sign of damage to your heart or heart attack. Your heart rhythm was normal and was monitored while you were in the emergency department. Your anemia was stable, and has not worsened from the last time it was checked. I did notice that your kidney function has been declining very slightly over the last several times you have had lab work done. Today that was redemonstrated though it was not significantly worsened from your baseline. For this reason I do recommend that you keep your referral with nephrology so that they can evaluate your kidneys and determine the cause of this change. Your potassium today was higher than typical for you, 5.3. This is not so high that it is significantly dangerous, and we did not note any changes on your EKG or evaluation that would require you to undergo emergent treatment to lower your potassium. However, I want you to stop taking your potassium supplementation for the next few days to a week, and I want your primary care provider to recheck your potassium as well as your kidney function in the next few days to a week to ensure that your potassium is returning to normal as expected, and is not continuing to eat increase. You should keep your appointment with your neurologist at [facility] for evaluation of your carotid arteries and treatment of the occlusion/stenosis. They may have additional recommendations for further workup that could be done to determine the cause of your fatigue and weakness. As always, we are happy to continue caring for you and you can always return to the emergency department for reevaluation, especially if you have symptoms that change, worsen, or persist. Please keep all of your outpatient provider appointments and call your primary care provider in the morning. Thank you for allowing us to be part of your care. HPI General Mode of arrival: ambulatory. Date/Time Provider Initiated Documentation: 04/01/24 13:44. Limitations to Documentation: no limitations. Information obtained by: patient and old records reviewed. HPI Narrative: HPI: This is a 73-year-old male patient with a past medical history significant for sleep apnea, CVA without significant residual deficits, atrial fibrillation on Xarelto, hypertension and hyperlipidemia who is presenting for evaluation of generalized fatigue, chest and upper extremity pain. The patient reports that he is typically quite an active person, and has noticed decreased exercise tolerance associated with generalized weakness of the upper greater than the lower extremities over the last 4 weeks. He notices a bilateral heavy chest pain, and states that he has had dyspnea especially on exertion with an occasional cough. He has not noted any fevers or chills, has had occasional headaches, not currently experiencing a headache. The patient reports he has been eating and drinking normally, has not noted any vision changes, has not had any nausea or vomiting or changes to his bowel or bladder habits. The patient has not tried any medications in the outpatient environment for management of the symptoms and has been taking all of his prescribed medications without recent dosing changes. Exam: Gen: Awake and alert, in no apparent distress HEENT: Non-icteric sclera, pupils equal and reactive, EOMs full. No temporal tenderness Neck: Supple Lungs: No apparent respiratory distress, normal respiratory effort. Lung sounds clear and equal bilaterally CV: Appears well perfused. Heart with bradycardic rate but regular rhythm, no murmurs auscultated. Strong and symmetrical pulses Abdomen: Non-distended, soft, nontender MSK: Moves 4 extremities without apparent limitation in ROM. No unilateral calf swelling or tenderness, no peripheral edema Skin: Visualized skin without rashes, cyanosis. Neuro: Normal Gait, no obvious focal deficits or facial asymmetry. Speaks in full, clear sentences. Psych: Appropriate for situation. MDM: This is a 73-year-old male patient presenting for evaluation of 1 to 3 weeks of chest heaviness, upper extremity weakness, and increased fatigue with shortness of breath. My differential includes but is not limited to cardiac etiologies including ACS, arrhythmia, heart failure, also considered pulmonary abnormalities including pneumonia, pneumothorax, pulmonary edema, pleural effusion. No focal lung findings to suggest reactive airway disease exacerbation, no murmur auscultated to significantly increase my concern for aortic stenosis. I considered metabolic electrolyte derangements, kidney injury, liver disease, anemia. Will obtain laboratory studies to include CBC, CMP, troponin, PT/INR, and a BNP. I will obtain a chest x-ray as well as an EKG. ED Course: I reviewed the patient's laboratory studies, which shows no leukocytosis. His anemia is unchanged compared to his priors and there is no evidence of thrombocytopenia. Chemistry panel demonstrates a modest elevation in his BUN and creatinine, 25 and 1.4, both of which have been demonstrated on prior laboratory evaluations. Today, I do note that his potassium is 5.3, which is higher than typical for him, and his sample was not noted by the lab to be hemolyzed. He has no evidence of liver dysfunction, BNP was very low, and the troponin x 2 checks was unchanged, less concerning for ischemic disease. Independently interpreted the patient's chest x-ray which does not show any abnormalities to account for his symptoms. He was monitored on telemetry and did not have any evidence for arrhythmia. I discussed the results of the patient's workup with him, and emphasized the importance of ongoing evaluation to determine the exact cause of his symptoms. I did consider systemic/autoimmune situation such as polymyalgia rheumatica but I am hesitant to put this patient on systemic steroids when there is still so much diagnostic uncertainty. I recommended to the patient that he hold his home potassium, and call his primary care provider in the morning to discuss reevaluation and laboratory recheck to determine if his potassium is normalizing or if he has worsening of his kidney function. He does not have any indication at this time for admission or medical management of his hyperkalemia given his lack of EKG changes, as well as his baseline renal dysfunction. The patient has a scheduled appointment at [facility] for neurology evaluation/carotid workup, and he was encouraged to keep that appointment. At this time, the patient has had a full medical evaluation and is safe for discharge to home. They are hemodynamically stable, ambulatory, and tolerating PO. They are understanding of the follow-up plan and return precautions. They left our facility without incident. Cassidy Cloud MD Related Data Home Medications ?Medication ?Instructions ?Recorded ?Confirmed carvedilol 6.25 mg tablet 12.5 mg (2 x 6.25 mg) PO BID #120 04/13/18 04/01/24 tab-caps atorvastatin 40 mg tablet 80 mg PO DAILY 08/06/19 04/01/24 lisinopril 20 mg tablet 20 mg PO DAILY 07/15/22 04/01/24 cholecalciferol (vitamin D3) 1,250 1,250 mcg PO QWEEK 08/11/22 04/01/24 mcg (50,000 unit) capsule omeprazole 20 mg capsule,delayed 20 mg PO DAILY 08/15/22 04/01/24 release rivaroxaban 20 mg tablet (Xarelto) 20 mg PO DAILY 08/15/22 04/01/24 chlorthalidone 25 mg tablet 25 mg PO DAILY 10/18/22 04/01/24 tamsulosin 0.4 mg capsule (Flomax) 0.8 mg PO DAILY 10/18/22 04/01/24 clopidogrel 75 mg tablet (Plavix) 75 mg PO DAILY 05/28/23 04/01/24 amlodipine 5 mg tablet 5 mg PO DAILY #30 tabs 05/29/23 04/01/24 ferrous gluconate 324 mg (37.5 mg 324 mg PO DAILY #0 tabs 05/29/23 04/01/24 iron) tablet magnesium oxide 400 mg (241.3 mg 400 mg PO DAILY #30 tabs 05/29/23 04/01/24 magnesium) tablet pantoprazole 40 mg tablet,delayed 40 mg PO BID@ #60 tabs 05/29/23 04/01/24 release potassium chloride 20 mEq 20 meq PO DAILY #30 tabs 05/29/23 04/01/24 tablet,extended release sucralfate 1 gram tablet 1 g PO AC & HS #120 tabs 05/29/23 04/01/24 Previous Rx's ?Medication ?Instructions ?Recorded carvedilol 6.25 mg tablet 12.5 mg (2 x 6.25 mg) PO BID #120 04/13/18 tab-caps amlodipine 5 mg tablet 5 mg PO DAILY #30 tabs 05/29/23 ferrous gluconate 324 mg (37.5 mg 324 mg PO DAILY #0 tabs 05/29/23 iron) tablet magnesium oxide 400 mg (241.3 mg 400 mg PO DAILY #30 tabs 05/29/23 magnesium) tablet pantoprazole 40 mg tablet,delayed 40 mg PO BID@ #60 tabs 05/29/23 release potassium chloride 20 mEq 20 meq PO DAILY #30 tabs 05/29/23 tablet,extended release sucralfate 1 gram tablet 1 g PO AC & HS #120 tabs 05/29/23 Allergies Allergy/AdvReac Type Severity Reaction Status Date / Time No Known Allergies Allergy Verified 05/28/23 08:55 General Stated Complaint: Chest Pain CLAU: 3 Course Vital Signs Vital signs: Vital Signs Temperature 36.7 C 04/01/24 13:37 Pulse 67 04/01/24 13:37 Respiratory Rate 15 04/01/24 13:37 Blood Pressure 118/72 04/01/24 13:37 Pulse Oximetry 94 04/01/24 13:37 Temperature 36.7 C 04/01/24 13:37 Pulse 67 04/01/24 13:37 Respiratory Rate 15 04/01/24 13:37 Blood Pressure 118/72 04/01/24 13:37 Blood Pressure Position Sitting 04/01/24 13:37 Pulse Oximetry 94 04/01/24 13:37 Oxygen Delivery Method Room Air 04/01/24 13:37 Oxygen Flow Rate 0 04/01/24 13:37 Medical Decision Making Quality:SDOH Health Related Social Needs: No Data to Display PFSH All Active Problems (Updated 04/01/24 @ 16:07 by Cassidy Cloud MD) Acute hyperkalemia (Acute) Muscle weakness (generalized) (Acute) Fatigue (Acute) Hypokalemia (Acute) Diverticulosis (Acute) Accelerated essential hypertension (Acute) Hypomagnesemia (Acute) Tendinopathy of right biceps tendon (Acute) distal Afib (Chronic) PVD (peripheral vascular disease) with claudication (Acute) Foot pain (Acute) Lower urinary tract symptoms (LUTS) (Acute) Third degree heart block (Acute) PVD (peripheral vascular disease) (Chronic) Obstructive sleep apnea (Chronic) Chronic fatigue (Chronic) since CVA, worsening after COVID19 Stroke (Chronic) 09/14/17 Acute GI bleeding (Acute) Enlarged prostate (Acute) BPH (benign prostatic hyperplasia) (Chronic) Hemorrhage of large intestine due to diverticular disease (Acute) COVID (Acute) Paroxysmal atrial fibrillation (Acute 01/02/18) Umbilical hernia (Acute) Iron refractory iron deficiency anemia (Acute) Hypertension (Chronic) Medical History SARS-CoV-2 antibody positive Adequate anticoagulation on anticoagulant therapy SVT (supraventricular tachycardia) Carotid artery stenosis bilateral last us 02/07 no stenosis, check q2yrs or prn Diverticula of colon pandivericulitis- severe Sleep apnea History of ileus Anemia Cerebrovascular accident (CVA) due to thrombosis of right middle cerebral artery (10/11/17) Weakness Tobacco abuse 35 pack year, quit 2018, yearly Lung VT scan Osteoarthritis Arthritis Paresthesia Fatigue Aphasia Intermittent chest pain Vitiligo Surgical History S/P arterial stent H/O umbilical hernia repair (06/13/18) Dr Montiel H/O colonoscopy (03/2021) 2020: Dr. Horne, diverticula, no polyps repeat 10 years 2018:Dr Montiel, negative, repeat in 10 years History of total bilateral knee replacement H/O bilateral inguinal hernia repair Family History Father Alcohol use disorder Heart disease Mother Breast cancer Sister Breast cancer Other Carotid artery stenosis Social History Smoking/Tobacco Use Status: Former Tobacco Use Quit Date: 09/17/18 Tobacco: How many years used: 30 Smoking risk assessment performed?: Yes Alcohol Intake: former Drug use: Never Substance use type: does not use Housing: house Current gender identity: male What type of physical activity do you participate in: none Do you feel safe at home: Yes Do you feel safe in your relationship?: Yes
[2024-04-01 14:19] LABS: Abs Immature Grans 0.02 10^3/uL (0.0-0.06); Absolute Basophil Count 0.03 10^3/uL (0.0-0.2); Absolute Eosinophil Count 0.12 10^3/uL (0.0-0.7); Absolute Lymphocyte Count 0.63 10^3/uL (1.2-3.4); Absolute Neutrophil Count 4.27 10^3/uL (1.2-6.7); Basophils % 0.5 %; Eosinophils % 2.2 %; HCT 35.8 % (40.0-50.0); Immature Grans % 0.4 %; Lymphocytes % 11.3 %; MCH 30.5 pg (27.0-33.0); MCHC 33.5 % (32.0-36.0); MCV 91 fL (80-95); MPV 10.1 fL (8.0-11.0); Neutrophils % 76.6 %; Platelet Count 218 10^3/uL (130-400); RBC 3.93 10^6/uL (4.36-5.78); RDW-SD 43.8 fL; WBC 5.57 10^3/uL (4.4-10.8)
[2024-04-01 14:30] LABS: INR 1.2 (0.9-1.1); Prothrombin Time 12.3 sec (9.1-11.1)
[2024-04-01 14:45] LABS: ALT 33 U/L (16-63); AST 24 U/L (15-37); Albumin 3.3 g/dL (3.4-5.0); Alkaline Phosphatase 94 U/L (46-116); Anion Gap 7.2 mmol/L (3-11); BUN 25 mg/dL (7-18); CO2 24.8 mmol/L (21.0-32.0); CREATININE 1.4 mg/dL (0.70-1.30); Calcium 9.2 mg/dL (8.5-10.1); Chloride 108 mmol/L (98-107); Estimated GFR 53.74 (mL/min/1.73m2); Glucose 89 mg/dL (74-106); Magnesium 2.2 mg/dL (1.8-2.4); NT-proBNP 55 pg/mL (<300); Potassium 5.3 mmol/L (3.5-5.1); Sodium 140 mmol/L (136-145); Total Protein 6.8 g/dL (6.4-8.2); Troponin I 7 ng/L (<or=76)
[2024-04-01 15:43] LABS: Troponin I 7 ng/L (<or=76)
== END 2024-04-01 16:25 | disposition home or self-care (01) ==
PROVIDERS: Emergency Provider Emergency Medicine; PCP Nurse Practitioner Family
DX: R07.9 Chest pain, unspecified (principal); D50.9 Iron deficiency anemia, unspecified; E87.5 Hyperkalemia; G47.33 Obstructive sleep apnea (adult) (pediatric); I10 Essential (primary) hypertension; E78.5 Hyperlipidemia, unspecified; I48.0 Paroxysmal atrial fibrillation; Z79.01 Long term (current) use of anticoagulants; Z79.02 Long term (current) use of antithrombotics/antiplatelets; Z87.891 Personal history of nicotine dependence
CPT/HCPCS: 36415; 80053; 93005; 99285; 71046; 83735; 83880; 84443; 84484; 85025; 85610; 93010; 99284

== ENCOUNTER 2024-04-09 16:54 | Outpatient (REF) | payer BC, MEDICARE, SELFPAY ==
[2024-04-09 15:49] LABS: Anion Gap 10.4 mmol/L (3-11); BUN 23 mg/dL (7-18); CO2 21.6 mmol/L (21.0-32.0); CREATININE 1.2 mg/dL (0.70-1.30); Calcium 9.3 mg/dL (8.5-10.1); Chloride 108 mmol/L (98-107); Estimated GFR 64.65 (mL/min/1.73m2); Glucose 105 mg/dL (74-106); Potassium 4.8 mmol/L (3.5-5.1); Sodium 140 mmol/L (136-145)
[2024-04-10 11:06] LABS: PSA, Screening 4.1 ng/mL (<=6.5)
== END 2024-04-09 16:55 | disposition home or self-care (01) ==
LOC: NCHCN 16:54
PROVIDERS: PCP Nurse Practitioner Family; Visit Provider Nurse Practitioner Family
DX: I10 Essential (primary) hypertension (principal); R39.9 Unspecified symptoms and signs involving the genitourinary system
CPT/HCPCS: 80048; 84153

== ENCOUNTER 2024-05-13 02:31 | Outpatient (CLI) | payer BC, MEDICARE, SELFPAY ==
[2024-05-13 12:14] LABS: Abs Immature Grans 0.04 10^3/uL (0.0-0.06); Absolute Basophil Count 0.05 10^3/uL (0.0-0.2); Absolute Eosinophil Count 0.11 10^3/uL (0.0-0.7); Absolute Lymphocyte Count 0.63 10^3/uL (1.2-3.4); Absolute Monocyte Count 0.41 10^3/uL (0.1-0.8); Basophils % 0.8 %; Eosinophils % 1.7 %; HCT 36.8 % (40.0-50.0); HGB 12.4 g/dL (13.5-17.5); Immature Grans % 0.6 %; Lymphocytes % 9.6 %; MCHC 33.7 % (32.0-36.0); MCV 92 fL (80-95); MPV 10.6 fL (8.0-11.0); Monocytes % 6.3 %; Platelet Count 207 10^3/uL (130-400); RDW 13.2 % (11.8-14.1); RDW-SD 44.8 fL; WBC 6.54 10^3/uL (4.4-10.8)
[2024-05-13 12:36] LABS: Anion Gap 9.9 mmol/L (3-11); BUN 22 mg/dL (7-18); CO2 22.1 mmol/L (21.0-32.0); CREATININE 1.4 mg/dL (0.70-1.30); Calcium 8.8 mg/dL (8.5-10.1); Chloride 105 mmol/L (98-107); Estimated GFR 53.74 (mL/min/1.73m2); Ferritin 57 ng/mL (26-388); Glucose 118 mg/dL (74-106); Potassium 4.2 mmol/L (3.5-5.1); Sodium 137 mmol/L (136-145)
[2024-05-13 13:06] LABS: Iron 192 ug/dL (65-175); Total Iron Binding Capacity 355 ug/dL (250-450); Transferrin Sat 54 % (20-55)
[2024-05-14 09:29] LABS: Transferrin 261 mg/dL (201-352)
== END 2024-05-13 02:32 | disposition home or self-care (01) ==
LOC: LOS 02:31
PROVIDERS: PCP Nurse Practitioner Family; Visit Provider Nurse Practitioner Family
DX: D64.9 Anemia, unspecified (principal); E87.6 Hypokalemia; E83.42 Hypomagnesemia; N18.9 Chronic kidney disease, unspecified
CPT/HCPCS: 36415; 80048; 82728; 83540; 83550; 84466; 85025

== ENCOUNTER 2024-06-23 06:19 | Emergency (ER) | payer BC, MEDICARE, SELFPAY ==
[2024-06-23] VITALS (41 sets, daily range): BP systolic 172–259; BP diastolic 64–129; PULSE 45–68; RESP 12–23; TEMP 36.4; O2SAT 95–99
--- NOTE | 2024-06-23 06:30 | DI.CT_ITS ---
Exam(s) CT HEAD WO EXAM: CT HEAD WO CLINICAL HISTORY: Hypertensive, PIERRE. TECHNIQUE: Imaging Protocol: Axial computed tomography images with coronal and sagittal reformatted images were created and reviewed COMPARISON: CT CT HEAD WO from 07/05/2022 FINDINGS: There are no skull fractures. There is no fluid in the visualized paranasal sinuses. There is no evidence of intracranial hemorrhage, new mass effect, or shift of midline structures. Th ere are no extra-axial fluid collections. The ventricles are not enlarged or shifted and there is no blood within the ventricular system nor within the basal cisterns. Again noted is area of encephalomalacia in the right temporoparietal region territory of right middle cerebral artery. This appears unchanged from the CT scan of 07/05/2022. Small lacunar infarct is a lso again noted in the right caudate nucleus. There are no new territorial infarcts evident. Ventricular size remains normal. IMPRESSION: Stable appearance of previous right temporoparietal infarct, unchanged from 07/05/2022 There is a stable small nonhemorrhagic lacunar infarct in the right caudate nucleus. Normal unchanged ventricular size. RADIATION DOSE DELIVERED: 849.96mGy.cm Total DLP DATA REPOSITORY: All CT scans at this facility are submitted to the National Radiology Data Registry (NRDR) Dose Index Registry (DIR) with the [employer] (A[employer]). RADIATION OPTIMIZATION: All CT scans at this facility use at least one of these dose optimization te chniques: automated exposure control; mA and/or kV adjustment per patient size (includes targeted exa ms where dose is matched to clinical indication); or iterative reconstruction.
--- NOTE | 2024-06-23 06:30 | RT.EKG_ITS ---
APPROVED REPORT Exam: Resting ECG Reason for Exam: HTN Patient Location: E HR:54 bpm ECG Measurements Heart Rate 54 AXIS SC 192 P 37 QRSd 110 QRS -8 QT 425 T 28 QTc 403 Conclusion Sinus bradycardia No interval abnormalities No STEMI
--- NOTE | 2024-06-23 06:48 | ED.GENADUL_ITS ---
Discharge Plan Discharge Details Chief Complaint: Urinary Primary Care Provider: Elisa Garner ED Provider: Cassidy Cloud Home Meds and New Rx's Prescriptions: No Action lisinopril 20 mg tablet 20 mg PO DAILY Patient Comments: pts hand written med list shows 2 mg 06/23/24 cholecalciferol (vitamin D3) 1,250 mcg (50,000 unit) capsule 1,250 mcg PO QWEEK carvedilol 6.25 mg tablet 12.5 mg PO BID Qty: 120 11RF atorvastatin 40 mg tablet 80 mg PO DAILY Xarelto 20 mg tablet 20 mg PO DAILY Rx Instructions: must administer with evening meal omeprazole 20 mg capsule,delayed release(DR/EC) 20 mg PO DAILY chlorthalidone 25 mg tablet 25 mg PO DAILY tamsulosin [Flomax] 0.4 mg capsule 0.8 mg PO DAILY clopidogrel [Plavix] 75 mg tablet 75 mg PO DAILY amlodipine 5 mg Tablet 5 mg PO DAILY Qty: 30 0RF sucralfate 1 gram Tablet 1 g PO AC & HS Qty: 120 0RF magnesium oxide 400 mg (241.3 mg magnesium) Tablet 400 mg PO DAILY Qty: 30 0RF pantoprazole 40 mg Tablet,Delayed Release (Dr/Ec) 40 mg PO BID@0730,1999 Qty: 60 0RF potassium chloride 20 mEq tablet extended release 20 meq PO DAILY Qty: 30 0RF ferrous gluconate 324 mg (37.5 mg iron) tablet 324 mg PO DAILY Qty: 0 0RF bisoprolol fumarate 5 mg tablet 5 mg PO DAILY diltiazem HCl [Cardizem] 120 mg tablet 120 mg PO ONCE diltiazem HCl 60 mg tablet 120 mg PO DAILY HPI General Mode of arrival: ambulatory . Date/Time Provider Initiated Documentation: 06/23/24 06:22 . Limitations to Documentation: no limitations . Information obtained by: patient and old records reviewed . HPI Narrative: HPI: This is a 73-year-old male patient with a past medical history significant for BPH, RAJIV, atrial fibrillation on Xarelto, hypertension and hyperlipidemia who is presenting for evaluation of urinary retention and hypertension. The patient reports that for a very long period of time he has had difficulty fully emptying his bladder. He reports that he tries to go and nothing or only a small amount will come out. He says that this has been the case for a long time, he saw urologist a few days ago and is taking his Flomax as prescribed. He has not required catheterization in the past, passed urine upon arriving at the emergency department and had a postvoid residual of 150ml. The patient is not experiencing hematuria, dysuria, or flank pain. The patient reports that he also has longstanding hypertension, that has required admission to the ICU for IV drip medications in the past. He states that he typically runs in the 200s systolics, but tonight checked his blood pressure and noted it to be 240-260's systolic, prompting him to seek care. He has been taking all of his antihypertensives as prescribed, has not taken any morning meds but does not take his antihypertensives in the morning. He states that this is associated with a headache and some lightheadedness/dizziness, that is not positional in nature. He states that he felt like he was going to pass out, and states that over the past year he has had a number of syncopal episodes. The patient denies chest pain, shortness of breath, vision changes, difficulty walking. Exam: Gen: Awake and alert, in no apparent distress HEENT: Non-icteric sclera pupils equal and reactive at 2 mm bilaterally, EOMs full Neck: Supple Lungs: No apparent respiratory distress, normal respiratory effort. CV: Appears well perfused, strong distal pulses Abdomen: Non-distended, soft, nontender to palpation without rigidity, rebound, or guarding MSK: Moves 4 extremities without apparent limitation in ROM Skin: Visualized skin without rashes, cyanosis. Neuro: Normal Gait, cranial nerves II through XII intact and symmetrical bilaterally, symmetrical strength and sensation x 4 extremities. Speaks in full, clear sentences. Psych: Appropriate for situation. MDM: This is a 73-year-old male patient presenting for evaluation of hypertension and urinary retention. Regarding his urinary retention differentials include but are not limited to BPH, postobstructive uropathy, UTI, kidney injury, hydronephrosis, nephrolithiasis. His postvoid residual is not so high that I think that he requires emergent catheterization. Regarding his hypertension, I certainly considered hypertensive urgency, emergency, intracranial hemorrhage, CVA, though I am reassured by the patient's preserved neuro examination. Considered metabolic and electrolyte derangements, kidney injury, cardiac disease. A bedside ultrasound does not reveal any significant hydronephrosis, some sed iment appreciated in the bladder, and I will obtain laboratory studies to include CBC, CMP, magnesium, troponin, urinalysis. Will obtain a Noncon CT of the head to better characterize any abnormalities which might account for the patient's symptoms, and will obtain an EKG. ED Course: I independently interpreted the laboratory studies, which show no significant leukocytosis, anemia, or thrombocytopenia. The chemistry panel is without evidence of electrolyte abnormality, kidney dysfunction, or liver injury. Troponin was negative. EKG shows no evidence of ischemia. I independently interpreted the patient's CT head, which does show the patient's prior right MCA stroke, as well as what appears to be some small lacunar strokes. No acute intracranial hemorrhage appreciated by this provider. The patient made several attempts to urinate, and was only able to pass about 15 mL of urine. I did shared decision-making conversation with the patient and ultimately we have elected to proceed with Goldsmith catheter placement. I signed out care of this patient to the oncoming provider prior to urinalysis, Goldsmith catheter, and final CT read of the head. His disposition will pend repeat blood pressure after urinary retention is resolved, to ensure that he does not have significant worsening of his blood pressure that would require admission or medical management. Cassidy Cloud MD Related Data Home Medications ?Medication ?Instructions ?Recorded ?Confirmed carvedilol 6.25 mg tablet 12.5 mg (2 x 6.25 mg) PO BID #120 04/13/18 06/23/24 tab-caps atorvastatin 40 mg tablet 80 mg PO DAILY 08/06/19 06/23/24 lisinopril 20 mg tablet 20 mg PO DAILY 07/15/22 06/23/24 cholecalciferol (vitamin D3) 1,250 1,250 mcg PO QWEEK 08/11/22 06/23/24 mcg (50,000 unit) capsule omeprazole 20 mg capsule,delayed 20 mg PO DAILY 08/15/22 06/23/24 release rivaroxaban 20 mg tablet (Xarelto) 20 mg PO DAILY 08/15/22 06/23/24 chlorthalidone 25 mg tablet 25 mg PO DAILY 10/18/22 06/23/24 tamsulosin 0.4 mg capsule (Flomax) 0.8 mg PO DAILY 10/18/22 06/23/24 clopidogrel 75 mg tablet (Plavix) 75 mg PO DAILY 05/28/23 06/23/24 amlodipine 5 mg tablet 5 mg PO DAILY #30 tabs 05/29/23 06/23/24 ferrous gluconate 324 mg (37.5 mg 324 mg PO DAILY #0 tabs 05/29/23 06/23/24 iron) tablet magnesium oxide 400 mg (241.3 mg 400 mg PO DAILY #30 tabs 05/29/23 06/23/24 magnesium) tablet pantoprazole 40 mg tablet,delayed 40 mg PO BID@ #60 tabs 05/29/23 06/23/24 release potassium chloride 20 mEq 20 meq PO DAILY #30 tabs 05/29/23 06/23/24 tablet,extended release sucralfate 1 gram tablet 1 g PO AC & HS #120 tabs 05/29/23 06/23/24 bisoprolol fumarate 5 mg tablet 5 mg PO DAILY 06/23/24 06/23/24 diltiazem HCl 120 mg tablet 120 mg PO ONCE 06/23/24 06/23/24 (Cardizem) diltiazem HCl 60 mg tablet 120 mg PO DAILY 06/23/24 06/23/24 Previous Rx's ?Medication ?Instructions ?Recorded carvedilol 6.25 mg tablet 12.5 mg (2 x 6.25 mg) PO BID #120 04/13/18 tab-caps amlodipine 5 mg tablet 5 mg PO DAILY #30 tabs 05/29/23 ferrous gluconate 324 mg (37.5 mg 324 mg PO DAILY #0 tabs 05/29/23 iron) tablet magnesium oxide 400 mg (241.3 mg 400 mg PO DAILY #30 tabs 05/29/23 magnesium) tablet pantoprazole 40 mg tablet,delayed 40 mg PO BID@ #60 tabs 05/29/23 release potassium chloride 20 mEq 20 meq PO DAILY #30 tabs 05/29/23 tablet,extended release sucralfate 1 gram tablet 1 g PO AC & HS #120 tabs 05/29/23 Allergies Allergy/AdvReac Type Severity Reaction Status Date / Time No Known Allergies Allergy Verified 06/23/24 06:22 General Stated Complaint: Urinary CLAU: 3 Course Vital Signs Vital signs: Vital Signs Temperature 36.4 C L 06/23/24 06:22 Pulse 61 06/23/24 06:22 Respiratory Rate 18 06/23/24 06:22 Blood Pressure 259/98 H 06/23/24 06:22 Temperature 36.4 C L 06/23/24 06:22 Temperature Source Temporal Artery Scan 06/23/24 06:22 Pulse 61 06/23/24 06:22 Respiratory Rate 18 06/23/24 06:22 Blood Pressure 259/98 H 06/23/24 06:22 Blood Pressure Position Sitting 06/23/24 06:22 Oxygen Delivery Method Room Air 06/23/24 06:22 Oxygen Flow Rate 0 06/23/24 06:22 Pain Level 0 06/23/24 06:22 Medical Decision Making Quality:SDOH Health Related Social Needs: No Data to Display PFSH All Active Problems (Updated 05/02/24 @ 00:08 by PADMAJA FARLEY) Hypokalemia (Acute) Diverticulosis (Acute) Accelerated essential hypertension (Acute) Hypomagnesemia (Acute) Tendinopathy of right biceps tendon (Acute) distal Afib (Chronic) PVD (peripheral vascular disease) with claudication (Acute) Foot pain (Acute) Lower urinary tract symptoms (LUTS) (Acute) Third degree heart block (Acute) PVD (peripheral vascular disease) (Chronic) Obstructive sleep apnea (Chronic) Chronic fatigue (Chronic) since CVA, worsening after COVID19 Stroke (Chronic) 09/14/17 Acute GI bleeding (Acute) Enlarged prostate (Acute) BPH (benign prostatic hyperplasia) (Chronic) Hemorrhage of large intestine due to diverticular disease (Acute) COVID (Acute) Paroxysmal atrial fibrillation (Acute 01/02/18) Umbilical hernia (Acute) Iron refractory iron deficiency anemia (Acute) Hypertension (Chronic) Medical History SARS-CoV-2 antibody positive Adequate anticoagulation on anticoagulant therapy SVT (supraventricular tachycardia) Carotid artery stenosis bilateral last us 02/07 no stenosis, check q2yrs or prn Diverticula of colon pandivericulitis- severe Sleep apnea History of ileus Anemia Cerebrovascular accident (CVA) due to thrombosis of right middle cerebral artery (10/11/17) Weakness Tobacco abuse 35 pack year, quit Susan 2018, yearly Lung VT scan Osteoarthritis Arthritis Paresthesia Fatigue Aphasia Intermittent chest pain Vitiligo Surgical History S/P arterial stent H/O umbilical hernia repair (06/13/18) Dr Montiel H/O colonoscopy (03/2021) 2020: Dr. Horne, diverticula, no polyps repeat 10 years 2018:Dr Montiel, negative, repeat in 10 years History of total bilateral knee replacement H/O bilateral inguinal hernia repair Family History Father Alcohol use disorder Heart disease Mother Breast cancer Sister Breast cancer Other Carotid artery stenosis Social History Smoking/Tobacco Use Status: Former Tobacco Use Quit Date: 09/17/18 Tobacco: How many years used: 30 Smoking risk assessment performed?: Yes Alcohol Intake: former Drug use: Never Substance use type: does not use Housing: house Current gender identity: male What type of physical activity do you participate in: none Do you feel safe at home: Yes Do you feel safe in your relationship?: Yes POCUS Exam (ED) Limited Retroperitoneal(Renal)Exam DATE OF EXAM: 06/23/24 TIME OF EXAM: 06:53 PROVIDER THAT PERFORMED THE STUDY: Cassidy Cloud IS THIS A REPEAT EXAM DURING THIS ENCOUNTER: No REASON FOR EXAM: Anuria VISUALIZED STRUCTURES: Left kidney, Right kidney and Other structures: Bladder PERTINENT FINDINGS/IMPRESSION: Other impression: Bladder sediment ; no hydronephrosis present
[2024-06-23 07:14] LABS: Abs Immature Grans 0.02 10^3/uL (0.0-0.06); Absolute Basophil Count 0.05 10^3/uL (0.0-0.2); Absolute Eosinophil Count 0.11 10^3/uL (0.0-0.7); Absolute Lymphocyte Count 0.62 10^3/uL (1.2-3.4); Absolute Monocyte Count 0.39 10^3/uL (0.1-0.8); Absolute Neutrophil Count 4.38 10^3/uL (1.2-6.7); Basophils % 0.9 %; HCT 34.8 % (40.0-50.0); HGB 11.9 g/dL (13.5-17.5); Immature Grans % 0.4 %; Lymphocytes % 11.1 %; MCH 30.5 pg (27.0-33.0); MCHC 34.2 % (32.0-36.0); MCV 89 fL (80-95); MPV 10.1 fL (8.0-11.0); Neutrophils % 78.6 %; Platelet Count 203 10^3/uL (130-400); RDW 12.5 % (11.8-14.1); RDW-SD 40.5 fL; WBC 5.57 10^3/uL (4.4-10.8)
[2024-06-23] MEDS: Acetaminophen 500 MG TAB 1000 MG PO (07:18)
[2024-06-23 07:44] LABS: ALT 20 U/L (16-63); AST 23 U/L (15-37); Albumin 3.2 g/dL (3.4-5.0); Alkaline Phosphatase 76 U/L (46-116); BUN 20 mg/dL (7-18); CREATININE 1.3 mg/dL (0.70-1.30); Calcium 8.9 mg/dL (8.5-10.1); Chloride 106 mmol/L (98-107); Estimated GFR 58.73 (mL/min/1.73m2); Glucose 115 mg/dL (74-106); Magnesium 1.8 mg/dL (1.8-2.4); Potassium 4.7 mmol/L (3.5-5.1); Sodium 139 mmol/L (136-145); Total Protein 6.6 g/dL (6.4-8.2); Troponin I 8 ng/L (<or=76)
[2024-06-23 08:47] LABS: Bilirubin Negative (Negative); Blood Trace-intact (Negative); Clarity Clear (Clear); Glucose Negative (Negative); Ketones Negative (Negative); Leukocyte Esterase Negative (Negative); Nitrite Negative (Negative); Specific Gravity 1.015 (1.005-1.025); Urobilinogen 0.2 mg/dL (Up to 0.2); pH 5.5 (5-8)
[2024-06-23 08:52] LABS: Bacteria Negative HPF (Negative); C & S Indicated? No; Casts 0-2 Hyaline LPF (Negative); Crystals Negative HPF (Negative); Epithelial Cells Rare HPF (Negative); Mucus Negative (Negative); RBC 0-2 HPF (0-2); WBC Negative HPF (0-5)
--- NOTE | 2024-06-23 09:28 | DI.VRAD_ITS ---
PROCEDURE INFORMATION: Exam: CT Head Without Contrast Exam date and time: 06/23/2024 7:43 AM Age: 73 years old Clinical indication: Other: Hypertensive , PIERRE TECHNIQUE: Imaging protocol: Computed tomography of the head without contrast. COMPARISON: CT HEAD WO 07/05/2022 4:26 PM FINDINGS: Brain: The brain shows mild involutional change. There is a large encephalomalacia defect in the right parietal lobe representing an old infarct unchanged from previous exam. Tiny old lacunar infarct of the right caudate head. No acute infarct seen. No hemorrhage or mass. No significant white matter abnormality. No midline shift. Cerebral ventricles: Normal. No ventriculomegaly or midline shift. Pituitary gland and sella: Normal. No enlargement. Paranasal sinuses: Visualized sinuses are unremarkable. No fluid levels or mucosal thickening. Mastoid air cells: Visualized mastoid air cells are well aerated. Bones: Unremarkable. No acute fracture. Soft tissues: Unremarkable. Vasculature: No significant atherosclerotic calcification. IMPRESSION: Old infarcts. No acute findings. Dictated and Authenticated by: Kevyn Dhillon MD. Ordering:JAIMIE Degroot MD
--- NOTE | 2024-06-23 10:30 | W.EDPROG ---
Date of service: 06/23/24 Time of Service: 10:30 Medical Decision Making Patient was signed out to me by my colleague Dr. Cloud. Please refer to HPI, physical exam, assessment and plan. At time of signout we are awaiting CT result. CT scan returned, no evidence of acute infarct. Old infarcts are noted. Repeat exam shows no neurologic deficit. Blood pressure notably improved during his time once Goldsmith catheter was placed. He feels well and is requesting discharge. Patient is on multiple antihypertensives already. After pain was managed, his blood pressure came down to 216/90 which was a 45 point drop. Review of his previous blood pressure statuses reveal that this is quite normal for him, I am concerned with causing too much of a rapid pressure decline as he has no evidence of endorgan damage acutely, no headache and no other complaints. He has not taken his morning medications, and I feel that this will appropriately help manage his pressure from here on out. Patient will be discharged with close follow-up with urology at [facility] on an outpatient basis. Discussed red flags which to return. I have extensively reviewed the treatment plan and discharge instructions with the patient. I have addressed all patient concerns at this time. The patient was made aware of what symptoms to monitor for that would warrant a return to the emergency department. Discussed the plan with the patient, they demonstrate verbal understanding and agreement with our assessment and plan at this time. The documentation in this chart was dictated using [employer] dictation software. Please excuse any dictation errors. FINDINGS: Brain: The brain shows mild involutional change. There is a large encephalomalacia defect in the right parietal lobe representing an old infarct unchanged from previous exam. Tiny old lacunar infarct of the right caudate head. No acute infarct seen. No hemorrhage or mass. No significant white matter abnormality. No midline shift. Cerebral ventricles: Normal. No ventriculomegaly or midline shift. Pituitary gland and sella: Normal. No enlargement. Paranasal sinuses: Visualized sinuses are unremarkable. No fluid levels or mucosal thickening. Mastoid air cells: Visualized mastoid air cells are well aerated. Bones: Unremarkable. No acute fracture. Soft tissues: Unremarkable. Vasculature: No significant atherosclerotic calcification. IMPRESSION: Old infarcts. No acute findings. Thank you for allowing us to participate in the care of your patient. Dictated and Authenticated by: Kevyn Dhillon MD Quality:SDOH Health Related Social Needs: No Data to Display Discharge Plan Disposition Patient Disposition: Home Condition: Good Discharge Details Clinical Impression: Acute urinary retention Primary Care Provider: Elisa Garner ED Provider: Flaco Call Home Meds and New Rx's Prescriptions: No Action lisinopril 20 mg tablet 20 mg PO DAILY Patient Comments: pts hand written med list shows 2 mg 06/23/24 cholecalciferol (vitamin D3) 1,250 mcg (50,000 unit) capsule 1,250 mcg PO QWEEK carvedilol 6.25 mg tablet 12.5 mg PO BID Qty: 120 11RF atorvastatin 40 mg tablet 80 mg PO DAILY Xarelto 20 mg tablet 20 mg PO DAILY Rx Instructions: must administer with evening meal omeprazole 20 mg capsule,delayed release(DR/EC) 20 mg PO DAILY chlorthalidone 25 mg tablet 25 mg PO DAILY tamsulosin [Flomax] 0.4 mg capsule 0.8 mg PO DAILY clopidogrel [Plavix] 75 mg tablet 75 mg PO DAILY amlodipine 5 mg Tablet 5 mg PO DAILY Qty: 30 0RF sucralfate 1 gram Tablet 1 g PO AC & HS Qty: 120 0RF magnesium oxide 400 mg (241.3 mg magnesium) Tablet 400 mg PO DAILY Qty: 30 0RF pantoprazole 40 mg Tablet,Delayed Release (Dr/Ec) 40 mg PO BID@729,1999 Qty: 60 0RF potassium chloride 20 mEq tablet extended release 20 meq PO DAILY Qty: 30 0RF ferrous gluconate 324 mg (37.5 mg iron) tablet 324 mg PO DAILY Qty: 0 0RF bisoprolol fumarate 5 mg tablet 5 mg PO DAILY diltiazem HCl [Cardizem] 120 mg tablet 120 mg PO ONCE diltiazem HCl 60 mg tablet 120 mg PO DAILY Discharge Instructions Instructions: How to Care for Your Goldsmith Catheter Additional Instructions: At this time you have a Goldsmith catheter in place. Please follow-up closely with your urologist at [facility] for removal and cystoscopy. If you notice any worsening of your symptoms, or any new symptoms such as vomiting, diarrhea, fever, chills, shortness of breath, chest pain, numbness, weakness, or fainting , please return immediately to the emergency department for reevaluation. Please follow up with your primary care provider as soon as possible for reassessment and reevaluation. As always, it was a pleasure participating in your medical care today. Referrals: Elisa Garner [Primary Care Provider] - Angy Merchant [ [facility]ICIAN] - Discharge Data Discharge Date/Time-TO BE ENTERED AT DEPARTURE: 06/23/24 10:56
--- NOTE | 2024-06-27 09:30 | NUR.NOTE ---
Access chart to confirm that a referral was faxed to his Urologist at [facility]. It was done. Nursing Note:
--- NOTE | 2024-06-27 09:32 | NUR.NOTE ---
Nursing Note: The patient called with a few questions about his catheter that was placed on Monday. He reported that the tubing was collapsing and not allowing urine to go into the bag but rather back flow and build up until it drains. The tubing on our leg bags are flat and flimsy and this is how he described the tubing to me. I told him that if he is wearing the leg bag (which he confirmed he was), this is normal. However, it should not be back flowing and should be draining. He said that the urine is draining around the catheter and causing him to look like he is constantly urinating in his pants. I instructed him to have the catheter assessed. He was instructed to either come back to the ED, go to express care, or contact his primary care provider for an assessment. He was also notified that a urology referral was sent to [facility] urology and should contact them. Our system stated that it was received on Monday and now that it is and he has not heard anything, he should reach out. He intends to so this this morning. He is concerned that he is going to be charged again for another ED visit so intends to start with his primary or express care, but will come back to the ED if he is unsuccessful with them.
== END 2024-06-23 10:56 | disposition home or self-care (01) ==
PROVIDERS: Emergency Medicine; Emergency Provider Student in an Organized Health Care Education/Training Program; PCP Nurse Practitioner Family
DX: R33.9 Retention of urine, unspecified (principal); I10 Essential (primary) hypertension; I48.91 Unspecified atrial fibrillation
CPT/HCPCS: 00123; 36415; 51702; 80053; 93005; 99285; 70450; 81003; 81015; 82607; 83735; 84443; 84484; 85025; 93010; 99284

== ENCOUNTER 2024-06-27 13:00 | Emergency (ER) | payer BC, MEDICARE, SELFPAY ==
[2024-06-27 13:04] VITALS: BP 135/58; PULSE 52; RESP 16; TEMP 36.3; O2SAT 96
[2024-06-27 13:07] VITALS: BP 135/58; PULSE 52; RESP 16; TEMP 36.3; O2SAT 96
--- NOTE | 2024-06-27 14:19 | ED.GENADUL_ITS ---
Discharge Plan Disposition Patient Disposition: Home Discharge Details Clinical Impression: Goldsmith catheter problem Primary Care Provider: Elisa Garner ED Provider: Bárbara Rosales Home Meds and New Rx's Prescriptions: No Action lisinopril 20 mg tablet 20 mg PO DAILY Patient Comments: pts hand written med list shows 2 mg 06/23/24 cholecalciferol (vitamin D3) 1,250 mcg (50,000 unit) capsule 1,250 mcg PO QWEEK carvedilol 6.25 mg tablet 12.5 mg PO BID Qty: 120 11RF atorvastatin 40 mg tablet 80 mg PO DAILY Xarelto 20 mg tablet 20 mg PO DAILY Rx Instructions: must administer with evening meal omeprazole 20 mg capsule,delayed release(DR/EC) 20 mg PO DAILY chlorthalidone 25 mg tablet 25 mg PO DAILY tamsulosin [Flomax] 0.4 mg capsule 0.8 mg PO DAILY clopidogrel [Plavix] 75 mg tablet 75 mg PO DAILY amlodipine 5 mg Tablet 5 mg PO DAILY Qty: 30 0RF sucralfate 1 gram Tablet 1 g PO AC & HS Qty: 120 0RF magnesium oxide 400 mg (241.3 mg magnesium) Tablet 400 mg PO DAILY Qty: 30 0RF pantoprazole 40 mg Tablet,Delayed Release (Dr/Ec) 40 mg PO BID@0730,2000 Qty: 60 0RF potassium chloride 20 mEq tablet extended release 20 meq PO DAILY Qty: 30 0RF ferrous gluconate 324 mg (37.5 mg iron) tablet 324 mg PO DAILY Qty: 0 0RF bisoprolol fumarate 5 mg tablet 5 mg PO DAILY diltiazem HCl [Cardizem] 120 mg tablet 120 mg PO ONCE diltiazem HCl 60 mg tablet 120 mg PO DAILY Discharge Instructions Additional Instructions: Goldsmith catheter was exchanged today. This should hopefully improve the discomfort and the leaking. Urine urinalysis does not reveal any signs of infection. Please continue your Flomax daily. Please follow-up with urology as previously directed HPI General Date/Time Provider Initiated Documentation: 06/27/24 13:15 . Limitations to Documentation: no limitations . Information obtained by: patient and old records reviewed . HPI Narrative: 73-year-old gentleman with past medical history of A-fib on Xarelto, PVD, BPH, hypertension presents for evaluation of Goldsmith catheter discomfort. Patient was evaluated in the emergency department 2 days ago with concern for difficulty urinating. The patient has had ongoing issues and does take Flomax. He has not previously required catheterization. Patient was having significant difficulty with urination so Goldsmith catheter was placed at that time. He reports that he is having leakage from around the catheter. He denies any significant abdominal pain. He does report pain at the insertion site in his penis. Reports that it has been flowing normally but the leaking is bothering him. Related Data Home Medications ?Medication ?Instructions ?Recorded ?Confirmed carvedilol 6.25 mg tablet 12.5 mg (2 x 6.25 mg) PO BID #120 04/13/18 06/27/24 tab-caps atorvastatin 40 mg tablet 80 mg PO DAILY 08/06/19 06/27/24 lisinopril 20 mg tablet 20 mg PO DAILY 07/15/22 06/27/24 cholecalciferol (vitamin D3) 1,250 1,250 mcg PO QWEEK 08/11/22 06/27/24 mcg (50,000 unit) capsule omeprazole 20 mg capsule,delayed 20 mg PO DAILY 08/15/22 06/27/24 release rivaroxaban 20 mg tablet (Xarelto) 20 mg PO DAILY 08/15/22 06/27/24 chlorthalidone 25 mg tablet 25 mg PO DAILY 10/18/22 06/27/24 tamsulosin 0.4 mg capsule (Flomax) 0.8 mg PO DAILY 10/18/22 06/27/24 clopidogrel 75 mg tablet (Plavix) 75 mg PO DAILY 05/28/23 06/27/24 amlodipine 5 mg tablet 5 mg PO DAILY #30 tabs 05/29/23 06/27/24 ferrous gluconate 324 mg (37.5 mg 324 mg PO DAILY #0 tabs 05/29/23 06/27/24 iron) tablet magnesium oxide 400 mg (241.3 mg 400 mg PO DAILY #30 tabs 05/29/23 06/27/24 magnesium) tablet pantoprazole 40 mg tablet,delayed 40 mg PO BID@0730,1999 #60 tabs 05/29/23 06/27/24 release potassium chloride 20 mEq 20 meq PO DAILY #30 tabs 05/29/23 06/27/24 tablet,extended release sucralfate 1 gram tablet 1 g PO AC & HS #120 tabs 05/29/23 06/27/24 bisoprolol fumarate 5 mg tablet 5 mg PO DAILY 06/23/24 06/27/24 diltiazem HCl 120 mg tablet 120 mg PO ONCE 06/23/24 06/27/24 (Cardizem) diltiazem HCl 60 mg tablet 120 mg PO DAILY 06/23/24 06/27/24 Previous Rx's ?Medication ?Instructions ?Recorded carvedilol 6.25 mg tablet 12.5 mg (2 x 6.25 mg) PO BID #120 04/13/18 tab-caps amlodipine 5 mg tablet 5 mg PO DAILY #30 tabs 05/29/23 ferrous gluconate 324 mg (37.5 mg 324 mg PO DAILY #0 tabs 05/29/23 iron) tablet magnesium oxide 400 mg (241.3 mg 400 mg PO DAILY #30 tabs 05/29/23 magnesium) tablet pantoprazole 40 mg tablet,delayed 40 mg PO BID@0730,1999 #60 tabs 05/29/23 release potassium chloride 20 mEq 20 meq PO DAILY #30 tabs 05/29/23 tablet,extended release sucralfate 1 gram tablet 1 g PO AC & HS #120 tabs 05/29/23 Allergies Allergy/AdvReac Type Severity Reaction Status Date / Time No Known Allergies Allergy Verified 06/27/24 13:06 General Stated Complaint: Urinary CLAU: 4 Exam Narrative Exam Narrative: Review of Systems: All systems reviewed & are unremarkable except as noted in HPI and below Well-developed, no acute distress NCAT PERRL, normal conjunctiva RRR Unlabored respiratory effort Nondistended abdomen soft nontender Bladder scan negative for retention Goldsmith catheter in place, no significant irritation around the urethral meatus Course Vital Signs Vital signs: Vital Signs Temperature 36.3 C L 06/27/24 13:04 Pulse 52 L 06/27/24 13:04 Respiratory Rate 16 06/27/24 13:04 Blood Pressure 135/58 L 06/27/24 13:04 Pulse Oximetry 96 06/27/24 13:04 Temperature 36.3 C L 06/27/24 13:07 Temperature Source Oral 06/27/24 13:07 Pulse 52 L 06/27/24 13:07 Respiratory Rate 16 06/27/24 13:07 Blood Pressure 135/58 L 06/27/24 13:07 Pulse Oximetry 96 06/27/24 13:07 Medical Decision Making Emergent evaluation of Goldsmith catheter discomfort. Patient has a normal examination and no significant concerns for skin breakdown. Consider bladder spasm or poorly inflated balloon. Will exchange Goldsmith catheter and send urinalysis to evaluate for possible infection. Urinalysis is without infection. discomfort improved with catheter exchange. Recommend follow up with urology as previously planned and referred. Quality:SDOH Health Related Social Needs: No Data to Display PFSH All Active Problems (Updated 06/27/24 @ 14:47 by Bárbara Rosales MD) Goldsmith catheter problem (Acute) Acute urinary retention (Acute) Hypokalemia (Acute) Diverticulosis (Acute) Accelerated essential hypertension (Acute) Hypomagnesemia (Acute) Tendinopathy of right biceps tendon (Acute) distal Afib (Chronic) PVD (peripheral vascular disease) with claudication (Acute) Foot pain (Acute) Lower urinary tract symptoms (LUTS) (Acute) Third degree heart block (Acute) PVD (peripheral vascular disease) (Chronic) Obstructive sleep apnea (Chronic) Chronic fatigue (Chronic) since CVA, worsening after COVID19 Stroke (Chronic) 09/14/17 Acute GI bleeding (Acute) Enlarged prostate (Acute) BPH (benign prostatic hyperplasia) (Chronic) Hemorrhage of large intestine due to diverticular disease (Acute) COVID (Acute) Paroxysmal atrial fibrillation (Acute 01/02/18) Umbilical hernia (Acute) Iron refractory iron deficiency anemia (Acute) Hypertension (Chronic) Medical History SARS-CoV-2 antibody positive Adequate anticoagulation on anticoagulant therapy SVT (supraventricular tachycardia) Carotid artery stenosis bilateral last us 02/07 no stenosis, check q2yrs or prn Diverticula of colon pandivericulitis- severe Sleep apnea History of ileus Anemia Cerebrovascular accident (CVA) due to thrombosis of right middle cerebral artery (10/11/17) Weakness Tobacco abuse 35 pack year, quit Susan 2018, yearly Lung VT scan Osteoarthritis Arthritis Paresthesia Fatigue Aphasia Intermittent chest pain Vitiligo Surgical History S/P arterial stent H/O umbilical hernia repair (06/13/18) Dr Montiel H/O colonoscopy (03/2021) 2020: Dr. Horne, diverticula, no polyps repeat 10 years 2018:Dr Montiel, negative, repeat in 10 years History of total bilateral knee replacement H/O bilateral inguinal hernia repair Family History Father Alcohol use disorder Heart disease Mother Breast cancer Sister Breast cancer Other Carotid artery stenosis Social History Smoking/Tobacco Use Status: Former Tobacco Use Quit Date: 09/17/18 Tobacco: How many years used: 30 Smoking risk assessment performed?: Yes Alcohol Intake: former Drug use: Never Substance use type: does not use Housing: house Current gender identity: male What type of physical activity do you participate in: none Do you feel safe at home: Yes Do you feel safe in your relationship?: Yes
[2024-06-27] MEDS: Lidocaine 2% Jelly 6 ML SYR (14:20)
[2024-06-27 14:26] LABS: Bilirubin Negative (Negative); Blood Large (Negative); Clarity Cloudy (Clear); Glucose Negative (Negative); Ketones Trace mg/dL (Negative); Leukocyte Esterase Negative (Negative); Nitrite Negative (Negative); Specific Gravity >= 1.030 (1.005-1.025); Urobilinogen 0.2 mg/dL (Up to 0.2); pH 5.5 (5-8)
[2024-06-27 14:36] LABS: Bacteria Few HPF (Negative); C & S Indicated? No; Casts Negative LPF (Negative); Crystals Moderate Amorphous HPF (Negative); Epithelial Cells Rare HPF (Negative); Mucus Negative (Negative); RBC >50 HPF (0-2)
== END 2024-06-27 15:21 | disposition home or self-care (01) ==
PROVIDERS: Emergency Provider Emergency Medicine; PCP Nurse Practitioner Family
DX: T83.098A Other mechanical complication of other urinary catheter, initial encounter (principal)
CPT/HCPCS: 51702; 99283; 81003; 81015

== ENCOUNTER 2024-07-26 01:21 | Outpatient (CLI) | payer BC, MEDICARE, SELFPAY ==
[2024-07-29 17:40] LABS: PSA, Ultrasensitive 11.1 ng/mL (<= 6.5)
== END 2024-07-26 01:22 | disposition home or self-care (01) ==
LOC: LBO 01:21
PROVIDERS: PCP Nurse Practitioner Family; Visit Provider Urology
DX: R97.20 Elevated prostate specific antigen [PSA] (principal)
CPT/HCPCS: 36415; 84153; 87086

== ENCOUNTER 2024-07-27 13:39 | Outpatient (REF) | payer BC, MEDICARE, SELFPAY | END 2024-07-27 13:40 | disposition home or self-care (01) | LOC: LBN 13:39 | PROVIDERS: PCP Nurse Practitioner Family; Visit Provider Surgery | DX: R97.20 Elevated prostate specific antigen [PSA] (principal) | CPT/HCPCS: 87077; 87086; 87186 ==

== ENCOUNTER 2024-08-19 01:26 | Outpatient (CLI) | payer BC, MEDICARE, SELFPAY ==
--- NOTE | 2024-08-19 06:45 | DI.RAD_ITS ---
Exam(s) XR FOOT LT COMPLETE EXAM: XR FOOT LT COMPLETE CLINICAL HISTORY: Left foot pain,m79.672. TECHNIQUE: 2D digital imaging was performed. COMPARISON: CR XR FOOT RT COMPLETE from 09/29/2022 FINDINGS: 3 views No evidence of fracture or diastasis of the Lisfranc joint. There is a healed oblique fracture in th e shaft of the left 5th metatarsal, similar to the opposite-right side. No other fractures evident. Great toe metatarsophalangeal joint appears unremarkable. Both sesamoid bones subjacent to the grea t metatarsal head are noted to be bipartite. Indeed the more lateral of the 2 appears tripartite. Metatarsophalangeal and tarsometatarsal joints appear unremarkable. Other midfoot and hindfoot artic ulations appear unremarkable. No pes planus. No significant inferior calcaneal spur nor enthesophyt es evident. IMPRESSION: Healed oblique fracture deformity of the 5th metatarsal, identical to the opposite-right foot DATA REPOSITORY: RADIATION DOSE DELIVERED:
--- NOTE | 2024-08-19 06:45 | DI.RAD_ITS ---
Exam(s) XR FOOT RT COMPLETE EXAM: XR FOOT RT COMPLETE CLINICAL HISTORY: Right foot pain,m79.671. TECHNIQUE: 2D digital imaging was performed. COMPARISON: CR XR FOOT LT COMPLETE from 08/19/2024 FINDINGS: 3 views No evidence of acute fracture or diastasis of the Lisfranc joint. Great toe metatarsophalangeal join t as well as other MTP joints appear unremarkable. There is a healed oblique fracture in the diaphysis of the 5th metatarsal, a finding which is identic al to the opposite-left foot. No other fracture sites evident. Both sesamoid bones subjacent to the great toe metatarsal head are noted to be bipartite. There is n o pes planus. Small inferior calcaneal spur noted. No calcification in the plantar fascia. IMPRESSION: Healed oblique fracture in the 5th metatarsal which is a similar finding to the opposite-right foot. There are no acute fractures evident. DATA REPOSITORY: RADIATION DOSE DELIVERED:
== END 2024-08-19 01:46 ==
PROVIDERS: PCP Nurse Practitioner Family; Visit Provider Podiatrist
DX: M79.672 Pain in left foot (principal); M79.671 Pain in right foot
CPT/HCPCS: 73630

== ENCOUNTER 2024-09-16 16:52 | Outpatient (CLI) | payer BC, MEDICARE, SELFPAY ==
[2024-09-16 16:51] LABS: Abs Immature Grans 0.03 10^3/uL (0.0-0.06); Absolute Basophil Count 0.04 10^3/uL (0.0-0.2); Absolute Eosinophil Count 0.19 10^3/uL (0.0-0.7); Absolute Lymphocyte Count 0.91 10^3/uL (1.2-3.4); Absolute Neutrophil Count 5.47 10^3/uL (1.2-6.7); Basophils % 0.6 %; Eosinophils % 2.7 %; HCT 25.2 % (40.0-50.0); Immature Grans % 0.4 %; Lymphocytes % 12.7 %; MCH 27.7 pg (27.0-33.0); MCHC 31.7 % (32.0-36.0); MCV 87 fL (80-95); MPV 10.1 fL (8.0-11.0); Neutrophils % 76.6 %; Platelet Count 287 10^3/uL (130-400); RBC 2.89 10^6/uL (4.36-5.78); RDW 13.7 % (11.8-14.1); RDW-SD 43.4 fL; WBC 7.14 10^3/uL (4.4-10.8)
[2024-09-16 17:11] LABS: Diff Comment RBC Morph Reviewed; Iron 18 ug/dL (65-175); Poikilocytes 1+; Total Iron Binding Capacity 376 ug/dL (250-450); Transferrin Sat 5 % (20-55)
[2024-09-16 17:18] LABS: Ferritin 22 ng/mL (26-388)
== END 2024-09-16 16:53 | disposition home or self-care (01) ==
LOC: LBO 16:53
PROVIDERS: PCP Nurse Practitioner Family; Visit Provider Nurse Practitioner Family
DX: D64.9 Anemia, unspecified (principal); E87.6 Hypokalemia; E83.42 Hypomagnesemia
CPT/HCPCS: 36415; 82728; 83540; 83550; 85025

== ENCOUNTER 2024-09-17 16:52 | Outpatient (CLI) | payer BC, MEDICARE, SELFPAY | END 2024-09-17 16:53 | disposition home or self-care (01) | LOC: LBO 16:53 | PROVIDERS: PCP Nurse Practitioner Family; Visit Provider Nurse Practitioner Family | DX: D64.9 Anemia, unspecified (principal) | CPT/HCPCS: 36415; 86850; 86900; 86901; 86920 ==

== ENCOUNTER 2024-09-19 01:39 | Outpatient (RCR) | payer BC, MEDICARE, SELFPAY ==
[2024-09-19] VITALS (10 sets, daily range): BP systolic 114–169; BP diastolic 60–96; PULSE 56–77; RESP 17–19; TEMP 36.4–37.2; O2SAT 97–100
[2024-09-19] MEDS: Normal Saline Flush 5 ML SYR IVP (08:45)
== END 2024-10-16 23:59 | disposition home or self-care (01) ==
LOC: INF 01:39
PROVIDERS: PCP Nurse Practitioner Family; Visit Provider Family Medicine
DX: D64.9 Anemia, unspecified (principal)
CPT/HCPCS: 36415; 36430; 86850; 86900; 86901; 86920; P9016

== ENCOUNTER 2024-09-20 19:22 | Emergency (ER) | payer BC, MEDICARE, SELFPAY ==
[2024-09-20] VITALS (11 sets, daily range): BP systolic 209–215; BP diastolic 93–184; PULSE 68–77; RESP 14–21; TEMP 36.7; O2SAT 96–99
--- NOTE | 2024-09-20 19:15 | RT.EKG_ITS ---
APPROVED REPORT Exam: Resting ECG Reason for Exam: SOB Patient Location: E HR:63 bpm ECG Measurements Heart Rate 63 AXIS NM 193 P 26 QRSd 112 QRS -10 QT 407 T 23 QTc 417 Conclusion Sinus rhythm...normal P axis, V-rate 60- 99 No STEMI
--- NOTE | 2024-09-20 19:30 | DI.RAD_ITS ---
Exam(s) XR CHEST 2V PA LATERAL EXAM: XR CHEST 2V PA LATERAL CLINICAL HISTORY: SOB TECHNIQUE: 2D digital imaging was performed of the chest. Two images were obtained. PA and lateral views were obtained. COMPARISON: CR XR CHEST 2V PA LATERAL from 04/01/2024 FINDINGS: MEDIASTINUM: Normal. HEART: Normal. PULMONARY VASCULATURE: Normal. LUNGS: Chronic interstitial changes are seen in the lungs. No focal consolidating infiltrates are se en. PLEURAL SPACE: No pleural effusion or pneumothorax. BONE:Within normal limits for the patient's age. OTHER FINDINGS:There is a cardiac monitoring device in the anterior chest wall. IMPRESSION: No acute pulmonary findings. DATA REPOSITORY: RADIATION DOSE DELIVERED:
--- NOTE | 2024-09-20 19:48 | W.ED.GENAD ---
Discharge Plan Disposition Patient Disposition: Home Condition: Stable Discharge Details Clinical Impression: Sinusitis, Left acute suppurative otitis media Primary Care Provider: Elisa Garner ED Provider: Clara Joseph Home Meds and New Rx's Prescriptions: New amoxicillin-pot clavulanate 875-125 mg tablet 1 tab PO BID 10 Days Qty: 20 0RF Continued lisinopril 20 mg tablet 20 mg PO DAILY Patient Comments: pts hand written med list shows 2 mg 06/23/24 cholecalciferol (vitamin D3) 1,250 mcg (50,000 unit) capsule 1,250 mcg PO QWEEK carvedilol 6.25 mg tablet 12.5 mg PO BID Qty: 120 11RF atorvastatin 40 mg tablet 80 mg PO DAILY Xarelto 20 mg tablet 20 mg PO DAILY Rx Instructions: must administer with evening meal omeprazole 20 mg capsule,delayed release(DR/EC) 20 mg PO DAILY chlorthalidone 25 mg tablet 25 mg PO DAILY tamsulosin [Flomax] 0.4 mg capsule 0.8 mg PO DAILY clopidogrel [Plavix] 75 mg tablet 75 mg PO DAILY amlodipine 5 mg Tablet 5 mg PO DAILY Qty: 30 0RF sucralfate 1 gram Tablet 1 g PO AC & HS Qty: 120 0RF magnesium oxide 400 mg (241.3 mg magnesium) Tablet 400 mg PO DAILY Qty: 30 0RF potassium chloride 20 mEq tablet extended release 20 meq PO DAILY Qty: 30 0RF ferrous gluconate 324 mg (37.5 mg iron) tablet 324 mg PO DAILY Qty: 0 0RF bisoprolol fumarate 5 mg tablet 5 mg PO DAILY diltiazem HCl [Cardizem] 120 mg tablet 120 mg PO ONCE diltiazem HCl 60 mg tablet 120 mg PO DAILY Discharge Instructions Instructions: Sinusitis, Adult ED, Ear Infection ED Additional Instructions: At this time the head CT shows that you have a left-sided sinus infection and an ear infection. You were given a dose of antibiotics here in the emergency department. Please take the antibiotic twice daily as directed with yogurt or probiotic. Please take Tylenol or Ibuprofen with food every 4-6 hours as needed for pain and swelling. Please follow-up with ear nose and throat within the next week, you are placed on a care management list to follow-up. Follow up with primary care provider in 3-5 days. Return to ED sooner if any worsening pain not relieved by Tylenol or ibuprofen, confusion, vomiting, fever worsening chest pain or shortness of breath or concerns. Thank you for allowing us to care for you today. Referrals: Elisa Garenr [Primary Care Provider] - 2 weeks Daren Lockett MD [ [facility] STAFF PHYSICIAN] - 1 week (Questionable mastoiditis/sinusitis On Augmentin) HPI General Mode of arrival: ambulatory. Date/Time Provider Initiated Documentation: 09/20/24 19:35. Limitations to Documentation: no limitations. Information obtained by: patient, RN notes reviewed and old records reviewed. HPI Narrative: 74-year-old male presents to the ER with a chief complaint of shortness of breath 8 out of 10 headache which began on the top of his head yesterday. He reports now it is in his left ear. He also states that he has had shortness of breath and some intermittent chest pains. He did have 2 units of blood transfusion yesterday for history of anemia and GI bleed he reports that he has gotten blood transfusions before but usually just 1 unit at a time. He denies any lower leg swelling. He does have a past medical history of SVT, carotid artery stenosis, diverticula, anemia, CVA, arterial stents. And bilateral total knee replacements. He is verbalizing well is alert and oriented no focal neurodeficits noted on exam. Related Data Home Medications ?Medication ?Instructions ?Recorded ?Confirmed carvedilol 6.25 mg tablet 12.5 mg (2 x 6.25 mg) PO BID #120 04/13/18 09/20/24 tab-caps atorvastatin 40 mg tablet 80 mg PO DAILY 08/06/19 09/20/24 lisinopril 20 mg tablet 20 mg PO DAILY 07/15/22 09/20/24 cholecalciferol (vitamin D3) 1,250 1,250 mcg PO QWEEK 08/11/22 09/20/24 mcg (50,000 unit) capsule omeprazole 20 mg capsule,delayed 20 mg PO DAILY 08/15/22 09/20/24 release rivaroxaban 20 mg tablet (Xarelto) 20 mg PO DAILY 08/15/22 09/20/24 chlorthalidone 25 mg tablet 25 mg PO DAILY 10/18/22 09/20/24 tamsulosin 0.4 mg capsule (Flomax) 0.8 mg PO DAILY 10/18/22 09/20/24 clopidogrel 75 mg tablet (Plavix) 75 mg PO DAILY 05/28/23 09/20/24 amlodipine 5 mg tablet 5 mg PO DAILY #30 tabs 05/29/23 09/20/24 ferrous gluconate 324 mg (37.5 mg 324 mg PO DAILY #0 tabs 05/29/23 09/20/24 iron) tablet magnesium oxide 400 mg (241.3 mg 400 mg PO DAILY #30 tabs 05/29/23 09/20/24 magnesium) tablet potassium chloride 20 mEq 20 meq PO DAILY #30 tabs 05/29/23 09/20/24 tablet,extended release sucralfate 1 gram tablet 1 g PO AC & HS #120 tabs 05/29/23 09/20/24 bisoprolol fumarate 5 mg tablet 5 mg PO DAILY 06/23/24 09/20/24 diltiazem HCl 120 mg tablet 120 mg PO ONCE 06/23/24 09/20/24 (Cardizem) diltiazem HCl 60 mg tablet 120 mg PO DAILY 06/23/24 09/20/24 amoxicillin 875 mg-potassium 1 tab PO BID 10 days #20 tabs 09/20/24 clavulanate 125 mg tablet Previous Rx's ?Medication ?Instructions ?Recorded carvedilol 6.25 mg tablet 12.5 mg (2 x 6.25 mg) PO BID #120 04/13/18 tab-caps amlodipine 5 mg tablet 5 mg PO DAILY #30 tabs 05/29/23 ferrous gluconate 324 mg (37.5 mg 324 mg PO DAILY #0 tabs 05/29/23 iron) tablet magnesium oxide 400 mg (241.3 mg 400 mg PO DAILY #30 tabs 05/29/23 magnesium) tablet potassium chloride 20 mEq 20 meq PO DAILY #30 tabs 05/29/23 tablet,extended release sucralfate 1 gram tablet 1 g PO AC & HS #120 tabs 05/29/23 amoxicillin 875 mg-potassium 1 tab PO BID 10 days #20 tabs 09/20/24 clavulanate 125 mg tablet Allergies Allergy/AdvReac Type Severity Reaction Status Date / Time No Known Allergies Allergy Verified 09/20/24 19:29 General Stated Complaint: SOB CLAU: 2 Review of Systems All systems reviewed & are unremarkable except as noted in HPI and below Constitutional Constitutional: Reports as per HPI, Reports headache(s) and Denies weakness ENT Ears, Nose, Mouth, and Throat: Reports headache(s) and Denies disequilibrium Cardiovascular Cardiovascular: Reports dyspnea Respiratory Respiratory: Reports dyspnea Neurologic Neurologic: Denies abnormal speech, Reports headache(s), Denies disequilibrium and Denies weakness Exam Narrative Exam Narrative: Constitutional: Alert and oriented x3. Appears stated age. Normal body habitus. Head: Normocephalic, no trauma. Eyes: Pupils PERRL, Red reflex noted, EOM's intact. Eyelids symmetrical without lesions, discharge, or swelling. ENT: See ENT exam below, External ear normal to inspection, no mastoid TTP, swelling, or erythema, Nasal turbinates WNL, no nasal discharge. Normal dentition, Posterior pharynx WNL, no exudate. Chest: RRR, Normal S1, S2, distal pulses intact. Resp: Lungs clear to auscultation bilaterally, no wheezes, rales, or rhonchi. Abdomen: Soft, non-distended, Normoactive bowel sounds all 4 quads. Musculoskeletal: Moves all 4 extremities without difficulty. Skin: No suspicious rashes or lesions. Capillary refill less than 2 sec. Neurologic: Cranial nerves II-XII intact. Alert and oriented x 3. Motor: No deficits noted. Sensory: Intact bilaterally all 4 extremities. No focal neurodeficits noted. Hematologic/Lymphatic: No ecchymosis, no lymphadenopathy. [facility] Head: normal to inspection Ears: external ears normal, TM normal on the right and TM abnormal erythematous, with fluid behind the TM and with loss of landmarks Course Vital Signs Vital signs: Vital Signs Temperature 36.7 C 09/20/24 19: Pulse 69 09/20/24 19:25 Respiratory Rate 20 09/20/24 19:25 Blood Pressure 215/93 H 09/20/24 19:25 Pulse Oximetry 98 09/20/24 19:25 Temperature 36.7 C 09/20/24 19: Temperature Source Tympanic 09/20/24 19:25 Pulse 69 09/20/24 19:25 Respiratory Rate 20 09/20/24 19:25 Blood Pressure 215/93 H 09/20/24 19:25 Pulse Oximetry 98 09/20/24 19:25 Medical Decision Making 74-year-old male presents to the ER with a chief complaint of shortness of breath 8 out of 10 headache which began on the top of his head yesterday. He reports now it is in his left ear. He also states that he has had shortness of breath and some intermittent chest pains. He did have 2 units of blood transfusion yesterday for history of anemia and GI bleed he reports that he has gotten blood transfusions before but usually just 1 unit at a time. He denies any lower leg swelling. He does have a past medical history of SVT, carotid artery stenosis, diverticula, anemia, CVA, arterial stents. And bilateral total knee replacements. He is verbalizing well is alert and oriented no focal neurodeficits noted on exam. Workup ordered including head CT, chest x-ray CBC CMP troponin, proBNP. CBC shows white blood cell count 12.01, hemoglobin 10.3 hematocrit 32.1, proBNP 826 Patient reevaluation he reports that the Tylenol significantly helped his headache. He is sleeping awakens easily, breathing is eupneic. I did discuss the CT results with him which shows sinusitis. Will give a gram of Rocephin and Augmentin here in the department. Most likely disposition is discharge home with 10 days of Augmentin twice daily. Patient placed on care management list to follow-up with the ear nose and throat. Blood pressure has improved to 177/66 heart rate of 64. This text was generated using [employer] dictation system, please disregard any oddities of phrase or misspellings. Imaging Data Radiologic Study: Imaging: CT Scan Radiologist's impression: FINDINGS: Brain: There is mild generalized parenchymal atrophy with prominence of the cortical sulci. Area of right parietal encephalomalacia similar to prior, favor old infarct. Periventricular and deep white matter hypodensities are consistent with sequela of chronic microvascular ischemic disease. No midline shift or herniation. No acute intracranial hemorrhage. Cerebral ventricles: No ventriculomegaly. Paranasal sinuses: Small air-fluid level left maxillary sinus, trace air-fluid level versus mucoid debris in the right maxillary sinus. Mastoid air cells: Partial opacification of left mastoid air cells and middle ear cavity. No right mastoid effusion. Bones: No acute osseous finding. Soft tissues: No focal soft tissue abnormality. IMPRESSION: 1. No acute intracranial finding. 2. Chronic/senescent intracranial findings as discussed. 3. Small left maxillary sinus air-fluid level. Correlate clinically to exclude acute sinusitis. Partial opacification of the left mastoid air cells and middle ear cavity. Correlate clinically to exclude acute otomastoiditis. Thank you for allowing us to participate in the care of your patient. Dictated and Authenticated by: Juan Ramon Gerardo MD Lab Data Lab results reviewed: Yes I reviewed the patient's lab results. Labs: Laboratory Tests Range/Units 09/20/24 19:45 WBC (4.4-10.8) 10^3/uL 12.01 H RBC (4.36-5.78) 10^6/uL 3.66 L Hgb (13.5-17.5) g/dL 10.3 L Hct (40.0-50.0) % 32.1 L MCV (80-95) fL 88 MCH (27.0-33.0) pg 28.1 MCHC (32.0-36.0) % 32.1 RDW (11.8-14.1) % 13.8 Plt Count (130-400) 10^3/uL 267 MPV (8.0-11.0) fL 10.3 Immature Gran % % 0.3 Neutrophils % % 89.8 Lymphocytes % % 3.6 Monocytes % % 5.7 Eosinophils % % 0.2 Basophils % % 0.4 Nucleated RBC % (0.0-0.3) % 0.0 Absolute Neutrophils (1.2-6.7) 10^3/uL 10.78 H Absolute Lymphocytes (1.2-3.4) 10^3/uL 0.43 L Absolute Monocytes (0.1-0.8) 10^3/uL 0.68 Absolute Eosinophils (0.0-0.7) 10^3/uL 0.02 Absolute Basophils (0.0-0.2) 10^3/uL 0.05 Sodium (136-145) mmol/L 137 Potassium (3.5-5.1) mmol/L 4.2 Chloride (98-107) mmol/L 103 Carbon Dioxide (21.0-32.0) mmol/L 24.1 Anion Gap (3-11) mmol/L 9.9 BUN (7-18) mg/dL 16 Creatinine (0.70-1.30) mg/dL 1.3 Est GFR (CKD-EPI 2020) (mL/min/1.73m2) 58.37 Glucose (74-106) mg/dL 107 H Calcium (8.5-10.1) mg/dL 9.7 Total Bilirubin (0.2-1.0) mg/dL 0.5 AST (15-37) U/L 25 ALT (16-63) U/L 25 Alkaline Phosphatase (46-116) U/L 79 Troponin I (<or=76) ng/L 13 NT-Pro-B Natriuret Pep (<300) pg/mL 826 H Total Protein (6.4-8.2) g/dL 7.7 Albumin (3.4-5.0) g/dL 4.0 Quality:SDOH Health Related Social Needs: No Data to Display PFSH All Active Problems (Updated 09/20/24 @ 22:11 by Clara Joseph, MANUFACTURING ENGINEERING DIRECTOR) Left acute suppurative otitis media (Acute) Sinusitis (Acute) Congenital bilateral pes cavus (Acute) Pain in joints of both feet (Acute) Hypokalemia (Acute) Diverticulosis (Acute) Accelerated essential hypertension (Acute) Hypomagnesemia (Acute) Tendinopathy of right biceps tendon (Acute) distal Afib (Chronic) PVD (peripheral vascular disease) with claudication (Acute) Foot pain (Acute) Lower urinary tract symptoms (LUTS) (Acute) Third degree heart block (Acute) PVD (peripheral vascular disease) (Chronic) Obstructive sleep apnea (Chronic) Chronic fatigue (Chronic) since CVA, worsening after COVID19 Stroke (Chronic) 09/14/17 Acute GI bleeding (Acute) Enlarged prostate (Acute) BPH (benign prostatic hyperplasia) (Chronic) Hemorrhage of large intestine due to diverticular disease (Acute) COVID (Acute) Paroxysmal atrial fibrillation (Acute 01/02/18) Umbilical hernia (Acute) Iron refractory iron deficiency anemia (Acute) Hypertension (Chronic) Medical History SARS-CoV-2 antibody positive Adequate anticoagulation on anticoagulant therapy SVT (supraventricular tachycardia) Carotid artery stenosis bilateral last us 02/07 no stenosis, check q2yrs or prn Diverticula of colon pandivericulitis- severe Sleep apnea History of ileus Anemia Cerebrovascular accident (CVA) due to thrombosis of right middle cerebral artery (10/11/17) Weakness Tobacco abuse 35 pack year, quit Susan 2019, yearly Lung VT scan Osteoarthritis Arthritis Paresthesia Fatigue Aphasia Intermittent chest pain Vitiligo Surgical History S/P arterial stent H/O umbilical hernia repair (06/13/18) Dr Montiel H/O colonoscopy (03/2021) 2020: Dr. Horne, diverticula, no polyps repeat 10 years 2018:Dr Montiel, negative, repeat in 10 years History of total bilateral knee replacement H/O bilateral inguinal hernia repair Family History Father Alcohol use disorder Heart disease Mother Breast cancer Sister Breast cancer Other Carotid artery stenosis Social History Smoking/Tobacco Use Status: Former Tobacco Use Quit Date: 09/17/18 Tobacco: How many years used: 30 Smoking risk assessment performed?: Yes Alcohol Intake: former Drug use: Never Substance use type: does not use Housing: house Current gender identity: male What type of physical activity do you participate in: none Do you feel safe at home: Yes Do you feel safe in your relationship?: Yes
[2024-09-20 19:51] LABS: Abs Immature Grans 0.04 10^3/uL (0.0-0.06); Absolute Basophil Count 0.05 10^3/uL (0.0-0.2); Absolute Lymphocyte Count 0.43 10^3/uL (1.2-3.4); Basophils % 0.4 %; Eosinophils % 0.2 %; HCT 32.1 % (40.0-50.0); HGB 10.3 g/dL (13.5-17.5); Immature Grans % 0.3 %; Lymphocytes % 3.6 %; MCH 28.1 pg (27.0-33.0); MCHC 32.1 % (32.0-36.0); MCV 88 fL (80-95); MPV 10.3 fL (8.0-11.0); Monocytes % 5.7 %; Neutrophils % 89.8 %; Platelet Count 267 10^3/uL (130-400); RBC 3.66 10^6/uL (4.36-5.78); RDW 13.8 % (11.8-14.1); RDW-SD 44.1 fL; WBC 12.01 10^3/uL (4.4-10.8)
[2024-09-20 19:53] LABS: Absolute Eosinophil Count 0.02 10^3/uL (0.0-0.7); Absolute Monocyte Count 0.68 10^3/uL (0.1-0.8); Absolute Neutrophil Count 10.78 10^3/uL (1.2-6.7)
[2024-09-20 20:13] LABS: ALT 25 U/L (16-63); AST 25 U/L (15-37); Alkaline Phosphatase 79 U/L (46-116); Anion Gap 9.9 mmol/L (3-11); BUN 16 mg/dL (7-18); Bilirubin, Total 0.5 mg/dL (0.2-1.0); CO2 24.1 mmol/L (21.0-32.0); CREATININE 1.3 mg/dL (0.70-1.30); Calcium 9.7 mg/dL (8.5-10.1); Chloride 103 mmol/L (98-107); Estimated GFR 58.37 (mL/min/1.73m2); Glucose 107 mg/dL (74-106); NT-proBNP 826 pg/mL (<300); Potassium 4.2 mmol/L (3.5-5.1); Sodium 137 mmol/L (136-145); Total Protein 7.7 g/dL (6.4-8.2); Troponin I 13 ng/L (<or=76)
--- NOTE | 2024-09-20 20:54 | DI.CT_ITS ---
Exam(s) CT HEAD WO EXAM: CT HEAD WO CLINICAL HISTORY: Headache. TECHNIQUE: Imaging Protocol: Axial computed tomography images with coronal and sagittal reformatted images were created and reviewed COMPARISON: CT CT HEAD WO from 06/23/2024 FINDINGS: The examination is limited due to patient motion artifact. Ventricles and Extra axial spaces: Normal in size and morphology for the patient's age. Hemorrhage: None. Cerebral parenchyma: There is again seen a right MCA distribution old infarct. No evidence of an acu te territorial infarct. Midline shift: None. Brainstem/Cerebellum: Normal. Calvarium: Normal. Visualized Paranasal sinuses/Mastoids: Small air-fluid levels are seen in the maxillary sinuses bilat erally. There is a small amount of fluid seen in the left mastoid air cells. Soft Tissues: Unremarkable. IMPRESSION: 1. No acute intracranial process. 2. Small air-fluid level seen in the maxillary sinuses. Please correlate to exclude acute sinusitis. RADIATION DOSE DELIVERED: 836.75mGy.cm Total DLP DATA REPOSITORY: All CT scans at this facility are submitted to the National Radiology Data Registry (NRDR) Dose Index Registry (DIR) with the [employer] (ACR). RADIATION OPTIMIZATION: All CT scans at this facility use at least one of these dose optimization te chniques: automated exposure control; mA and/or kV adjustment per patient size (includes targeted exa ms where dose is matched to clinical indication); or iterative reconstruction.
[2024-09-20] MEDS: ACETAMINOPHEN 1,000 MG/100 ML BAG 400 MG IVPB (21:07)
--- NOTE | 2024-09-20 21:22 | DI.VRAD_ITS ---
PROCEDURE INFORMATION: Exam: XR Chest Exam date and time: 09/20/2024 8:54 PM Age: 74 years old Clinical indication: Shortness of breath TECHNIQUE: Imaging protocol: Radiologic exam of the chest. Views: 2 views. COMPARISON: CR XR CHEST 2V PA LATERAL 04/01/2024 2:32 PM FINDINGS: Lungs: Lungs are adequately inflated and symmetric. No focal consolidation or evidence of pulmonary edema. Pleural spaces: No pleural effusion. No pneumothorax. Heart/Mediastinum: Cardiomediastinal contours within normal limits. Bones/joints: No acute osseous finding. IMPRESSION: No acute findings. Dictated and Authenticated by: Juan Ramon Gerardo MD. Orderin Jake Elizabeth MD
--- NOTE | 2024-09-20 21:27 | DI.VRAD_ITS ---
PROCEDURE INFORMATION: Exam: CT Head Without Contrast Exam date and time: 09/20/2024 8:48 PM Age: 74 years old Clinical indication: Pain; Headache not specified TECHNIQUE: Imaging protocol: Computed tomography of the head without contrast. Radiation optimization: All CT scans at this facility use at least one of these dose optimization techniques: automated exposure control; mA and/or kV adjustment per patient size (includes targeted exams where dose is matched to clinical indication); or iterative reconstruction. COMPARISON: CT HEAD WO 06/23/2024 7:43 AM FINDINGS: Brain: There is mild generalized parenchymal atrophy with prominence of the cortical sulci. Area of right parietal encephalomalacia similar to prior, favor old infarct. Periventricular and deep white matter hypodensities are consistent with sequela of chronic microvascular ischemic disease. No midline shift or herniation. No acute intracranial hemorrhage. Cerebral ventricles: No ventriculomegaly. Paranasal sinuses: Small air-fluid level left maxillary sinus, trace air-fluid level versus mucoid debris in the right maxillary sinus. Mastoid air cells: Partial opacification of left mastoid air cells and middle ear cavity. No right mastoid effusion. Bones: No acute osseous finding. Soft tissues: No focal soft tissue abnormality. IMPRESSION: 1. No acute intracranial finding. 2. Chronic/senescent intracranial findings as discussed. 3. Small left maxillary sinus air-fluid level. Correlate clinically to exclude acute sinusitis. 4. Partial opacification of the left mastoid air cells and middle ear cavity. Correlate clinically to exclude acute otomastoiditis. Dictated and Authenticated by: Juan Ramon Gerardo MD. Orderin Jake Elizabeth MD
[2024-09-20] MEDS: cefTRIAXone 1 GM/50 ML BAG IVPB (22:01)
[2024-09-20] MEDS: Amox. 875/Clav. 125, 2 TABS/BTL 1 TAB PO (22:01)
[2024-09-20] MEDS: Amoxicillin 875/Clav. 125 TAB PO (22:01)
== END 2024-09-20 22:31 | disposition home or self-care (01) ==
PROVIDERS: Emergency Provider Registered Nurse Emergency; PCP Nurse Practitioner Family
DX: H66.002 Acute suppurative otitis media without spontaneous rupture of ear drum, left ear (principal); J32.9 Chronic sinusitis, unspecified; R06.02 Shortness of breath; R51.9 Headache, unspecified; I10 Essential (primary) hypertension
CPT/HCPCS: 36415; 80053; 93005; 96365; 99284; 70450; 71046; 83880; 84484; 85025; 93010; J0131; J0696

== ENCOUNTER 2024-10-07 11:23 | Outpatient (CLI) | payer BC, MEDICARE, SELFPAY ==
[2024-10-07 16:16] LABS: Abs Immature Grans 0.16 10^3/uL (0.0-0.06); Absolute Basophil Count 0.09 10^3/uL (0.0-0.2); Absolute Eosinophil Count 0.26 10^3/uL (0.0-0.7); Absolute Lymphocyte Count 1.12 10^3/uL (1.2-3.4); Absolute Monocyte Count 0.85 10^3/uL (0.1-0.8); Absolute Neutrophil Count 8.12 10^3/uL (1.2-6.7); Basophils % 0.8 %; Eosinophils % 2.5 %; HCT 33.8 % (40.0-50.0); HGB 10.7 g/dL (13.5-17.5); Immature Grans % 1.5 %; Lymphocytes % 10.6 %; MCH 27.6 pg (27.0-33.0); MCHC 31.7 % (32.0-36.0); MCV 87 fL (80-95); MPV 9.9 fL (8.0-11.0); Neutrophils % 76.6 %; Platelet Count 441 10^3/uL (130-400); RBC 3.87 10^6/uL (4.36-5.78)
== END 2024-10-07 11:24 | disposition home or self-care (01) ==
LOC: LBO 11:24
PROVIDERS: PCP Nurse Practitioner Family; Visit Provider Nurse Practitioner Family
DX: I10 Essential (primary) hypertension (principal)
CPT/HCPCS: 36415; 85025

== ENCOUNTER 2024-10-25 08:56 | Outpatient (CLI) | payer BC, MEDICARE, SELFPAY ==
[2024-10-25 09:14] LABS: Abs Immature Grans 0.02 10^3/uL (0.0-0.06); Absolute Basophil Count 0.02 10^3/uL (0.0-0.2); Absolute Eosinophil Count 0.19 10^3/uL (0.0-0.7); Absolute Lymphocyte Count 0.61 10^3/uL (1.2-3.4); Absolute Monocyte Count 0.32 10^3/uL (0.1-0.8); Basophils % 0.5 %; Eosinophils % 5.1 %; HGB 9.9 g/dL (13.5-17.5); Immature Grans % 0.5 %; Lymphocytes % 16.4 %; MCH 28.3 pg (27.0-33.0); MCV 86 fL (80-95); MPV 9.9 fL (8.0-11.0); Monocytes % 8.6 %; Neutrophils % 68.9 %; Platelet Count 205 10^3/uL (130-400); RDW 17.3 % (11.8-14.1); RDW-SD 53.8 fL; WBC 3.71 10^3/uL (4.4-10.8)
[2024-10-25 09:19] LABS: Absolute Neutrophil Count 2.56 10^3/uL (1.2-6.7)
== END 2024-10-25 08:57 | disposition home or self-care (01) ==
LOC: LBO 08:57
PROVIDERS: Internal Medicine; PCP Nurse Practitioner Family; Visit Provider Nurse Practitioner Family
DX: D64.9 Anemia, unspecified (principal); E87.6 Hypokalemia; E83.42 Hypomagnesemia
CPT/HCPCS: 36415; 86850; 86900; 86901; 85025

== ENCOUNTER 2025-01-24 15:10 | Outpatient (CLI) | payer BC, MEDICARE, SELFPAY | END 2025-01-24 15:11 | disposition home or self-care (01) | LOC: LBO 15:11 | PROVIDERS: Visit Provider Radiology Radiation Oncology | DX: C61 Malignant neoplasm of prostate (principal) | CPT/HCPCS: 36415; 84153 ==

== ENCOUNTER 2025-02-05 11:40 | Inpatient (IN) | payer BC, MEDICARE, SELFPAY ==
[2025-02-05] VITALS (106 sets, daily range): BP systolic 68–157; BP diastolic 38–110; PULSE 68–161; RESP 15–32; TEMP 36.7–39.4; O2SAT 89–100
--- NOTE | 2025-02-05 11:30 | RT.EKG_ITS ---
APPROVED REPORT Exam: Resting ECG Reason for Exam: sob Patient Location: E HR:174 bpm ECG Measurements Heart Rate [address] [id number] P [id number] QRSd 99 QRS -34 QT 279 T 29 QTc 476 Conclusion Atrial fibrillation with rapid V-rate...A-rate 395 Left axis deviation...QRS axis (-30,-90) No STEMI
--- NOTE | 2025-02-05 11:45 | DI.RAD_ITS ---
Exam(s) XR PORTABLE CHEST AP EXAM: XR PORTABLE CHEST AP CLINICAL HISTORY: SOB TECHNIQUE: 2D digital imaging was performed. COMPARISON: CR,XR XR CHEST 2V PA LATERAL from 09/20/2024 FINDINGS: Multiple overlying monitoring leads. LUNGS: Clear. No pleural abnormality seen. HEART: Normal size. AORTA: Normal diameter. BONES: Unremarkable for age. Soft tissues: Unremarkable. IMPRESSION: No acute findings. DATA REPOSITORY: RADIATION DOSE DELIVERED:
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
[2025-02-05] MEDS: Amiodarone in Dextrose 360 MG/200 ML BAG 33.333 MG IV INF (12:08)
[2025-02-05 12:11] LABS: Abs Immature Grans 0.05 10^3/uL (0.0-0.06); HCT 26.5 % (40.0-50.0); HGB 9.1 g/dL (13.5-17.5); Immature Grans % 0.5 %; MCH 29.7 pg (27.0-33.0); MCHC 34.3 % (32.0-36.0); MCV 87 fL (80-95); MPV 10.3 fL (8.0-11.0); Platelet Count 178 10^3/uL (130-400); RBC 3.06 10^6/uL (4.36-5.78); RDW 14.0 % (11.8-14.1); RDW-SD 44.2 fL; WBC 9.28 10^3/uL (4.4-10.8)
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
[2025-02-05 12:35] LABS: ALT 28 U/L (16-63); AST 35 U/L (15-37); Albumin 3.1 g/dL (3.4-5.0); Alkaline Phosphatase 56 U/L (46-116); Anion Gap 18.0 mmol/L (3-11); BUN 20 mg/dL (7-18); Bilirubin, Total 0.9 mg/dL (0.2-1.0); CO2 18.0 mmol/L (21.0-32.0); Calcium 9.2 mg/dL (8.5-10.1); Chloride 94 mmol/L (98-107); Estimated GFR 37.02 (mL/min/1.73m2); Glucose 161 mg/dL (74-106); Magnesium 1.3 mg/dL (1.8-2.4); Potassium 4.2 mmol/L (3.5-5.1); Sodium 130 mmol/L (136-145); Total Protein 7.2 g/dL (6.4-8.2)
[2025-02-05 13:01] LABS: NT-proBNP 3852 pg/mL (<300); TSH (W/Ref FT4) 1.96 uIU/mL (0.36-3.74); Troponin I 38 ng/L (<or=76)
[2025-02-05] MEDS: MAGNESIUM SULFATE 2 GM/50 ML BAG IV_INF (13:25)
[2025-02-05] MEDS: Normal Saline 1,000 ML 1000 ML IV (13:26)
[2025-02-05 13:32] LABS: Troponin I 34 ng/L (<or=76)
[2025-02-05] MEDS: CEFEPIME 1 GM in Normal Saline 50 ML IVPB ×2 (14:41→21:08)
[2025-02-05] MEDS: Acetaminophen 500 MG TAB 1000 MG PO (14:44)
[2025-02-05 14:51] LABS: Glucose Negative (Negative)
[2025-02-05 15:03] LABS: C & S Indicated? No
--- NOTE | 2025-02-05 15:13 | W.PM.HP.N ---
Date of service: 02/05/25 Time of Service: 15:13 Assessment and Plan Assessment and plan (1) Fever: Status: Acute Assessment and plan: Exact etiology is unknown. Very interested in finding results of respiratory viral panel. UA does not indicated UTI and CXR is also benign. WBC WNL. Will check inflammatory markers for completeness. Pt could have a PNA that just hasn't declared itself on CXR as well. Pt given cefepime and vanc in the ED. Without a discernable cause, I will hold these abx (2) Hyperlipidemia: Status: None Assessment and plan: Continue with atorvastatin 80mg daily (3) Hypertension: Status: Chronic Assessment and plan: Pt is currently hypotensive. Will hold chlorthalidone 2/2 low bp and low sodium. Pt's home meds indicated coreg and bisoprolol so will hold coreg. Pt is on lisinopril/bisoprolol currently (4) Paroxysmal atrial fibrillation: Status: Acute Assessment and plan: PT started on amiodarone drip with good effect. Will continue in the ICU. Pt is on amlodipine/bb/cardizem. Will hold amlodipine for now. (5) Hypomagnesemia: Status: Acute Assessment and plan: c/w oral replacement (6) Hypokalemia: Status: Acute Assessment and plan: c/w oral replacement (7) BPH (benign prostatic hyperplasia): Status: Chronic Assessment and plan: c/w flomax 0.8 daily (8) Iron refractory iron deficiency anemia: Status: Acute Assessment and plan: c/w iron supplementation (9) Anemia: Assessment and plan: long standing issue but could certainly be contributing to his afib. Recommend outpatient work up at the discretion of his PCP (10) Cerebrovascular accident (CVA) due to thrombosis of right middle cerebral artery: Assessment and plan: Pt is on plavix (11) Chronic fatigue: Status: Chronic Assessment and plan: worsened after covid per chart review. Multifactorial but could be a component of long covid syndrome (12) Hyponatremia: Status: Acute Assessment and plan: hold chlorthiadone and recheck labs in am History of Present Illness History of Present Illness Chief Complaint: weakness Narrative: This is a 74-year-old gentleman with a known history of atrial fibrillation as well as a history of a CVA who presents with approximately 5 days of worsening weakness and fatigue. While he was in the ED EKG was done which showed A-fib with RVR. Patient was put on amiodarone drip with resolution of his RVR. Patient does have a history of BPH and self caths intermittently. His last echocardiogram was done in July 2023 showed an EF of 70% and a moderately dilated left atrium. While he is in the ED CBC CMP were drawn which showed hyponatremia, anemia, he was also diagnosed with a hypomagnesemia 1.3. He did get a BNP 3852. Pt also had proteinuria/hematuria but LE negative urine and nitrite negative urine. Respiratory viral panel pending at this time. Review of Systems All systems reviewed & are unremarkable except as noted in HPI and below PFSH All Active Problems (Updated 02/05/25 @ 15:28 by Marcus Miranda MD) Fever (Acute) Hyponatremia (Acute) Atrial fibrillation with RVR (Acute) Sepsis (Acute) Otitis media, left (Acute) Congenital bilateral pes cavus (Acute) Pain in joints of both feet (Acute) Hypokalemia (Acute) Diverticulosis (Acute) Accelerated essential hypertension (Acute) Hypomagnesemia (Acute) Tendinopathy of right biceps tendon (Acute) distal Afib (Chronic) PVD (peripheral vascular disease) with claudication (Acute) Foot pain (Acute) Lower urinary tract symptoms (LUTS) (Acute) Third degree heart block (Acute) PVD (peripheral vascular disease) (Chronic) Obstructive sleep apnea (Chronic) Chronic fatigue (Chronic) since CVA, worsening after COVID19 Stroke (Chronic) 09/14/17 Acute GI bleeding (Acute) Enlarged prostate (Acute) BPH (benign prostatic hyperplasia) (Chronic) Hemorrhage of large intestine due to diverticular disease (Acute) COVID (Acute) Paroxysmal atrial fibrillation (Acute 01/02/18) Umbilical hernia (Acute) Iron refractory iron deficiency anemia (Acute) Hypertension (Chronic) Medical History SARS-CoV-2 antibody positive Adequate anticoagulation on anticoagulant therapy SVT (supraventricular tachycardia) Carotid artery stenosis bilateral last us 02/07 no stenosis, check q2yrs or prn Diverticula of colon pandivericulitis- severe Sleep apnea History of ileus Anemia Cerebrovascular accident (CVA) due to thrombosis of right middle cerebral artery (10/11/17) Weakness Tobacco abuse 35 pack year, quit Susan 2019, yearly Lung VT scan Osteoarthritis Arthritis Paresthesia Fatigue Aphasia Intermittent chest pain Vitiligo Surgical History S/P arterial stent H/O umbilical hernia repair (06/13/18) Dr Montiel H/O colonoscopy (03/2021) 2020: Dr. Horne, diverticula, no polyps repeat 10 years 2018:Dr Montiel, negative, repeat in 10 years History of total bilateral knee replacement H/O bilateral inguinal hernia repair Family History Father Alcohol use disorder Heart disease Mother Breast cancer Sister Breast cancer Other Carotid artery stenosis Social History Smoking/Tobacco Use Status: Former Tobacco Use Quit Date: 09/17/18 Tobacco: How many years used: 30 Smoking risk assessment performed?: Yes Alcohol Intake: former Drug use: Never Substance use type: does not use Housing: house Current gender identity: male What type of physical activity do you participate in: none Do you feel safe at home: Yes Do you feel safe in your relationship?: Yes Meds Allergies and Home Medications Allergies Allergy/AdvReac Type Severity Reaction Status Date / Time No Known Allergies Allergy Verified 02/05/25 12:14 Home Medications ?Medication ?Instructions ?Recorded ?Confirmed ?Type carvedilol 6.25 mg tablet 12.5 mg (2 x 6.25 mg) PO BID #120 04/13/18 02/05/25 Rx tab-caps atorvastatin 40 mg tablet 80 mg PO DAILY 08/06/19 02/05/25 History lisinopril 20 mg tablet 20 mg PO DAILY 07/15/22 02/05/25 History cholecalciferol (vitamin D3) 1,250 1,250 mcg PO QWEEK 08/11/22 02/05/25 History mcg (50,000 unit) capsule omeprazole 20 mg capsule,delayed 20 mg PO DAILY 08/15/22 02/05/25 History release rivaroxaban 20 mg tablet (Xarelto) 20 mg PO DAILY 08/15/22 02/05/25 History chlorthalidone 25 mg tablet 25 mg PO DAILY 10/18/22 02/05/25 History tamsulosin 0.4 mg capsule (Flomax) 0.8 mg PO DAILY 10/18/22 02/05/25 History clopidogrel 75 mg tablet (Plavix) 75 mg PO DAILY 05/28/23 02/05/25 History amlodipine 5 mg tablet 5 mg PO DAILY #30 tabs 05/29/23 02/05/25 Rx ferrous gluconate 324 mg (37.5 mg 324 mg PO DAILY #0 tabs 05/29/23 02/05/25 Rx iron) tablet magnesium oxide 400 mg (241.3 mg 400 mg PO DAILY #30 tabs 05/29/23 02/05/25 Rx magnesium) tablet potassium chloride 20 mEq 20 meq PO DAILY #30 tabs 05/29/23 02/05/25 Rx tablet,extended release sucralfate 1 gram tablet 1 g PO AC & HS #120 tabs 05/29/23 02/05/25 Rx bisoprolol fumarate 5 mg tablet 5 mg PO DAILY 06/23/24 02/05/25 History diltiazem HCl 120 mg tablet 120 mg PO ONCE 06/23/24 02/05/25 History (Cardizem) Held on 02/05/25. Instructions: Pt Stopped/Never Started diltiazem HCl 60 mg tablet 120 mg PO DAILY 06/23/24 02/05/25 History trazodone 50 mg tablet 50 mg PO QHS PRN 02/05/25 02/05/25 History Exam Narrative Exam Narrative: heent-ncat mmm eomi perrla neck-no lad no jvd cv-rrr no mrg pulm-ctab no amu abd-sntndbsa ext-no cce bilat neuro-cn 2-12 intact as tested psych-aaox3 nad Results Labs 02/05/25 11:59 02/05/25 11:59 Labs: Laboratory Results - last 24 hr 02/05/25 02/05/25 02/05/25 11:59 12:57 14:21 WBC 9.28 RBC 3.06 L Hgb 9.1 L Hct 26.5 L MCV 87 MCH 29.7 MCHC 34.3 RDW 14.0 Plt Count 178 MPV 10.3 Immature Gran % 0.5 Neutrophils % 90.0 Lymphocytes % 2.2 Monocytes % 7.0 Eosinophils % 0.0 Basophils % 0.3 Nucleated RBC % 0.0 Absolute Neutrophils 8.35 H Absolute Lymphocytes 0.20 L Absolute Monocytes 0.65 Absolute Eosinophils 0.00 Absolute Basophils 0.03 VBG Lactate 4.2 H* Sodium 130 L Potassium 4.2 Chloride 94 L Carbon Dioxide 18.0 L Anion Gap 18.0 H BUN 20 H Creatinine 1.9 H Est GFR (CKD-EPI 2020) 37.02 Glucose 161 H Calcium 9.2 Magnesium 1.3 L Total Bilirubin 0.9 AST 35 ALT 28 Alkaline Phosphatase 56 Troponin I 38 34 NT-Pro-B Natriuret Pep 3852 H Total Protein 7.2 Albumin 3.1 L TSH 1.96 Urine Color Yellow Urine Clarity Sl Cloudy Urine pH 5.5 Ur Specific [place] 1.025 Urine Protein >=300 H Urine Ketones Trace H Urine Blood Moderate H Urine Nitrite Negative Urine Bilirubin Negative Urine Urobilinogen 1.0 H Ur Leukocyte Esterase Negative Urine RBC 5-10 H Urine WBC 3-5 Ur Epithelial Cells Negative Urine Crystals Negative Urine Bacteria Few Urine Casts 5-10 Fine Granular Urine Mucus Moderate Ur Culture Indicated? No Urine Glucose Negative Last Vital Signs Temp 38.8 C H 02/05/25 14:44 Pulse 87 02/05/25 14:01 Resp 19 02/05/25 14:01 BP 97/56 L 02/05/25 14:01 Pulse Ox 100 02/05/25 14:01 Time Spent Time spent with Patient: >75 minutes Time was spent: preparing to see the patient(eg.review tests), obtaining and/or reviewing separately otained hiistory, ordering medications,tests, procedures, referring, communicating with other health customer care associate, indepentently interpreting results, counseling the patient and care coordination
[2025-02-05 16:05] LABS: ESR 14 mm/hr (0-20)
[2025-02-05 16:14] LABS: C-Reactive Protein 9.91 mg/dL (<or=0.5)
[2025-02-05] MEDS: Lactated Ringers 1,000 ML 1000 ML IV (16:15)
[2025-02-05] MEDS: Norepinephrine in D5W 8 MG/250 ML BAG 9.4 MG IV (16:23)
[2025-02-05 16:28] LABS: Procalcitonin 2.18 ng/mL
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
[2025-02-05] MEDS: Normal Saline Flush 10 ML SYR IVP ×2 (17:29→21:29)
[2025-02-05] MEDS: traZODone 50 MG TAB PO (18:23)
[2025-02-05 18:39] LABS: COVID-19 PCR Negative (Negative); RSV PCR Negative (Negative)
[2025-02-05] MEDS: ACETAMINOPHEN 1,000 MG/100 ML BAG 400 MG IVPB (20:40)
[2025-02-05] MEDS: Normal Saline 1,000 ML 150 ML IV (21:28)
[2025-02-05] MEDS: VANCOMYCIN/WATER (PEG) 2 GM/400 ML BAG IVPB (21:46)
[2025-02-05 22:05] LABS: Anion Gap 12.8 mmol/L (3-11); BUN 27 mg/dL (7-18); CO2 19.2 mmol/L (21.0-32.0); Calcium 8.1 mg/dL (8.5-10.1); Chloride 98 mmol/L (98-107); Estimated GFR 42.30 (mL/min/1.73m2); Glucose 138 mg/dL (74-106); Potassium 3.3 mmol/L (3.5-5.1); Sodium 130 mmol/L (136-145)
[2025-02-06] VITALS (76 sets, daily range): BP systolic 82–149; BP diastolic 50–91; PULSE 60–168; RESP 16–28; TEMP 36.6–38.2; O2SAT 94–99
[2025-02-06] MEDS: Acetaminophen 500 MG TAB 1000 MG PO ×3 (01:58→18:42)
[2025-02-06 05:57] LABS: Abs Immature Grans 0.03 10^3/uL (0.0-0.06); Immature Grans % 0.7 %; MCH 30.7 pg (27.0-33.0); MCHC 34.9 % (32.0-36.0); MCV 88 fL (80-95); MPV 10.5 fL (8.0-11.0); RBC 2.15 10^6/uL (4.36-5.78); RDW 14.4 % (11.8-14.1); RDW-SD 46.2 fL; WBC 4.24 10^3/uL (4.4-10.8)
[2025-02-06 06:01] LABS: Magnesium 1.8 mg/dL (1.8-2.4)
[2025-02-06 06:03] LABS: HCT 18.9 % (40.0-50.0); HGB 6.6 g/dL (13.5-17.5)
[2025-02-06 06:07] LABS: ALT 31 U/L (16-63); AST 40 U/L (15-37); Albumin 2.3 g/dL (3.4-5.0); Alkaline Phosphatase 43 U/L (46-116); Anion Gap 14.1 mmol/L (3-11); BUN 25 mg/dL (7-18); Bilirubin, Total 0.5 mg/dL (0.2-1.0); CO2 17.9 mmol/L (21.0-32.0); Calcium 7.9 mg/dL (8.5-10.1); Chloride 100 mmol/L (98-107); Estimated GFR 39.50 (mL/min/1.73m2); Glucose 128 mg/dL (74-106); Potassium 3.1 mmol/L (3.5-5.1); Sodium 132 mmol/L (136-145); Total Protein 5.5 g/dL (6.4-8.2)
[2025-02-06 06:25] LABS: Hypochromasia 2+; Platelet Count 110 10^3/uL (130-400); Poikilocytes 1+
[2025-02-06] MEDS: Normal Saline - Diluent 50 ML VIAL IJ (06:43)
[2025-02-06] MEDS: Omnipaque 350 MG/ML 100 ML BTL IJ (06:43)
--- NOTE | 2025-02-06 06:59 | DI.CT_ITS ---
Exam(s) CT ABDOMEN PELVIS WO/W EXAM: CT ABDOMEN PELVIS WO/W CLINICAL HISTORY: severe anemia no obvious source. TECHNIQUE: Imaging Protocol: Axial computed tomography images with coronal and sagittal reformatted images were created and reviewed CONTRAST MATERIAL: Intravenous: Omnipaque-350 75cc Oral: None COMPARISON: CT CT CHEST LUNG CANCER SCREEN from 01/17/[address] CHEST PE CTA from 07/05/[address] THORAX ABD/PEL CTA from 05/28/2023 FINDINGS: VISUALIZED LUNG BASES: No nodules nor pleural effusions evident. ABDOMEN: There is no ascites. LIVER: There are 2 small cysts in the right hepatic lobe. Both measure approximately 1 cm in size. There are no dilated intrahepatic ducts GALLBLADDER/BILIARY: No obvious gallbladder pathology. CBD is not dilated. PANCREAS: No new findings in the pancreas. There is, however, a 2.0 x 1.3x 1.3 cm Nodule in the mesentery located superior and anterior to the tail the pancreas, unchanged from May 2023. This appears adjacent to but not obviously exophytic off the tail the pancreas and is also separate from the wall of the adjacent:. It exhibits fluid density and no enhancement. SPLEEN: Spleen is not enlarged. No obvious intrasplenic lesions. Splenic and portal veins are patent. ADRENALS: There are no significant adrenal masses. KIDNEYS:No cysts evident. No solid renal masses. No calculi nor hydronephrosis.. ABDOMINAL AORTA: Abdominal aorta is heavily calcified but not enlarged. Iliac arteries are also heavily calcified but not enlarged. LYMPH NODES:There is no retroperitoneal nor paraaortic adenopathy. ABDOMINAL WALL: No evidence of significant anterior abdominal wall nor inguinal hernia. GI: There is a small density at the tip of the cecum, possibly significant. In addition, there is radiopaque material noted along the course of the appendix. No obvious acute appendicitis. There is extensive diverticulosis of the left side of the colon and sigmoid. No obvious acute diverticulitis. PELVIS: LYMPH NODES: There is no intrapelvic nor inguinal adenopathy. REPRODUCTIVE: There are seeds in the prostate gland. Prostate size upper normal. URINARY BLADDER: There is significant thickening of the urinary bladder which is not completely uniform. Either related to chronic cystitis, possibly from prostate seeds radiation although cannot exclude bladder neoplasm. OSSEOUS: There are no lytic nor blastic osseous lesions evident. There is 1.3 cm anterior listhesis of L5 upon S1 the due to bilateral pars defects at L5 level. There is also advanced disc space narrowing at this level. Other disc spaces exhibit normal height and no listhesis. IMPRESSION: 1. There is non uniform thickening of the urinary bladder. This is either related to chronic cystitis or possible secondary to radiation from the prostate seeds. Nevertheless, cannot rule out bladder neoplasm. Urology consult recommended 2. Mild thickening of the wall of the cecal base. There is also radiopaque material throughout the length of the appendix, without evidence of obvious appendicitis. Recommend colonoscopy to ensure that there is no cecal base mass here. 3. There is a 20 x 13 x 13 mm cystic appearing nodule in the fat adjacent to the pancreatic tail. This exhibits minimal if any significant change when compared to CT scan of May 2023 but nevertheless requires further investigation with is multiplanar MRI which may add specificity. 4. Other findings as above. Preliminary virtual Radiology report was reviewed. RADIATION DOSE DELIVERED: 1,178.92mGy.cm Total DLP DATA REPOSITORY: All CT scans at this facility are submitted to the National Radiology Data Registry (NRDR) Dose Index Registry (DIR) with the [employer] (ACR). RADIATION OPTIMIZATION: All CT scans at this facility use at least one of these dose optimization techniques: automated exposure control; mA and/or kV adjustment per patient size (includes targeted exams where dose is matched to clinical indication); or iterative reconstruction.
--- NOTE | 2025-02-06 07:45 | DI.VRAD_ITS ---
PROCEDURE INFORMATION: Exam: CT Abdomen And Pelvis Without And With Contrast Exam date and time: 02/06/2025 6:46 AM Age: 74 years old Clinical indication: Severe anemia, no obvious source TECHNIQUE: Imaging protocol: Computed tomography of the abdomen and pelvis without and with contrast. COMPARISON: CT THORAX ABD/PEL CTA 05/28/2023 4:10 PM FINDINGS: Liver: Subcentimeter cysts in the right lobe of the liver. Gallbladder and biliary ducts: Normal. No calcified stones. No ductal dilation. Pancreas: 2.2 cm low-density lesion along the anterior margin of the pancreatic tip. This is indeterminate however appears stable when compared to the prior exam dated 05/28/2023. Spleen: Normal. No splenomegaly. Adrenal glands: Normal. No mass. Kidneys and ureters: No hydronephrosis. Focal area of scarring left kidney. Subcentimeter cystic lesions in the kidneys. Stomach and bowel: Colonic diverticulosis without evidence of diverticulitis. Appendix: No evidence of appendicitis. Intraperitoneal space: Unremarkable. No free air. No significant fluid collection. Retroperitoneal space: Retroperitoneal/Soraida ureteral fat stranding. Vasculature: Atherosclerotic plaque of the abdominal vasculature. There is high-grade stenosis and/or occlusion of the iliac bifurcation. There is atherosclerotic plaque of the origin of the renal arteries. There is likely high-. Stenosis of the right renal artery. There is high-grade stenosis/occlusion of the left superficial femoral artery Lymph nodes: Unremarkable. No enlarged lymph nodes. Urinary bladder: Asymmetrical wall thickening in the posterior aspect of the urinary bladder. Direct visualization is recommended. Reproductive: Unremarkable as visualized. Bones/joints: Grade 1-2 anterolisthesis of L5 in respect S1 Soft tissues: Unremarkable. IMPRESSION: 1. Asymmetrical wall thickening of the posterior aspect of the urinary bladder. Direct visualization is recommended. 2. Bilateral periureteral fat stranding. No obstructive calculus appreciated. Findings may represent urinary tract infection. 3. Severe atherosclerotic plaque of the abdominal vasculature. Likely high-grade stenosis/occlusion of the iliac bifurcation and left superficial femoral artery. 4. Colonic diverticulosis without evidence of diverticulitis. Dictated and Authenticated by: Dolores Landaverde MD. Orderin Lawrence El MD
[2025-02-06] MEDS: Bisoprolol 5 MG TAB PO (08:38)
[2025-02-06] MEDS: Atorvastatin 40 MG TAB 80 MG PO (08:38)
[2025-02-06] MEDS: Potassium Chloride 20 MEQ TABCR PO (08:38)
[2025-02-06] MEDS: Tamsulosin 0.4 MG CAPCR 0.8 MG PO (08:38)
[2025-02-06] MEDS: Ferrous Gluconate 324 MG TAB PO (08:38)
[2025-02-06] MEDS: Normal Saline Flush 10 ML SYR IVP ×3 (08:40→21:23)
[2025-02-06] MEDS: Magnesium Oxide 400 MG TAB PO (08:40)
[2025-02-06] MEDS: Omeprazole 20 MG CAPCR PO (08:40)
[2025-02-06] MEDS: CEFEPIME 1 GM in Normal Saline 50 ML IVPB ×2 (08:56→16:57)
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
[2025-02-06] MEDS: dilTIAZem 60 MG TAB 120 MG PO (09:05)
[2025-02-06 09:18] LABS: Vancomycin, Random 18.0 ug/mL
--- NOTE | 2025-02-06 11:15 | W.PM.PROGNOT ---
Date of Service Date of service: 02/06/25 Time of Service: 11:15 Assessment and Plan Assessment and plan (1) Septic shock: Status: Acute Assessment and plan: - Patient met criteria for septic shock on admission with a temperature of 101.9 ?F, heart rate of 161, mean arterial pressure less than 65 despite fluid resuscitation requiring IV Levophed, and lactic acid of 4.1 - However, on admission source of infection had not been identified - Since admission, initial blood cultures growing gram-positive bacteremia, though no source has been identified - Was initially started on Vanco and cefepime in the emergency department which was not continued on admission, but was restarted upon patient being persistently febrile and initial blood cultures being positive - Will continue on Vanco and cefepime until blood culture results returned with more information - 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, will restart if mean arterial pressures less than 65 (2) Paroxysmal atrial fibrillation: Status: Acute Assessment and plan: - Had briefly been on amlodipine drip in the emergency department was discontinued due to hypotension - Heart rate now well-controlled with home bisoprolol, carvedilol, diltiazem all of which will be continued (3) BPH (benign prostatic hyperplasia): Status: Chronic Assessment and plan: c/w flomax 0.8 daily (4) Anemia: Assessment and plan: - Patient apparently has history of anemia requiring transfusions - On the morning of 02/06/2025 patient's hemoglobin found to be 6.6 down from 9.1 on admission - Patient given 2 units packed red blood cells - Will recheck hemoglobin levels after transfusion and give additional units if below 8 - Given this is a longstanding issue, recommend outpatient consultation with heme-onc (5) Hypertension: Status: Chronic Assessment and plan: - Patient was hypotensive on admission, Levophed has since been discontinued as noted above - Hold home chlorthalidone, lisinopril, amlodipine (6) Cerebrovascular accident (CVA) due to thrombosis of right middle cerebral artery: Assessment and plan: - Hold home Plavix given drop in hemoglobin (7) Hyperlipidemia: Status: None Assessment and plan: - Continue with atorvastatin 80mg daily (8) Hypomagnesemia: Status: Acute Assessment and plan: -Mg 1.3 on admission -up to 1.8 on AM 02/06 (9) Hypokalemia: Status: Acute Assessment and plan: -K 3.3 on admission, 3.1 on AM 02/06 -continue with PO replacement and f/u AM bmp Subjective Subjective Interval history since last seen: Patient states that he is feeling better as compared to admission. He understands we are working on identifying the source of his fever and bacteremia. He also says that he has had a history of intermittently low hemoglobin requiring transfusion though no known cause has been identified. Otherwise he has no other complaints or concerns at this time. Exam Narrative Exam Narrative: Well-appearing older gentleman laying in bed in no acute distress, ANO x 4, heart irregularly irregular with rates now in the 80s, lungs clear to auscultation bilaterally, abdomen soft, nontender, nondistended Objective Last Vital Signs Temp 98.1 F 02/06/25 11:02 Pulse 86 02/06/25 11:02 Resp 27 H 02/06/25 11:02 BP 88/61 L 02/06/25 11:02 Pulse Ox 95 02/06/25 11:02 Laboratory Results - last 24 hr 02/05/25 02/05/25 02/05/25 11:59 12:57 14:21 WBC 9.28 RBC 3.06 L Hgb 9.1 L Hct 26.5 L MCV 87 MCH 29.7 MCHC 34.3 RDW 14.0 Plt Count 178 MPV 10.3 Immature Gran % 0.5 Neutrophils % 90.0 Lymphocytes % 2.2 Monocytes % 7.0 Eosinophils % 0.0 Basophils % 0.3 Nucleated RBC % 0.0 Absolute Neutrophils 8.35 H Absolute Lymphocytes 0.20 L Absolute Monocytes 0.65 Absolute Eosinophils 0.00 Absolute Basophils 0.03 RBC Morphology Hypochromasia Poikilocytosis ESR 14 VBG Lactate 4.2 H* Sodium 130 L Potassium 4.2 Chloride 94 L Carbon Dioxide 18.0 L Anion Gap 18.0 H BUN 20 H Creatinine 1.9 H Est GFR (CKD-EPI 2020) 37.02 Glucose 161 H Calcium 9.2 Magnesium 1.3 L Total Bilirubin 0.9 AST 35 ALT 28 Alkaline Phosphatase 56 Troponin I 38 34 C-Reactive Protein NT-Pro-B Natriuret Pep 3852 H Total Protein 7.2 Albumin 3.1 L Procalcitonin TSH 1.96 Urine Color Yellow Urine Clarity Sl Cloudy Urine pH 5.5 Ur Specific [place] 1.025 Urine Protein >=300 H Urine Ketones Trace H Urine Blood Moderate H Urine Nitrite Negative Urine Bilirubin Negative Urine Urobilinogen 1.0 H Ur Leukocyte Esterase Negative Urine RBC 5-10 H Urine WBC 3-5 Ur Epithelial Cells Negative Urine Crystals Negative Urine Bacteria Few Urine Casts 5-10 Fine Granular Urine Mucus Moderate Ur Culture Indicated? No Urine Glucose Negative Random Vancomycin COVID-19 Source SARS-CoV-2 (PCR) Influenza Type A (PCR) Influenza Type B (PCR) RSV (PCR) ABO/Rh Antibody Screen Crossmatch 02/05/25 02/05/25 02/05/25 14:50 14:52 15:52 WBC RBC Hgb Hct MCV MCH MCHC RDW Plt Count MPV Immature Gran % Neutrophils % Lymphocytes % Monocytes % Eosinophils % Basophils % Nucleated RBC % Absolute Neutrophils Absolute Lymphocytes Absolute Monocytes Absolute Eosinophils Absolute Basophils RBC Morphology Hypochromasia Poikilocytosis ESR VBG Lactate Sodium Potassium Chloride Carbon Dioxide Anion Gap BUN Creatinine Est GFR (CKD-EPI 2020) Glucose Calcium Magnesium Total Bilirubin AST ALT Alkaline Phosphatase Troponin I Cancelled C-Reactive Protein 9.91 H NT-Pro-B Natriuret Pep Total Protein Albumin Procalcitonin 2.18 TSH Urine Color Urine Clarity Urine pH Ur Specific [place] Urine Protein Urine Ketones Urine Blood Urine Nitrite Urine Bilirubin Urine Urobilinogen Ur Leukocyte Esterase Urine RBC Urine WBC Ur Epithelial Cells Urine Crystals Urine Bacteria Urine Casts Urine Mucus Ur Culture Indicated? Urine Glucose Random Vancomycin COVID-19 Source Nasopharynx SARS-CoV-2 (PCR) Negative Influenza Type A (PCR) Negative Influenza Type B (PCR) Negative RSV (PCR) Negative ABO/Rh Antibody Screen Crossmatch 02/05/25 02/06/25 02/06/25 21:30 05:23 06:38 WBC 4.24 L RBC 2.15 L Hgb 6.6 L* D Hct 18.9 L* MCV 88 MCH 30.7 MCHC 34.9 RDW 14.4 H Plt Count 110 L MPV 10.5 Immature Gran % 0.7 Neutrophils % 86.6 Lymphocytes % 2.4 Monocytes % 9.9 Eosinophils % 0.2 Basophils % 0.2 Nucleated RBC % 0.0 Absolute Neutrophils 3.67 Absolute Lymphocytes 0.10 L Absolute Monocytes 0.42 Absolute Eosinophils 0.01 Absolute Basophils 0.01 RBC Morphology See Below Hypochromasia 2+ Poikilocytosis 1+ ESR VBG Lactate Sodium 130 L 132 L Potassium 3.3 L 3.1 L Chloride 98 100 Carbon Dioxide 19.2 L 17.9 L Anion Gap 12.8 H 14.1 H BUN 27 H 25 H Creatinine 1.7 H 1.8 H Est GFR (CKD-EPI 2020) 42.30 39.50 Glucose 138 H 128 H Calcium 8.1 L 7.9 L Magnesium 1.8 Total Bilirubin 0.5 AST 40 H ALT 31 Alkaline Phosphatase 43 L Troponin I C-Reactive Protein NT-Pro-B Natriuret Pep Total Protein 5.5 L Albumin 2.3 L Procalcitonin TSH Urine Color Urine Clarity Urine pH Ur Specific [place] Urine Protein Urine Ketones Urine Blood Urine Nitrite Urine Bilirubin Urine Urobilinogen Ur Leukocyte Esterase Urine RBC Urine WBC Ur Epithelial Cells Urine Crystals Urine Bacteria Urine Casts Urine Mucus Ur Culture Indicated? Urine Glucose Random Vancomycin COVID-19 Source SARS-CoV-2 (PCR) Influenza Type A (PCR) Influenza Type B (PCR) RSV (PCR) ABO/Rh B Negative Antibody Screen NEGATIVE Crossmatch See Detail 02/06/25 08:35 WBC RBC Hgb Hct MCV MCH MCHC RDW Plt Count MPV Immature Gran % Neutrophils % Lymphocytes % Monocytes % Eosinophils % Basophils % Nucleated RBC % Absolute Neutrophils Absolute Lymphocytes Absolute Monocytes Absolute Eosinophils Absolute Basophils RBC Morphology Hypochromasia Poikilocytosis ESR VBG Lactate Sodium Potassium Chloride Carbon Dioxide Anion Gap BUN Creatinine Est GFR (CKD-EPI 2020) Glucose Calcium Magnesium Total Bilirubin AST ALT Alkaline Phosphatase Troponin I C-Reactive Protein NT-Pro-B Natriuret Pep Total Protein Albumin Procalcitonin TSH Urine Color Urine Clarity Urine pH Ur Specific [place] Urine Protein Urine Ketones Urine Blood Urine Nitrite Urine Bilirubin Urine Urobilinogen Ur Leukocyte Esterase Urine RBC Urine WBC Ur Epithelial Cells Urine Crystals Urine Bacteria Urine Casts Urine Mucus Ur Culture Indicated? Urine Glucose Random Vancomycin 18.0 COVID-19 Source SARS-CoV-2 (PCR) Influenza Type A (PCR) Influenza Type B (PCR) RSV (PCR) ABO/Rh Antibody Screen Crossmatch Time Spent with Patient Time Spent with Patient: >50 minutes Time was spent: preparing to see the patient(eg.review tests), obtaining and/or reviewing separately otained hiistory, ordering medications,tests, procedures, referring, communicating with other health hospice care sales consultant, indepentently interpreting results, counseling the patient and care coordination
[2025-02-06] MEDS: Simethicone 80 MG CHEW 40 MG PO (12:46)
[2025-02-06] MEDS: Normal Saline 1,000 ML 150 ML IV ×2 (14:10→21:01)
[2025-02-06 15:29] LABS: HCT 26.8 % (40.0-50.0); HGB 9.3 g/dL (13.5-17.5)
--- NOTE | 2025-02-06 15:55 | PT.INNT ---
PT Notes Visit Reasons: Weakness Chart review completed and approached for PT Evaluation. CRISTAL Coyne reports pt is not appropriate at this time, currently receiving blood transfusion and heart rate remains elevated. Will attempt on 02/07/2025.
--- NOTE | 2025-02-06 16:14 | W.NUTRFU ---
Date of service: 02/06/25 Time of Service: 15:00 Nutrition Note NOTE: Visited with Rick, who is being treated in the ICU for septic shock, Proximal A-fib, Anemia,low mag, low K and has a hx including CVA, HTN HLD, PVD. He states his nutrition intake has been down. States since last Monday the he had no intake outside of some fluids until his admission. His UBW reported as ~175lbs. Two weights taken yesterday were 170lbs and 179lbs - unsure if these were standing, bedscale or verbal from documentation. His Albumin and total protein labs are low, consistent with infection/inflammation (CRP 9.91. Hgb up to 9.3 today and Hct 26.8. Sodium 132, K 3.1, BUN 25, Cr 1.8 with GFR of 39.5 Has low appetite but tries to eat - when food is presented he may take a bite or two then feels like he can't eat. Declines to use oral nutrition supplements at this time - he is hoping his intake will improve. Nutrition Focused Physical Exam: declined Estimated energy needs: 1958-2350kcals (REEx1.3AF - include 1.2IF for inflammation/infection/fever). 81-98g protein (1-1.2g/kg). minimum of 1958mL fluid. Nutrition Dx: Inadequate intake of protein and calories as related to acute disease/injury and patient's decline of appetite/intake over the last 5 days as evidenced by nutrition interview. Intervention: will continue to offer ONS to support kcal and protein intake. Monitoring: will monitor intake, weight, nutrition-related labs Time Spent in Nutritional Counseling and Treatment: 10 min
[2025-02-06] MEDS: Rivaroxaban 10 MG TABLET 20 MG PO (16:58)
[2025-02-06] MEDS: Mylanta Suspension 30 ML CUP PO (18:42)
[2025-02-06] MEDS: VANCOMYCIN/WATER (PEG) 1 GM/200 ML BAG IVPB (21:22)
[2025-02-06 23:00] LABS: Glucose Negative (Negative)
[2025-02-06 23:17] LABS: C & S Indicated? No
[2025-02-07] VITALS (55 sets, daily range): BP systolic 101–159; BP diastolic 55–97; PULSE 60–138; RESP 14–32; TEMP 36.2–37; O2SAT 89–96
--- NOTE | 2025-02-07 | DI.CT_ITS ---
Exam(s) CT ABDOMEN PELVIS WO EXAM: CT ABDOMEN PELVIS WO CLINICAL HISTORY: abdominal distension on xray. TECHNIQUE: Imaging Protocol: Axial computed tomography images with coronal and sagittal reformatted images were created and reviewed. Oral: no COMPARISON: CT CT CHEST LUNG CANCER SCREEN from 12/06/[address] CHEST LUNG CANCER SCREEN from 07/16/[address] CHEST LUNG CANCER SCREEN from 01/17/[address] CHEST PE CTA from 07/05/[address] THORAX ABD/PEL CTA from 05/28/2023 CR,XR XR CHEST 2V PA LATERAL from 05/28/2023 CR,XR XR CHEST 2V PA LATERAL from 09/20/[address] ABDOMEN PELVIS WO/W from 02/06/2025 CR XR ABDOMEN FLAT UPRIGHT from 02/07/2025 CR XR CHEST 1V IN DI DEPT from 02/07/2025 FINDINGS: Lung Bases: Small bilateral pleural effusions, right greater than left. Peribronchial thickening, interlobular septal thickening in the lower lobes greater posteriorly. Findings may represent CHF versus fluid overload. Liver: Normal density. No suspicious mass. Gallbladder and biliary tract: No radiodense calculus or biliary dilation. Pancreas: Normal density. No abnormal calcifications or inflammatory process. Cyst again noted adjacent to the tail. Spleen: Normal. Kidneys: Normal size, contour and axis. No radiodense stones. No obstructive uropathy. No suspicious masses seen. Adrenal glands: No masses seen. Lymph nodes: Within normal limits. Vasculature: Abdominal aorta non-dilated. Severe atherosclerotic changes of the abdominal aorta and proximal iliac arteries. Stents are in place in the proximal iliac arteries. There is severe narrowing of the left common femoral artery. Soft tissues: Unremarkable. Bladder: No wall thickening. No mass or calculi. The density is higher than water. No wall thickening is visible on today's exam. Bowel: The colon is distended and contains air-fluid levels in the cecum and descending colon. The findings may be slightly worse when compared with the previous exam. There is no transition point but there is diverticulosis of the lower descending and sigmoid colon with muscular hypertrophy. No div erticulitis. The appendix has not distended. Peritoneal cavity: Minimal ascites. No focal collection. No mesenteric inflammatory response. Reproductive organs: Metallic seeds in the prostate.. Bones: L5 spondylolysis and L5-S1 spondylolisthesis small severe L5-S1 degenerative disc changes are again noted. IMPRESSION: Mild interval increase in distension of the colon when compared with yesterday's exam. No evidence of transition point to suggest an obstruction. Diverticulosis without evidence of diverticulitis. Small bilateral pleural effusions and basilar pulmonary edema. RADIATION DOSE DELIVERED: Total DLP DATA REPOSITORY: All CT scans at this facility are submitted to the National Radiology Data Registry (NRDR) Dose Index Registry (DIR) with the [employer] (A[employer]). RADIATION OPTIMIZATION: All CT scans at this facility use at least one of these dose optimization techniques: automated exposure control; mA and/or kV adjustment per patient size (includes targeted exams where dose is matched to clinical indication); or iterative reconstruction.
[2025-02-07] MEDS: CEFEPIME 1 GM in Normal Saline 50 ML IVPB ×3 (00:02→18:35)
[2025-02-07] MEDS: Normal Saline Flush 10 ML SYR IVP ×3 (00:03→18:35)
[2025-02-07] MEDS: Acetaminophen 500 MG TAB 1000 MG PO (02:08)
[2025-02-07] MEDS: Normal Saline 1,000 ML 150 ML IV ×2 (04:36→11:31)
[2025-02-07 06:52] LABS: Abs Immature Grans 0.06 10^3/uL (0.0-0.06); HCT 25.3 % (40.0-50.0); HGB 8.7 g/dL (13.5-17.5); Immature Grans % 1.1 %; MCH 29.4 pg (27.0-33.0); MCHC 34.4 % (32.0-36.0); MCV 86 fL (80-95); MPV 10.7 fL (8.0-11.0); Platelet Count 121 10^3/uL (130-400); RBC 2.96 10^6/uL (4.36-5.78); RDW 14.4 % (11.8-14.1); RDW-SD 45.3 fL; WBC 5.69 10^3/uL (4.4-10.8)
[2025-02-07 07:06] LABS: Magnesium 1.8 mg/dL (1.8-2.4)
[2025-02-07 07:16] LABS: ALT 32 U/L (16-63); AST 36 U/L (15-37); Albumin 2.2 g/dL (3.4-5.0); Alkaline Phosphatase 59 U/L (46-116); Anion Gap 15.1 mmol/L (3-11); BUN 18 mg/dL (7-18); Bilirubin, Total 0.6 mg/dL (0.2-1.0); CO2 16.9 mmol/L (21.0-32.0); Calcium 8.2 mg/dL (8.5-10.1); Chloride 106 mmol/L (98-107); Estimated GFR 64.25 (mL/min/1.73m2); Glucose 128 mg/dL (74-106); Sodium 138 mmol/L (136-145); Total Protein 5.7 g/dL (6.4-8.2)
[2025-02-07 07:19] LABS: Potassium 2.8 mmol/L (3.5-5.1)
[2025-02-07] MEDS: Ondansetron 4 MG/2 ML VIAL IVP (07:49)
[2025-02-07] MEDS: Omeprazole 20 MG CAPCR PO (08:16)
[2025-02-07] MEDS: POTASSIUM CHLORIDE 20 MEQ/100 ML BAG 50 MEQ IV_INF ×2 (08:16→10:06)
[2025-02-07] MEDS: dilTIAZem 60 MG TAB 120 MG PO (09:20)
[2025-02-07] MEDS: Cholecalciferol (Vitamin D3) 1,000 UNIT TAB 2000 UNITS PO (09:20)
[2025-02-07] MEDS: Tamsulosin 0.4 MG CAPCR 0.8 MG PO (09:21)
[2025-02-07] MEDS: Atorvastatin 40 MG TAB 80 MG PO (09:21)
[2025-02-07] MEDS: Clopidogrel 75 MG TAB PO (09:21)
[2025-02-07] MEDS: Potassium Chloride 20 MEQ TABCR PO (09:21)
[2025-02-07] MEDS: Bisoprolol 5 MG TAB PO (09:21)
[2025-02-07] MEDS: Magnesium Oxide 400 MG TAB PO (09:21)
[2025-02-07] MEDS: Ferrous Gluconate 324 MG TAB PO (09:21)
[2025-02-07] MEDS: Normal Saline 500 ML IV (09:24)
--- NOTE | 2025-02-07 13:00 | DI.RAD_ITS ---
Exam(s) XR CHEST 1V IN DI DEPT EXAM: XR CHEST 1V IN DI DEPT CLINICAL HISTORY: SOB. TECHNIQUE: 2D digital imaging was performed. COMPARISON: CR XR PORTABLE CHEST AP from 02/05/2025 FINDINGS: Single AP portable view. Chest wall bus driver/monitor again noted Heart size is upper normal. The mediastinum is not widened. Subtle increased lung markings but no confluent infiltrates nor pleural effusions. No pulmonary edema. IMPRESSION: No confluent infiltrates and no evidence of pulmonary edema nor pleural effusions on this single AP portable view. DATA REPOSITORY: RADIATION DOSE DELIVERED:
--- NOTE | 2025-02-07 13:00 | DI.RAD_ITS ---
Exam(s) XR ABDOMEN FLAT UPRIGHT EXAM: XR ABDOMEN FLAT UPRIGHT CLINICAL HISTORY: abdominal distension. TECHNIQUE: 2D digital imaging was performed. COMPARISON: CT CT ABDOMEN PELVIS WO/W from 02/06/2025 FINDINGS: Single AP supine view the abdomen-pelvis There are multiple distended bowel loops which appear to be large bowel loops these being distended to the splenic flexure level. There is some air seen in the nondistended left side of the colon and sigmoid and rectum. There are kissing endovascular stents in the common iliac arteries. Metallic seeds are noted in the prostate. IMPRESSION: Significant dilatation of large bowel loops as described above. I note that yesterday's CT scan revealed extensive sigmoid diverticulosis. No obvious annular constricting lesion in the large bowel at this level seen on yesterday's CT scan. Other findings as above. DATA REPOSITORY: RADIATION DOSE DELIVERED:
[2025-02-07 14:15] LABS: NT-proBNP 4985 pg/mL (<300)
--- NOTE | 2025-02-07 14:54 | CMPROGNOTE_ITS ---
Date of service: 02/07/25 Time of Service: 14:54 Care Management Progress Note Progress Note Text Progress Note Text: Rick was lying in bed when CM met with him today. His nurse and MD were present at that time. Rick's abdomen has become noticeably distended and he is requiring further work-up including lab work, chest xray, abdominal xray and CT. Rick stated that he was quite uncomfortable. CM did not stay to talk with Rick at this time as the blankbook stitching machine operator had just come in and he was to go to radiology urgently. Discharge Potential Discharge Needs: PT Evaluation (may need further f/u depending on course of hospitalization.) and PCP F/U Appt Anticipated Barriers to Discharge: None Identified Patient/Family Education Needs: Review discharge instructions, discuss Ask Me Three Transportation: Private vehicle Plan: Anticipate that Rick will discharge home with no new services. He will have a PT eval tomorrow. He will f/u with his PCP at [facility] and continue per his plan of care. CM will continue to follow and update the plan as needed. Social Determinants of Health Screening Will the Patient Participate in the Screening?: Unable to obtain Do you worry about having a steady place to live?: no Comments: Patient fatigue and condition prevent answering at this time.
--- NOTE | 2025-02-07 15:13 | IN_ITS ---
PT Notes Visit Reasons: Weakness
--- NOTE | 2025-02-07 15:13 | PT.INIE ---
PT Notes Visit Reasons: Weakness
--- NOTE | 2025-02-07 16:26 | PGE_ITS ---
Date of Service Date of service: 02/07/25 Time of Service: 16:26 Assessment and Plan Assessment and plan (1) Septic shock: Status: Acute Assessment and plan: - Patient met criteria for septic shock on admission with a temperature of 101.9 ?F, heart rate of 161, mean arterial pressure less than 65 despite fluid resuscitation requiring IV Levophed, and lactic acid of 4.1 - However, on admission source of infection had not been identified - Since admission, initial blood cultures growing gram-positive bacteremia, though no source has been identified - Was initially started on Vanco and cefepime in the emergency department which was not continued on admission, but was restarted upon patient being persistently febrile and initial blood cultures being positive - Will continue on Vanco and cefepime - Has been off 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/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, will restart if mean arterial pressures less than 65 (2) Enterococcal bacteremia: Status: Acute Assessment and plan: -preliminary blood cultures growing etnerococcus -in combination with cecal thickening, initially concerned for cancer as cause of bacteremia -however, patient shared that his most recent radiation therapy for his prostate was 3 weeks ago, and that he has not felt well for the last 2 weeks, thus recent radiation is likely cause of bacterial translocation -continue vanc and cefepime until final cultures result (3) [place] syndrome: Status: Acute Assessment and plan: -patient experienced rapid worsening of abdominal distension today -xray showed dilated loops of large bowel -CT only showed mild interval increase in distension as compared to previous -case discussed with General Surgery who diagnosed patient with [place] based on imaging and presentation -patient not a candidate for neostigmine based on cardiac history -plan to treat conservatively, though may need endoscopic decompression -please see General Surgery notes for further details (4) Paroxysmal atrial fibrillation: Status: Acute Assessment and plan: - Had briefly been on amlodipine drip in the emergency department was discontinued due to hypotension - Heart rate now well-controlled with home bisoprolol, carvedilol, diltiazem all of which will be continued (5) BPH (benign prostatic hyperplasia): Status: Chronic Assessment and plan: c/w flomax 0.8 daily (6) Anemia: Assessment and plan: - Patient apparently has history of anemia requiring transfusions - On the morning of 02/06/2025 patient's hemoglobin found to be 6.6 down from 9.1 on admission - Patient given 2 units packed red blood cells - Will recheck hemoglobin levels after transfusion and give additional units if below 8 - Given this is a longstanding issue, recommend outpatient consultation with heme-onc (7) Hypertension: Status: Chronic Assessment and plan: - Patient was hypotensive on admission, Levophed has since been discontinued as noted above - Hold home chlorthalidone, lisinopril, amlodipine (8) Cerebrovascular accident (CVA) due to thrombosis of right middle cerebral artery: Assessment and plan: - Hold home Plavix given drop in hemoglobin (9) Hyperlipidemia: Status: None Assessment and plan: - Continue with atorvastatin 80mg daily (10) Hypomagnesemia: Status: Acute Assessment and plan: -Mg 1.3 on admission -up to 1.8 on AM 02/06 (11) Hypokalemia: Status: Acute Assessment and plan: -K 3.3 on admission, 3.1 on AM 02/06 -continue with PO replacement and f/u AM bmp Subjective Subjective Interval history since last seen: Patient states that he is uncomfortable due to abdominal distension and that he is also short of breath with movement and when laying flat. Exam Narrative Exam Narrative: uncomfortable appearing older gentleman laying in bed in no acute distress, ANO x 4, heart irregularly irregular with rates now in the 80s, lungs clear to auscultation bilaterally, abdomen soft but significantly distended as compared to previous days without rebound or guarding Objective Last Vital Signs Temp 97.2 F L 02/07/25 15:40 Pulse 102 H 02/07/25 15:30 Resp 31 H 02/07/25 15:30 BP 131/78 02/07/25 14:35 Pulse Ox 92 02/07/25 15:00 Laboratory Results - last 24 hr 02/06/25 02/07/25 02/07/25 22:35 05:32 13:40 WBC 5.69 RBC 2.96 L Hgb 8.7 L Hct 25.3 L MCV 86 MCH 29.4 MCHC 34.4 RDW 14.4 H Plt Count 121 L MPV 10.7 Immature Gran % 1.1 Neutrophils % 84.4 Lymphocytes % 3.9 Monocytes % 7.7 Eosinophils % 2.5 Basophils % 0.4 Nucleated RBC % 0.0 Absolute Neutrophils 4.81 Absolute Lymphocytes 0.22 L Absolute Monocytes 0.44 Absolute Eosinophils 0.14 Absolute Basophils 0.02 Sodium 138 Potassium 2.8 L* Chloride 106 Carbon Dioxide 16.9 L Anion Gap 15.1 H BUN 18 Creatinine 1.2 Est GFR (CKD-EPI 2020) 64.25 Glucose 128 H Calcium 8.2 L Magnesium 1.8 Total Bilirubin 0.6 AST 36 ALT 32 Alkaline Phosphatase 59 NT-Pro-B Natriuret Pep 4985 H Total Protein 5.7 L Albumin 2.2 L Urine Color Yellow Urine Clarity Clear Urine pH 6.0 Ur Specific [place] 1.015 Urine Protein 100 H Urine Ketones Negative Urine Blood Moderate H Urine Nitrite Negative Urine Bilirubin Negative Urine Urobilinogen 0.2 Ur Leukocyte Esterase Negative Urine RBC 3-5 H Urine WBC 3-5 Ur Epithelial Cells Rare Urine Crystals Negative Urine Bacteria Rare Urine Casts 0-2 Hyaline Urine Mucus Negative Urine Other Few Transitional Ur Culture Indicated? No Urine Glucose Negative Time Spent with Patient Time Spent with Patient: >50 minutes Time was spent: preparing to see the patient(eg.review tests), obtaining and/or reviewing separately [facility] hi[facility], ordering medications,tests, procedures, referring, communicating with other health urgent care physician assistant, indepentently interpreting results, counseling the patient and care coordination
--- NOTE | 2025-02-07 17:13 | W.SUR.HO ---
Registration Status: ADM IN Primary Language: Preferred Language: Danish v v v v v v v v v Sending and/or Receiving Nurses: Please use comment section below to note any information pertinent to the patient hand-off not included above. Information / Comments: Report received from: Active Medications Generic Name Dose Route Start Last Admin Trade Name Freq PRN Reason Stop Dose Admin Acetaminophen 1,000 mg 02/06/25 01:32 02/07/25 02:08 Acetaminophen 500 Mg Tab PO 1,000 mg Q6H PRN PRN Administration Al Hydrox/Mg Hydrox/Simethicone 30 ml 02/05/25 15:08 02/06/25 18:42 Mylanta Suspension 30 Ml Cup PO 30 ml Q2H PRN PRN Administration Atorvastatin Calcium 80 mg 02/06/25 08:30 02/07/25 09:21 Atorvastatin 40 Mg Tab PO 80 mg DAILY JUVE Administration Bisoprolol Fumarate 5 mg 02/06/25 08:30 02/07/25 09:21 Bisoprolol 5 Mg Tab PO 5 mg DAILY JUVE Administration Calcium Carbonate 1,000 mg 02/07/25 08:59 Calcium Carbonate *Tums* 500 Mg Chew PO TID PRN PRN Cholecalciferol 2,000 units 02/07/25 08:30 02/07/25 09:20 Cholecalciferol (Vitamin D3) 1,000 Unit Tab PO 2,000 units DAILY JUVE Administration Clopidogrel Bisulfate 75 mg 02/06/25 08:30 02/07/25 09:21 Clopidogrel 75 Mg Tab PO 75 mg DAILY JUVE Administration Cyclobenzaprine HCl 10 mg 02/05/25 15:48 Cyclobenzaprine 10 Mg Tab PO TID PRN PRN Diltiazem HCl 120 mg 02/06/25 08:30 02/07/25 09:20 Diltiazem 60 Mg Tab PO 120 mg DAILY JUVE Administration Docusate Sodium 100 mg 02/05/25 15:08 Docusate Sodium 100 Mg Cap PO TID PRN PRN Ferrous Gluconate 324 mg 02/06/25 08:30 02/07/25 09:21 Ferrous Gluconate 324 Mg Tab PO 324 mg DAILY JUVE Administration Sodium Chloride 1,000 mls @ 150 mls/hr 02/05/25 21:30 02/07/25 11:31 Saline 1000ml Bag IV 150 mls/hr INFUSION JUVE Administration Cefepime HCl 1 gm/ Sodium 50 mls @ 100 mls/hr 02/06/25 08:30 02/07/25 12:04 Chloride IVPB Infused Q8H JUVE Infusion Vancomycin/PEG/NADA/Lysine/Water 1 gm in 200 mls @ 200 mls/hr 02/06/25 20:00 02/06/25 22:22 Vancocin Injection IVPB Infused Q24H JUVE Infusion Sodium Chloride 500 mls @ 0 mls/hr 02/07/25 09:23 02/07/25 09:24 Saline 500ml Bag IV 1 mls/hr PRN PRN Administration As Directed Magnesium Hydroxide 30 ml 02/05/25 15:08 Milk Of Magnesia 30 Ml Cup PO DAILY PRN PRN Magnesium Oxide 400 mg 02/06/25 08:30 02/07/25 09:21 Magnesium Oxide 400 Mg Tab PO 400 mg DAILY JUVE Administration Morphine Sulfate 1 mg 02/07/25 13:12 Morphine 2 Mg/Ml Syr IVP Q4H PRN PRN Omeprazole 20 mg 02/06/25 07:30 02/07/25 08:16 Omeprazole 20 Mg Capcr PO 20 mg DAILY@0730 JUVE Administration Ondansetron HCl 4 mg 02/07/25 07:31 02/07/25 07:49 Ondansetron 4 Mg/2 Ml Vial IVP 4 mg Q6H PRN PRN Administration Polyethylene Glycol 17 gm 02/05/25 15:08 Polyethylene Glycol 3350 17 Gm Packet PO DAILY PRN PRN Constipation Potassium Chloride 20 meq 02/06/25 08:30 02/07/25 09:21 Potassium Chloride 20 Meq Tabcr PO 20 meq DAILY JUVE Administration Rivaroxaban 20 mg 02/06/25 17:00 02/06/25 16:58 Rivaroxaban 10 Mg Tablet PO 20 mg DAILY@1700 JUVE Administration Sodium Chloride 0 ml 02/05/25 11:51 02/07/25 00:03 Normal Saline Flush 10 Ml Syr IVP 20 ml PRN PRN Administration Sodium Chloride 0 ml 02/05/25 20:00 02/07/25 07:50 Normal Saline Flush 10 Ml Syr IVP 60 ml BID JUVE Administration Sodium Chloride 0 ml 02/05/25 11:51 Normal Saline 10 Ml Vial IJ DIRECTED PRN Tamsulosin HCl 0.8 mg 02/06/25 08:30 02/07/25 09:21 Tamsulosin 0.4 Mg Capcr PO 0.8 mg DAILY JUVE Administration Trazodone HCl 50 mg 02/05/25 17:11 02/05/25 18:23 Trazodone 50 Mg Tab PO 50 mg HS PRN PRN Administration Zolpidem Tartrate 5 mg 02/05/25 15:48 Zolpidem 5 Mg Tab PO HS PRN PRN Respiratory Pulse Oximetry 92 Pulse Oximetry 92 Pulse Oximetry 92 Pulse Oximetry 94 Pulse Oximetry 92 Pulse Oximetry 93 Pulse Oximetry 94 Pulse Oximetry 93 Pulse Oximetry 93 Pulse Oximetry 93 Pulse Oximetry 94 Pulse Oximetry 94 Pulse Oximetry 94 Pulse Oximetry 91 Pulse Oximetry 91 Pulse Oximetry 96 Pulse Oximetry 95 Pulse Oximetry 96 Pulse Oximetry 94 Pulse Oximetry 94 Pulse Oximetry 94 Pulse Oximetry 95 Pulse Oximetry 95 Pulse Oximetry 93 Pulse Oximetry 95 Pulse Oximetry 96 Pulse Oximetry 89 Pulse Oximetry 89 Pulse Oximetry 94 Pulse Oximetry 94 Pulse Oximetry 92 Pulse Oximetry 92 Pulse Oximetry 93 Pulse Oximetry 92 Pulse Oximetry 91 Pulse Oximetry 95 Pulse Oximetry 95 Pulse Oximetry 94 Pulse Oximetry 95 Pulse Oximetry 94 Pulse Oximetry 94 Pulse Oximetry 94 Pulse Oximetry 95 Pulse Oximetry 95 Pulse Oximetry 94 Pulse Oximetry 96 Pulse Oximetry 95 Pulse Oximetry 95 Pulse Oximetry 96 Pulse Oximetry 95 Oxygen Flow Rate 0 Oxygen Flow Rate 0 Oxygen Flow Rate 0 No Known Allergies Allergy (Verified 02/05/25 12:14) Resuscitation Status DNR/DNI Implants Device Implant Date Quantity Site PATCH VENTRALEX M 6.4CM/2.5 06/13/18 1 Abdomen Lot/Batch Number [id number] Serial Number Catalog Number [id number] User Nico Montiel DO Comment Donation Id Number Manufactured Date Expiration Date 02/14/20 Source BELLA Device Identifier Version/Model Number 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 [employer] Pref Term Name MRI Safety Label Contains Natural Rubber Latex or Dry Natural Rubber Monitoring of Cardiac Electrical Activity, External Approach (09/26/17) [Endoscopic] polypectomy of rectum (03/04/08) 02/07/25 09:30 02/07/25 09:45 02/07/25 10:00 Temperature Temperature Source Pulse 102 H 92 H 91 H Respiratory Rate 18 22 16 Blood Pressure 153/97 H Blood Pressure Mean 114 Pulse Oximetry 94 96 95 Oxygen Delivery Method Oxygen Flow Rate Comment 02/07/25 10:03 02/07/25 10:30 02/07/25 11:00 Temperature Temperature Source Pulse 108 H 98 H 66 Respiratory Rate 19 21 20 Blood Pressure 147/89 H Blood Pressure Mean 108 Pulse Oximetry 96 91 L 91 L Oxygen Delivery Method Oxygen Flow Rate Comment 02/07/25 11:30 02/07/25 11:55 02/07/25 12:00 Temperature 36.3 C L Temperature Source Temporal Artery Scan Pulse 65 66 Respiratory Rate 26 H 29 H Blood Pressure Blood Pressure Mean Pulse Oximetry 94 94 Oxygen Delivery Method Oxygen Flow Rate Comment 02/07/25 12:02 02/07/25 12:30 02/07/25 13:05 Temperature Temperature Source Pulse 67 73 71 Respiratory Rate 28 H 27 H 19 Blood Pressure 156/88 H 156/88 H Blood Pressure Mean 106 106 Pulse Oximetry 94 93 93 Oxygen Delivery Method Oxygen Flow Rate Comment 02/07/25 13:06 02/07/25 13:14 02/07/25 13:30 Temperature Temperature Source Pulse 67 64 63 Respiratory Rate 14 26 H 26 H Blood Pressure 111/55 L Blood Pressure Mean 71 Pulse Oximetry 93 94 93 Oxygen Delivery Method Oxygen Flow Rate Comment 02/07/25 14:20 02/07/25 14:30 02/07/25 14:35 Temperature Temperature Source Pulse 64 77 66 Respiratory Rate 29 H 23 17 Blood Pressure 131/78 Blood Pressure Mean 93 Pulse Oximetry 92 94 92 Oxygen Delivery Method Oxygen Flow Rate Comment 02/07/25 14:36 02/07/25 15:00 02/07/25 15:30 Temperature Temperature Source Pulse 60 70 102 H Respiratory Rate 22 20 31 H Blood Pressure Blood Pressure Mean Pulse Oximetry 92 92 Oxygen Delivery Method Oxygen Flow Rate Comment Patient standing to void at this time. 02/07/25 15:40 Temperature 36.2 C L Temperature Source Temporal Artery Scan Pulse Respiratory Rate Blood Pressure Blood Pressure Mean Pulse Oximetry Oxygen Delivery Method Room Air Oxygen Flow Rate 0 Comment v v v v v v v v v Sending and/or Receiving Nurses: Please use comment section below to note any information pertinent to the patient hand-off not included above. Information / Comments: Report received from: Handoff was recieved from Sammie in the ICU at 1650. Patient ambulated an is stable.
[2025-02-07 17:58] LABS: Magnesium 1.9 mg/dL (1.8-2.4); Potassium 3.5 mmol/L (3.5-5.1)
--- NOTE | 2025-02-07 18:00 | W.SURGCON ---
Date of service: 02/07/25 Time of Service: 16:30 Assessment and Plan Assessment and plan (1) Jarett syndrome: Status: Acute Assessment and plan: Findings and exam most consistent with colonic pseudo obstruction due to critical illness. I think his bacteremia, sepsis (shock resolved), electrolyte abnormalities, acute kidney dysfunction, RVR (now rate controlled) all contributed. He has mild tenderness and pain today, probably from rapidity of distention, but no severe or prominent abdominal pain or tenderness on exam. Cecum diameter on xray today on my measurement is 10.2cm. Between 10-12cm the risk of perforation increases, but this is usually duration dependent. Intervention w neostigmine is not recommended for him due to his cardiac issues (rvr, PAD, shock). Endoscopic decompression risks perforation and is reserved for more severe presentations or if the oglvies is resistant to medical management. At this time I recommend: NPO except ice chips Ensure this isnt a c diff megacolon (no diarrhea, just one loose stool today but will rule it out w c diff toxin). Continuing to aggressively correct his acute illness. Continue antibiotics broad spectrum coverage until cultures are final. Check and correct magnesium and potassium with goal Mg of 2 and goal K of 4. I have discontinued any scheduled electrolyte replacement and will replace the electrolytes myself tonight and through the weekend. continue to rate control the a fib. Calcium channel blockers can contribute to oglvies so if he doesnt improve in next 1-2 days we will need to consider an alternative agent to cardizem. provide comfort via oxygen by nasal cannula. Positional changes such as laying on each side and alternating frequently will help the dyspnea as well. Avoid laying flat/supine, and avoid sitting completely upright. recombant position on left and right sides is ideal. Ambulation hold anticoagulation and plavix at this time in case an intervention is required. I have discontinued them. Hold all nonessential oral medications. I have discontinued and held some. When xarelto wears off he can have dvt chemoppx. i will follow closely. serial abd exams every 24 hours and serial abdominal xrays to check cecum diameter every 24h. orders placed. (2) Enterococcal bacteremia: Status: Acute (3) Sepsis: Status: Acute (4) Hypokalemia: Status: Acute (5) Hypomagnesemia: Status: Acute (6) Paroxysmal atrial fibrillation: Status: Acute (7) PVD (peripheral vascular disease): Status: Chronic (8) Prostate cancer: Status: Chronic (9) Chronic anticoagulation: Status: Acute (10) Platelet inhibition due to Plavix: Status: Acute History of Present Illness History of Present Illness Chief Complaint: colonic distention, new. enterococcus bacteremia Narrative: 74yo M admitted with septic shock of unknown origin. He was in a fib rvr and hypotensive requiring pressor support. He had elevated creatinine and low sodium. His presenting symptoms are fatigue and weakness worsening for the last 2 weeks. 3 weeks ago he completed radiation therapy for prostate cancer, and started on lupron. He has radiation seeds in the prostate and daughter says he got external beam radiation as well. He has been wondering if the lupron could be making him feel this way. Says he has had menopause-like symptoms of hormone withdrawal as the lupron took effect and has been dealing with that. He has had poor appetite but no pain with eating. Since admission he has passed gas though not robustly. He had about 75ml of loose stool this AM. no copious or bloody diarrhea. has had some abdominal distention prior to arrival that he noticed, and his daughter noticed. Daughter notes he has a loop recorder implant that is supposed to notify his cardiology team about a fib/arrhythmia but no one called them to say his rhythm was off. they recently consolidated his care at [facility], used to go to [facility] cardiology but [place]ferred to [facility] to try to keep his care in one place. he self catheterized his urine 2.5 weeks ago, but urinary source for sepsis was ruled out with unremarkable ua. no signs of pneumonia on admission. blood cx have started growing enterococcus today. this morning he started to have abdominal distention increasing rapidly. The distention is uncomfortable and he has had some crampy pain in the RLQ with it. The worst symptom is dyspnea and a feeling of not being able to catch his breath. When he got up to void his bladder he needed the nurse to come help him get back into bed from how hard it was to breathe and get comfortable from his distended abdomen. abdominal pain and distention are new. he felt bloated yesterday but today his abdomen changed significantly. PFSH All Active Problems (Updated 02/07/25 @ 19:48 by Suzanne Hitchcock MD) Platelet inhibition due to Plavix (Acute) Chronic anticoagulation (Acute) Prostate cancer (Chronic) Jarett syndrome (Acute) Abdominal distension (Acute) Enterococcal bacteremia (Acute) Septic shock (Acute) Fever (Acute) Hyponatremia (Acute) Atrial fibrillation with RVR (Acute) Sepsis (Acute) Otitis media, left (Acute) Congenital bilateral pes cavus (Acute) Pain in joints of both feet (Acute) Hypokalemia (Acute) Diverticulosis (Acute) Accelerated essential hypertension (Acute) Hypomagnesemia (Acute) Tendinopathy of right biceps tendon (Acute) distal Afib (Chronic) PVD (peripheral vascular disease) with claudication (Acute) Foot pain (Acute) Lower urinary tract symptoms (LUTS) (Acute) Third degree heart block (Acute) PVD (peripheral vascular disease) (Chronic) Obstructive sleep apnea (Chronic) Chronic fatigue (Chronic) since CVA, worsening after COVID19 Stroke (Chronic) 09/14/17 Acute GI bleeding (Acute) Enlarged prostate (Acute) BPH (benign prostatic hyperplasia) (Chronic) Hemorrhage of large intestine due to diverticular disease (Acute) COVID (Acute) Paroxysmal atrial fibrillation (Acute 01/02/18) Umbilical hernia (Acute) Iron refractory iron deficiency anemia (Acute) Hypertension (Chronic) Medical History SARS-CoV-2 antibody positive Adequate anticoagulation on anticoagulant therapy SVT (supraventricular tachycardia) Carotid artery stenosis bilateral last us 02/07 no stenosis, check q2yrs or prn Diverticula of colon pandivericulitis- severe Sleep apnea History of ileus Anemia Cerebrovascular accident (CVA) due to thrombosis of right middle cerebral artery (10/11/17) Weakness Tobacco abuse 35 pack year, quit Susan 2018, yearly Lung VT scan Osteoarthritis Arthritis Paresthesia Fatigue Aphasia Intermittent chest pain Vitiligo Surgical History S/P arterial stent H/O umbilical hernia repair (06/13/18) Dr Montiel H/O colonoscopy (03/2021) 2020: Dr. Horne, diverticula, no polyps repeat 10 years 2018:Dr Montiel, negative, repeat in 10 years History of total bilateral knee replacement H/O bilateral inguinal hernia repair Family History Father Alcohol use disorder Heart disease Mother Breast cancer Sister Breast cancer Other Carotid artery stenosis Social History Smoking/Tobacco Use Status: Former Tobacco Use Quit Date: 09/17/18 Tobacco: How many years used: 30 Smoking risk assessment performed?: Yes Alcohol Intake: former Drug use: Never Substance use type: does not use Housing: house Current gender identity: male What type of physical activity do you participate in: none Do you feel safe at home: Yes Do you feel safe in your relationship?: Yes Exam Narrative Exam Narrative: awake, NAD eomi, MMM midline trachea, neck is symmetric PULM: increased resp effort, equal chest rise with respiration, no wheezing audible CARDIAC: normal PMI, no jvd, regular rate, normal perfusion. palpable implanted loop recorder left of midline chest abdomen is distended and tympanitic. mild tenderness to palp diffusely, no peritonitis signs. extremities are without deformity, normal movement of all four extremities peripheral edema 1+ speech is clear and coherent mood and affect are congruent, no focal neurological deficits skin without rash Results Last Vital Signs Temp 98.4 F 02/07/25 17:30 Pulse 80 02/07/25 17:30 Resp 18 02/07/25 17:30 BP 117/87 02/07/25 17:30 Pulse Ox 94 02/07/25 17:30 Labs 02/07/25 05:32 02/07/25 17:39 Labs: Laboratory Results - last 24 hr 02/06/25 02/07/25 02/07/25 22:35 05:32 13:40 WBC 5.69 RBC 2.96 L Hgb 8.7 L Hct 25.3 L MCV 86 MCH 29.4 MCHC 34.4 RDW 14.4 H Plt Count 121 L MPV 10.7 Immature Gran % 1.1 Neutrophils % 84.4 Lymphocytes % 3.9 Monocytes % 7.7 Eosinophils % 2.5 Basophils % 0.4 Nucleated RBC % 0.0 Absolute Neutrophils 4.81 Absolute Lymphocytes 0.22 L Absolute Monocytes 0.44 Absolute Eosinophils 0.14 Absolute Basophils 0.02 Sodium 138 Potassium 2.8 L* Chloride 106 Carbon Dioxide 16.9 L Anion Gap 15.1 H BUN 18 Creatinine 1.2 Est GFR (CKD-EPI 2020) 64.25 Glucose 128 H Calcium 8.2 L Magnesium 1.8 Total Bilirubin 0.6 AST 36 ALT 32 Alkaline Phosphatase 59 NT-Pro-B Natriuret Pep 4985 H Total Protein 5.7 L Albumin 2.2 L Urine Color Yellow Urine Clarity Clear Urine pH 6.0 Ur Specific [place] 1.015 Urine Protein 100 H Urine Ketones Negative Urine Blood Moderate H Urine Nitrite Negative Urine Bilirubin Negative Urine Urobilinogen 0.2 Ur Leukocyte Esterase Negative Urine RBC 3-5 H Urine WBC 3-5 Ur Epithelial Cells Rare Urine Crystals Negative Urine Bacteria Rare Urine Casts 0-2 Hyaline Urine Mucus Negative Urine Other Few Transitional Ur Culture Indicated? No Urine Glucose Negative Imaging Abdominal x-ray: report reviewed and image reviewed Abdomen CT scan report/results: report reviewed and image reviewed CT scan - chest: report reviewed and image reviewed
[2025-02-07] MEDS: MAGNESIUM SULFATE 1 GM/100 ML BAG IV_INF (20:34)
[2025-02-07] MEDS: VANCOMYCIN/WATER (PEG) 1 GM/200 ML BAG IVPB (20:42)
[2025-02-07] MEDS: POTASSIUM CHLORIDE/0.9% NACL 1,000 ML 50 MEQ IV (21:40)
[2025-02-08] VITALS (7 sets, daily range): BP systolic 102–172; BP diastolic 67–97; PULSE 63–113; RESP 16–24; TEMP 25.8–36.4; O2SAT 94–98
--- NOTE | 2025-02-08 | DI.RAD_ITS ---
Exam(s) XR ABD FLAT UPRIGHT PA CHEST EXAM: XR ABD FLAT UPRIGHT PA CHEST CLINICAL HISTORY: cecum diameter oglvies synd. TECHNIQUE: 2D digital imaging was performed. COMPARISON: CT CT ABDOMEN PELVIS WO from 02/07/2025 CR XR CHEST 1V IN DI DEPT from 02/07/2025 FINDINGS: 3 views: Frontal view of the chest and supine and upright views of the abdomen: Heart size is normal. campus monitor device again noted. There is interstitial pulmonary edema including Paulino B lines now evident. Mild blunted costophrenic angles indicating small bilateral pleural effusions. In the abdomen there are kissing endovascular stents in the bilateral common iliac arteries again noted and there are seeds in the prostate gland again evident.. Air-fluid old small and large bowel loops again noted with distension of the colon from the cecum to the mid descending colon. Rectum and sigmoid are not distended. There is no obstructing mass in the sigmoid seen on yesterday's abdominal CT scan. As per request, measurement of the cecum was performed. This is 10.5 cm on the supine image. IMPRESSION: The large bowel is distended with air from the cecum to the mid descending colon level. Although the measurement of the cecum diameter is 10.5 cm, please note that these are portable supine images which results in a certain amount of magnification and thus a 10.5 cm measurement is probably a mild exaggeration. There is no pneumatosis evident in the cecum nor elsewhere in the bowel wall. There is an interstitial pattern in the lungs including Paulino B lines in the right lung lateral aspect. This was not evident on chest x-ray one day prior and os is an element of pulmonary edema and/or fluid overload. There are small bilateral pleural effusions. Preliminary virtual Radiology report was reviewed DATA REPOSITORY: RADIATION DOSE DELIVERED:
[2025-02-08] MEDS: CEFEPIME 1 GM in Normal Saline 50 ML IVPB ×3 (00:08→16:15)
[2025-02-08 07:35] LABS: Abs Immature Grans 0.07 10^3/uL (0.0-0.06); HCT 24.7 % (40.0-50.0); HGB 8.4 g/dL (13.5-17.5); Immature Grans % 1.1 %; MCH 29.5 pg (27.0-33.0); MCHC 34.0 % (32.0-36.0); MCV 87 fL (80-95); MPV 11.1 fL (8.0-11.0); Platelet Count 147 10^3/uL (130-400); RBC 2.85 10^6/uL (4.36-5.78); RDW 14.5 % (11.8-14.1); RDW-SD 45.3 fL; WBC 6.39 10^3/uL (4.4-10.8)
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
[2025-02-08 07:50] LABS: Magnesium 1.9 mg/dL (1.8-2.4)
[2025-02-08 07:54] LABS: Albumin 2.3 g/dL (3.4-5.0); Anion Gap 10.1 mmol/L (3-11); BUN 15 mg/dL (7-18); CO2 20.9 mmol/L (21.0-32.0); Calcium 8.5 mg/dL (8.5-10.1); Chloride 109 mmol/L (98-107); Estimated GFR 79.97 (mL/min/1.73m2); Glucose 123 mg/dL (74-106); Potassium 3.8 mmol/L (3.5-5.1); Sodium 140 mmol/L (136-145)
--- NOTE | 2025-02-08 08:48 | PGE_ITS ---
Date of Service Date of service: 02/08/25 Time of Service: 11:00 Assessment and Plan Assessment and plan (1) Jarett syndrome: Status: Acute Assessment and plan: improving with medical management of his illness. Ruling out c diff, sample sent okay to allow clear liquids today. serial XR and exams every 24h. orders in. (2) Enterococcal bacteremia: Status: Acute Assessment and plan: continue vanc and cefepime until cultures are final. possible he got radiation proctitis and developed bacteremia from that after his last XRT 3 weeks ago. (3) Hypophosphatemia: Status: Acute Assessment and plan: NaPhos 30mmol IV once today. goal phosporus of 3. (4) Hypokalemia: Status: Acute Assessment and plan: 20meq IV once potassium chloride today. goal potassium of 4. (5) Hypomagnesemia: Status: Acute Assessment and plan: 1g magnesium sulfate iv once today. goal magnesium of 2. (6) Paroxysmal atrial fibrillation: Status: Acute Assessment and plan: continue diltiazem po. rate controlled. if oglvies does not resolve we may need an alternative agent to ccb. (7) PVD (peripheral vascular disease): Status: Chronic Assessment and plan: holding plavix for possible need for intervention on the oglvies. Will resume when medically safe. (8) Acute on chronic anemia: Status: Acute Assessment and plan: hgb stable, he did get 2u prbc on 02/06. holding anticoag for now. holding plavix. holding iron during oglvies episode. Subjective Subjective Interval history since last seen: Feels better this morning. Had dyspnea still through the night but breathing easier now that abdomen has softened some. Less distended and able to move more. passing gas and had a very large loose stool today. C diff sample sent. getting ready for PT. Has been up walking. Exam Narrative Exam Narrative: awake, NAD eomi, MMM normal resp effort, decreased work of breathing compared to yesterday abdomen is softly distended, improved examination, no peritonitis trace periph edema speech clear and coherent Objective Last Vital Signs Temp 97.5 F L 02/08/25 03:10 Pulse 113 H 02/08/25 03:10 Resp 24 02/08/25 03:10 BP 147/86 H 02/08/25 03:10 Pulse Ox 96 02/08/25 03:10 Laboratory Results - last 24 hr 02/07/25 02/07/25 02/08/25 13:40 17:39 06:33 WBC 6.39 RBC 2.85 L Hgb 8.4 L Hct 24.7 L MCV 87 MCH 29.5 MCHC 34.0 RDW 14.5 H Plt Count 147 MPV 11.1 H Immature Gran % 1.1 Neutrophils % 86.0 Lymphocytes % 3.8 Monocytes % 8.0 Eosinophils % 0.8 Basophils % 0.3 Nucleated RBC % 0.0 Absolute Neutrophils 5.50 Absolute Lymphocytes 0.24 L Absolute Monocytes 0.51 Absolute Eosinophils 0.05 Absolute Basophils 0.02 Sodium 140 Potassium 3.5 3.8 Chloride 109 H Carbon Dioxide 20.9 L Anion Gap 10.1 BUN 15 Creatinine 1.0 Est GFR (CKD-EPI 2020) 79.97 Glucose 123 H Calcium 8.5 Phosphorus < 2.0 L Magnesium 1.9 1.9 NT-Pro-B Natriuret Pep 4985 H Albumin 2.3 L Objective Narrative Objective Narrative: reviewed abd and cxr images, improved colonic distention especially across the transverse and distal colon. Cecum remains dilated but improved slightly. I measure 10cm compared to 10.2. Time Spent with Patient Time Spent with Patient: 35-49 minutes Time was spent: preparing to see the patient(eg.review tests), ordering medications,tests, procedures, referring, communicating with other health spiritual care coordinator, indepentently interpreting results and counseling the patient
[2025-02-08] MEDS: dilTIAZem 60 MG TAB 120 MG PO (09:03)
[2025-02-08] MEDS: Pantoprazole 40 MG VIAL IVP (09:03)
[2025-02-08] MEDS: Tamsulosin 0.4 MG CAPCR 0.8 MG PO (09:03)
[2025-02-08] MEDS: Bisoprolol 5 MG TAB PO (09:03)
[2025-02-08] MEDS: MAGNESIUM SULFATE 1 GM/100 ML BAG IV_INF (09:04)
[2025-02-08] MEDS: Atorvastatin 40 MG TAB 80 MG PO (09:04)
[2025-02-08] MEDS: Normal Saline Flush 10 ML SYR IVP ×2 (09:05→20:16)
--- NOTE | 2025-02-08 09:50 | PT.INIE ---
PT Notes Visit Reasons: Weakness Inpatient Physical Therapy Evaluation Date: 02/08/2025 Referring Doctor: Marcus Miranda MD PT Orders: PT CONSULT: Evaluate and treat Precautions: fall risk, standard, SEPTIC[] Patient Profile/Admitting Diagnosis: []Rick is a 74-year-old gentleman with a known history of atrial fibrillation as well as a history of a CVA who presents with approximately 5 days of worsening weakness and fatigue. He has been diagnosed with septic shock, has abdominal distension and has been unable to particpate in PT due to inconsistent vitals, pain, nausea,loose stool. PMHX: []All Active Problems (Updated 02/05/25 @ 15:28 by Marcus Miranda MD) Fever (Acute) Hyponatremia (Acute) Atrial fibrillation with RVR (Acute) Sepsis (Acute) Otitis media, left (Acute) Congenital bilateral pes cavus (Acute) Pain in joints of both feet (Acute) Hypokalemia (Acute) Diverticulosis (Acute) Accelerated essential hypertension (Acute) Hypomagnesemia (Acute) Tendinopathy of right biceps tendon (Acute) distalAfib (Chronic) PVD (peripheral vascular disease) with claudication (Acute) Foot pain (Acute) Lower urinary tract symptoms (LUTS) (Acute) Third degree heart block (Acute) PVD (peripheral vascular disease) (Chronic) Obstructive sleep apnea (Chronic) Chronic fatigue (Chronic) since CVA, worsening after [id number] (Chronic) 09/14/17Acute GI bleeding (Acute) Enlarged prostate (Acute) BPH (benign prostatic hyperplasia) (Chronic) Hemorrhage of large intestine due to diverticular disease (Acute) COVID (Acute) Paroxysmal atrial fibrillation (Acute 01/02/18) Umbilical hernia (Acute) Iron refractory iron deficiency anemia (Acute) Hypertension (Chronic) Medical History SARS-CoV-2 antibody positive Adequate anticoagulation on anticoagulant therapy SVT (supraventricular tachycardia) Carotid artery stenosis bilateral last us 02/07 no stenosis, check q2yrs or prnDiverticula of colon pandivericulitis- severeSleep apnea History of ileus Anemia Cerebrovascular accident (CVA) due to thrombosis of right middle cerebral artery (10/11/17) Weakness Tobacco abuse 35 pack year, quit Susan 2018, yearly Lung VT scanOsteoarthritis Arthritis Paresthesia Fatigue Aphasia Intermittent chest pain Vitiligo Surgical History S/P arterial stent H/O umbilical hernia repair (06/13/18) Dr DavilaenH/O colonoscopy (03/2021) 2020: Dr. 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, lives alone with good family support Current Functional Limitations:Abdominal pain Equipment Owned/DME: none Subjective: I was pretty sick, couln't do much but am feeling better today Objective: [] General Observation: Pt sitting in bed full conversation with MD and nursing staff as I enter Mental Status: A and O x4 Pain: none but had pain Vital Signs:monitored by nursing staff ROM: Right Upper Extremity:WFL Left Upper Extremity: WFL Right Lower Extremity: WFL Left Lower Extremity: WFL Strength: Pt reports feeling stiff in the knees and right shoulder from being in bed Right Upper Extremity: WFL Left Upper Extremity: WFL Right Lower Extremity: WFL Left Lower Extremity: WFL Sensation:normal Bed Mobility/Transfers: Indep with all transfers in bed and sit to stand Gait: Ambulates 300+ feet with IV pole at fast pace without LOB or unsteadiness. He does state that he has had incidences of feeling light headed but not currently. Balance: Static Sitting: normal Dynamic Sitting: normal Static Standing: normal Dynamic Standing: good Special Tests: Mobility Limitations Standardized Measure [facility] AM-PAC 6 clicks Basic Mobility Inpatient Short Form: Raw Score:24 CMS Score: 0% Informed Consent/Education: Patient instructed in purpose of PT consult and plan of care. Assessment: Patient is a 74 year old male referred to physical therapy services with the diagnosis of sepsis. Patient presents with clinical signs and symptoms consistent with decreased activity due to sepsis, as demonstrated by the following impairment level findings: Patient reports feeling weak and overall decreased activity due to distention of abdomen he states at baseline he is independent with all activity and does a lot of walking but has not been able to it is noted that he does walk fast but does appear to be safe at this time he should do frequent walking and activity within the hospital and including sit to stand activity leg extensions to keep his mobility strength and endurance.. Impairments are contributing to the following functional limitations: AMPAC score. Patient is assessed as a Low 48030 complexity based on the following: History: as above Examination: as above Presentation: stable Decision Making: low Goals:indep Plan of Care/Treatment Plan: D/C skilled PT, indep with all activity while in hospital should have someone with him when ambulating as he reports on occassion light headed but does well on our session today. He is also instructed to do sit to stand, leg ext and get up intermittently. DISCHARGE RECOMMENDATIONS: [] [x] Home with no services once medically cleared TREATMENT CODE/TIME:38286 11:00-11:30
--- NOTE | 2025-02-08 10:03 | PGE_ITS ---
Date of Service Date of service: 02/08/25 Time of Service: 10:03 Assessment and Plan Assessment and plan (1) Septic shock: Status: Acute Assessment and plan: - Patient met criteria for septic shock on admission with a temperature of 101.9 ?F, heart rate of 161, mean arterial pressure less than 65 despite fluid resuscitation requiring IV Levophed, and lactic acid of 4.1 - However, on admission source of infection had not been identified - Since admission, initial blood cultures growing gram-positive bacteremia, though no source has been identified - Was initially started on Vanco and cefepime in the emergency department which was not continued on admission, but was restarted upon patient being persistently febrile and initial blood cultures being positive - Will continue on Vanco and cefepime - Has been off Levophed since 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 attendant 02/06/2025, will restart if mean arterial pressures less than 65 (2) Enterococcal bacteremia: Status: Acute Assessment and plan: -preliminary blood cultures growing etnerococcus -in combination with cecal thickening, initially concerned for cancer as cause of bacteremia -however, patient shared that his most recent radiation therapy for his prostate was 3 weeks ago, and that he has not felt well for the last 2 weeks, thus recent radiation is likely cause of bacterial translocation -continue vanc and cefepime until final cultures result (3) Lares syndrome: Status: Acute Assessment and plan: -patient experienced rapid worsening of abdominal distension today -xray showed dilated loops of large bowel -CT only showed mild interval increase in distension as compared to previous -case discussed with General Surgery who diagnosed patient with Lares based on imaging and presentation -patient not a candidate for neostigmine based on cardiac history -plan to treat conservatively, though may need endoscopic decompression -please see General Surgery notes for further details (4) Paroxysmal atrial fibrillation: Status: Acute Assessment and plan: - Had briefly been on amlodipine drip in the emergency department was discontinued due to hypotension - Heart rate now well-controlled with home bisoprolol, carvedilol, diltiazem all of which will be continued (5) BPH (benign prostatic hyperplasia): Status: Chronic Assessment and plan: c/w flomax 0.8 daily (6) Anemia: Assessment and plan: - Patient apparently has history of anemia requiring transfusions - On the morning of 02/06/2025 patient's hemoglobin found to be 6.6 down from 9.1 on admission - Patient given 2 units packed red blood cells - Will recheck hemoglobin levels after transfusion and give additional units if below 8 - Given this is a longstanding issue, recommend outpatient consultation with heme-onc (7) Hypertension: Status: Chronic Assessment and plan: - Patient was hypotensive on admission, Levophed has since been discontinued as noted above - Hold home chlorthalidone, lisinopril, amlodipine (8) Cerebrovascular accident (CVA) due to thrombosis of right middle cerebral artery: Assessment and plan: - Hold home Plavix given drop in hemoglobin (9) Hyperlipidemia: Status: None Assessment and plan: - Continue with atorvastatin 80mg daily (10) Hypomagnesemia: Status: Acute Assessment and plan: -Mg 1.3 on admission -up to 1.8 on AM 02/06 (11) Hypokalemia: Status: Acute Assessment and plan: -K 3.3 on admission, 3.1 on AM 02/06 -continue with PO replacement and f/u AM bmp Subjective Subjective Interval history since last seen: Patient states that he was able to get some sleep and feels less distended as compared to yesterday. Otherwise he has no other complaints concerns at this time. Exam Narrative Exam Narrative: uncomfortable appearing older gentleman laying in bed in no acute distress, ANO x 4, heart irregularly irregular with rates now in the 80s, lungs clear to auscultation bilaterally, abdomen soft, minimal tenderness, mild improvement in abdominal distention as compared to previous day Objective Last Vital Signs Temp 97.5 F L 02/08/25 08:59 Pulse 110 H 02/08/25 08:59 Resp 18 02/08/25 08:59 BP 172/94 H 02/08/25 08:59 Pulse Ox 98 02/08/25 08:59 Laboratory Results - last 24 hr 02/07/25 02/07/25 02/08/25 13:40 17:39 06:33 WBC 6.39 RBC 2.85 L Hgb 8.4 L Hct 24.7 L MCV 87 MCH 29.5 MCHC 34.0 RDW 14.5 H Plt Count 147 MPV 11.1 H Immature Gran % 1.1 Neutrophils % 86.0 Lymphocytes % 3.8 Monocytes % 8.0 Eosinophils % 0.8 Basophils % 0.3 Nucleated RBC % 0.0 Absolute Neutrophils 5.50 Absolute Lymphocytes 0.24 L Absolute Monocytes 0.51 Absolute Eosinophils 0.05 Absolute Basophils 0.02 Sodium 140 Potassium 3.5 3.8 Chloride 109 H Carbon Dioxide 20.9 L Anion Gap 10.1 BUN 15 Creatinine 1.0 Est GFR (CKD-EPI 2020) 79.97 Glucose 123 H Calcium 8.5 Phosphorus < 2.0 L Magnesium 1.9 1.9 NT-Pro-B Natriuret Pep 4985 H Albumin 2.3 L Time Spent with Patient Time Spent with Patient: >50 minutes Time was spent: preparing to see the patient(eg.review tests), obtaining and/or reviewing separately otained hiistory, ordering medications,tests, procedures, referring, communicating with other health director of health care marketing, indepentently interpreting results, counseling the patient and care coordination
--- NOTE | 2025-02-08 11:02 | DI.VRAD_ITS ---
PROCEDURE INFORMATION: Exam: XR Complete Acute Abdomen Series Including Chest Exam date and time: 02/08/2025 10:13 AM Age: 74 years old Clinical indication: Other: Cecum diameter TECHNIQUE: Imaging protocol: Radiologic exam. Complete acute abdomen series, including 2 or more views of the abdomen and a single view chest. COMPARISON: CT ABDOMEN PELVIS WO 02/07/2025 2:09 PM FINDINGS: Tubes, catheters and devices: Loop recorder present Lungs: Diffuse venous congestion or interstitial lung disease Pleural spaces: Normal. No pleural effusions. No pneumothorax. Heart/Mediastinum: Normal. No cardiomegaly. Gastrointestinal tract: Large bowel distended with air, cecum measuring 10.5 cm. Air-fluid levels in the large bowel Intraperitoneal space: Normal. No free air. Bones/joints: Normal. No acute fracture. Soft tissues: Normal. IMPRESSION: Large bowel distended with air, cecal diameter 10.5 cm Dictated and Authenticated by: Susan Carlos MD. Orderin Coretta Palacios MD
[2025-02-08 12:26] LABS: EPI 027-NAP1-B1 PRESUMPTIVE NEGATIVE
[2025-02-08] MEDS: VANCOMYCIN/WATER (PEG) 1 GM/200 ML BAG IVPB (19:59)
[2025-02-08] MEDS: POTASSIUM CHLORIDE/0.9% NACL 1,000 ML 50 MEQ IV (20:12)
[2025-02-09] MEDS: CEFEPIME 1 GM in Normal Saline 50 ML IVPB (00:05)
[2025-02-09] MEDS: Normal Saline Flush 10 ML SYR (00:07)
[2025-02-09 02:57] VITALS: BP 177/105; PULSE 124; RESP 24; TEMP 36.6; O2SAT 93
--- NOTE | 2025-02-09 05:30 | DI.RAD_ITS ---
Exam(s) XR ABD FLAT UPRIGHT PA CHEST EXAM: XR ABD FLAT UPRIGHT PA CHEST CLINICAL HISTORY: oglvies syndrome f/u cecum diameter, r/o perf. TECHNIQUE: 2D digital imaging was performed. COMPARISON: X-rays performed 02/07/2025 reviewed FINDINGS: There is no infiltrate in both lung bases and there are small bilateral pleural effusions. In the abdomen there are still dilated colon loops, predominately the transverse colon. Cecum does not appear distended at this time. There is no free intraperitoneal air seen on the upright view. No rectal fecal impaction. Seeds are again noted in the prostate gland and there again noted kissing endovascular stents in the bilateral common iliac arteries. IMPRESSION: Colon is less distended than previous although there is still some dilatation of the transverse colon appear. There is no free intraperitoneal air There are infiltrates in lung bases and small bilateral pleural effusions now evident. DATA REPOSITORY: RADIATION DOSE DELIVERED:
[2025-02-09 06:21] VITALS: BP 144/9; PULSE 93; RESP 17; TEMP 36.5; O2SAT 96
[2025-02-09 06:24] LABS: Abs Immature Grans 0.10 10^3/uL (0.0-0.06); HCT 26.1 % (40.0-50.0); HGB 8.9 g/dL (13.5-17.5); Immature Grans % 1.5 %; MCH 29.6 pg (27.0-33.0); MCHC 34.1 % (32.0-36.0); MCV 87 fL (80-95); MPV 11.0 fL (8.0-11.0); Platelet Count 166 10^3/uL (130-400); RBC 3.01 10^6/uL (4.36-5.78); RDW 14.5 % (11.8-14.1); RDW-SD 45.3 fL; WBC 6.48 10^3/uL (4.4-10.8)
[2025-02-09 06:44] LABS: ALT 35 U/L (16-63); AST 37 U/L (15-37); Albumin 2.4 g/dL (3.4-5.0); Alkaline Phosphatase 60 U/L (46-116); Anion Gap 13.6 mmol/L (3-11); BUN 13 mg/dL (7-18); Bilirubin, Total 0.7 mg/dL (0.2-1.0); CO2 19.4 mmol/L (21.0-32.0); Calcium 8.8 mg/dL (8.5-10.1); Chloride 108 mmol/L (98-107); Estimated GFR 90.74 (mL/min/1.73m2); Glucose 112 mg/dL (74-106); Magnesium 1.9 mg/dL (1.8-2.4); Potassium 3.7 mmol/L (3.5-5.1); Sodium 141 mmol/L (136-145); Total Protein 6.0 g/dL (6.4-8.2)
[2025-02-09 08:04] VITALS: BP 143/122; PULSE 92; RESP 18; TEMP 36.2; O2SAT 96
--- NOTE | 2025-02-09 08:47 | DI.VRAD_ITS ---
PROCEDURE INFORMATION: Exam: XR Complete Acute Abdomen Series Including Chest Exam date and time: 02/09/2025 8:08 AM Age: 74 years old Clinical indication: Other: [place] syndrome f/u cecum diameter, R/O perf TECHNIQUE: Imaging protocol: Radiologic exam. Complete acute abdomen series, including 2 or more views of the abdomen and a single view chest. COMPARISON: CR XR ABD FLAT UPRIGHT PA CHEST 02/08/2025 10:13 AM FINDINGS: Tubes, catheters and devices: Loop recorder on the left Lungs: Opacities in both lung bases may represent atelectasis or pneumonia.. Pleural spaces: Normal. No pleural effusions. No pneumothorax. Heart/Mediastinum: Normal. No cardiomegaly. Gastrointestinal tract: Dilated colon up to 8.7 cm in the left upper quadrant.. Previously 8.4 cm.. Intraperitoneal space: Normal. No free air. Bones/joints: Normal. No acute fracture. Soft tissues: Normal. IMPRESSION: 1. Opacities in both lung bases may represent atelectasis or pneumonia.. 2. Dilated colon up to 8.7 cm in the left upper quadrant.. Previously 8.4 cm.. 3 no free air under the diaphragm Dictated and Authenticated by: Kirill Lopez MD. Orderin Coretta Palacios MD
[2025-02-09] MEDS: Bisoprolol 5 MG TAB PO (09:19)
[2025-02-09] MEDS: Atorvastatin 40 MG TAB 80 MG PO (09:19)
[2025-02-09] MEDS: MAGNESIUM SULFATE 2 GM/50 ML BAG IV_INF (09:19)
[2025-02-09] MEDS: Clopidogrel 75 MG TAB PO (09:20)
[2025-02-09] MEDS: Potassium Chloride 20 MEQ TABCR 40 MEQ PO (09:20)
[2025-02-09] MEDS: Tamsulosin 0.4 MG CAPCR 0.8 MG PO (09:20)
[2025-02-09] MEDS: dilTIAZem 60 MG TAB 120 MG PO (09:20)
[2025-02-09] MEDS: Normal Saline Flush 10 ML SYR IVP ×2 (09:21→21:19)
[2025-02-09] MEDS: Lisinopril 20 MG TAB PO (09:43)
[2025-02-09] MEDS: Chlorthalidone 25 MG TAB PO (09:43)
--- NOTE | 2025-02-09 11:22 | PGE_ITS ---
Date of Service Date of service: 02/09/25 Time of Service: 11:22 Assessment and Plan Assessment and plan (1) Septic shock: Status: Acute Assessment and plan: - Patient met criteria for septic shock on admission with a temperature of 101.9 ?F, heart rate of 161, mean arterial pressure less than 65 despite fluid resuscitation requiring IV Levophed, and lactic acid of 4.1 - However, on admission source of infection had not been identified - Since admission, initial blood cultures growing gram-positive bacteremia, though no source has been identified - Was initially started on Vanco and cefepime in the emergency department which was not continued on admission, but was restarted upon patient being persistently febrile and initial blood cultures being positive - was on vanc and cefepime, discontinuing cefepime and continuing vanc until 02/11 (6 days since negative repeat blood cultures) - Has been off Levophed since cardiology consultant 02/06/2025, will restart if mean arterial pressures less than 65 (2) Enterococcal bacteremia: Status: Acute Assessment and plan: -preliminary blood cultures growing etnerococcus -in combination with cecal thickening, initially concerned for cancer as cause of bacteremia -however, patient shared that his most recent radiation therapy for his prostate was 3 weeks ago, and that he has not felt well for the last 2 weeks, thus recent radiation is likely cause of bacterial translocation -continuing vanc through 02/11 as noted above (3) [place]are[place] syndrome: Status: Acute Assessment and plan: -patient experienced rapid worsening of abdominal distension today -xray showed dilated loops of large bowel -CT only showed mild interval increase in distension as compared to previous -case discussed with General Surgery who diagnosed patient with [place] based on imaging and presentation -patient not a candidate for neostigmine based on cardiac history -plan to treat conservatively, patient improving and has been advanced to regular diet -please see General Surgery notes for further details (4) Paroxysmal atrial fibrillation: Status: Acute Assessment and plan: - Had briefly been on amlodipine drip in the emergency department was discontinued due to hypotension - Heart rate now well-controlled with home bisoprolol, carvedilol, diltiazem all of which will be continued (5) BPH (benign prostatic hyperplasia): Status: Chronic Assessment and plan: c/w flomax 0.8 daily (6) Anemia: Assessment and plan: - Patient apparently has history of anemia requiring transfusions - On the morning of 02/06/2025 patient's hemoglobin found to be 6.6 down from 9.1 on admission - Patient given 2 units packed red blood cells - Will recheck hemoglobin levels after transfusion and give additional units if below 8 - Given this is a longstanding issue, recommend outpatient consultation with heme-onc (7) Hypertension: Status: Chronic Assessment and plan: - Patient was hypotensive on admission, Levophed has since been discontinued as noted above - Hold home chlorthalidone, lisinopril, amlodipine (8) Cerebrovascular accident (CVA) due to thrombosis of right middle cerebral artery: Assessment and plan: - Hold home Plavix given drop in hemoglobin (9) Hyperlipidemia: Status: None Assessment and plan: - Continue with atorvastatin 80mg daily (10) Hypomagnesemia: Status: Acute Assessment and plan: -Mg 1.3 on admission -up to 1.8 on AM 02/06 (11) Hypokalemia: Status: Acute Assessment and plan: -K 3.3 on admission, 3.1 on AM 02/06 -continue with PO replacement and f/u AM bmp Subjective Subjective Interval history since last seen: Patient states that he is doing better today he is encouraged that he has been advanced to regular diet. He understands the plan to continue to monitor his abdomen, his p.o. intake, and that he will require IV antibiotics through 02/11/2025. Otherwise he has no other complaints or concerns at this t [facility]. Exam Narrative Exam Narrative: uncomfortable appearing older gentleman laying in bed in no acute distress, ANO x 4, heart irregularly irregular with rates now in the 80s, lungs clear to auscultation bilaterally, abdomen soft, minimal tenderness, mild improvement in abdominal distention as compared to previous day Objective Last Vital Signs Temp 97.2 F L 02/09/25 08:04 Pulse 92 H 02/09/25 08:04 Resp 18 02/09/25 08:04 BP 143/122 H 02/09/25 08:04 Pulse Ox 96 02/09/25 08:04 Laboratory Results - last 24 hr 02/08/25 02/09/25 11:00 06:08 WBC 6.48 RBC 3.01 L Hgb 8.9 L Hct 26.1 L MCV 87 MCH 29.6 MCHC 34.1 RDW 14.5 H Plt Count 166 MPV 11.0 Immature Gran % 1.5 Neutrophils % 83.3 Lymphocytes % 4.5 Monocytes % 8.6 Eosinophils % 1.5 Basophils % 0.6 Nucleated RBC % 0.0 Absolute Neutrophils 5.39 Absolute Lymphocytes 0.29 L Absolute Monocytes 0.56 Absolute Eosinophils 0.10 Absolute Basophils 0.04 Sodium 141 Potassium 3.7 Chloride 108 H Carbon Dioxide 19.4 L Anion Gap 13.6 H BUN 13 Creatinine 0.9 Est GFR (CKD-EPI 2020) 90.74 Glucose 112 H Calcium 8.8 Magnesium 1.9 Total Bilirubin 0.7 AST 37 ALT 35 Alkaline Phosphatase 60 Total Protein 6.0 L Albumin 2.4 L Stl C.difficile Tox PCR Negative Time Spent with Patient Time Spent with Patient: >50 minutes Time was spent: preparing to see the patient(eg.review tests), obtaining and/or reviewing separately otained hiistory, ordering medications,tests, procedures, referring, communicating with other health life care planner, indepentently interpreting results, counseling the patient and care coordination
--- NOTE | 2025-02-09 15:45 | PGE_ITS ---
Date of Service Date of service: 02/09/25 Time of Service: 15:45 Assessment and Plan Assessment and plan (1) Jarett syndrome: Status: Acute Assessment and plan: resolved. Pt having flatus and BMs with improving abdominal exams and imaging. Advance to regular diet. Will check XR once more in the AM to ensure colonic distention does not recur with reintroduction of diet. (2) Enterococcal bacteremia: Status: Acute Assessment and plan: admission blood cx w enterococcus in both bottles, sensitive to vanc. Ok to discontinue cefepime at this time I feel. second blood cultures taken 02/07 no growth to date. will defer to hospitalist on treatment of this. It is possible he got radiation proctitis and developed bacteremia from that after his last XRT 3 weeks ago. (3) Hypophosphatemia: Status: Acute Assessment and plan: replaced yesterday. (4) Hypokalemia: Status: Acute Assessment and plan: 40meq PO KCl given today. Goal potassium of 4 while recovering from oglvies. (5) Hypomagnesemia: Status: Acute Assessment and plan: 2g magnesium sulfate iv once today. goal magnesium of 2. (6) Paroxysmal atrial fibrillation: Status: Acute Assessment and plan: continue diltiazem po. hospitalist to restart beta blockers. rate controlled. I also restarted lisinopril, amlodipine and chlorthalidone for HTN. (7) PVD (peripheral vascular disease): Status: Chronic Assessment and plan: Restarting plavix since no intervention needed for oglvies. (8) Acute on chronic anemia: Status: Acute Assessment and plan: hgb stable, he did get 2u prbc on 02/06. Restarting xarelto. no sign of active bleeding or blood loss. will need iron tx as outpt. Subjective Subjective Interval history since last seen: pt continues to feel improved. Today for the first time in a couple of weeks he felt like he could empty his bladder. He walked outside his room and didnt feel short of breath. He believes he is getting better. Exam Narrative Exam Narrative: awake, NAD eomi, MMM normal resp effort, decreased work of breathing compared to yesterday abdomen is obese and soft and nondistended, nontender trace periph edema speech clear and coherent Objective Last Vital Signs Temp 97.2 F L 02/09/25 08:04 Pulse 92 H 02/09/25 08:04 Resp 18 02/09/25 08:04 BP 143/122 H 02/09/25 08:04 Pulse Ox 96 02/09/25 08:04 Laboratory Results - last 24 hr 02/09/25 06:08 WBC 6.48 RBC 3.01 L Hgb 8.9 L Hct 26.1 L MCV 87 MCH 29.6 MCHC 34.1 RDW 14.5 H Plt Count 166 MPV 11.0 Immature Gran % 1.5 Neutrophils % 83.3 Lymphocytes % 4.5 Monocytes % 8.6 Eosinophils % 1.5 Basophils % 0.6 Nucleated RBC % 0.0 Absolute Neutrophils 5.39 Absolute Lymphocytes 0.29 L Absolute Monocytes 0.56 Absolute Eosinophils 0.10 Absolute Basophils 0.04 Sodium 141 Potassium 3.7 Chloride 108 H Carbon Dioxide 19.4 L Anion Gap 13.6 H BUN 13 Creatinine 0.9 Est GFR (CKD-EPI 2020) 90.74 Glucose 112 H Calcium 8.8 Magnesium 1.9 Total Bilirubin 0.7 AST 37 ALT 35 Alkaline Phosphatase 60 Total Protein 6.0 L Albumin 2.4 L Objective Narrative Objective Narrative: reviewed abd and cxr images, improved colonic distention to normal. Time Spent with Patient Time Spent with Patient: 35-49 minutes Time was spent: preparing to see the patient(eg.review tests), ordering medications,tests, procedures, referring, communicating with other health patient care nursing assistant, indepentently interpreting results and counseling the patient
[2025-02-09 19:28] VITALS: BP 134/95; PULSE 98; RESP 20; TEMP 36.3; O2SAT 96
[2025-02-09] MEDS: VANCOMYCIN/WATER (PEG) 1 GM/200 ML BAG IVPB (19:32)
[2025-02-09] MEDS: POTASSIUM CHLORIDE/0.9% NACL 1,000 ML 50 MEQ IV (19:32)
[2025-02-09] MEDS: Rivaroxaban 10 MG TABLET 20 MG PO (19:32)
[2025-02-09 19:34] LABS: Vancomycin, Trough 7.1 ug/mL (10.0-20.0)
[2025-02-10] VITALS (7 sets, daily range): BP systolic 100–154; BP diastolic 62–107; PULSE 60–129; RESP 16–19; TEMP 35.9–36.9; O2SAT 94–98
[2025-02-10] MEDS: Acetaminophen 500 MG TAB 1000 MG PO (06:04)
--- NOTE | 2025-02-10 08:00 | DI.RAD_ITS ---
Exam(s) XR ABD FLAT UPRIGHT PA CHEST EXAM: 2D digital imaging was performed. CLINICAL HISTORY: oglvies syndrome f/u cecum diameter, r/o perf. COMPARISON: CT CT ABDOMEN PELVIS WO from 02/07/2025 CR,XR XR ABD FLAT UPRIGHT PA CHEST from 02/09/2025 TECHNIQUE: Supine and upright abdomen and PA chest views were performed. Six images were obtained. FINDINGS: MEDIASTINUM: Normal. HEART: Normal. PULMONARY VASCULATURE: Normal. LUNGS: The pulmonary infiltrates have nearly completely resolved. PLEURAL SPACE: There is blunting of the right costophrenic angle which may represent a small pleural effusion. There is no pneumothorax. BONE:Within normal limits for the patient's age. OTHER FINDINGS:There is again seen a cardiac monitoring device in place. BOWEL GAS PATTERN: Nondistended. The cecum is not distended on this examination. FREE AIR: None. CALCIFICATIONS: Atherosclerotic calcification is present. OSSEOUS STRUCTURES: Normal for age. OTHER FINDINGS: None. IMPRESSION: 1. Nonobstructive bowel gas pattern. No evidence of cecal dilatation. 2. Significant improvement of the pulmonary infiltrates. DATA REPOSITORY: RADIATION DOSE DELIVERED:
[2025-02-10] MEDS: Atorvastatin 40 MG TAB 80 MG PO (08:07)
[2025-02-10] MEDS: Tamsulosin 0.4 MG CAPCR 0.8 MG PO (08:07)
[2025-02-10] MEDS: dilTIAZem 60 MG TAB 120 MG PO (08:07)
[2025-02-10] MEDS: Clopidogrel 75 MG TAB PO (08:08)
[2025-02-10] MEDS: Pantoprazole 40 MG TABCR PO (08:08)
[2025-02-10] MEDS: Lisinopril 20 MG TAB PO (08:09)
[2025-02-10] MEDS: Normal Saline Flush 10 ML SYR IVP ×2 (08:10→20:58)
[2025-02-10] MEDS: Chlorthalidone 25 MG TAB PO (08:10)
[2025-02-10] MEDS: amLODIPine 5 MG TAB PO (08:10)
[2025-02-10] MEDS: Bisoprolol 5 MG TAB PO (08:10)
--- NOTE | 2025-02-10 09:59 | CMPROGNOTE_ITS ---
Date of service: 02/10/25 Time of Service: 09:59 Care Management Progress Note Progress Note Text Progress Note Text: Rick and CM walked the halls together today, and then sat in his room and had a nice conversation. Rick is starting to feel a lot better. He has been ambulating and is tolerating a regular diet. Rick will be finished with his IV antibiotic treatment tomorrow. He is both eager, and worried about going home. He does not want to have to come back, and hopes he will not be leaving too soon. Discharge Potential Discharge Needs: PCP F/U Appt Anticipated Barriers to Discharge: None Identified Patient/Family Education Needs: Review discharge instructions, discuss Ask Me Three Transportation: Private vehicle Plan: Anticipate that Rick will discharge home with no new services. He will f/u with his PCP at [facility] and continue per his plan of care. CM will continue to follow and update the plan as needed. Social Determinants of Health Screening Will the Patient Participate in the Screening?: Unable to obtain Do you worry about having a steady place to live?: no Comments: Patient fatigue and condition prevent answering at this time.
[2025-02-10] MEDS: VANCOMYCIN/WATER (PEG) 1 GM/200 ML BAG IVPB (12:27)
--- NOTE | 2025-02-10 13:08 | PGE_ITS ---
Date of Service Date of service: 02/10/25 Time of Service: 13:08 Assessment and Plan Assessment and plan (1) Septic shock: Status: Acute Assessment and plan: - Patient met criteria for septic shock on admission with a temperature of 101.9 ?F, heart rate of 161, mean arterial pressure less than 65 despite fluid resuscitation requiring IV Levophed, and lactic acid of 4.1 - However, on admission source of infection had not been identified - Since admission, initial blood cultures growing gram-positive bacteremia, though no source has been identified - Was initially started on Vanco and cefepime in the emergency department which was not continued on admission, but was restarted upon patient being persistently febrile and initial blood cultures being positive - was on vanc and cefepime, discontinuing cefepime and continuing vanc until 02/11 (6 days since negative repeat blood cultures) (2) Enterococcal bacteremia: Status: Acute Assessment and plan: -preliminary blood cultures growing etnerococcus -in combination with cecal thickening, initially concerned for cancer as cause of bacteremia -however, patient shared that his most recent radiation therapy for his prostate was 3 weeks ago, and that he has not felt well for the last 2 weeks, thus recent radiation is likely cause of bacterial translocation -continuing vanc through 02/11 as noted above (3) [place] syndrome: Status: Acute Assessment and plan: -patient experienced rapid worsening of abdominal distension today -xray showed dilated loops of large bowel -CT only showed mild interval increase in distension as compared to previous -case discussed with General Surgery who diagnosed patient with [place] based on imaging and presentation -patient not a candidate for neostigmine based on cardiac history - Was treated conservatively, now on regular diet -please see General Surgery notes for further details - Resolved as of 2024 (4) Paroxysmal atrial fibrillation: Status: Acute Assessment and plan: - Had briefly been on amlodipine drip in the emergency department was discontinued due to hypotension - Heart rate now well-controlled with home bisoprolol, carvedilol, diltiazem all of which have been continued (5) BPH (benign prostatic hyperplasia): Status: Chronic Assessment and plan: c/w flomax 0.8 daily (6) Anemia: Assessment and plan: - Patient apparently has history of anemia requiring transfusions - On the morning of 02/06/2025 patient's hemoglobin found to be 6.6 down from 9.1 on admission - Patient given 2 units packed red blood cells - Will recheck hemoglobin levels after transfusion and give additional units if below 8 - Given this is a longstanding issue, recommend outpatient consultation with heme-onc (7) Hypertension: Status: Chronic Assessment and plan: - Patient was hypotensive on admission, Levophed has since been discontinued as noted above - Hold home chlorthalidone, lisinopril, amlodipine (8) Cerebrovascular accident (CVA) due to thrombosis of right middle cerebral artery: Assessment and plan: - Hold home Plavix given drop in hemoglobin (9) Hyperlipidemia: Status: None Assessment and plan: - Continue with atorvastatin 80mg daily (10) Hypomagnesemia: Status: Acute Assessment and plan: -Mg 1.3 on admission -up to 1.8 on AM 02/06 (11) Hypokalemia: Status: Acute Assessment and plan: -K 3.3 on admission, 3.1 on AM 02/06 -continue with PO replacement and f/u AM bmp Subjective Subjective Interval history since last seen: Patient states that he is feeling better though he is a little anxious about the possibility of being discharged over the next few days. Otherwise he has no other complaints or concerns at this time. Exam Narrative Exam Narrative: Well appearing older gentleman laying in bed in no acute distress, ANO x 4, heart irregularly irregular with rates now in the 80s, lungs clear to auscultation bilaterally, abdomen soft, minimal tenderness, significant improvement in abdominal distention as compared to previous days Objective Last Vital Signs Temp 97.7 F 02/10/25 11:54 Pulse 68 02/10/25 11:54 Resp 18 02/10/25 11:54 BP 110/66 02/10/25 11:54 Pulse Ox 98 02/10/25 11:54 Laboratory Results - last 24 hr 02/09/25 19:10 Vancomycin Trough 7.1 L Time Spent with Patient Time Spent with Patient: >50 minutes Time was spent: preparing to see the patient(eg.review tests), obtaining and/or reviewing separately otained hiistory, ordering medications,tests, procedures, referring, communicating with other health patient care director, indepentently interpreting results, counseling the patient and care coordination
--- NOTE | 2025-02-10 14:00 | W.PM.PROGNOT ---
Date of Service Date of service: 02/10/25 Time of Service: 14:00 Assessment and Plan Assessment and plan (1) Jarett syndrome: Status: Acute Assessment and plan: Rick seems to have had favorable response to treatment and resolution of his colonic pseudoobstruction. His x-ray today is reassuring, and his bowel movements over the past few days are most important. Will sign off for now, but certainly if he needs anything or have any questions, please do not hesitate to ask. Subjective Subjective Interval history since last seen: Rick seems to be doing pretty well this morning. He had multiple bowel movements over the past few days. Some thin liquid, but they do seem to be improving a little bit. He denies any abdominal pain. He is been able to tolerate some diet. Exam GI Other: Abdomen is soft and nontender. He is got just a little bit of distention, but it seems like this is down quite a bit compared to previously. Objective Last Vital Signs Temp 97.7 F 02/10/25 11:54 Pulse 68 02/10/25 11:54 Resp 18 02/10/25 11:54 BP 110/66 02/10/25 11:54 Pulse Ox 98 02/10/25 11:54 Laboratory Results - last 24 hr 02/09/25 19:10 Vancomycin Trough 7.1 L Time Spent with Patient Time Spent with Patient: <25 minutes Time was spent: preparing to see the patient(eg.review tests) and indepentently interpreting results
[2025-02-10] MEDS: Rivaroxaban 10 MG TABLET 20 MG PO (20:56)
[2025-02-11] VITALS (7 sets, daily range): BP systolic 103–136; BP diastolic 68–102; PULSE 61–90; RESP 15–20; TEMP 36.1–36.8; O2SAT 95–98
[2025-02-11] MEDS: VANCOMYCIN/WATER (PEG) 1 GM/200 ML BAG IVPB ×3 (00:01→23:47)
--- NOTE | 2025-02-11 08:00 | DI.RAD_ITS ---
Exam(s) XR ABD FLAT UPRIGHT PA CHEST EXAM: XR ABD FLAT UPRIGHT PA CHEST CLINICAL HISTORY: oglvies syndrome f/u cecum diameter, r/o perf. TECHNIQUE: 2D digital imaging was performed. COMPARISON: CT CT ABDOMEN PELVIS WO from 02/07/2025 FINDINGS: Lung bases appear somewhat improved. Bowel gas pattern is nonspecific. There is air seen throughout small and large bowel loops. No gross dilatation of the cecum or other bowel loops. Kissing endovascular stents are again noted at the origin of both common iliac arteries just distal to the aortic bifurcation. There are no obvious edematous appearing bowel loops at this time. IMPRESSION: Air-filled small large bowel loops but no gross distention this time. Also no free intraperitoneal air. DATA REPOSITORY: RADIATION DOSE DELIVERED:
[2025-02-11] MEDS: Atorvastatin 40 MG TAB 80 MG PO (08:01)
[2025-02-11] MEDS: Tamsulosin 0.4 MG CAPCR 0.8 MG PO (08:02)
[2025-02-11] MEDS: Clopidogrel 75 MG TAB PO (08:02)
[2025-02-11] MEDS: dilTIAZem 60 MG TAB 120 MG PO (08:02)
[2025-02-11] MEDS: Bisoprolol 5 MG TAB PO (08:02)
[2025-02-11] MEDS: Pantoprazole 40 MG TABCR PO (08:02)
[2025-02-11] MEDS: amLODIPine 5 MG TAB PO (08:02)
[2025-02-11] MEDS: Lisinopril 20 MG TAB PO (08:02)
[2025-02-11] MEDS: Normal Saline Flush 10 ML SYR IVP ×2 (08:03→20:23)
[2025-02-11] MEDS: Chlorthalidone 25 MG TAB PO (08:05)
[2025-02-11 09:01] LABS: HCT 29.1 % (40.0-50.0); HGB 9.8 g/dL (13.5-17.5); MCH 29.5 pg (27.0-33.0); MCHC 33.7 % (32.0-36.0); MCV 88 fL (80-95); MPV 10.7 fL (8.0-11.0); Platelet Count 247 10^3/uL (130-400); RBC 3.32 10^6/uL (4.36-5.78); RDW 14.3 % (11.8-14.1); RDW-SD 46.5 fL; WBC 5.64 10^3/uL (4.4-10.8)
[2025-02-11] MEDS: Acetaminophen 500 MG TAB 1000 MG PO (09:05)
[2025-02-11 09:12] LABS: Anion Gap 11.1 mmol/L (3-11); BUN 14 mg/dL (7-18); CO2 23.9 mmol/L (21.0-32.0); Calcium 9.4 mg/dL (8.5-10.1); Chloride 105 mmol/L (98-107); Estimated GFR 64.25 (mL/min/1.73m2); Glucose 127 mg/dL (74-106); Potassium 3.7 mmol/L (3.5-5.1); Sodium 140 mmol/L (136-145)
[2025-02-11 09:13] LABS: Magnesium 1.7 mg/dL (1.8-2.4)
[2025-02-11 10:32] LABS: Iron 45 ug/dL (65-175); Total Iron Binding Capacity 262 ug/dL (250-450); Transferrin Sat 17 % (20-55)
--- NOTE | 2025-02-11 15:10 | CHAPLAIN ---
Rick was resting in bed when I visited. He was very pleasant and easily engaged in conversation. Rick told me that he came to the ED and was in the ICU a week ago, and moved out to Med/Surg a few days ago. He said he felt very sick and discouraged in the ICU and is feeling better now. He may be discharged tomorrow. He said hospitals are like prisons, in that when you're released you want to make sure you don't come back. (He also said he's never been in detention.) His daughter lives nearby him and has been visiting Rick while he's here. 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 Rick said he's received good care while he's been here and the hospitalists have been very professional. He thinks the food and the choices for meals have improved greatly since he was here many years ago. I explained my role and offered support.
--- NOTE | 2025-02-11 15:56 | PDOC.CMPRO ---
Date of service: 02/11/25 Time of Service: 15:56 Care Management Progress Note Progress Note Text Progress Note Text: Rick was lying in the bed when CM met with him this afternoon. He was quick with a smile and a joke, and stated that he thinks he is ready for discharge tomorrow. He has felt pretty good today, is ambulating and eating without difficulty. Discharge Potential Discharge Needs: PCP F/U Appt Anticipated Barriers to Discharge: None Identified Patient/Family Education Needs: Review discharge instructions, discuss Ask Me Three Transportation: Private vehicle Plan: Anticipate that Rick will discharge home tomorrow or the next day with no new services. He will f/u with his PCP and his community providers and continue per his plan of care. Rick will transport home with family. CM will continue to follow. Social Determinants of Health Screening Will the Patient Participate in the Screening?: Unable to obtain Do you worry about having a steady place to live?: no Comments: Patient fatigue and condition prevent answering at this time.
--- NOTE | 2025-02-11 15:58 | W.PM.PROGNOT ---
Date of Service Date of service: 02/11/25 Time of Service: 15:58 Assessment and Plan Assessment and plan (1) Septic shock: Status: Acute Assessment and plan: - Patient met criteria for septic shock on admission with a temperature of 101.9 ?F, heart rate of 161, mean arterial pressure less than 65 despite fluid resuscitation requiring IV Levophed, and lactic acid of 4.1. Has resolved. - blood cultures growing enteroccucus - Was initially started on Vanco and cefepime in the emergency department which was not continued on admission, but was restarted upon patient being persistently febrile and initial blood cultures being positive - was on vanc and cefepime, discontinued cefepime 02/09, and continuing vanc through 02/11 (6 days since negative repeat blood cultures) (2) Enterococcal bacteremia: Status: Acute Assessment and plan: -Blood cultures growing etnerococcus -with most recent radiation therapy for his prostate was 3 weeks ago, and symptoms for the last 2 weeks, radiation is likely cause of bacterial translocation -continuing vanc through 02/11 as noted above (3) Watkins syndrome: Status: Acute Assessment and plan: -xray showed dilated loops of large bowel -CT only showed mild interval increase in distension as compared to previous -case discussed with General Surgery who diagnosed patient with Watkins based on imaging and presentation -patient not a candidate for neostigmine based on cardiac history - imrpoved with conservative treatment, now on regular diet -please see General Surgery notes for further details (4) Paroxysmal atrial fibrillation: Status: Acute Assessment and plan: - Had briefly been on amiodarone drip in the emergency department was discontinued due to hypotension - Rate high overnight, but during the course of the day back well-controlled with home bisoprolol, carvedilol, diltiazem (5) BPH (benign prostatic hyperplasia): Status: Chronic Assessment and plan: c/w flomax 0.8 daily, check post-void before discharge. (6) Anemia: Assessment and plan: - Patient apparently has history of anemia requiring transfusions - On the morning of 02/06/2025 patient's hemoglobin found to be 6.6 down from 9.1 on admission - Patient given 2 units packed red blood cells, stabilized. - Given this is a longstanding issue, recommend outpatient consultation with heme-onc (7) Hypertension: Status: Chronic Assessment and plan: - Patient was hypotensive on admission, Levophed has since been discontinued as noted above - now back on home chlorthalidone, lisinopril, amlodipine (8) Cerebrovascular accident (CVA) due to thrombosis of right middle cerebral artery: Assessment and plan: -back on clopidogrel and atorvastatin (9) Hypomagnesemia: Status: Acute Assessment and plan: -Mg 1.3 on admission -low again 02/11, given 2g additional (10) Hypokalemia: Status: Acute Assessment and plan: -continue with PO replacement and f/u AM bmp Subjective Subjective Patient reports: no new complaints and tolerating a regular diet; denies nausea, vomiting, shortness of breath or fever Interval history since last seen: Events: Improvement noted on pseudoobstruction on XR Atrial fibrillation with rate in 110 up to 150 with activity overnight He feels a little better, but still doesn't have his strength. Abdomen feels better. He wants to make sure he doesn't have this type of infection again. His urine flow is very good now, feels he is emptying his bladder well. Exam Narrative Exam Narrative: Well appearing older gentleman laying in bed in no acute distress, ANO x 4, heart irregularly irregular with rates in the 90s, lungs clear to auscultation bilaterally, abdomen soft, not tender, only mild abdominal distention Objective Last Vital Signs Temp 36.1 C L 02/11/25 15:55 Pulse 61 02/11/25 15:55 Resp 15 02/11/25 15:55 BP 103/68 02/11/25 15:55 Pulse Ox 96 02/11/25 15:55 Laboratory Results - last 24 hr 02/11/25 08:50 WBC 5.64 RBC 3.32 L Hgb 9.8 L Hct 29.1 L MCV 88 MCH 29.5 MCHC 33.7 RDW 14.3 H Plt Count 247 MPV 10.7 Sodium 140 Potassium 3.7 Chloride 105 Carbon Dioxide 23.9 Anion Gap 11.1 H BUN 14 Creatinine 1.2 Est GFR (CKD-EPI 2020) 64.25 Glucose 127 H Calcium 9.4 Phosphorus 4.0 Magnesium 1.7 L Iron 45 L TIBC 262 Transferrin % Sat 17 L Time Spent with Patient Time Spent with Patient: 35-49 minutes Time was spent: preparing to see the patient(eg.review tests), obtaining and/or reviewing separately [facility] hiistory, ordering medications,tests, procedures, referring, communicating with other health laboratory animal care veterinarian, indepentently interpreting results, counseling the patient and care coordination
[2025-02-11] MEDS: MAGNESIUM SULFATE 2 GM/50 ML BAG IV_INF (17:16)
[2025-02-11] MEDS: Rivaroxaban 10 MG TABLET 20 MG PO (20:22)
[2025-02-12 03:44] VITALS: BP 142/81; PULSE 98; RESP 16; TEMP 36.6; O2SAT 97
[2025-02-12] MEDS: Acetaminophen 500 MG TAB 1000 MG PO (07:16)
[2025-02-12 07:19] LABS: Anion Gap 11.2 mmol/L (3-11); BUN 17 mg/dL (7-18); CO2 23.8 mmol/L (21.0-32.0); Calcium 9.4 mg/dL (8.5-10.1); Chloride 104 mmol/L (98-107); Estimated GFR 71.32 (mL/min/1.73m2); Glucose 115 mg/dL (74-106); Magnesium 2.0 mg/dL (1.8-2.4); Potassium 4.0 mmol/L (3.5-5.1); Sodium 139 mmol/L (136-145)
[2025-02-12 07:22] VITALS: BP 148/78; PULSE 100; RESP 18; TEMP 36.5; O2SAT 97
[2025-02-12] MEDS: Atorvastatin 40 MG TAB 80 MG PO (08:52)
[2025-02-12] MEDS: amLODIPine 5 MG TAB PO (08:53)
[2025-02-12] MEDS: Lisinopril 20 MG TAB PO (08:53)
[2025-02-12] MEDS: Chlorthalidone 25 MG TAB PO (08:53)
[2025-02-12] MEDS: Pantoprazole 40 MG TABCR PO (08:53)
[2025-02-12] MEDS: Tamsulosin 0.4 MG CAPCR 0.8 MG PO (08:53)
[2025-02-12] MEDS: Clopidogrel 75 MG TAB PO (08:53)
[2025-02-12] MEDS: Normal Saline Flush 10 ML SYR IVP (08:54)
[2025-02-12 11:27] VITALS: BP 133/58; PULSE 105; RESP 16; TEMP 36.4; O2SAT 95
[2025-02-12] MEDS: Bisoprolol 5 MG TAB PO (11:27)
--- NOTE | 2025-02-12 13:15 | PDOC.CMDIS ---
Date of service: 02/12/25 Time of Service: 13:16 LACE Index Scoring Tool Questions: Length of Stay (in days): 7 - 13 Was the patient admitted via the E.D.?: Yes Comorbidities: Cerebrovascular Disease and Any Tumor E.D. Visits: 2 Answers: Total Score: 13 Risk of Readmission: High Risk Care Management Discharge Plan Reason for Hospitalization: sepsis Discharge Plan: Rick will be discharged home this afternoon with no new services. Rick stated to that he does feel ready. He will f/u with his PCP at [facility], and his oncology team and continue per his plan of care. Rick will transport home in a private vehicle. Patient/Family Education Needs: Review of discharge instructions, activity, limitations, and discuss Ask me 3.
--- NOTE | 2025-02-12 14:00 | PHA.REVIEW2 ---
Pharmacy Admission Review Admission Clinical Review Admission Pharmacy Review: Acute on chronic anemia (Acute) Hypophosphatemia (Acute) Platelet inhibition due to Plavix (Acute) Chronic anticoagulation (Acute) [place] syndrome (Acute) Enterococcal bacteremia (Acute) Septic shock (Acute) Fever (Acute) Hyponatremia (Acute) Atrial fibrillation with RVR (Acute) Sepsis (Acute) Hypokalemia (Acute) Hypomagnesemia (Acute) Paroxysmal atrial fibrillation (Acute 01/02/18) Iron refractory iron deficiency anemia (Acute) No Known Allergies Allergy (Verified 02/05/25 12:14) Resuscitation Status DNR/DNI Height 5 ft 6 in Weight 78.2 kg Comments Comments/Follow Ups: Vancomycin discontinued this morning - completed therapy for bacteremia/septic shock per progress note Pharmacy Admission Review Renal Dosing Renal Dosing: BUN 17 mg/dL (7-18) 02/12/25 06:10 Creatinine 1.1 mg/dL (0.70-1.30) 02/12/25 06:10 Medications needing adjustments: Reviewed (CrCl 59.7 mL/min) List of meds needing interventions: Current medications are okay Anticoagulation Anticoagulation: Hgb 9.8 g/dL (13.5-17.5) L 02/11/25 08:50 Hct 29.1 % (40.0-50.0) L 02/11/25 08:50 Plt Count 247 10^3/uL (130-400) 02/11/25 08:50 Creatinine 1.1 mg/dL (0.70-1.30) 02/12/25 06:10 DVT Prophylaxis: Intervened (Order was set for daily at bedtime, changed to daily at 1700 per pharmacy protocol - doses 15mg or more should be given with evening meal) Medications: Rivaroxaban (20mg daily) Opiate Usage Evaluate Pain Scale/Pains Meds: Reviewed (morphine 1mg IVP q4h PRN - no doses given) Relevant Labs Relevant Labs: ESR 14 mm/hr (0-20) 02/05/25 11:59 Sodium 139 mmol/L (136-145) 02/12/25 06:10 Potassium 4.0 mmol/L (3.5-5.1) 02/12/25 06:10 Chloride 104 mmol/L (98-107) 02/12/25 06:10 Phosphorus 4.0 mg/dL (2.6-4.7) 02/11/25 08:50 Magnesium 2.0 mg/dL (1.8-2.4) 02/12/25 06:10 C-Reactive Protein 9.91 mg/dL (<or=0.5) H 02/05/25 15:52 Electrolytes, C-Reactive P, ESR: Reviewed Cardiac Review Cardiac Review: Troponin I Cancelled 02/05/25 14:52 NT-Pro-B Natriuret Pep 4985 pg/mL (<300) H 02/07/25 13:40 Blood Pressure 133/58 1127 Blood Pressure 148/78 0722 Blood Pressure 142/81 0344 BP, HR, EF%: Reviewed (HR 105) List meds needing interventions: Has orders for amlodipine 5mg daily, bisoprolol 5mg daily, chlorthalidone 25mg daily, diltiazem CD 120mg daily and lisinopril 20mg daily QTc Review QTc: Reviewed (476 from 02/05/25) IV to PO Switch IV Medications: Reviewed (morphine and ondansetron - patient likely being discharged today, if not reach out to provider about changing ondansetron to PO) Home Meds Home Med List reviewed: Reviewed Relevent Home Meds Not ordered & why?: carvedilol, vitamin D3, ferrous sulfate, magnesium, omeprazole (has order for pantoprazole), potassium and sucralfate If patient not discharged today - reach out to provider regarding missing home meds (carvedilol and sucralfate) Current Meds Current Medication Order Review: Intervened Comments: Added IV access order Comments Comments/Follow Ups: Vancomycin discontinued this morning - completed therapy for bacteremia/septic shock per progress note
--- NOTE | 2025-02-12 14:13 | DSE_ITS ---
Date of service: 02/12/25 Time of Service: 14:13 DS: Diagnosis Discharge Diagnosis (1) Septic shock: Status: Acute (2) Enterococcal bacteremia: Status: Acute (3) [place] syndrome: Status: Acute (4) Paroxysmal atrial fibrillation: Status: Acute (5) BPH (benign prostatic hyperplasia): Status: Chronic (6) Anemia: (7) Hypertension: Status: Chronic (8) Cerebrovascular accident (CVA) due to thrombosis of right middle cerebral artery: (9) Hypomagnesemia: Status: Acute (10) Hypokalemia: Status: Acute Discharge Plan Disposition Patient Disposition: Home Condition: Improving Discharge Details Reason For Visit: Weakness Admit Date/Time: 02/05/25 15:08 Admit Provider: Marcus Miranda Attending Provider: Marcus Miranda Primary Care Provider: Unknown,Unknown Hospital Course Hospital Course: 74-year-old gentleman with a known history of atrial fibrillation as well as a history of a CVA who presents with approximately 5 days of worsening weakness and fatigue and was noted to have a fever and be in atrial fibrillation with RVR at admission. He met criteria for septic shock and was breifly on levofloxacin. He was initially treated with vancomycin and cefepime in the ED, which was not continued due to lack of evident infection source. However when the blood culture showed GPC, both antibiotics were resumed on 02/06. Both admission blood cultures grew enterococcus feacalis that was gale-sensitive. When this was resulted, the cefepime was stopped. He received a total of 7 days of IV vancomycin. He was intially hyponatremic, with low phosphorus and magnesium and these normalized. Given the symptoms started after getting prostatic radiation, it was felt prostate translocation was the likely source for the enterococcus. He did not have prostate pain or dysuria and was voiding well with tamsulosin. He developed abdominal pain and distension and was seen by surgery 02/07 and diagnosed with large bowel pseudoobstruction based on abdominal films. His symptoms resolved with conservative care and he was passing gas and stool by the morning of discharge. He had acute on chronic anemia, which got down to hgb 6.6% with his acute illness. He received 2 units PRBCs and his blood counts stabilized in the high 9s. Iron levels revealed a transferrin saturation of 17%. He may benefit from iron supplementation, but he had had difficulty with this in the past. His atrial fibrillation was controlled with bisoprolol and diltiazem. Poor control overnight and in the AM was noted, which was related to his receiving short acting diltiazem rather than long acting. This was corrected prior to discharge. Rivaroxaban was continued. Interaction with diltiazem was noted but he has been chronically on this medication. Given his anemia, altnernative rate control snf could be considered, though we did not see bleeding. He is on clopidogrel and rivaroxaban per recommendation of his vascular surgery team, but with bleeding risk stopping clopidogrel could be considered. This was deferred to the PCP and vascular team. He should follow up with his PCP at [facility] in 1 week Home Meds and New Rx's Prescriptions: New diltiazem HCl 120 mg Capsule,Extended Release 24hr 120 mg PO QAM Qty: 90 0RF Continued lisinopril 20 mg tablet 20 mg PO DAILY Patient Comments: pts hand written med list shows 2 mg 06/23/24 atorvastatin 40 mg tablet 80 mg PO DAILY Xarelto 20 mg tablet 20 mg PO DAILY Rx Instructions: must administer with evening meal omeprazole 20 mg capsule,delayed release(DR/EC) 20 mg PO DAILY chlorthalidone 25 mg tablet 25 mg PO DAILY tamsulosin [Flomax] 0.4 mg capsule 0.8 mg PO DAILY clopidogrel [Plavix] 75 mg tablet 75 mg PO DAILY amlodipine 5 mg Tablet 5 mg PO DAILY Qty: 30 0RF sucralfate 1 gram Tablet 1 g PO AC & HS Qty: 120 0RF magnesium oxide 400 mg (241.3 mg magnesium) Tablet 400 mg PO DAILY Qty: 30 0RF potassium chloride 20 mEq tablet extended release 20 meq PO DAILY Qty: 30 0RF ferrous gluconate 324 mg (37.5 mg iron) tablet 324 mg PO DAILY Qty: 0 0RF bisoprolol fumarate 5 mg tablet 5 mg PO DAILY trazodone 50 mg tablet 50 mg PO QHS PRN cholecalciferol (vitamin D3) 50 mcg (2,000 unit) capsule 50 mcg PO DAILY Discontinued carvedilol 6.25 mg tablet 12.5 mg PO BID Qty: 120 11RF diltiazem HCl 60 mg tablet 120 mg PO DAILY Discharge Instructions Additional Instructions: You were fully treated for the infection that got into your bloodstream. This bacterial likely came from the prostate. Make sure you continue the diltiazem 120mg long acting (24hr) tablet. We sent a new prescription for this. You have an anemia and your iron is slightly low. Taking the clopidogrel and rivaroxaban together increases risk of bleeding. Your diltiazem can increase this risk, though it is important to control your heart rate. Both blood thinners together is the current recommendation of your vascular surgery team, but you may want to discuss this further with them on follow up. Activity:: Activity as Tolerated Equipment/Supplies:: No Equipment Needed Diet:: As Tolerated Discharge Orders Discharge Orders: Discharge Order (Routine); Ordered 02/12/25 Ordered By: Michael Holden DS: Summary Time Spent with Patient providing and/or coordinating discharge services: Greater than 30 minutes Status at Discharge Functional status at discharge: independent ambulation Overall status at discharge: patient is progressing back to baseline Mental Status: mental status grossly normal Speech and Movement: speech and movement normal Mood: congruent mood Affect: normal affect Exam Narrative Exam Narrative: Well appearing older gentleman laying in bed in no acute distress, ANO x 4, heart irregularly irregular with rates in the 70s, lungs clear to auscultation bilaterally, abdomen soft, not tender, only mild abdominal distention. Extremities warm, no edema. Psych Mental Status: mental status grossly normal Speech and Movement: speech and movement normal Mood: congruent mood Affect: normal affect DS: Data Vitals/I&O Vitals and I&O: Vital Signs Temperature 36.4 C L 02/12/25 11:27 Temperature Source Temporal Artery Scan 02/12/25 11:27 Pulse 105 H 02/12/25 11:27 Pulse 105 H 02/07/25 17:30 Respiratory Rate 16 02/12/25 11:27 Respiratory Effort Normal, Non-Labored 02/05/25 12:15 Respiratory Depth Normal 02/05/25 12:15 Respiratory Pattern Normal 02/05/25 12:15 Blood Pressure 133/58 L 02/12/25 11:27 Blood Pressure Mean 83 02/12/25 11:27 Pulse Oximetry 95 02/12/25 11:27 Oxygen Delivery Method Room Air 02/12/25 11:27 Oxygen Flow Rate 0 02/12/25 11:27 Fraction of Inspired Oxygen (FIO2) 96 02/11/25 10:40 Pain Level 0 02/12/25 11:27 Comment rn notified 02/10/25 07:36 Comment Patient standing to void at this time. 02/07/25 15:30 Intake & Output 02/11/25 02/12/25 02/12/25 23:59 11:59 23:59 Intake Total 420 / 620 Balance 420 / 620 Weight 78.2 kg Intake: IV 200 / 400 Oral 220 / 220 Data Completed and Pending Labs on day of discharge: Labs from last 24 hours 02/12/25 06:10 Sodium 139 Potassium 4.0 Chloride 104 Carbon Dioxide 23.8 Anion Gap 11.2 H BUN 17 Creatinine 1.1 Est GFR (CKD-EPI 2020) 71.32 Glucose 115 H Calcium 9.4 Magnesium 2.0 Total Testosterone Pending [facility] All Active Problems (Updated 02/08/25 @ 08:50 by Suzanne Hitchcock MD) Acute on chronic anemia (Acute) Hypophosphatemia (Acute) Platelet inhibition due to Plavix (Acute) Chronic anticoagulation (Acute) Prostate cancer (Chronic) [place] syndrome (Acute) Abdominal distension (Acute) Enterococcal bacteremia (Acute) Septic shock (Acute) Fever (Acute) Hyponatremia (Acute) Atrial fibrillation with RVR (Acute) Sepsis (Acute) Otitis media, left (Acute) Congenital bilateral pes cavus (Acute) Pain in joints of both feet (Acute) Hypokalemia (Acute) Diverticulosis (Acute) Accelerated essential hypertension (Acute) Hypomagnesemia (Acute) Tendinopathy of right biceps tendon (Acute) distal Afib (Chronic) PVD (peripheral vascular disease) with claudication (Acute) Foot pain (Acute) Lower urinary tract symptoms (LUTS) (Acute) Third degree heart block (Acute) Obstructive sleep apnea (Chronic) Chronic fatigue (Chronic) since CVA, worsening after COVID19 Acute GI bleeding (Acute) Enlarged prostate (Acute) BPH (benign prostatic hyperplasia) (Chronic) Hemorrhage of large intestine due to diverticular disease (Acute) PVD (peripheral vascular disease) (Chronic) COVID (Acute) Iron refractory iron deficiency anemia (Acute) Umbilical hernia (Acute) Paroxysmal atrial fibrillation (Acute 01/02/18) Stroke (Chronic) 09/14/17 Hypertension (Chronic) Medical History SARS-CoV-2 antibody positive Adequate anticoagulation on anticoagulant therapy SVT (supraventricular tachycardia) Carotid artery stenosis bilateral last us 02/07 no stenosis, check q2yrs or prn Diverticula of colon pandivericulitis- severe Sleep apnea History of ileus Anemia Cerebrovascular accident (CVA) due to thrombosis of right middle cerebral artery (10/11/17) Weakness Tobacco abuse 35 pack year, quit Susan 2018, yearly Lung VT scan Osteoarthritis Arthritis Paresthesia Fatigue Aphasia Intermittent chest pain Vitiligo Surgical History S/P arterial stent H/O umbilical hernia repair (06/13/18) Dr Montiel H/O colonoscopy (03/2021) 2020: Dr. Horne, diverticula, no polyps repeat 10 years 2018:Dr Montiel, negative, repeat in 10 years History of total bilateral knee replacement H/O bilateral inguinal hernia repair Family History Father Alcohol use disorder Heart disease Mother Breast cancer Sister Breast cancer Other Carotid artery stenosis Social History Smoking/Tobacco Use Status: Former Tobacco Use Quit Date: 09/17/18 Tobacco: How many years used: 30 Smoking risk assessment performed?: Yes Alcohol Intake: former Drug use: Never Substance use type: does not use Housing: house Current gender identity: male What type of physical activity do you participate in: none Do you feel safe at home: Yes Do you feel safe in your relationship?: Yes Time Spent with Patient Time Spent with Patient: 45-69 minutes Time was spent: preparing to see the patient(eg.review tests), obtaining and/or reviewing separately otained hiistory, ordering medications,tests, procedures, referring, communicating with other health cattle care worker, indepentently interpreting results, counseling the patient and care coordination
== END 2025-02-12 15:19 | disposition home or self-care (01) | DRG 871 ==
LOC: ER 14:28 → ICU 19:18 → MS 02-07 16:57
PROVIDERS: Family Medicine; Radiology Radiation Oncology; Surgery; Admitting Provider Hospitalist; Emergency Provider General Practice; Responsible Provider Family Medicine; Visit Provider Hospitalist
DX: A41.81 Sepsis due to Enterococcus (principal); R65.21 Severe sepsis with septic shock; N17.9 Acute kidney failure, unspecified; E87.1 Hypo-osmolality and hyponatremia; I44.2 Atrioventricular block, complete; K59.81 Ogilvie syndrome; B95.2 Enterococcus as the cause of diseases classified elsewhere; I73.9 Peripheral vascular disease, unspecified; E83.39 Other disorders of phosphorus metabolism; I48.0 Paroxysmal atrial fibrillation; E87.6 Hypokalemia; E83.42 Hypomagnesemia; C61 Malignant neoplasm of prostate; Z79.02 Long term (current) use of antithrombotics/antiplatelets; Z79.01 Long term (current) use of anticoagulants; Z79.899 Other long term (current) drug therapy; I10 Essential (primary) hypertension; G47.33 Obstructive sleep apnea (adult) (pediatric); R53.82 Chronic fatigue, unspecified; I69.398 Other sequelae of cerebral infarction; D50.9 Iron deficiency anemia, unspecified; K57.30 Diverticulosis of large intestine without perforation or abscess without bleeding; Z87.891 Personal history of nicotine dependence; Z96.653 Presence of artificial knee joint, bilateral; E78.5 Hyperlipidemia, unspecified; Z95.828 Presence of other vascular implants and grafts; T66.XXXA Radiation sickness, unspecified, initial encounter; Y84.2 Radiological procedure and radiotherapy as the cause of abnormal reaction of the patient, or of later complication, without mention of misadventure at the time of the procedure
CPT/HCPCS: 00123; 36415; 36430; 80048; 80053; 80069; 84145; 84403; 85027; 85652; 86850; 86900; 86901; 86920; 87040; 87077; 87637; 93005; 96365; 96366; 96367; 96368; 96375; 97161; 99291; J1650; 71045; 74019; 74022; 74176; 74178; 80202; 81003; 81015; 82270; 83540; 83550; 83605; 83735; 83880; 84100; 84132; 84443; 84484; 85014; 85018; 85025; 86140; 87186; 93010; 99223; 99232; 99233; 99239; J0131; J0282; J0283; J0692; J2405; J2470; J3373; J3475; J3480; J3490; P9016

== ENCOUNTER 2025-02-20 15:45 | Outpatient (CLI) | payer BC, MEDICARE, SELFPAY ==
[2025-02-20 15:05] LABS: Abs Immature Grans 0.03 10^3/uL (0.0-0.06); HCT 25.6 % (40.0-50.0); HGB 8.7 g/dL (13.5-17.5); Immature Grans % 0.5 %; MCH 29.5 pg (27.0-33.0); MCHC 34.0 % (32.0-36.0); MCV 87 fL (80-95); MPV 9.5 fL (8.0-11.0); Platelet Count 247 10^3/uL (130-400); RBC 2.95 10^6/uL (4.36-5.78); RDW 14.1 % (11.8-14.1); RDW-SD 44.4 fL; WBC 6.19 10^3/uL (4.4-10.8)
[2025-02-20 15:20] LABS: ALT 34 U/L (16-63); AST 25 U/L (15-37); Albumin 3.4 g/dL (3.4-5.0); Alkaline Phosphatase 82 U/L (46-116); Anion Gap 11.2 mmol/L (3-11); BUN 30 mg/dL (7-18); Bilirubin, Total 0.4 mg/dL (0.2-1.0); CO2 21.8 mmol/L (21.0-32.0); Calcium 9.4 mg/dL (8.5-10.1); Chloride 104 mmol/L (98-107); Estimated GFR 49.16 (mL/min/1.73m2); Glucose 95 mg/dL (74-106); Potassium 4.2 mmol/L (3.5-5.1); Sodium 137 mmol/L (136-145); Total Protein 7.0 g/dL (6.4-8.2)
== END 2025-02-20 15:46 | disposition home or self-care (01) ==
LOC: LBO 15:45
PROVIDERS: Visit Provider Radiology Radiation Oncology
DX: C61 Malignant neoplasm of prostate (principal)
CPT/HCPCS: 36415; 80053; 84153; 84403; 85025

== ENCOUNTER 2025-03-04 01:35 | Outpatient (CLI) | payer BC, MEDICARE, SELFPAY ==
[2025-03-04 15:32] LABS: Abs Immature Grans 0.02 10^3/uL (0.0-0.06); HCT 27.8 % (40.0-50.0); HGB 9.5 g/dL (13.5-17.5); Immature Grans % 0.3 %; MCH 30.4 pg (27.0-33.0); MCHC 34.2 % (32.0-36.0); MCV 89 fL (80-95); MPV 10.2 fL (8.0-11.0); Platelet Count 175 10^3/uL (130-400); RBC 3.13 10^6/uL (4.36-5.78); RDW 15.1 % (11.8-14.1); RDW-SD 49.4 fL; WBC 6.45 10^3/uL (4.4-10.8)
[2025-03-04 15:35] LABS: Glucose Negative (Negative)
[2025-03-04 15:37] LABS: ESR 12 mm/hr (0-20)
[2025-03-04 15:44] LABS: RBC 0-2 HPF (0-2); WBC Negative HPF (0-5)
[2025-03-04 18:08] LABS: ALT 26 U/L (16-63); AST 26 U/L (15-37); Albumin 3.6 g/dL (3.4-5.0); Alkaline Phosphatase 84 U/L (46-116); Anion Gap 11.5 mmol/L (3-11); BUN 21 mg/dL (7-18); Bilirubin, Total 0.3 mg/dL (0.2-1.0); CO2 25.5 mmol/L (21.0-32.0); Calcium 8.9 mg/dL (8.5-10.1); Chloride 106 mmol/L (98-107); Estimated GFR 71.32 (mL/min/1.73m2); Glucose 99 mg/dL (74-106); Potassium 3.3 mmol/L (3.5-5.1); Sodium 143 mmol/L (136-145); Total Protein 6.7 g/dL (6.4-8.2)
[2025-03-04 18:09] LABS: C-Reactive Protein < 0.50 mg/dL (<or=0.5)
== END 2025-03-04 01:36 | disposition home or self-care (01) ==
LOC: LBO 03-05 01:35
PROVIDERS: Visit Provider Family Medicine
DX: I95.9 Hypotension, unspecified (principal); R19.7 Diarrhea, unspecified; Z92.89 Personal history of other medical treatment; Z86.19 Personal history of other infectious and parasitic diseases; R53.1 Weakness
CPT/HCPCS: 36415; 80053; 85652; 81003; 81015; 85025; 86140; 87086

== ENCOUNTER 2025-03-05 20:12 | Outpatient (REF) | payer BC, MEDICARE, SELFPAY | END 2025-03-05 20:13 | disposition home or self-care (01) | LOC: LBN 20:12 | PROVIDERS: Visit Provider Family Medicine | DX: I95.9 Hypotension, unspecified (principal); R19.7 Diarrhea, unspecified; Z92.89 Personal history of other medical treatment; Z86.19 Personal history of other infectious and parasitic diseases; R53.1 Weakness | CPT/HCPCS: 83993 ==

== ENCOUNTER 2025-05-13 01:22 | Outpatient (RCR) | payer BC, MEDICARE, SELFPAY ==
[2025-05-13] MEDS: Normal Saline Flush 10 ML SYR IVP (13:13)
[2025-05-13] MEDS: SODIUM FER. GLUC./SUC. 125 MG in Normal Saline 100 ML 110 MG IVPB (13:13)
[2025-05-13 13:27] LABS: HCT 25.9 % (40.0-50.0); HGB 8.6 g/dL (13.5-17.5); MCH 30.0 pg (27.0-33.0); MCHC 33.2 % (32.0-36.0); MCV 90 fL (80-95); MPV 10.2 fL (8.0-11.0); Platelet Count 191 10^3/uL (130-400); RBC 2.87 10^6/uL (4.36-5.78); RDW 13.6 % (11.8-14.1); RDW-SD 44.8 fL; WBC 5.68 10^3/uL (4.4-10.8)
[2025-05-13 13:51] LABS: ALT 24 U/L (10-49); AST 29 U/L (<34); Albumin 4.5 g/dL (3.2-5.0); Alkaline Phosphatase 60 U/L (46-116); Anion Gap 11.5 mmol/L (3-11); BUN 24 mg/dL (9-23); Bilirubin, Total 0.60 mg/dL (0.2-1.2); CO2 23.5 mmol/L (20.0-31.0); Calcium 9.6 mg/dL (8.3-10.6); Chloride 105 mmol/L (98-107); Glucose 92 mg/dL (74-106); Potassium 4.6 mmol/L (3.5-5.1); Sodium 140 mmol/L (136-145); Total Protein 7.3 g/dL (5.7-8.2)
== END 2025-05-18 23:59 | disposition home or self-care (01) ==
LOC: INF 01:22
PROVIDERS: Visit Provider Family Medicine
DX: C61 Malignant neoplasm of prostate (principal); D50.8 Other iron deficiency anemias
CPT/HCPCS: 36415; 80053; 84153; 84403; 84410; 85027; 96365; J2916

== ENCOUNTER → 2025-05-16 01:55 | Outpatient (CLI) | payer BC, MEDICARE, SELFPAY ==
--- NOTE | 2025-05-16 06:15 | DI.RAD_ITS ---
Exam(s) XR LUMBAR SPINE COMPLETE EXAM: XR LUMBAR SPINE COMPLETE CLINICAL HISTORY: LBP and b/l pain below knees, m=M54.50. TECHNIQUE: 2D digital imaging was performed. Five views. COMPARISON: CT CT CHEST PE CTA from 07/05/[address] THORAX ABD/PEL CTA from 05/28/[address] ABDOMEN PELVIS WO from 02/07/2025 FINDINGS: BONES: No fracture or destructive lesion. Vertebral body heights are maintained. There are mild facet degenerative changes. DISKS: Severe narrowing of the L5-S1 disc space. Endplate sclerosis. The remaining intervertebral disc spaces are maintained. ALIGNMENT: Bilateral L5 spondylolysis and mild spondylolisthesis, unchanged from prior abdomen pelvic CT examinations. SOFT TISSUE: Severe atherosclerotic calcifications. Bilateral iliac artery stents. IMPRESSION: L5 spondylolysis and mild L5-S1 spondylolisthesis. Severe degenerative disc changes at L5-S1. DATA REPOSITORY: RADIATION DOSE DELIVERED:
--- NOTE | 2025-05-16 09:00 | DI.DEXA_ITS ---
Exam(s) XR DEXA BONE DENSITY W/WO NICHOLAS EXAM: XR DEXA BONE DENSITY W/WO NICHOLAS CLINICAL HISTORY: prostate cancer on lupron, Z79.818, C61 TECHNIQUE: [employer] C densitometer analysis of left hip, lumbar spine and right forearm. Lateral survey image of the thoracic and lumbar spine. COMPARISON: CR XR ABD FLAT UPRIGHT PA CHEST from 02/11/2025 CR XR LUMBAR SPINE COMPLETE from 05/16/2025 FINDINGS: Lateral view of the thoracic and lumbar spine shows no evidence of compression fractures. Bone mineral density measurements of the lumbar spine correspond to a total T- score of 2.8, in the normal range. Bone mineral density measurements of the left hip correspond to a total T-score of 0.3. The femoral neck T-score is -0.9, in the normal range.. Theright forearm bone mineral density measurements correspond to a T-score of the distal 3rd of 1.3, in the normal range. IMPRESSION: Normal bone mineral density.
== END ==
LOC: DI 01:55
PROVIDERS: Visit Provider Family Medicine
DX: M47.27 Other spondylosis with radiculopathy, lumbosacral region (principal); Z79.818 Long term (current) use of other agents affecting estrogen receptors and estrogen levels; C61 Malignant neoplasm of prostate
CPT/HCPCS: 77080; 72110

== ENCOUNTER 2025-05-21 01:33 | Outpatient (CLI) | payer BC, MEDICARE, SELFPAY ==
[2025-05-21 14:05] LABS: Abs Immature Grans 0.02 10^3/uL (0.0-0.06); HCT 25.0 % (40.0-50.0); HGB 8.5 g/dL (13.5-17.5); Immature Grans % 0.4 %; MCH 30.9 pg (27.0-33.0); MCHC 34.0 % (32.0-36.0); MCV 91 fL (80-95); MPV 9.7 fL (8.0-11.0); Platelet Count 206 10^3/uL (130-400); RBC 2.75 10^6/uL (4.36-5.78); RDW 13.6 % (11.8-14.1); RDW-SD 44.4 fL; WBC 4.96 10^3/uL (4.4-10.8)
[2025-05-21 14:26] LABS: Ferritin 83 ng/mL (11-307)
== END 2025-05-21 01:34 | disposition home or self-care (01) ==
LOC: LBO 01:33
PROVIDERS: Visit Provider Internal Medicine Hematology & Oncology
DX: D50.0 Iron deficiency anemia secondary to blood loss (chronic) (principal)
CPT/HCPCS: 36415; 82728; 85025

== ENCOUNTER 2025-06-04 00:52 | Outpatient (CLI) | payer BC, MEDICARE, SELFPAY ==
[2025-06-04 13:19] LABS: Abs Immature Grans 0.01 10^3/uL (0.0-0.06); HCT 29.5 % (40.0-50.0); HGB 10.0 g/dL (13.5-17.5); Immature Grans % 0.3 %; MCH 31.2 pg (27.0-33.0); MCHC 33.9 % (32.0-36.0); MCV 92 fL (80-95); MPV 9.5 fL (8.0-11.0); Platelet Count 192 10^3/uL (130-400); RBC 3.21 10^6/uL (4.36-5.78); RDW 14.8 % (11.8-14.1); RDW-SD 49.2 fL; WBC 3.94 10^3/uL (4.4-10.8)
[2025-06-04 14:32] LABS: Ferritin 402 ng/mL (11-307)
== END 2025-06-04 00:53 | disposition home or self-care (01) ==
LOC: LBO 00:52
PROVIDERS: Family Medicine; PCP Family Medicine; Visit Provider Internal Medicine Hematology & Oncology
DX: C61 Malignant neoplasm of prostate (principal); D50.0 Iron deficiency anemia secondary to blood loss (chronic)
CPT/HCPCS: 36415; 84403; 84410; 82728; 85025

== ENCOUNTER 2025-06-09 01:41 | Outpatient (CLI) | payer BC, MEDICARE, SELFPAY ==
[2025-06-09 11:51] LABS: Abs Immature Grans 0.04 10^3/uL (0.0-0.06); HCT 31.3 % (40.0-50.0); HGB 10.6 g/dL (13.5-17.5); Immature Grans % 0.9 %; MCH 31.1 pg (27.0-33.0); MCHC 33.9 % (32.0-36.0); MCV 92 fL (80-95); MPV 9.9 fL (8.0-11.0); Platelet Count 196 10^3/uL (130-400); RBC 3.41 10^6/uL (4.36-5.78); RDW 13.9 % (11.8-14.1); RDW-SD 47.3 fL; WBC 4.58 10^3/uL (4.4-10.8)
[2025-06-09 13:08] LABS: Ferritin 308 ng/mL (11-307)
== END 2025-06-09 01:42 | disposition home or self-care (01) ==
LOC: LBO 01:41
PROVIDERS: PCP Family Medicine; Visit Provider Radiology Radiation Oncology
DX: C61 Malignant neoplasm of prostate (principal); D50.0 Iron deficiency anemia secondary to blood loss (chronic)
CPT/HCPCS: 36415; 84153; 84403; 82728; 85025

== ENCOUNTER → 2025-06-17 09:14 | Outpatient (CLI) | payer BC, MEDICARE, SELFPAY ==
--- NOTE | 2025-06-17 | DI.MRI_ITS ---
Exam(s) MR LUMBAR SPINE WO EXAM: MR LUMBAR SPINE WO CLINICAL HISTORY: H/O SEVERE LOW BACK PAIN RADIATING TO LEG,? MARKED NARROWING L5-S1 causing. TECHNIQUE: Multiplanar multisequence MRI of the Lumbar spine was performed. COMPARISON: CR XR LUMBAR SPINE COMPLETE from 05/16/2025 FINDINGS: Conus medullaris is at normal level. There is no evidence of conus mass nor subjacent clumping of intrathecal nerve roots to suggest arachnoiditis. The distal thecal sac appears unremarkable.There is no evidence of Tarlov intrasacral cysts nor other significant findings within the sacral canal Bones:There multilevel Schmorl's node endplate invagination XXXX, not associated with bone edema to suggest that they are acute. With respect to the individual levels... T12-L1: Unremarkable L1-2: Preserved disc height. Anterior osseous lipping. Posteriorly there is symmetrical annular bulging but a dominant disc herniation nor central canal stenosis. There is no significant foraminal stenosis evident. Facet joints unremarkable. L2-3: Relatively preserved disc height. Schmorl's node invaginations evident on both sides the disc space. There is broad relatively symmetrical annular bulging. No dominant focal disc herniation. Central canal dimensions are lower normal. Mild facet joint degenerative changes. No significant foraminal stenosis. L3-4: Preserved disc height. Posteriorly there is symmetrical annular bulging, this annular bulging extending into the floor of the exiting left neural foramen; less so on the right side. There is no significant foraminal stenosis on either side. There is flattening of the anterior thecal sac. Central canal dimensions are lower normal for this age group. L4-5: Normal disc height. Posteriorly there is central annular bulging. No significant central canal stenosis. No significant foraminal stenosis. Facet joints unremarkable. L5-S1: There is advanced chronic disc space narrowing at this level and there is 1.3 cm anterior listhesis of L5 upon S1 which is due to bilateral pars defects at L5 level. There are Modic type 1 sub endplate marrow edema changes on both sides the disc space. There is no central canal stenosis as the listhesis results in increased AP dimension of the canal. However, there is severe bilateral foraminal stenosis with severe impingement of the bilateral exiting nerve roots which are impinged between the subjacent annulus and the overlying L5 pedicles. Soft tissues: paraspinal soft tissues appear unremarkable.Incidentally noted is a small cyst in the lateral cortex of the right kidney measuring 1.3 cm. Does not require further workup. IMPRESSION: 1. The main findings are at L5-S1 level where there is 1.3 cm anterolisthesis of L5 upon S1 due to bilateral pars defects at L5 level and there is also chronic advanced disc space narrowing at this level and sub endplate marrow edema Modic type 1 changes. Although there is no focal disc herniation at this level nor central canal stenosis, there is severe bilateral vertical foraminal stenosis as described above with severe compression of the exiting nerve roots bilaterally between the underlying annulus and the overlying L5 pedicles. 2. Other lesser findings at the other levels as described above. DATA REPOSITORY:
== END ==
LOC: DI 09:14
PROVIDERS: PCP Family Medicine; Visit Provider Family Medicine
DX: M54.50 Low back pain, unspecified (principal); M54.16 Radiculopathy, lumbar region
CPT/HCPCS: 72148